=== PATIENT | female | born 1980 | race Caucasian/White ===

== ENCOUNTER 2022-01-18 11:02 | Outpatient (CLI) | payer OTHER, MEDICAID, SELFPAY ==
[2022-01-18 11:23] LABS: Ur HCG Qualitative* Negative (Negative)
== END 2022-01-18 11:03 | disposition home or self-care (01) ==
PROVIDERS: PCP Physician Assistant Medical; Visit Provider Obstetrics & Gynecology
DX: Z01.812 Encounter for preprocedural laboratory examination (principal)
CPT/HCPCS: 81025

== ENCOUNTER 2023-02-20 09:24 | Outpatient (CLI) | payer OTHER, MEDICAID, SELFPAY | END 2023-02-20 09:25 | disposition home or self-care (01) | LOC: NFLDREF 02-22 11:30 | PROVIDERS: PCP Physician Assistant Medical; Referring Provider Physician Assistant Medical; Visit Provider Physician Assistant Medical | DX: Z00.00 Encounter for general adult medical examination without abnormal findings (principal); E78.5 Hyperlipidemia, unspecified; Z13.1 Encounter for screening for diabetes mellitus; Z13.29 Encounter for screening for other suspected endocrine disorder | CPT/HCPCS: 80053; 80061; 84443 ==

== ENCOUNTER 2023-06-25 09:47 | Outpatient (CLI) | payer MEDICAID, SELFPAY | END 2023-06-25 09:48 | disposition home or self-care (01) | LOC: NFLDREF 09:48 | PROVIDERS: PCP Physician Assistant Medical; Visit Provider Obstetrics & Gynecology | DX: Z34.90 Encounter for supervision of normal pregnancy, unspecified, unspecified trimester (principal) | CPT/HCPCS: 84702 ==

== ENCOUNTER 2023-07-06 08:17 | Outpatient (CLI) | payer MEDICAID, SELFPAY ==
--- NOTE | 2023-07-06 08:15 | CRLHL7_ITS ---
For Patients: As a result of the Cures Act, medical imaging exams and procedure reports are released immediately into your electronic medical record. You may view this report before your referring provider. If you have questions, please contact your health care provider. INDICATION: First trimester scan, establish dates. COMPARISON: None. TECHNIQUE: Real-time vargas-scale imaging of the pelvis was performed. FINDINGS: Sonographic imaging demonstrates a single living intrauterine gestation. The embryo demonstrates a regular cardiac rate measuring 167 beats per minute. The embryo`s crown-rump length measurement of 3.6 cm corresponds to a gestational age of 10 weeks 3 days with a sonographic due date of 01/09/2024. There is a normal-appearing yolk sac. There are no gross abnormalities noted within the embryo at this early state of development. The gestational sac has a normal appearance. There is no evidence of a perigestational hemorrhage. The amount of fluid within the sac appears appropriate for gestational age. The cervix is closed. The myometrium appears normal. Corpus luteal cyst right ovary. Left ovary not visualized. There are no suspicious fluid collections noted in the cul-de-sac. IMPRESSION: Single living intrauterine with sonographic gestational age 10 weeks 3 days and sonographic due date 01/29/2024. Dictated by Chay Cox MD @ 07/06/2023 9:35:21 AM (Electronically Signed)
== END 2023-07-06 08:18 | disposition home or self-care (01) ==
LOC: US 08:19
PROVIDERS: PCP Physician Assistant Medical; Visit Provider Advanced Practice Midwife
DX: Z34.91 Encounter for supervision of normal pregnancy, unspecified, first trimester (principal); Z3A.10 10 weeks gestation of pregnancy
CPT/HCPCS: 76817; 86592; 86703; 86704; 86706; 86762; 86787; 86803; 86850; 86900; 86901; 87340

== ENCOUNTER 2023-07-30 12:03 | Outpatient (CLI) | payer MEDICAID, SELFPAY | END 2023-07-30 12:04 | disposition home or self-care (01) | LOC: NFLDREF 15:42 | PROVIDERS: PCP Physician Assistant Medical; Referring Provider Physician Assistant Medical; Visit Provider Obstetrics & Gynecology | DX: O09.521 Supervision of elderly multigravida, first trimester (principal); Z3A.13 13 weeks gestation of pregnancy | CPT/HCPCS: 87086 ==

== ENCOUNTER 2023-09-12 14:02 | Outpatient (CLI) | payer MEDICAID, SELFPAY | END 2023-09-12 14:03 | disposition home or self-care (01) | PROVIDERS: PCP Physician Assistant Medical; Visit Provider Obstetrics & Gynecology | DX: Z34.92 Encounter for supervision of normal pregnancy, unspecified, second trimester (principal); Z3A.20 20 weeks gestation of pregnancy | CPT/HCPCS: 85610; 85613; 85730; 86146; 86147 ==

== ENCOUNTER 2023-10-11 09:39 | Outpatient (CLI) | payer MEDICAID, SELFPAY ==
--- OUTSIDE RECORDS SUMMARY | 2023-10-15 07:15 | XMS_ITS | Clinical Summary ---
Author Name Unknown [facility] Address [address] [place] [address] Care Team Providers Care Six Sigma Black Belt Engineer Name Role Phone Mary Bergman PA-C Primary Care Provider Encounters Date Type Department Care Team Description 09/28/2023 10:00 AM CDT Office Visit [facility] [address] [place] [address] Tatum Leavitt MD Sabol, Bethany, MD AMA (advanced maternal age) multigravida 35+, second trimester (Primary Dx) 09/28/2023 9:26 AM CDT - 09/28/2023 11:59 PM CDT Hospital Encounter [facility] [address] [place] [address] Tatum Leavitt MD Sabol, Bethany, MD AMA (advanced maternal age) multigravida 35+, second trimester Discharge Disposition: Home or Self Care 09/28/2023 Travel 08/31/2023 9:15 AM TIE MILL OPERATOR Office Visit [facility] [address] [place] [phone] Maame Greenfield MD Yamamura, Yasuko, MD AMA (advanced maternal age) multigravida 35+, second trimester (Primary Dx) 08/31/2023 8:36 AM TIE MILL OPERATOR - 08/31/2023 11:59 PM TIE MILL OPERATOR Hospital Encounter [facility] [address] [place] [phone] Maame Greenfield MD Yamamura, Yasuko, MD related condition, antepartum Discharge Disposition: Home or Self Care 08/31/2023 Travel 08/30/2023 Travel 08/23/2023 PRE VISIT [facility] Maternal Medicine [facility] [address] [place] [phone] Megan Robertson RN Ultrasound (L2/TV- AMA>40, Hx of LEEP) 07/30/2023 Medical Correspondence [facility] [address] [place] [address] Scan, Non-Provider 07/30/2023 Transcribe Orders [facility] Maternal Medicine [place] [address] [place] [phone] Maame Greenfield MD related condition, antepartum (Primary Dx) from Last 3 Months Social History Tobacco Use Types Packs/Day Years Used Date Smoking Tobacco: Never Assessed Adolescent Education Answer Date Record ed Getting School Help Needed Not on file 07/31 Estimated Date of Delivery Comme nts Yes 01/29/2024 Based on Ultraso und Sex and Gender Information Value Date Recorded Sex Assigned at Not on file Gender Identity Not on file Sexual Orientation Not on file Plan of Treatment Health Maintenance Due Date Last Done Comments ADVANCE CARE PLANNING 1980 ANNUAL REVIEW OF HM ORDERS 1979 GLUCOSE 1979 MAMMO SCREENING 1979 YEARLY PREVENTIVE VISIT 1979 HIV SCREENING 1994 HEPATITIS C SCREENING 1997 HEPATITIS B IMMUNIZATION (1 of 3 - 19+ 3-dose series) 1998 LIPID 2019 COVID-19 Vaccine (1 - 2022-2 4 season) 2023 INFLUENZA VACCINE (#1) 2023 05/23/2019 MATERNAL SCREENING DISCUSSION 07/03/2023 PHQ-2 (once per calendar year) 2023 OBGCT (OB) 10/09/2023 DTAP/TDAP/TD IMMUNIZATION (2 - Td or Tdap) 11/15/2025 11/16/2015 PAP 04/23/2026 04/23/2023, 04/23/2023 HPV IMMUNIZATION Aged Out No longer e ligible based on patient's age to complete this topic IPV IMMUNIZATION Aged Out No longer e ligible based on patient's age to complete this topic MENINGITIS IMMUNIZATION Aged Out No l onger eligible based on patient's age to complete this topic Pneumococcal Vaccine: Pediatrics (0 to 5 Years) and At-Risk Patients (6 to 64 Years) Aged Out No longer eligible b ased on patient's age to complete this topic RSV MONOCLONAL ANTIBODY Aged Out No l onger eligible based on patient's age to complete this topic RSV VACCINE ( & 60+ ) (No Doses Required) Completed Procedures Procedure Name Priority Date/Time Associated Diagnosis Comments [facility] US COMPREHENSIVE SINGLE F/U Routine 09/28/2023 9:55 AM CDT AMA (advanced maternal age) multigravida 35+, second trimester [facility] US COMPREHENSIVE SINGLE Routine 08/31/2023 9:41 AM TIE MILL OPERATOR related condition, antepartum from Last 3 Months Results * [facility] Comprehensive Single F/U (09/28/2023 9:55 AM CDT) Anatomical Region Laterality Modality Ultrasound 09/28/2023 9:28 AM CDT Impressions 09/28/2023 10:09 AM CDT IMPRESSION ----- 1. Jones intrauterine at 22w 3d gestational age here for completion of anatomy. 2. The remaining anatomic survey was completed, no anomalies commonly detected by ultrasound were identified within the limits of ultrasound. 3. Growth parameters and estimated weight were consistent with established dates. 4. The amniotic fluid volume appeared normal. Narrative 09/28/2023 10:09 AM CDT ?Comp Follow Up ----- Pat. Name: GERA WELLS ? Study Date: ??09/28/2023 9:28am Pat. NO: ??[id number] ?Referring ??MD: MAAME VU Site: ??[facility] ? Field Service Manager: Genet Kline RDMS : ??1980 ?Age: ?? 43 ----- INDICATION ----- Reevaluate growth and suboptimal anatomy METHOD ----- Transabdominal ultrasound examination. View: Sufficient ----- Jones . Number of fetuses: 1 DATING ----- ? Date ?Details ?Gest. age ?PASTOR LMP ?03/28/2023 ? 26 w + 2 d ? 01/02/2024 Prior assessment ? 07/06/2023 ? GA: 10 w + 3 d ? 22 w + 3 d ? 01/29/2024 U/S ? 09/28/2023 ? based upon AC, BPD, Femur, HC ?22 w + 2 d ? 01/30/2024 Assigned dating ?Dating performed on 08/31/2023, based on the prior assessment (on 07/06/2023) ? 22 w + 3 d ? 01/29/2024 GENERAL EVALUATION ----- Cardiac activity present. FHR 153 bpm. movements present. Presentation breech. Placenta anterior, no previa > 2 cm from internal os. Umbilical cord 3 vessel cord. Amniotic fluid Amount of AF: normal. MVP 7.2 cm. BIOMETRY ----- Main Biometry: BPD ?53.4 ?mm ? 22w 2d ?Hadlock OFD ?72.1 ?mm ? 22w 2d ?Nicolaides HC ?200.5 ?mm ?22w 1d ?Hadlock Cerebellum tr ?24.9 ? mm ?22w 6d ?Nicolaides AC ?179.6 ?mm ?22w 6d ?55% ?Hadlock Femur ?36.9 ? mm ?21w 5d ?Hadlock Weight Calculation: EFW ? 495 ? g ? 37% ?Hadlock EFW (lb,oz) ? 1 lb 1 ?oz EFW by ?Hadlock ([id number]) Head / Face / Neck Biometry: Ordnance Technician ? 5.6 ? mm CM ?5.4 ? mm ANATOMY ----- The following structures appear normal: Head / Neck ? Cranium. Head size. Head shape. Lateral ventricles. Midline falx. Cavum septi pellucidi. Cerebellum. Cisterna magna. Thalami. Face ? Lips. Profile. Nose. Heart / Thorax ?4-chamber view. RVOT view. LVOT view. Situs. Aortic arch view. 9-ehgpsd-bmaptlp view. ? Diaphragm. Abdomen ? Stomach. Kidneys. Bladder. Spine ?Cervical spine. Thoracic spine. Lumbar spine. Sacral spine. Gender: female. MATERNAL STRUCTURES ----- Cervix ?Suboptimal Right Ovary ?Not examined Left Ovary ?Not examined RECOMMENDATION ----- Thank-you for referring your patient for ultrasound assessment. I discussed the findings on today's ultrasound with the patient. I reviewed the limitations of ultrasound. Follow-up assessment of growth is recommended at 32 weeks due to AMA > 40. Weekly testing is also recommended at 36 weeks with consideration for delivery at 39 weeks. I presume these follow-ups will be done in your office. Return to primary provider for continued care. If you have questions regarding today's evaluation or if we can be of further service, please contact the [facility]. anomalies may be present but not detected I spent a total of 10 minutes on the date of this encounter including preparing to see the patient (reviewing medical records/tests), counseling and discussing the plan of care, documenting the visit in the electronic medical record, and communicating with other health rn patient care and/or care coordination. Procedure Note Alyx Larkin MD - 09/28/2023 Comp Follow Up ----- Pat. Name: GERA WELLS Study Date: 09/28/2023 9:28am Pat. NO: [id number] Referring MD: MAAME GREENFIELD Site: [facility] Field Service Manager: Genet Kline RDMS : 1980 Age: 43 ----- INDICATION ----- Reevaluate growth and suboptimal anatomy METHOD ----- Transabdominal ultrasound examination. View: Sufficient ----- Jones . Number of fetuses: 1 DATING ----- DateDetailsGest. age PASTOR LMP w + 2 d 01/02/2024 Prior assessment 07/06/2023 GA: 10 w +3 d22 w + 3 d 01/29/2024 U/S 09/28/2023ased upon AC, BPD, Femur, HC22 w + 2 d 01/30/2024 Assigned dating Dating performed on 08/31/2023, based onthe prior assessment (on 07/06/2023) 22 w + 3 01/29/2024 GENERAL EVALUATION ----- Cardiac activity present. FHR 153 bpm. movements present. Presentation breech. Placenta anterior, no previa > 2 cm from internal os. Umbilical cord 3 vessel cord. Amniotic fluid Amount of AF: normal. MVP 7.2 cm. BIOMETRY ----- Main Biometry: BPD 53.4 mm22w 2d Hadlock OFD 72.1 mm22w 2d Nicolaides HC 200.5 mm22w 1d Hadlock Cerebellum tr 24.9 mm22w 6d Nicolaides AC 179.6 mm22w 6d 55% Hadlock Femur 36.9 mm21w 5d Hadlock Weight Calculation: EFW 495 g37% Hadlock EFW (lb,oz) 1 lb 1 oz EFW by Melecio ([id number]) Head / Face / Neck Biometry: Ordnance Technician 5.6 mm CM 5.4 mm ANATOMY ----- The following structures appear normal: Head / Neck Cranium. Head size. Head shape.Lateral ventricles. Midline falx. Cavum septi pellucidi. Cerebellum.Cisterna magna. Thalami. Face Lips. Profile. Nose. Heart / Thorax 4-chamber view. RVOT view. LVOT view.Situs. Aortic arch view. 1-dlklkk-hvafogj view. Diaphragm. Abdomen Stomach. Kidneys. Bladder. Spine Cervical spine. Thoracic spine.Lumbar spine. Sacral spine. Gender: female. MATERNAL STRUCTURES ----- Cervix Suboptimal Right Ovary Not examined Left Ovary Not examined RECOMMENDATION ----- Thank-you for referring your patient for ultrasound assessment. I discussed the findings on today's ultrasound with the patient. Ireviewed the limitations of ultrasound. Follow-up assessment of growth is recommended at 32 weeks due to AMA> 40. Weekly testing is also recommended at 36 weeks withconsideration for delivery at 39 weeks. I presume these follow-ups will be done in youroffice. Return to primary provider for continued care. If you have questions regarding today's evaluation or if we can be offurther service, please contact the [facility]. anomalies may be present but not detected I spent a total of 10 minutes on the date of this encounter includingpreparing to see the patient (reviewing medical records/tests), counselingand discussing the plan of care, documenting the visit in the electronic medical record, andcommunicating with other health rn patient care and/or carecoordination. IMPRESSION ----- 1. Jones intrauterine at 22w 3d gestational age here forcompletion of anatomy. 2. The remaining anatomic survey was completed, no anomaliescommonly detected by ultrasound were identified within the limits ofprenatal ultrasound. 3. Growth parameters and estimated weight were consistent withestablished dates. 4. The amniotic fluid volume appeared normal. Tatum Leavitt MD [facility] US ORDERABLE S * [facility] US Comprehensive Single (08/31/2023 9:41 AM TIE MILL OPERATOR) Anatomical Region Laterality Modality Ultrasound 08/31/2023 8:37 AM TIE MILL OPERATOR Impressions 08/31/2023 2:56 PM TIE MILL OPERATOR IMPRESSION ----- 1) Jones intrauterine at 18w 3d gestational age. 2) None of the anomalies commonly detected by ultrasound were evident in the detailed anatomic survey described above, although evaluation of anatomy was suboptimal as noted above. 3) Growth parameters and estimated weight were consistent with an appropriate for gestation age pattern of growth. 4) The amniotic fluid volume appeared normal. 5) Transvaginal ultrasound was performed in conjunction with a transabdominal ultrasound to better visualize the cervix. Cervical length appears to be within normal limits for gestational age. Narrative 08/31/2023 2:56 PM TIE MILL OPERATOR ?Comprehensive ----- Pat. Name: GERA WELLS ? Study Date: ??08/31/2023 8:37am Pat. NO: ??[id number] ?Referring ??MD: MAAME VU Site: ??[facility] ? Field Service Manager: Grisel Monroe RDMS : ??1980 ?Age: ?? 43 ----- INDICATION ----- Advanced maternal age. History of LEEP x3. Low risk NIPT. METHOD ----- Transabdominal and transvaginal ultrasound approaches were used. (Transvaginal ultrasound examination was required to adequately complete the exam.). View: Suboptimal view: limited by activity. Suboptimal view: limited by position. ----- Jones . Number of fetuses: 1 DATING ----- ? Date ?Details ?Gest. age ?PASTOR LMP ?03/28/2023 ? 22 w + 2 d ? 01/02/2024 Prior assessment ? 07/06/2023 ? GA: 10 w + 3 d ? 18 w + 3 d ? 01/29/2024 U/S ? 08/31/2023 ? based upon AC, BPD, Femur, HC ?18 w + 4 d ? 01/28/2024 Assigned dating ?Dating performed on 08/31/2023, based on the prior assessment (on 07/06/2023) ? 18 w + 3 d ? 01/29/2024 GENERAL EVALUATION ----- Cardiac activity present. FHR 146 bpm. movements present. Presentation Variable. Placenta Anterior, No Previa, > 2 cm from internal os. Umbilical cord 3 vessel cord. Amniotic fluid Amount of AF: normal. MVP 5.1 cm. BIOMETRY ----- Main Biometry: BPD ?42.6 ?mm ? 18w 6d ?Hadlock OFD ?55.1 ?mm ? 18w 2d ?Nicolaides HC ?155.6 ?mm ?18w 3d ?Hadlock Cerebellum tr ?18.9 ? mm ?18w 3d ?Nicolaides AC ?137.1 ?mm ?19w 1d ?71% ?Hadlock Femur ?25.8 ? mm ?17w 6d ?Hadlock Humerus ?25.9 ?mm ? 18w 1d ?Joyce Weight Calculation: EFW ? 245 ? g ? 50% ?Hadlock EFW (lb,oz) ? 0 lb 9 ?oz EFW by ?Hadlock ([id number]) Head / Face / Neck Biometry: Ordnance Technician ? 7.0 ? mm CM ?4.7 ? mm Nasal bone ? 6.0 ? mm Nuchal fold ? 3.7 ? mm ANATOMY ----- The following structures appear normal: Head / Neck ? Cranium. Head size. Head shape. Lateral ventricles. Choroid plexus. Midline falx. Cerebellum. Cisterna magna. Parenchyma. Thalami. ? Vermis. ? Neck. Nuchal fold. Face ? Lips. Profile. Nose. Maxilla. Mandible. Orbits. Lens. Heart / Thorax ?RVOT view. LVOT view. Situs. Bicaval view. Ductal arch view. Superior vena cava. Inferior vena cava. 3-vessel view. 5-ipylfs-qufsqnt view. ? Cardiac position. Cardiac size. Cardiac rhythm. ? Right lung. Left lung. Abdomen ? Abdominal wall. Cord insertion. Stomach. Bladder. Liver. Bowel. Genitals. Spine ?Cervical spine. Thoracic spine. Lumbar spine. Sacral spine. Extremities / Skeleton ?Right arm. Right hand. Left arm. Left hand. Right leg. Right foot. Left leg. Left foot. The following structures could not be adequately visualized: Head / Neck ? Cavum septi pellucidi. Heart / Thorax ?4-chamber view: Suboptimal subcostal view.. Aortic arch view. ? Diaphragm. Abdomen ? Kidneys. Gender: female. MATERNAL STRUCTURES ----- Cervix ?Visualized ? Appearance: Appears Closed ? Approach - Transvaginal: Cervical length 33.7 mm Right Ovary ?Visualized Left Ovary ?Visualized RECOMMENDATION ----- We discussed the findings on today's ultrasound with the patient. The patient had low risk cell free DNA screening. We discussed the availability of amniocentesis for the precise diagnosis of chromosomal abnormalities, which Gera has declined. A repeat US has been scheduled here in 3 weeks to re-evaluate growth and anatomy that were suboptimally seen today. Given AMA > 40, recommend repeat assessment of growth and anatomy at 32 weeks and weekly BPP 36 weeks, which I anticipate will be scheduled at [facility]. Return to primary provider for continued care. Thank you for the opportunity to participate in the care of this patient. If you have questions regarding today's evaluation or if we can be of further service, please contact the [facility]. anomalies may be present but not detected I spent a total of 15 minutes on the date of this encounter including preparing to see the patient (reviewing medical records/tests), in direct yfij-mu-fjcm contact with the patient during her visit with the majority spent counseling and discussing the plan of care and documenting the visit in the electronic medical record. Please see note for details. Procedure Note Tatum Leavitt MD - 08/31/2023 Comprehensive ----- Pat. Name: GERA WELLS Study Date: 08/31/2023 8:37am Pat. NO: [id number] Referring MD: MAAME GREENFIELD Site: [facility] Field Service Manager: Grisel Monroe RDMS : 1980 Age: 43 ----- INDICATION ----- Advanced maternal age. History of LEEP x3. Low risk NIPT. METHOD ----- Transabdominal and transvaginal ultrasound approaches were used.(Transvaginal ultrasound examination was required to adequately completethe exam.). View: Suboptimal view: limited by activity. Suboptimal view: limited byfetal position. ----- Jones . Number of fetuses: 1 DATING ----- DateDetailsGest. age PASTOR LMP w + 2 d 01/02/2024 Prior assessment 07/06/2023 GA: 10 w +3 d18 w + 3 d 01/29/2024 U/S 08/31/2023ased upon AC, BPD, Femur, HC18 w + 4 d 01/28/2024 Assigned dating Dating performed on 08/31/2023, based onthe prior assessment (on 07/06/2023) 18 w + 3 01/29/2024 GENERAL EVALUATION ----- Cardiac activity present. FHR 146 bpm. movements present. Presentation Variable. Placenta Anterior, No Previa, > 2 cm from internal os. Umbilical cord 3 vessel cord. Amniotic fluid Amount of AF: normal. MVP 5.1 cm. BIOMETRY ----- Main Biometry: BPD 42.6 mm18w 6d Hadlock OFD 55.1 mm18w 2d Nicolaides HC 155.6 mm18w 3d Hadlock Cerebellum tr 18.9 mm18w 3d Nicolaides AC 137.1 mm19w 1d 71% Hadlock Femur 25.8 mm17w 6d Hadlock Humerus 25.9 mm18w 1d Joyce Weight Calculation: EFW 245 g50% Hadlock EFW (lb,oz) 0 lb 9 oz EFW by Hadlock ([id number]) Head / Face / Neck Biometry: Ordnance Technician 7.0 mm CM 4.7 mm Nasal bone 6.0 mm Nuchal fold 3.7 mm ANATOMY ----- The following structures appear normal: Head / Neck Cranium. Head size. Head shape.Lateral ventricles. Choroid plexus. Midline falx. Cerebellum. Cisternamagna. Parenchyma. Thalami. Vermis. Neck. Nuchal fold. Face Lips. Profile. Nose. Maxilla.Mandible. Orbits. Lens. Heart / Thorax RVOT view. LVOT view. Situs. Bicavalview. Ductal arch view. Superior vena cava. Inferior vena cava. 3-vesselview. 6-ndnmtd-ptndayq view. Cardiac position. Cardiac size.Cardiac rhythm. Right lung. Left lung. Abdomen Abdominal wall. Cord insertion.Stomach. Bladder. Liver. Bowel. Genitals. Spine Cervical spine. Thoracic spine.Lumbar spine. Sacral spine. Extremities / Skeleton Right arm. Right hand. Left arm. [place]. Right leg. Right foot. Left leg. Left foot. The following structures could not be adequately visualized: Head / Neck Cavum septi pellucidi. Heart / Thorax 4-chamber view: Suboptimal subcostalview.. Aortic arch view. Diaphragm. Abdomen Kidneys. Gender: female. MATERNAL STRUCTURES ----- Cervix Visualized Appearance: Appears Closed Approach - Transvaginal:Cervical length 33.7 mm Right Ovary Visualized Left Ovary Visualized RECOMMENDATION ----- We discussed the findings on today's ultrasound with the patient. The patient had low risk cell free DNA screening. We discussed theavailability of amniocentesis for the precise diagnosis of chromosomalabnormalities, which Gera has declined. A repeat US has been scheduled here in 3 weeks tore-evaluate growth and anatomy that were suboptimally seen today.Given AMA > 40, recommend repeat assessment of growth and anatomy at 32 weeks and weekly BPP36 weeks, which I anticipate will be scheduled at [facility]. Return to primary provider for continued care. Thank you for the opportunity to participate in the care of this patient.If you have questions regarding today's evaluation or if we can be offurther service, please contact the [facility]. anomalies may be present but not detected I spent a total of 15 minutes on the date of this encounter includingpreparing to see the patient (reviewing medical records/tests), in cretktwtgn-pb-refr contact with the patient during her visit with the majority spent counseling and discussingthe plan of care and documenting the visit in the electronic medicalrecord. Please see note for details. IMPRESSION ----- 1) Jones intrauterine at 18w 3d gestational age. 2) None of the anomalies commonly detected by ultrasound were evident inthe detailed anatomic survey described above, although evaluation offetal anatomy was suboptimal as noted above. 3) Growth parameters and estimated weight were consistent with anappropriate for gestation age pattern of growth. 4) The amniotic fluid volume appeared normal. 5) Transvaginal ultrasound was performed in conjunction with atransabdominal ultrasound to better visualize the cervix. Cervical lengthappears to be within normal limits for gestational age. Maame Regis [facility] US ORDERABLE S from Last 3 Months Care Teams Six Sigma Black Belt Engineer Relationship Specialty Start Date End Date Mary Bergman PA-C [facility] [address] [place] [address] PCP - General Physician Carrier Operator 07/30/23
--- OUTSIDE RECORDS SUMMARY | 2023-10-15 07:15 | XMS_ITS | Encounter Summary ---
Author Name Unknown Organization [place] Address [address] [facility] [place] [address] Care Team Providers Care Land Manager Name Role Phone Mary Bergman PA-C Primary Care Provider Reason for Visit * Reason Comments Ultrasound [id number] Encounter Details Date Type Department Care Team (Late st Contact Info) Description 09/28/2023 10:00 AM CDT Office Visit [facility] [place] [address] [place] [address] Tatum Leavitt MD [address] [place] [address] Alyx Larkin MD [address] [place] [address] AMA (advanced maternal age) multigravida 35+, second trimester (Primary Dx) Social History Tobacco Use Types Packs/Day Years Used Date Smoking Tobacco: Never Assessed Adolescent Education Answer Date Record ed Getting School Help Needed Not on file 07/31 Estimated Date of Delivery Comme nts Yes 01/29/2024 Based on Ultraso und Sex and Gender Information Value Date Recorded Sex Assigned at Not on file Gender Identity Not on file Sexual Orientation Not on file documented as of this encounter Progress Notes * Alyx Larkin MD - 09/28/2023 10:00 AM CDT The patient was seen for an ultrasound in the Maternal- Medicine Center at the [facility] today. For a detailed report of the ultrasound examination, please see the ultrasound report which can be found under the imaging tab. If you have questions regarding today's evaluation or if we can be of further service, please contact the Maternal- Medicine Center. Alyx Larkin MD Dry Cleaning Manager, PAYROLL PROFESSIONAL Maternal- Medicine [phone] (Pager) documented in this encounter Plan of Treatment Not on file documented as of this encounter Visit Diagnoses Diagnosis AMA (advanced maternal age) multigravida 35+, second trimester- Primary documented in this encounter Care Teams Land Manager Relationship Specialty Start Date End Date Mary Bergman PA-C [facility] [address] [place] [address] PCP - General Physician Print Manager 07/30/23 documented as of this encounter
--- OUTSIDE RECORDS SUMMARY | 2023-10-15 07:15 | XMS_ITS | Encounter Summary ---
Author Name Unknown Organization [place] Address [facility] [place] [address] Care Team Providers Care Commercial Credit Officer Name Role Phone Mary Bergman PA-C Primary Care Provider Encounter Details Date Type Department Care Team (Latest Contact Info) Description 09/28/2023 Travel Social History Tobacco Use Types Packs/Day Years [...] on file documented as of this encounter Plan of Treatment Not on file documented as of this encounter Visit Diagnoses Not on filedocumented in this encounter Care Teams Commercial Credit Officer Relationship Specialty Start Date End Date Mary Bergman PA-C [facility] [address] [place] [address] PCP - General Physician Exhibition Designer 07/30/23 documented as of this encounter
--- OUTSIDE RECORDS SUMMARY | 2023-10-15 07:15 | XMS_ITS | Referral Summary ---
Author Name Unknown Organization [place] Address [address] [place] [address] Care Team Providers Care Commander Police Reserves Name Role Phone Mary Bergman PA-C Primary Care Provider Encounters Date Type Department Care Team Description 09/28/2023 Travel 09/28/2023 10:00 AM CDT Office Visit [facility] Maternal Medicine [facility] [address] [place] [address] Tatum Leavitt MD Sabol, Bethany, MD AMA (advanced maternal age) multigravida 35+, second trimester (Primary Dx) 09/28/2023 9:26 AM CDT - 09/28/2023 11:59 PM CDT Hospital Encounter [facility] Maternal Medicine [facility] [address] [place] [address] Tatum Leavitt MD Sabol, Bethany, MD AMA (advanced maternal age) multigravida 35+, second trimester Discharge Disposition: Home or Self Care 08/31/2023 Travel 08/31/2023 9:15 AM TOOL TECHNICIAN Office Visit [facility] Medicine [facility] [address] [place] [address] Maame Greenfield MD Yamamura, Yasuko, MD AMA (advanced maternal age) multigravida 35+, second trimester (Primary Dx) 08/31/2023 8:36 AM TOOL TECHNICIAN - 08/31/2023 11:59 PM TOOL TECHNICIAN Hospital Encounter [facility] Medicine [facility] [address] [place] [phone] Maame Greenfield MD Yamamura, Yasuko, MD related condition, antepartum Discharge Disposition: Home or Self Care 08/30/2023 Travel 08/23/2023 PRE VISIT [facility] Maternal Medicine [facility] [address] [place] [phone] Megan Robertson RN Ultrasound (L2/TV- AMA>40, Hx of LEEP) 07/30/2023 Medical Correspondence [facility] Info Mgmt [facility] [address] [facility] [place] [address] Scan, Non-Provider 07/30/2023 Transcribe Orders [facility] Medicine [place] [address] [place] [phone] Maame Greenfield MD related condition, antepartum (Primary [...] Orientation Not on file Plan of Treatment Not on file Procedures Procedure Name Priority Date/Time Associated Diagnosis Comments [facility] US COMPREHENSIVE SINGLE F/U Routine 09/28/2023 9:55 AM CDT AMA (advanced maternal age) multigravida 35+, second trimester [facility] US COMPREHENSIVE SINGLE Routine 08/31/2023 9:41 AM TOOL TECHNICIAN related condition, antepartum from Last 3 Months Results * [facility] US Comprehensive Single F/U (09/28/2023 9:55 AM CDT) [...] ? Study Date: ??09/28/2023 9:28am Pat. NO: ??[id number] ?Referring ??MD: MAAME VU Site: ??[facility] ? Caustic Room Operator: Genet Kline RDMS : ??1980 ?Age: ?? [...] 1 lb 1 ?oz EFW by ?Hadlock ([id number]) Head / Face / Neck Biometry: Oceanologist ? 5.6 ? mm CM ?5.4 ? mm ANATOMY ----- The following structures appear normal: Head / Neck ? Cranium. Head size. Head shape. Lateral ventricles. Midline falx. Cavum septi pellucidi. Cerebellum. Cisterna magna. Thalami. Face ? Lips. Profile. Nose. Heart / Thorax ?4-chamber view. RVOT view. LVOT view. Situs. Aortic arch view. 1-jvwqcw-lfgrucb view. ? Diaphragm. Abdomen ? Stomach. Kidneys. [...] medical record, and communicating with other health pediatric care coordinator and/or care coordination. Procedure Note Alyx Larkin MD - 09/28/2023 Comp Follow Up ----- Pat. Name: GERA WELLS Study Date: 09/28/2023 9:28am Pat. NO: [id number] Referring MD: MAAME GREENFIELD Site: [facility] Caustic Room Operator: Genet Kline RDMS : 1980 Age: 43 [...] (lb,oz) 1 lb 1 oz EFW by Hadlock ([id number]) Head / Face / Neck Biometry: Oceanologist 5.6 mm CM 5.4 mm ANATOMY ----- The following structures appear normal: Head / Neck Cranium. Head size. Head shape.Lateral ventricles. Midline falx. Cavum septi pellucidi. Cerebellum.Cisterna magna. Thalami. Face Lips. Profile. Nose. Heart / Thorax 4-chamber view. RVOT view. LVOT view.Situs. Aortic arch view. 1-gwjizi-bqvwxwv view. Diaphragm. Abdomen Stomach. Kidneys. Bladder. Spine [...] electronic medical record, andcommunicating with other health pediatric care coordinator and/or carecoordination. IMPRESSION ----- 1. Jones intrauterine at 22w 3d gestational age here forcompletion of anatomy. 2. The remaining anatomic survey was completed, no anomaliescommonly detected by ultrasound were identified within the limits ofprenatal ultrasound. 3. Growth parameters and estimated weight were consistent withestablished dates. 4. The amniotic fluid volume appeared normal. Tatum Leavitt MD [facility] ORDERABLE [facility] Comprehensive Single (08/31/2023 9:41 AM TOOL TECHNICIAN) Anatomical Region Laterality Modality Ultrasound 08/31/2023 8:37 AM TOOL TECHNICIAN Impressions 08/31/2023 2:56 PM TOOL TECHNICIAN IMPRESSION ----- 1) Jones intrauterine at 18w [...] for gestational age. Narrative 08/31/2023 2:56 PM TOOL TECHNICIAN ?Comprehensive ----- Pat. Name: GERA WELLS ? Study Date: ??08/31/2023 8:37am Pat. NO: ??[id number] ?Referring ??: MAAME GREENFIELD Site: ??[facility] ? Caustic Room Operator: Grisel Monroe RDMS : ??1980 ?Age: ?? [...] Biometry: BPD ?42.6 ?mm ? 18w 6d ?Melecio LEON ?55.1 ?mm ? 18w 2d ?Nicolaides HC ?155.6 ?mm ?18w 3d ?Hadlock Cerebellum tr ?18.9 ? mm ?18w 3d ?Nicolaides AC ?137.1 ?mm ?19w 1d ?71% ?Hadlock Femur ?25.8 ? mm ?17w 6d ?Hadlock Humerus ?25.9 ?mm ? 18w 1d ?Joyce Weight Calculation: EFW ? 245 ? g ? 50% ?Hadlock EFW (lb,oz) ? 0 lb 9 ?oz EFW by ?Hadlock ([id number]) Head / Face / Neck Biometry: Oceanologist ? 7.0 ? mm CM ?4.7 ? [...] vena cava. Inferior vena cava. 3-vessel view. 1-hogelr-keeaflv view. ? Cardiac position. Cardiac size. Cardiac [...] which I anticipate will be scheduled at [place]. Return to primary provider for continued care. [...] the patient (reviewing medical records/tests), in direct zaze-aw-knvb contact with the patient during her visit with the majority spent counseling and discussing the plan of care and documenting the visit in the electronic medical record. Please see note for details. Procedure Note Tatum Leavitt MD - 08/31/2023 Comprehensive ----- Pat. Name: GERA WELLS Study Date: 08/31/2023 8:37am Pat. NO: [id number] Referring MD: MAAME GREENFIELD Site: [facility] Caustic Room Operator: Grisel Monroe RDMS : 1980 Age: 43 [...] 0 lb 9 oz EFW by Hadlock ([id number]-[id number]-FL) Head / Face / Neck Biometry: Oceanologist 7.0 mm CM 4.7 mm Nasal bone [...] Superior vena cava. Inferior vena cava. 3-vesselview. 3-ooloyu-kjxyxur view. Cardiac position. Cardiac size.Cardiac rhythm. Right [...] which I anticipate will be scheduled at [place]. Return to primary provider for continued care. [...] see the patient (reviewing medical records/tests), in ikbcuuwujz-kj-vweb contact with the patient during her visit [...] limits for gestational age. Maame Regis [facility] US ORDERABLE S from Last 3 Months Care Teams Commander Police Reserves Relationship Specialty Start Date End Date Mary Bergman PA-C [facility] [address] [place] [address] PCP - General Physician Sanding Machine Tender 07/30/23
--- OUTSIDE RECORDS SUMMARY | 2023-10-15 07:16 | XMS_ITS | Encounter Summary ---
Author Name Unknown Organization [place] Address [address] [place] [address] Care Team Providers Care Orthotist Name Role Phone Mary Bergman PA-C Primary Care Provider Reason for Referral * Diagnostic Imaging Ultrasound (Routine) - Pending Review Specialty Diagnoses / Procedures Referred By Contac t Referred To Contact Radiology. Diagnoses related condition, antepartum Procedures [facility] US Comprehensive Single Maame Greenfield MD [facility] [address] [place] [address] Referral ID Status Reason Start Date Expiration Date V isits Requested Visits Authorized [id number] Pending Review 07/30/2023 07/29/2024 1 1 DOGGER * Consultation (Routine: Next available opening) - Pending Review Specialty Diagnoses / Procedures Referred By Contac t Referred To Contact Diagnoses related condition, antepartum Maame Greenfield MD [facility] [address] [place] [address] [facility] Maternal Med [address] [place] [address] Referral ID Status Reason Start Date Expiration Date V isits Requested Visits Authorized [id number] Pending Review 07/30/2023 07/29/2024 1 1 Question Answer Preferred Location: [facility] PASTOR 01/29/2024 Ultrasound Comprehensive US (>than 18 weeks GA) US PROC NONE MFM Issue Advanced Maternal Age *MUST request Genetic Counseling JAYCEEM Consultation (unrelated to Ultrasound findings): No Inflammatory Bowel Disease Clinic: Joint MFM and GI Consultation: No Chronic Kidney Disease: Joint MFM and Nephrology Consultation No Genetic Counseling Consultation: Yes fax Maame Antoinette Greenfield, Comments There is no height or weight on file to calculate BMI. >> Patient may proceed with recommendations for further testing as directed by the Maternal Medicine Specialist >> >> If requesting Echo: MFM will determine appropriate location for exam due to indication. Please be aware that coverage of these services is subject to the terms and limitations of your health insurance plan. Call member services at your health plan with any benefit or coverage questions. DOGGER Encounter Details Date Type Department Care Team (Latest Contact Info) Description 07/30/2023 Transcribe Orders [facility] Maternal Medicine Center [place] [address] [place] [address] Maame Greenfield MD [facility] [address] [place] [id number] related condition, antepartum (Primary Dx) Social History Tobacco Use Types Packs/Day Years Used Date Smoking Tobacco: Never Assessed Adolescent Education Answer Date Record ed Getting School Help Needed Not on file 07/31 Sex and Gender Information Value Date Recorded Sex Assigned at Not on file Gender Identity Not on file Sexual Orientation Not on file documented as of this encounter Plan of Treatment Scheduled Referrals Name Type Priority Associated Diagnoses Orde r Schedule Mat Med Ctr Referral - Referral Routine: Next available opening related condition, antepartum Expected: 07/30/2023 (Approximate), Expires: 07/30/2024 documented as of this encounter Results * [facility] US Comprehensive Single (08/31/2023 9:41 AM TAIL DOGGER) Anatomical Region Laterality Modality Ultrasound 08/31/2023 8:37 AM TAIL DOGGER Impressions 08/31/2023 2:56 PM TAIL DOGGER IMPRESSION ----- 1) Jones intrauterine at 18w [...] for gestational age. Narrative 08/31/2023 2:56 PM TAIL DOGGER ?Comprehensive ----- Pat. Name: GERA CONNER ? Study Date: ??08/31/2023 8:37am Pat. NO: ??[id number] ?Referring ??MD: MAAME GREENFIELD Site: ??[facility] ? Surveillance Systems Engineer: Grisel Monroe RDMS : ??1980 ?Age: ?? [...] ? 0 lb 9 ?oz EFW by ?Claudialock ([id number]-FL) Head / Face / Neck Biometry: Conveyor Feeder Offbearer ? 7.0 ? mm CM ?4.7 ? [...] vena cava. Inferior vena cava. 3-vessel view. 3-txfvtd-mxmvtsh view. ? Cardiac position. Cardiac size. Cardiac [...] which I anticipate will be scheduled at [place]. Return to primary provider for continued care. [...] the patient (reviewing medical records/tests), in direct kwvz-oz-zpum contact with the patient during her visit with the majority spent counseling and discussing the plan of care and documenting the visit in the electronic medical record. Please see note for details. Procedure Note Tatum Leavitt MD - 08/31/2023 Comprehensive ----- Pat. Name: GERA CONNER Study Date: 08/31/2023 8:37am Pat. NO: [id number] Referring MD: MAAME GREENFIELD Site: [facility] Surveillance Systems Engineer: Grisel Monroe RDMS : 1980 Age: 43 [...] 0 lb 9 oz EFW by Hadlock ([id number]) Head / Face / Neck Biometry: Conveyor Feeder Offbearer 7.0 mm CM 4.7 mm Nasal bone [...] Superior vena cava. Inferior vena cava. 3-vesselview. 1-enqxvz-ygmhgop view. Cardiac position. Cardiac size.Cardiac rhythm. Right [...] which I anticipate will be scheduled at [place]. Return to primary provider for continued care. [...] see the patient (reviewing medical records/tests), in qwlibaglbx-sp-krsz contact with the patient during her visit [...] normal limits for gestational age. Maame Regis [facility] US ORDERABLE S documented in this encounter Visit Diagnoses Diagnosis related condition, antepartum- Primary related condition, antepartum documented in this encounter Care Teams Orthotist Relationship Specialty Start Date End Date Mary Bergman PA-C [facility] [address] [place] [address] PCP - General Physician Pick Up Truck Driver 07/30/23 documented as of this encounter
--- OUTSIDE RECORDS SUMMARY | 2023-10-15 07:16 | XMS_ITS | Encounter Summary ---
Author Name Unknown Organization [place] Address [facility] [address] Care Team Providers Care Line Supply Name Role Phone Mary Bergman PA-C Primary Care Provider Reason for Referral * Diagnostic Imaging Ultrasound (Routine) - Pending Review Specialty Diagnoses / Procedures Referred By Onofre jimenez Referred To Contact Radiology. Diagnoses Encounter for follow-up ultrasound of anatomy Procedures [facility] US Comprehensive Single F/U Tatum Leavitt MD [address] [place] [id number] Referral ID Status Reason Start Date Expiration Date V isits Requested Visits Authorized [id number] Pending Review 08/31/2023 08/30/2024 1 1 Reason for Visit * Diagnostic Imaging Ultrasound (Routine) - Pending Review Specialty Diagnoses / Procedures Referred By Onofre jimenez Referred To Contact Radiology. Diagnoses Encounter for follow-up ultrasound of anatomy Procedures [facility] US Comprehensive Single F/U Tatum Leavitt MD [address] [place] [address] Referral ID Status Reason Start Date Expiration Date V isits Requested Visits Authorized [id number] Pending Review 08/31/2023 08/30/2024 1 1 Encounter Details Date Type Department Care Team (Latest Contact Info) Description 09/28/2023 9:26 AM CDT - 09/28/2023 11:59 PM CDT Hospital Encounter [facility] Maternal Medicine Center [place] [address] [place] [address] Tatum Leavitt MD [address] [place] [address] Alyx Larkin MD [address] [place] [address] AMA (advanced maternal age) multigravida 35+, second trimester Discharge Disposition: Home or Self Care Social History Tobacco Use Types Packs/Day Years [...] on file documented as of this encounter Procedures Procedure Name Priority Date/Time Associated Diagnosis Comments [facility] COMPREHENSIVE SINGLE F/U Routine 09/28/2023 9:55 AM CDT AMA (advanced maternal age) multigravida 35+, second trimester documented in this encounter Results * [facility] Comprehensive Single F/U (09/28/2023 9:55 AM CDT) [...] ?Comp Follow Up ----- Pat. Name: GERA CONNER ? Study Date: ??09/28/2023 9:28am Pat. NO: ??[id number] ?Referring ??MD: ERIKA VU Site: ??[facility] ? Outdoor Fitness Trainer: Genet Kline RDMS : ??1980 ?Age: ?? [...] 1 lb 1 ?oz EFW by ?Hadlock ([id number]) Head / Face / Neck Biometry: Pocket And Pulley Machine Operator ? 5.6 ? mm CM ?5.4 ? mm ANATOMY ----- The following structures appear normal: Head / Neck ? Cranium. Head size. Head shape. Lateral ventricles. Midline falx. Cavum septi pellucidi. Cerebellum. Cisterna magna. Thalami. Face ? Lips. Profile. Nose. Heart / Thorax ?4-chamber view. RVOT view. LVOT view. Situs. Aortic arch view. 6-pbyagp-dhexggu view. ? Diaphragm. Abdomen ? Stomach. Kidneys. [...] medical record, and communicating with other health healthcare analyst and/or care coordination. Procedure Note Alyx Larkin MD - 09/28/2023 Comp Follow Up ----- Pat. Name: GERA CONNER Study Date: 09/28/2023 9:28am Pat. NO: [id number] Referring MD: ERIKA GREENFIELD Site: [facility] Outdoor Fitness Trainer: Genet Kline RDMS : 1980 Age: 43 [...] 1 lb 1 oz EFW by Melecio ([id number]) Head / Face / Neck Biometry: Pocket And Pulley Machine Operator 5.6 mm CM 5.4 mm ANATOMY ----- The following structures appear normal: Head / Neck Cranium. Head size. Head shape.Lateral ventricles. Midline falx. Cavum septi pellucidi. Cerebellum.Cisterna magna. Thalami. Face Lips. Profile. Nose. Heart / Thorax 4-chamber view. RVOT view. LVOT view.Situs. Aortic arch view. 8-afjaue-erciuil view. Diaphragm. Abdomen Stomach. Kidneys. Bladder. Spine [...] electronic medical record, andcommunicating with other health healthcare analyst and/or carecoordination. IMPRESSION ----- 1. Jones intrauterine at 22w 3d gestational age here forcompletion of anatomy. 2. The remaining anatomic survey was completed, no anomaliescommonly detected by ultrasound were identified within the limits ofprenatal ultrasound. 3. Growth parameters and estimated weight were consistent withestablished dates. 4. The amniotic fluid volume appeared normal. Tatum Leavitt MD [facility] US ORDERABLE S documented in this encounter Visit Diagnoses Diagnosis AMA (advanced maternal age) multigravida 35+, second trimester documented in this encounter Care Teams Line Supply Relationship Specialty Start Date End Date Mary Bergman PA-C [facility] [address] [place] [address] PCP - General Physician Coal Trammer 07/30/23 documented as of this encounter
--- OUTSIDE RECORDS SUMMARY | 2023-10-15 07:16 | XMS_ITS | Encounter Summary ---
Author Name Unknown Organization [place] Address [facility] [place] [address] Care Team Providers Care Insulation Professional Name Role Phone Mary Bergman PA-C Primary Care Provider Encounter Details Date Type Department Care Team (Latest Contact Info) Description 08/30/2023 Travel Social History Tobacco Use Types Packs/Day [...] on filedocumented in this encounter Care Teams Insulation Professional Relationship Specialty Start Date End Date Mary Bergman PA-C [facility] [address] [place] [address] PCP - General Physician Blanchard Grinder Operator 07/30/23 documented as of this encounter
--- OUTSIDE RECORDS SUMMARY | 2023-10-15 07:16 | XMS_ITS | Encounter Summary ---
Author Name Unknown Organization [place] Address [address] [place] [address]. [place] [address] Care Team Providers Care Carbon Furnace Operator Helper Name Role Phone Mary Bergman PA-C Primary Care Provider Encounter Details Date Type Department Care Team (Late st Contact Info) Description 07/30/2023 Medical Correspondence [facility] [address] [place] [address] Scan, Non-Provider Social History Tobacco Use Types Packs/Day Years [...] on filedocumented in this encounter Care Teams Carbon Furnace Operator Helper Relationship Specialty Start Date End Date Mary Bergman PA-C [facility] [address] [place] [address] PCP - General Physician Quality Assurance Intern 07/30/23 documented as of this encounter
--- OUTSIDE RECORDS SUMMARY | 2023-10-15 07:16 | XMS_ITS | Encounter Summary ---
Author Name Unknown Organization [place] Address [facility] [place] [address] Care Team Providers Care Radio Mechanic Helper Name Role Phone Mary Bergman PA-C Primary Care Provider Reason for Referral * Diagnostic Imaging Ultrasound (Routine) - Pending Review Specialty Diagnoses / Procedures Referred By Contac t Referred To Contact Radiology. Diagnoses related condition, antepartum Procedures [facility] US Comprehensive Single Maame Greenfield MD [facility] [address] [place] [address] Referral ID Status Reason Start Date Expiration Date V isits Requested Visits Authorized [id number] Pending Review 07/30/2023 07/29/2024 1 1 EWATER ANALYST Reason for Visit * Diagnostic Imaging Ultrasound (Routine) - Pending Review Specialty Diagnoses / Procedures Referred By Contac t Referred To Contact Radiology. Diagnoses related condition, antepartum Procedures [facility] US Comprehensive Single Maame Greenfield MD [facility] [address] [place] [address] Referral ID Status Reason Start Date Expiration Date V isits Requested Visits Authorized [id number] Pending Review 07/30/2023 07/29/2024 1 1 Encounter Details Date Type Department Care Team (Latest Contact Info) Description 08/31/2023 8:36 AM WASTEWATER ANALYST - 08/31/2023 11:59 PM WASTEWATER ANALYST Hospital Encounter [facility] [place] [address] [place] [address] Maame Greenfield MD [facility] [address] [place] [address] Tatum Leavitt MD [address] [place], [place] [id number] related condition, antepartum Discharge Disposition: Home or Self Care Social [...] Procedure Name Priority Date/Time Associated Diagnosis Comments [facility] US COMPREHENSIVE SINGLE Routine 08/31/2023 9:41 AM WASTEWATER ANALYST related condition, antepartum documented in this encounter Results * [facility] US Comprehensive Single (08/31/2023 9:41 AM WASTEWATER ANALYST) Anatomical Region Laterality Modality Ultrasound 08/31/2023 8:37 AM WASTEWATER ANALYST Impressions 08/31/2023 2:56 PM WASTEWATER ANALYST IMPRESSION ----- 1) Jones intrauterine at 18w [...] for gestational age. Narrative 08/31/2023 2:56 PM WASTEWATER ANALYST ?Comprehensive ----- Pat. Name: GERA CONNER ? Study Date: ??08/31/2023 8:37am Pat. NO: ??[id number] ?Referring ??MD: MAAME VU Site: ??[facility] ? Filter Helper: Grisel Monroe RDMS : ??1980 ?Age: ?? [...] 0 lb 9 ?oz EFW by ?Hadlock ([id number]-LS-[id number]-FL) Head / Face / Neck Biometry: Sourcer ? 7.0 ? mm CM ?4.7 ? [...] vena cava. Inferior vena cava. 3-vessel view. 9-nuvrdj-npdgccp view. ? Cardiac position. Cardiac size. Cardiac [...] which I anticipate will be scheduled at [facility]. Return to primary provider for continued care. [...] the patient (reviewing medical records/tests), in direct bkvd-xs-hcro contact with the patient during her visit with the majority spent counseling and discussing the plan of care and documenting the visit in the electronic medical record. Please see note for details. Procedure Note Tatum Leavitt MD - 08/31/2023 Comprehensive ----- Pat. Name: GERA CONNER Study Date: 08/31/2023 8:37am Pat. NO: [id number] Referring MD: MAAME GREENFIELD Site: [facility] Filter Helper: Grisel Monroe RDMS : 1980 Age: 43 [...] 0 lb 9 oz EFW by Hadlock ([id number]-HY-DW-FL) Head / Face / Neck Biometry: Sourcer 7.0 mm CM 4.7 mm Nasal bone [...] [place] vena cava. Inferior vena cava. 3-vesselview. 1-amrtql-trftgkc view. Cardiac position. Cardiac size.Cardiac rhythm. Right [...] which I anticipate will be scheduled at [facility]. Return to primary provider for continued care. [...] see the patient (reviewing medical records/tests), in yavjllmitp-yd-yvad contact with the patient during her visit [...] Maame Reg[facility] US ORDERABLE S documented in this encounter Visit Diagnoses Diagnosis related condition, antepartum documented in this encounter Care Teams Radio Mechanic Helper Relationship Specialty Start Date End Date Mary Bergman PA-C [facility] [address] [place] [address] PCP - General Physician Budget Clerk 07/30/23 documented as of this encounter
--- OUTSIDE RECORDS SUMMARY | 2023-10-15 07:16 | XMS_ITS | Clinical Summary ---
Author Name Unknown Organization [facility] Address [place], [place] [address] Care Team Providers Care Linter Drier Operator Name Role Phone Mary Bergman PA-C Primary Care Provider [phone] Allergies No known active allergies Medications Medication Sig Dispensed Refills Start Date End Date Status cyclobenzaprine (FLEXERIL) 10 mg tabletIndications:Rig ht-sided chest pain Take 1 tablet by mouth 3 times daily if needed for Muscle Spasm. 15 tablet 04/19/2019 Active Social History Tobacco Use Types Packs/Day Years Used Date Smoking Tobacco: Never Assessed Sex and Gender Information Value Date Recorded Sex Assigned at Not on file Gender Identity Not on file Sexual Orientation Not on file Last Filed Vital Signs Vital Sign Reading Time Taken Comments Blood Pressure 139/88 04/19/2019 11:46 AM CDT Pulse 62 04/19/2019 11:46 AM CDT Temperature 36.6 ??C (97.9 ??F) 04/19/2019 10:20 AM C DT Respiratory Rate 18 04/19/2019 11:46 AM CDT Oxygen Saturation 100% 04/19/2019 11:46 AM CDT Inhaled Oxygen Concentration - - Weight 82.1 kg (181 lb) 04/19/2019 10:20 AM CDT Height 172.7 cm (5' 8) 04/19/2019 10:20 AM CDT Body Mass Index 27.52 04/19/2019 10:20 AM CDT Plan of Treatment Not on file Care Teams Linter Drier Operator Relationship Specialty Start Date End Date Mary Bergman PA-C [address] [place], [place] [id number] PCP - General Emergency Medicine 04/19/19
--- OUTSIDE RECORDS SUMMARY | 2023-10-15 07:16 | XMS_ITS | Encounter Summary ---
Author Name Unknown Organization [place] Address [facility] [place] [address] Care Team Providers Care Production Trainer Name Role Phone Mary Bergman PA-C Primary Care Provider Encounter Details Date Type Department Care Team (Latest Contact Info) Description 08/31/2023 Travel Social History Tobacco Use Types Packs/Day [...] on filedocumented in this encounter Care Teams Production Trainer Relationship Specialty Start Date End Date Mary Bergman PA-C [facility] [address] [place] [address] PCP - General Physician Threshing Operator 07/30/23 documented as of this encounter
--- OUTSIDE RECORDS SUMMARY | 2023-10-15 07:16 | XMS_ITS | Encounter Summary ---
Author Name Unknown Organization [place] Address [facility] [place] [address] Care Team Providers Care Natural Foods Clerk Name Role Phone Mary Bergman PA-C Primary Care Provider Reason for Visit * Reason Comments Ultrasound L2/TV- AMA>40, Hx of LEEP Encounter Details Date Type Department Care Team (Late st Contact Info) Description 08/23/2023 PRE VISIT [facility] [place] [address] [place] [address] Megan Robertson RN Ultrasound (L2/TV- AMA>40, Hx of LEEP) Social History Tobacco Use Types Packs/Day Years [...] on filedocumented in this encounter Care Teams Natural Foods Clerk Relationship Specialty Start Date End Date Mary Bergman PA-C [facility] [address] [place] [address] PCP - General Physician Extension Course Coordinator 07/30/23 documented as of this encounter
--- OUTSIDE RECORDS SUMMARY | 2023-10-15 07:16 | XMS_ITS | Encounter Summary ---
Author Name Unknown Organization [place] Address [address] [place] [address] Care Team Providers Care Parts Identifier Name Role Phone Mary Bergman PA-C Primary Care Provider Reason for Referral * Diagnostic Imaging Ultrasound (Routine) - Pending Review Specialty Diagnoses / Procedures Referred By Contsuad t Referred To Contact Radiology. Diagnoses Encounter for follow-up ultrasound of anatomy Procedures [facility] US Comprehensive Single F/U Tatum Leavitt MD [address] [place] [address] Referral ID Status Reason Start Date Expiration Date V isits Requested Visits Authorized [id number] Pending Review 08/31/2023 08/30/2024 1 1 CY WRITER TYPIST Reason for Visit * Reason Comments Ultrasound L2/TV- AMA>40, Hx LE EP Encounter Details Date Type Department Care Team (Late st Contact Info) Description 08/31/2023 9:15 AM POLICY WRITER TYPIST Office Visit [facility] [place] [address] [place] [address] Maame Greenfield MD [facility] [address] [place] [address] Tatum Leavitt MD [address] [place] [address] AMA (advanced maternal age) multigravida [...] as of this encounter Progress Notes * Tatum Leavitt MD - 08/31/2023 9:15 AM CST Please see Imaging tab under Chart Review for details of today's visit. Tatum Leavitt CY WRITER TYPIST documented in this encounter Plan of Treatment Not on file documented as of this encounter Results * [facility] US Comprehensive Single F/U (09/28/2023 9:55 AM [...] ? Study Date: ??09/28/2023 9:28am Pat. NO: ??[id number] ?Referring ??MD: MAAME VU Site: ??[facility] ? Refrigeration Repair Supervisor: Genet Kline RDMS : ??1980 ?Age: ?? [...] Biometry: BPD ?53.4 ?mm ? 22w 2d ?Melecio LEON ?72.1 ?mm ? 22w 2d ?Nicolaides HC ?200.5 ?mm ?22w 1d ?Hadlock Cerebellum tr ?24.9 ? mm ?22w 6d ?Nicolaides AC ?179.6 ?mm ?22w 6d ?55% ?Hadlock Femur ?36.9 ? mm ?21w 5d ?Hadlock Weight Calculation: EFW ? 495 ? g ? 37% ?Hadlock EFW (lb,oz) ? 1 lb 1 ?oz EFW by ?Hadlock (SIO-WG-WS-FL) Head / Face / Neck Biometry: Metal Buggy Operator ? 5.6 ? mm CM ?5.4 ? mm ANATOMY ----- The following structures appear normal: Head / Neck ? Cranium. Head size. Head shape. Lateral ventricles. Midline falx. Cavum septi pellucidi. Cerebellum. Cisterna magna. Thalami. Face ? Lips. Profile. Nose. Heart / Thorax ?4-chamber view. RVOT view. LVOT view. Situs. Aortic arch view. 9-wfyfaj-gpeikjr view. ? Diaphragm. Abdomen ? Stomach. Kidneys. [...] medical record, and communicating with other health progressive care unit registered nurse and/or care coordination. Procedure Note Alyx Larkin MD - 09/28/2023 Comp Follow Up ----- Pat. Name: GERA CONNER Study Date: 09/28/2023 9:28am Pat. NO: [id number] Referring MD: MAAME GREENFIELD Site: [facility] Supervisor: Genet Kline RDMS : 1980 Age: 43 ----- INDICATION ----- Reevaluate growth and suboptimal anatomy METHOD ----- Transabdominal ultrasound examination. View: Sufficient ----- Jones . Number of fetuses: 1 DATING ----- DateDetailsGest. age PASTOR LMP w + 2 d 01/02/2024 Prior assessment 07/06/2023 GA: 10 w +3 d22 w + 3 d 01/29/2024 U/S 4based upon AC, BPD, Femur, HC22 w + [...] 1 lb 1 oz EFW by Hadlock ([id number]-TR-XN-FL) Head / Face / Neck Biometry: Metal Buggy Operator 5.6 mm CM 5.4 mm ANATOMY ----- The following structures appear normal: Head / Neck Cranium. Head size. Head shape.Lateral ventricles. Midline falx. Cavum septi pellucidi. Cerebellum.Cisterna magna. Thalami. Face Lips. Profile. Nose. Heart / Thorax 4-chamber view. RVOT view. LVOT view.Situs. Aortic arch view. 6-tkiuwj-ctnndui view. Diaphragm. Abdomen Stomach. Kidneys. Bladder. Spine [...] electronic medical record, andcommunicating with other health progressive care unit registered nurse and/or carecoordination. IMPRESSION ----- 1. Jones intrauterine at 22w 3d gestational age here forcompletion of anatomy. 2. The remaining anatomic survey was completed, no anomaliescommonly detected by ultrasound were identified within the limits ofprenatal ultrasound. 3. Growth parameters and estimated weight were consistent withestablished dates. 4. The amniotic fluid volume appeared normal. Tatum Leavitt MD [facility] US ORDERABLE S documented in this encounter Visit Diagnoses Diagnosis AMA (advanced maternal age) multigravida 35+, second trimester- Primary AMA (advanced maternal age) multigravida 35+, second trimester documented in this encounter Care Teams Parts Identifier Relationship Specialty Start Date End Date Mary Bergman PA-C [facility] [address] [place] [address] PCP - General Physician Plate Mill Mill Hand 07/30/23 documented as of this encounter
== END 2023-10-11 09:40 | disposition home or self-care (01) ==
LOC: NFLDREF 10-15 07:14
PROVIDERS: PCP Physician Assistant Medical; Referring Provider Physician Assistant Medical; Visit Provider Obstetrics & Gynecology
DX: Z34.82 Encounter for supervision of other normal pregnancy, second trimester (principal)
CPT/HCPCS: 87491; 87591

== ENCOUNTER 2023-11-08 10:05 | Outpatient (CLI) | payer MEDICAID, SELFPAY ==
--- OUTSIDE RECORDS SUMMARY | 2023-11-08 10:08 | XMS_ITS | Clinical Summary ---
Author Name Unknown [facility] Address [address] [place] [address] Care Team Providers Care Livestock Farmworker Name Role Phone Mary Bergman PA-C Primary Care Provider Alyx Larkin MD Unavailable [phone] Encounters Date Type Department Care Team Description 09/28/2023 10:00 AM CDT Office Visit [facility] [address] [place] [address] Tatum Leavitt MD Sabol, Bethany, MD AMA (advanced maternal age) multigravida 35+, second trimester (Primary Dx) 09/28/2023 9:26 AM CDT - 09/28/2023 11:59 PM CDT Hospital Encounter [facility] [address] [place] [address] Tatum Leavitt MD Sabol, Bethany, MD AMA (advanced maternal age) multigravida 35+, second trimester Discharge Disposition: Home or Self Care 09/28/2023 Travel 08/31/2023 9:15 AM FRONT LINE SUPERVISOR Office Visit [facility] [address] [place] [address] Maame Greenfield MD Yamamura, Yasuko, MD AMA (advanced maternal age) multigravida 35+, second trimester (Primary Dx) 08/31/2023 8:36 AM FRONT LINE SUPERVISOR - 08/31/2023 11:59 PM FRONT LINE SUPERVISOR Hospital Encounter [facility] [address] [place] [phone] Maame Greenfield MD Yamamura, Yasuko, MD related condition, antepartum Discharge Disposition: Home or Self Care 08/31/2023 Travel 08/30/2023 Travel 08/23/2023 PRE VISIT [facility] [address] [place] [phone] Megan Robertson RN Ultrasound (L2/TV- AMA>40, Hx of LEEP) from Last 3 Months Social History Tobacco [...] 3-dose series) 1998 LIPID 2019 COVID-19 Vaccine ( - 2022-2 4 season) 2023 INFLUENZA VACCINE [...] Procedure Name Priority Date/Time Associated Diagnosis Comments [facility] COMPREHENSIVE SINGLE F/U Routine 09/28/2023 9:55 AM CDT AMA (advanced maternal age) multigravida 35+, second trimester [facility] US COMPREHENSIVE SINGLE Routine 08/31/2023 9:41 AM FRONT LINE SUPERVISOR related condition, antepartum [facility] PAP SMEAR Routine 12/01/1998 1:18 PM CDT Gynecologic Examination from Last 3 Months or Most Recently Relevant to Health Maintenance Results * [facility] US Comprehensive Single F/U (09/28/2023 9:55 [...] ? Study Date: ??09/28/2023 9:28am Pat. NO: ??[id number] ?Referring ??MD: MAAME VU Site: ??[facility] ? Cyber Reverse Engineer: Genet Kline RDMS : ??1980 ?Age: ?? [...] 1 lb 1 ?oz EFW by ?Hadlock (TRJ-AD-CO-FL) Head / Face / Neck Biometry: Fisher Net ? 5.6 ? mm CM ?5.4 ? mm ANATOMY ----- The following structures appear normal: Head / Neck ? Cranium. Head size. Head shape. Lateral ventricles. Midline falx. Cavum septi pellucidi. Cerebellum. Cisterna magna. Thalami. Face ? Lips. Profile. Nose. Heart / Thorax ?4-chamber view. RVOT view. LVOT view. Situs. Aortic arch view. 8-mjzajo-dkhazxz view. ? Diaphragm. Abdomen ? Stomach. Kidneys. [...] medical record, and communicating with other health child care coordinator and/or care coordination. Procedure Note Alyx Larkin MD - 09/28/2023 Comp Follow Up ----- Pat. Name: GERA CONNER Study Date: 09/28/2023 9:28am Pat. NO: [id number] Referring MD: MAAME GREENFIELD Site: [facility] Cyber Reverse Engineer: Genet Kline RDMS : 1980 Age: 43 [...] 1 lb 1 oz EFW by Hadlock (UQF-CD-FB-FL) Head / Face / Neck Biometry: Fisher Net 5.6 mm CM 5.4 mm ANATOMY ----- The following structures appear normal: Head / Neck Cranium. Head size. Head shape.Lateral ventricles. Midline falx. Cavum septi pellucidi. Cerebellum.Cisterna magna. Thalami. Face Lips. Profile. Nose. Heart / Thorax 4-chamber view. RVOT view. LVOT view.Situs. Aortic arch view. 5-zhxfzm-vercglm view. Diaphragm. Abdomen Stomach. Kidneys. Bladder. Spine [...] electronic medical record, andcommunicating with other health child care coordinator and/or carecoordination. IMPRESSION ----- 1. Jones intrauterine at 22w 3d gestational age here forcompletion of anatomy. 2. The remaining anatomic survey was completed, no anomaliescommonly detected by ultrasound were identified within the limits ofprenatal ultrasound. 3. Growth parameters and estimated weight were consistent withestablished dates. 4. The amniotic fluid volume appeared normal. Tatum Leavitt MD [facility] US ORDERABLE S * [facility] US Comprehensive Single (08/31/2023 9:41 AM FRONT LINE SUPERVISOR) Anatomical Region Laterality Modality Ultrasound 08/31/2023 8:37 AM FRONT LINE SUPERVISOR Impressions 08/31/2023 2:56 PM FRONT LINE SUPERVISOR IMPRESSION ----- 1) Jones intrauterine at 18w [...] for gestational age. Narrative 08/31/2023 2:56 PM FRONT LINE SUPERVISOR ?Comprehensive ----- Pat. Name: GERA CONNER ? Study Date: ??08/31/2023 8:37am Pat. NO: ??[id number] ?Referring ??MD: MAAME GREENFIELD Site: ??[facility] ? Cyber Reverse Engineer: Grisel Monroe RDMS : ??1980 ?Age: [...] 0 lb 9 ?oz EFW by ?Hadlock ([id number]-FL) Head / Face / Neck Biometry: Fisher Net ? 7.0 ? mm CM ?4.7 ? [...] vena cava. Inferior vena cava. 3-vessel view. 8-dwtfem-hfdhnhq view. ? Cardiac position. Cardiac size. Cardiac [...] which I anticipate will be scheduled at [facility]. Return to primary provider for continued care. [...] the patient (reviewing medical records/tests), in direct bavi-do-qzko contact with the patient during her visit with the majority spent counseling and discussing the plan of care and documenting the visit in the electronic medical record. Please see note for details. Procedure Note Tatum Leavitt MD - 08/31/2023 Comprehensive ----- Pat. Name: GEAR CONNER Study Date: 08/31/2023 8:37am Pat. NO: [id number] Referring MD: MAAME GREENFIELD Site: [facility] Cyber Reverse Engineer: Grisel Monroe RDMS : 1980 Age: [...] 0 lb 9 oz EFW by Hadlock (DIE-FQ-MS-FL) Head / Face / Neck Biometry: Fisher Net 7.0 mm CM 4.7 mm Nasal bone [...] [place] vena cava. Inferior vena cava. 3-vesselview. 6-fqxzqi-vrnqjmr view. Cardiac position. Cardiac size.Cardiac rhythm. Right [...] which I anticipate will be scheduled at [facility]. Return to primary provider for continued care. [...] see the patient (reviewing medical records/tests), in whwfkrxzcr-qc-omnm contact with the patient during her visit [...] within normal limits for gestational age. Maame BENSON [facility] US ORDERABLE S * PAP SMEAR (12/01/1998 1:18 PM CDT) Unlabelled DNR [facility] Biopsy Sent DNR [facility] Source VAG,CERV,E NDOCERV [facility] LMP POST [facility] PARA 3 [facility] 2 [facility] Clinical History DNR [facility] Therapy DNR [facility] Last Pap Diagnosis WITHIN NORMAL LIMITS [facility] PAP Date 169362 [facility] Specimen # DNR [facility] Tissue DNR [facility] Tissue Date DNR [facility] Statement of Adequacy [facility] Comment: SATISFACTORY FOR INTERPRETATION POST MENOPAUSAL PATIENT. ??NO ENDOCERVICAL CELLS SEEN. General Categorization DNR [facility] Descriptive Diagnosis [facility] Comment: WITHIN NORMAL LIMITS ATROPHIC CELL PATTERN Recommendations DNR [facility] DNR 114,,,,,, [facility] DNR DNR [facility] DNR DNR [facility] DNR DNR [facility] . [facility] Comment: ?PAP SMEARS ARE SUBJECT TO BOTH FALSE NEGATIVE AND FALSE ? POSITIVE RESULTS EVIDENCED BY DATA PUBLISHED IN THE ? MEDICAL LITERATURE. ??YOUR PATIENT'S RESULT SHOULD BE ? INTERPRETED IN THIS CONTEXT, TOGETHER WITH THE PATIENT'S ? HISTORY AND CLINICAL FINDINGS. TESTING LOCATION ? THIS TEST WAS PERFORMED AT [facility] ? [address]. [address] ? PHONE NUMBERS FOR CYTOLOGY INQUIRES, INCLUDING SLIDE REQUESTS ? EXT. [id number] ?? EXT. 485 11/29/1998 Maryam Joseph MD LABORATORY [facility] from Last 3 Months or Most Recently Relevant to Health Maintenance Care Teams Livestock Farmworker Relationship Specialty Start Date End Date Mary Bergman PA-C [facility] [address] [place] [address] PCP - General Physician Purchasing Department Clerk 07/30/23 Alyx Larkin MD [address] [address] Assigned OBGYN Provider 10/30/23
--- OUTSIDE RECORDS SUMMARY | 2023-11-08 10:08 | XMS_ITS | Encounter Summary ---
Author Name Unknown Organization [place] Address [address] [facility] [place] [address] Care Team Providers Care Hot Molder Name Role Phone Mary Bergman PA-C Primary Care Provider Reason for Referral * Diagnostic Imaging Ultrasound (Routine) - Pending Review Specialty Diagnoses / Procedures Referred By Contsuad t Referred To Contact Radiology. Diagnoses Encounter for follow-up ultrasound of anatomy Procedures [facility] US Comprehensive Single F/U Tatum Leavitt MD [address] [place] [address] Referral ID Status Reason Start Date Expiration Date V isits Requested Visits Authorized [id number] Pending Review 08/31/2023 08/30/2024 1 1 TRICAL AND INSTRUMENTATION MECHANIC Reason for Visit * Reason Comments Ultrasound L2/TV- AMA>40, Hx LE EP Encounter Details Date Type Department Care Team (Late st Contact Info) Description 08/31/2023 9:15 AM ELECTRICAL AND INSTRUMENTATION MECHANIC Office Visit [facility] Maternal Medicine Center [place] [address] [place] [address] Maame Greenfield MD [facility] [address] [place] [address] Tatum Leavitt MD [address] [place] [address] AMA (advanced maternal age) multigravida [...] for details of today's visit. Tatum Leavitt TRICAL AND INSTRUMENTATION MECHANIC documented in this encounter Plan of Treatment [...] ? Study Date: ??09/28/2023 9:28am Pat. NO: ??[id number] ?Referring ??MD: MAAME VU Site: ??[facility] ? Urgent Care Physician: Genet Kline RDMS : ??1980 ?Age: ?? [...] 1 lb 1 ?oz EFW by ?Hadlock ([id number]-EH-DF-FL) Head / Face / Neck Biometry: Slip Caster ? 5.6 ? mm CM ?5.4 ? mm ANATOMY ----- The following structures appear normal: Head / Neck ? Cranium. Head size. Head shape. Lateral ventricles. Midline falx. Cavum septi pellucidi. Cerebellum. Cisterna magna. Thalami. Face ? Lips. Profile. Nose. Heart / Thorax ?4-chamber view. RVOT view. LVOT view. Situs. Aortic arch view. 1-xigzjz-dqprbue view. ? Diaphragm. Abdomen ? Stomach. Kidneys. [...] medical record, and communicating with other health manager critical care unit and/or care coordination. Procedure Note Alyx Larkin MD - 09/28/2023 Comp Follow Up ----- Pat. Name: GERA CONNER Study Date: 09/28/2023 9:28am Pat. NO: [id number] Referring MD: MAAME [place] Site: [facility] Physician: Genet Kline RDMS : 1980 Age: 43 [...] 1 lb 1 oz EFW by Hadlock ([id number]-LS-FL) Head / Face / Neck Biometry: Slip Caster 5.6 mm CM 5.4 mm ANATOMY ----- The following structures appear normal: Head / Neck Cranium. Head size. Head shape.Lateral ventricles. Midline falx. Cavum septi pellucidi. Cerebellum.Cisterna magna. Thalami. Face Lips. Profile. Nose. Heart / Thorax 4-chamber view. RVOT view. LVOT view.Situs. Aortic arch view. 3-jjitin-iuhnixi view. Diaphragm. Abdomen Stomach. Kidneys. Bladder. Spine [...] electronic medical record, andcommunicating with other health manager critical care unit and/or carecoordination. IMPRESSION ----- 1. Jones intrauterine at 22w 3d gestational age here forcompletion of anatomy. 2. The remaining anatomic survey was completed, no anomaliescommonly detected by ultrasound were identified within the limits ofprenatal ultrasound. 3. Growth parameters and estimated weight were consistent withestablished dates. 4. The amniotic fluid volume appeared normal. Tatum Leavitt MD [facility] US ORDERABLE S documented in this encounter Visit Diagnoses Diagnosis AMA (advanced maternal age) multigravida 35+, second trimester- Primary AMA (advanced maternal age) multigravida 35+, second trimester documented in this encounter Care Teams Hot Molder Relationship Specialty Start Date End Date Mary Bergman PA-C [facility] [address] [place] [address] PCP - General Physician Seedling Sorter 07/30/23 documented as of this encounter
--- OUTSIDE RECORDS SUMMARY | 2023-11-08 10:08 | XMS_ITS | Encounter Summary ---
Author Name Unknown Organization [place] Address [facility] [place] [address] Care Team Providers Care Electrician'S Assistant Name Role Phone Mary Bergman PA-C Primary Care Provider Reason for Referral * Diagnostic Imaging Ultrasound (Routine) - Pending Review Specialty Diagnoses / Procedures Referred By Victorinoac barbara Referred To Contact Radiology. Diagnoses Encounter for follow-up ultrasound of anatomy Procedures [facility] US Comprehensive Single F/U Tatum Leavitt MD [address] [place] [id number] Referral ID Status Reason Start Date Expiration Date V isits Requested Visits Authorized [id number] Pending Review 08/31/2023 08/30/2024 1 1 Reason for Visit * Diagnostic Imaging Ultrasound (Routine) - Pending Review Specialty Diagnoses / Procedures Referred By Onofre jimenez Referred To Contact Radiology. Diagnoses Encounter for follow-up ultrasound of anatomy Procedures [facility] US Comprehensive Single F/U Tatum Leavitt MD [address] [place] [address] Referral ID Status Reason Start Date Expiration Date V isits Requested Visits Authorized [id number] Pending Review 08/31/2023 08/30/2024 1 1 Encounter Details Date Type Department Care Team (Latest Contact Info) Description 09/28/2023 9:26 AM CDT - 09/28/2023 11:59 PM CDT Hospital Encounter [facility] Maternal Medicine Center [place] [address] [place] [address] Tatum Leavitt MD [address] [place] [address] Alyx Larkin MD [address] [place] [address] AMA (advanced maternal age) multigravida [...] Procedure Name Priority Date/Time Associated Diagnosis Comments [facility] COMPREHENSIVE SINGLE F/U Routine 09/28/2023 9:55 AM CDT AMA (advanced maternal age) multigravida 35+, second trimester documented in this encounter Results * [facility] Comprehensive Single F/U (09/28/2023 9:55 AM [...] ? Study Date: ??09/28/2023 9:28am Pat. NO: ??[id number] ?Referring ??MD: ERIKA VU Site: ??[facility] ? Media Production Support Manager: Genet Kline RDMS : ??1980 ?Age: [...] 1 lb 1 ?oz EFW by ?Hadlock (OCT-OX-IE-FL) Head / Face / Neck Biometry: Preparation Supervisor ? 5.6 ? mm CM ?5.4 ? mm ANATOMY ----- The following structures appear normal: Head / Neck ? Cranium. Head size. Head shape. Lateral ventricles. Midline falx. Cavum septi pellucidi. Cerebellum. Cisterna magna. Thalami. Face ? Lips. Profile. Nose. Heart / Thorax ?4-chamber view. RVOT view. LVOT view. Situs. Aortic arch view. 3-bzwikl-fyhowkz view. ? Diaphragm. Abdomen ? Stomach. Kidneys. [...] record, and communicating with other health healthcare insurance sales agent and/or care coordination. Procedure Note Alyx Larkin MD - 09/28/2023 Comp Follow Up ----- Pat. Name: GREA CONNER Study Date: 09/28/2023 9:28am Pat. NO: [id number] Referring MD: ERIKA [place] Site: [facility] Media Production Support Manager: Genet Kline RDMS : 1980 Age: [...] 1 lb 1 oz EFW by Melecio ([id number]-FL) Head / Face / Neck Biometry: Preparation Supervisor 5.6 mm CM 5.4 mm ANATOMY ----- The following structures appear normal: Head / Neck Cranium. Head size. Head shape.Lateral ventricles. Midline falx. Cavum septi pellucidi. Cerebellum.Cisterna magna. Thalami. Face Lips. Profile. Nose. Heart / Thorax 4-chamber view. RVOT view. LVOT view.Situs. Aortic arch view. 2-cwlnje-dnsdzik view. Diaphragm. Abdomen Stomach. Kidneys. Bladder. Spine [...] medical record, andcommunicating with other health healthcare insurance sales agent and/or carecoordination. IMPRESSION ----- 1. Jones intrauterine [...] trimester documented in this encounter Care Teams Electrician'S Assistant Relationship Specialty Start Date End Date Mary Bergman PA-C [facility] [address] [place] [address] PCP - General Physician Mine Equipment Design Engineer 07/30/23 documented as of this encounter
--- OUTSIDE RECORDS SUMMARY | 2023-11-08 10:08 | XMS_ITS | Encounter Summary ---
Author Name Unknown Organization [place] Address [address] [facility] [place] [address] Care Team Providers Care Apartment Maintenance Supervisor Name Role Phone Mary Bergman PA-C Primary Care Provider Reason for Visit * Reason Comments Ultrasound RL2-Subopt Encounter Details Date Type Department Care Team (Late st Contact Info) Description 09/28/2023 10:00 AM CDT Office Visit [facility] Maternal Medicine Center [place] [address] [place] [address] Tatum Leavitt MD [address] [place] [address] Alyx Larkin MD [address] [place] [address] AMA (advanced maternal age) multigravida [...] in the Maternal- Medicine Center at the [facility] today. For a detailed report of the ultrasound examination, please see the ultrasound report which can be found under the imaging tab. If you have questions regarding today's evaluation or if we can be of further service, please contact the Maternal- Medicine Center. Alyx Larkin MD Accounting Professional, [employer] Maternal- Medicine [phone] (Pager) documented in this encounter Plan of Treatment Not on file documented as of this encounter Visit Diagnoses Diagnosis AMA (advanced maternal age) multigravida 35+, second trimester- Primary documented in this encounter Care Teams Apartment Maintenance Supervisor Relationship Specialty Start Date End Date Mary Bergman PA-C [facility] [address] [place] [address] PCP - General Physician High School Combination Teacher 07/30/23 documented as of this encounter
--- OUTSIDE RECORDS SUMMARY | 2023-11-08 10:08 | XMS_ITS | Encounter Summary ---
Author Name Unknown Organization [place] Address [facility] [place] [address] Care Team Providers Care Shirt Cleaner Name Role Phone Mary Bergman PA-C Primary [...] on filedocumented in this encounter Care Teams Shirt Cleaner Relationship Specialty Start Date End Date Mary Bergman PA-C [facility] [address] [place] [address] PCP - General Physician Camera Prototyping Engineer 07/30/23 documented as of this encounter
--- OUTSIDE RECORDS SUMMARY | 2023-11-08 10:08 | XMS_ITS | Encounter Summary ---
Author Name Unknown Organization [place] Address [facility] [place] [address] Care Team Providers Care Mailing Machine Assistant Name Role Phone Mary Bergman PA-C [...] on filedocumented in this encounter Care Teams Mailing Machine Assistant Relationship Specialty Start Date End Date Mary Bergman PA-C [facility] [address] [place] [address] PCP - General Physician Contract Management Specialist 07/30/23 documented as of this encounter
--- OUTSIDE RECORDS SUMMARY | 2023-11-08 10:08 | XMS_ITS | Referral Summary ---
Author Name Unknown Organization [place] Address [address] [facility] [place] [address] Care Team Providers Care Sap Data Analyst Name Role Phone Mary Bergman PA-C Primary Care Provider Alyx Larkin MD Unavailable [phone] Encounters Date Type Department Care Team Description 09/28/2023 Travel 09/28/2023 10:00 AM CDT Office Visit [facility] Maternal Medicine [facility] [address] [place] [address] Tatum Leavitt MD Sabol, Bethany, MD AMA (advanced maternal age) multigravida 35+, second trimester (Primary Dx) 09/28/2023 9:26 AM CDT - 09/28/2023 11:59 PM CDT Hospital Encounter [facility] Maternal Medicine [facility] [address] [place] [address] Tatum Leavitt MD Sabol, Bethany, MD AMA (advanced maternal age) multigravida 35+, second trimester Discharge Disposition: Home or Self Care 08/31/2023 Travel 08/31/2023 9:15 AM JEWELRY CASTING MODEL MAKER Office Visit [facility] Medicine [facility] [address] [facility] [address] [place] [address] Maame [place] MD Yamamura, Yasuko, MD AMA (advanced maternal age) multigravida 35+, second trimester (Primary Dx) 08/31/2023 8:36 AM JEWELRY CASTING MODEL MAKER - 08/31/2023 11:59 PM JEWELRY CASTING MODEL MAKER Hospital Encounter [facility] Maternal Medicine [facility] [address] [place] [phone] Maame Greenfield MD Yamamura, Yasuko, MD related condition, antepartum Discharge Disposition: Home or Self Care 08/30/2023 Travel 08/23/2023 PRE VISIT [facility] Maternal Medicine [facility] [address] [place] [phone] Megan Robertson, JONEL Ultrasound (L2/TV- AMA>40, Hx of LEEP) from [...] Priority Date/Time Associated Diagnosis Comments [facility] COMPREHENSIVE SINGLE F/U Routine 09/28/2023 9:55 AM CDT AMA (advanced maternal age) multigravida 35+, second trimester [facility] US COMPREHENSIVE SINGLE Routine 08/31/2023 9:41 AM JEWELRY CASTING MODEL MAKER related condition, antepartum HCL PAP SMEAR Routine 12/01/1998 1:18 PM CDT Gynecologic Examination from Last 3 Months or Most Recently Relevant to Health Maintenance Results * [facility] Comprehensive Single F/U (09/28/2023 9:55 AM [...] CDT ?Comp Follow Up ----- Pat. Name: VI WELLS ? Study Date: ??09/28/2023 9:28am Pat. NO: ??[id number] ?Referring ??MD: MAAME [place] Site: ??[facility] ? Custom Tailor Apprentice: Genet Kline RDMS : ??1980 ?Age: ?? [...] 1 lb 1 ?oz EFW by ?Hadlock ([id number]-FL) Head / Face / Neck Biometry: Ornithology Teacher ? 5.6 ? mm CM ?5.4 ? mm ANATOMY ----- The following structures appear normal: Head / Neck ? Cranium. Head size. Head shape. Lateral ventricles. Midline falx. Cavum septi pellucidi. Cerebellum. Cisterna magna. Thalami. Face ? Lips. Profile. Nose. Heart / Thorax ?4-chamber view. RVOT view. LVOT view. Situs. Aortic arch view. 5-pybuvv-wdgphxf view. ? Diaphragm. Abdomen ? Stomach. Kidneys. [...] record, and communicating with other health healthcare corporate account director and/or care coordination. Procedure Note Alyx Larkin MD - 09/28/2023 Comp Follow Up ----- Pat. Name: VI WELLS Study Date: 09/28/2023 9:28am Pat. NO: [id number] Referring MD: MAAME [place] Site: [facility] Custom Tailor Apprentice: Genet Kline RDMS : 1980 Age: 43 [...] 1 lb 1 oz EFW by Hadlock ([id number]-FL) Head / Face / Neck Biometry: Ornithology Teacher 5.6 mm CM 5.4 mm ANATOMY ----- The following structures appear normal: Head / Neck Cranium. Head size. Head shape.Lateral ventricles. Midline falx. Cavum septi pellucidi. Cerebellum.Cisterna magna. Thalami. Face Lips. Profile. Nose. Heart / Thorax 4-chamber view. RVOT view. LVOT view.Situs. Aortic arch view. 8-psqoop-gvzgiev view. Diaphragm. Abdomen Stomach. Kidneys. Bladder. Spine [...] medical record, andcommunicating with other health healthcare corporate account director and/or carecoordination. IMPRESSION ----- 1. Jones intrauterine at 22w 3d gestational age here forcompletion of anatomy. 2. The remaining anatomic survey was completed, no anomaliescommonly detected by ultrasound were identified within the limits ofprenatal ultrasound. 3. Growth parameters and estimated weight were consistent withestablished dates. 4. The amniotic fluid volume appeared normal. Tatum Leavitt MD [facility] ORDERABLE S * [facility] Comprehensive Single (08/31/2023 9:41 AM JEWELRY CASTING MODEL MAKER) Anatomical Region Laterality Modality Ultrasound 08/31/2023 8:37 AM JEWELRY CASTING MODEL MAKER Impressions 08/31/2023 2:56 PM JEWELRY CASTING MODEL MAKER IMPRESSION ----- 1) Jones intrauterine at 18w [...] for gestational age. Narrative 08/31/2023 2:56 PM JEWELRY CASTING MODEL MAKER ?Comprehensive ----- Pat. Name: VI WELLS ? Study Date: ??08/31/2023 8:37am Pat. NO: ??[id number] ?Referring ??: AMAME [facility] Site: ??[facility] ? Custom Tailor Apprentice: Grisel Monroe RDMS : ??1980 ?Age: ?? [...] 0 lb 9 ?oz EFW by ?Hadlock ([id number]-JW-SR-FL) Head / Face / Neck Biometry: Ornithology Teacher ? 7.0 ? mm CM ?4.7 ? [...] vena cava. Inferior vena cava. 3-vessel view. 3-cmuuhp-lnlmutx view. ? Cardiac position. Cardiac size. Cardiac [...] the precise diagnosis of chromosomal abnormalities, which Vi has declined. A repeat US has been scheduled here in 3 weeks to re-evaluate growth and anatomy that were suboptimally seen today. Given AMA > 40, recommend repeat assessment of growth and anatomy at 32 weeks and weekly BPP 36 weeks, which I anticipate will be scheduled at [facility]. Return to primary provider for continued care. [...] the patient (reviewing medical records/tests), in direct xngu-ff-gzkn contact with the patient during her visit with the majority spent counseling and discussing the plan of care and documenting the visit in the electronic medical record. Please see note for details. Procedure Note Tatum Leavitt MD - 08/31/2023 Comprehensive ----- Pat. Name: VI WELLS Study Date: 08/31/2023 8:37am Pat. NO: [id number] Referring MD: MAAME [place] Site: [facility] Custom Tailor Apprentice: Grisel Monroe RDMS : 1980 Age: 43 [...] 0 lb 9 oz EFW by Hadlock ([id number]-RI-KT-FL) Head / Face / Neck Biometry: Ornithology Teacher 7.0 mm CM 4.7 mm Nasal bone [...] Superior vena cava. Inferior vena cava. 3-vesselview. 2-mwosyo-sfqqigi view. Cardiac position. Cardiac size.Cardiac rhythm. Right [...] for the precise diagnosis of chromosomalabnormalities, which Vi has declined. A repeat US has been scheduled here in 3 weeks tore-evaluate growth and anatomy that were suboptimally seen today.Given AMA > 40, recommend repeat assessment of growth and anatomy at 32 weeks and weekly BPP36 weeks, which I anticipate will be scheduled at [facility]. Return to primary provider for continued care. [...] see the patient (reviewing medical records/tests), in dahqueneks-wb-pzwf contact with the patient during her visit [...] [facility] US ORDERABLE S * PAP SMEAR (12/01/1998 1:18 PM CDT) Unlabelled DNR [facility] Biopsy Sent DNR [facility] Source VAG,CERV,E NDOCERV [facility] LMP POST [facility] PARA 3 [facility] 2 [facility] Clinical History DNR [facility] Therapy DNR [facility] Last Pap Diagnosis WITHIN NORMAL LIMITS [facility] PAP Date 152302 [facility] Specimen # DNR [facility] Tissue DNR [facility] Tissue Date DNR [facility] Statement of Adequacy [facility] Comment: SATISFACTORY FOR INTERPRETATION POST MENOPAUSAL PATIENT. ??NO ENDOCERVICAL CELLS SEEN. General Categorization R [facility] Descriptive Diagnosis [facility] Comment: WITHIN NORMAL LIMITS ATROPHIC CELL PATTERN Recommendations DNR [facility] DNR 114,,,,,, [facility] DNR DNR [facility] DNR DNR [facility] DNR DNR [facility] . [facility] Comment: ?PAP SMEARS ARE SUBJECT TO BOTH FALSE NEGATIVE AND FALSE ? POSITIVE RESULTS EVIDENCED BY DATA PUBLISHED IN THE ? MEDICAL LITERATURE. ??YOUR PATIENT'S RESULT SHOULD BE ? INTERPRETED IN THIS CONTEXT, TOGETHER WITH THE PATIENT'S ? HISTORY AND CLINICAL FINDINGS. TESTING LOCATION ? THIS [facility]FOR[facility] AT [facility] ? [address] [facility]. [address] ? PHONE NUMBERS FOR CYTOLOGY INQUIRES, INCLUDING SLIDE REQUESTS ? EXT. [id number] ?? EXT. [id number] 11/29/1998 Maryam Joseph MD LABORATORY Performing Organization Address City/State/ZIP [place] Phone Number [facility] from Last 3 Months or Most Recently Relevant to Health Maintenance Care Teams Sap Data Analyst Relationship Specialty Start Date End Date Mary Bergman PA-C [facility] [address] [place], [place] [phone] PCP - General Physician Preventative Maintenance Technician 07/30/23 Alyx Larkin MD [address] [facility] [address] [place], [place] [address] Assigned OBGYN Provider 10/30/23
--- OUTSIDE RECORDS SUMMARY | 2023-11-08 10:08 | XMS_ITS | Encounter Summary ---
Author Name Unknown Organization [facility] Address [facility] [place] [address] Care Team Providers Care Customer Service Advocate Name Role Phone Mary Bergman PA-C Primary Care Provider Reason for Referral * Diagnostic Imaging Ultrasound (Routine) - Pending Review Specialty Diagnoses / Procedures Referred By Contac t Referred To Contact Radiology. Diagnoses related condition, antepartum Procedures [facility] US Comprehensive Single Maame Greenfield MD [facility] [address] [place] [address] Referral ID Status Reason Start Date Expiration Date V isits Requested Visits Authorized [id number] Pending Review 07/30/2023 07/29/2024 1 1 ATTENDANT Reason for Visit * Diagnostic Imaging Ultrasound (Routine) - Pending Review Specialty Diagnoses / Procedures Referred By Contac t Referred To Contact Radiology. Diagnoses related condition, antepartum Procedures [facility] US Comprehensive Single Maame Greenfield MD [facility] [address] [place] [address] Referral ID Status Reason Start Date Expiration Date V isits Requested Visits Authorized [id number] Pending Review 07/30/2023 07/29/2024 1 1 Encounter Details Date Type Department Care Team (Latest Contact Info) Description 08/31/2023 8:36 AM DUMP ATTENDANT - 08/31/2023 11:59 PM DUMP ATTENDANT Hospital Encounter [facility] [address] [place] [address] Maame Greenfield MD [facility] [address] [place] [address] Tatum Leavitt MD [address] [place], [place] [id number] related condition, antepartum Discharge Disposition: Home or [...] Procedure Name Priority Date/Time Associated Diagnosis Comments [facility] US COMPREHENSIVE SINGLE Routine 08/31/2023 9:41 AM DUMP ATTENDANT related condition, antepartum documented in this encounter Results * [facility] US Comprehensive Single (08/31/2023 9:41 AM DUMP ATTENDANT) Anatomical Region Laterality Modality Ultrasound 08/31/2023 8:37 AM DUMP ATTENDANT Impressions 08/31/2023 2:56 PM DUMP ATTENDANT IMPRESSION ----- 1) Jones intrauterine at 18w [...] for gestational age. Narrative 08/31/2023 2:56 PM DUMP ATTENDANT ?Comprehensive ----- Pat. Name: GERA CONNER ? Study Date: ??08/31/2023 8:37am Pat. NO: ??[id number] ?Referring ??MD: MAAME VU Site: ??[facility] ? Sports Clerk: Grisel Monroe RDMS : ??1980 ?Age: ?? [...] 0 lb 9 ?oz EFW by ?Hadlock ([id number]) Head / Face / Neck Biometry: Airplane Woodworker ? 7.0 ? mm CM ?4.7 ? [...] vena cava. Inferior vena cava. 3-vessel view. 0-xnbttx-oqirnff view. ? Cardiac position. Cardiac size. Cardiac [...] which I anticipate will be scheduled at [place]. Return to primary provider for continued care. [...] the patient (reviewing medical records/tests), in direct dscm-xb-kahs contact with the patient during her visit with the majority spent counseling and discussing the plan of care and documenting the visit in the electronic medical record. Please see note for details. Procedure Note Tatum Leavitt MD - 08/31/2023 Comprehensive ----- Pat. Name: GERA CONNER Study Date: 08/31/2023 8:37am Pat. NO: [id number] Referring MD: MAAME GREENFIELD Site: [facility] Sports Clerk: Grisel Monroe RDMS : 1980 Age: 43 [...] 0 lb 9 oz EFW by Hadlock ([id number]) Head / Face / Neck Biometry: Airplane Woodworker 7.0 mm CM 4.7 mm Nasal bone [...] Superior vena cava. Inferior vena cava. 3-vesselview. 6-jzdnfs-cucykgo view. Cardiac position. Cardiac size.Cardiac rhythm. Right [...] which I anticipate will be scheduled at [place]. Return to primary provider for continued care. [...] see the patient (reviewing medical records/tests), in xbuawamnwq-kj-uphv contact with the patient during her visit [...] antepartum documented in this encounter Care Teams Customer Service Advocate Relationship Specialty Start Date End Date Mary Bergman PA-C [facility] [address] [place] [address] PCP - General Physician Premium Cancellation Clerk 07/30/23 documented as of this encounter
--- OUTSIDE RECORDS SUMMARY | 2023-11-08 10:09 | XMS_ITS | Clinical Summary ---
Author Name Unknown Organization [facility] Address [place], [place] [address] Care Team Providers Care Educational Assistant Teacher Name Role Phone Mary Bergman PA-C Primary Care Provider [phone] Allergies No known active allergies Medications Medication [...] of Treatment Not on file Care Teams Educational Assistant Teacher Relationship Specialty Start Date End Date Mary Bergman PA-C [address] [place], [place] [id number] PCP - General Emergency Medicine 04/19/19
--- OUTSIDE RECORDS SUMMARY | 2023-11-08 10:09 | XMS_ITS | Encounter Summary ---
Author Name Unknown Organization [facility] Address [address] [place] [address]. [place] [address] Care Team Providers Care Housekeeping Aid Name Role Phone Mary Bergman PA-C Primary Care Provider Encounter Details Date Type Department Care Team (Late st Contact Info) Description 07/30/2023 Medical Correspondence [facility] [address] [place] [address] Scan, Non-Provider Social History Tobacco [...] on filedocumented in this encounter Care Teams Housekeeping Aid Relationship Specialty Start Date End Date Mary Bergman PA-C [facility] [address] [place] [address] PCP - General Physician [employer] Advisor 07/30/23 documented as of this encounter
--- OUTSIDE RECORDS SUMMARY | 2023-11-08 10:09 | XMS_ITS | Encounter Summary ---
Author Name Unknown Organization [place] Address [facility] [address] Care Team Providers Care Black Studies Professor Name Role Phone Mary Bergman PA-C Primary Care Provider Reason for Visit * Reason Comments Ultrasound L2/TV- AMA>40, Hx of LEEP Encounter Details Date Type Department Care Team (Late st Contact Info) Description 08/23/2023 PRE VISIT [facility] [address] [place] [address] Megan Robertson RN Ultrasound (L2/TV- [...] on filedocumented in this encounter Care Teams Black Studies Professor Relationship Specialty Start Date End Date Mary Bergman PA-C [facility] [address] [place] [address] PCP - General Physician Decorator Mannequin 07/30/23 documented as of this encounter
--- OUTSIDE RECORDS SUMMARY | 2023-11-08 10:09 | XMS_ITS | Continuity of Care Document ---
Author Name [facility] Organization [facility] Care Team Providers Care Diplomatic Officer Name Role Phone [facility] Unavailable Unavailable Problems Combined list of problems from Department of Defense and Veterans Affairs facilities. It does not include entries that were removed or entered in error. 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 increase fluenc e slightly this tx DoD benign skin neoplasm pigmented nevus Active Condition 4 benign josefina earing ittitated nevi (L breast- recurred) DoD astigmatism regular Inactive Condition DoD visit for: routine eye exam Inactive Condition DoD refractive error - myopia Inactive Condition SRxOD: -0.50DS 20/15-OS: -0.50-0.74k735 20/15-Pt may pursue initial CL fitting w/civilian doc DoD Patient Education Inactive Condition PRETRAVEL RECOMMENDATIONSReviewed gastroenteritis prevention, post-travel care if sick, insect-borne infections and insect avoidance/repellents,and minimizing rabies exposure/animal avoidance/seeking care if exposed. TRA[employer]AX handout reviewed with patient, printed copy provided. Malaria assessment/recommendatio ns: definite risk, recommended, pt accepted. Prophylaxis recommendations: Atovaquone/proguanil 250mg/100mg 1-2 days before, every day during, and for 7 days after travel to malarious regionTraveler's diarrhea assessment/recommendatio n: offered and pt accepted. Prescribed levofloxacin 500 mg tablet po x 3 and loperamide 2-4 mg po x 1, then 2 mg po after each loose stool; max 16 mg/day. Recommended vaccines: IM typhoid, IPV, rabies seriesPt instructed on the plan of care and verbalizes understanding. DoD cervical dysplasia Active Condition f/u after leep. has had 2 normal paps after leep. This is #3. Return to annual screening if pap normal. DoD Pelvic Exam (Internal) Inactive Condition DoD visit for: administrative purpose Inactive Condition DoD Physical Examination Inactive Condition see separation paperwork in records DoD astigmatism Active Condition DoD Spectacles Services Fitting Monofocal Except For Aphakia Inactive Condition DoD refractive error - myopia Active Condition DoD Abnormal Pap Smear Of Cervix Active Condition DoD visit for: postsurgical exam Inactive Condition DoD Gynecologic Services Contraceptive Management Active Condition DoD candidiasis vaginal Inactive Condition DoD Preventive Medicine Established Patient Checkup Adult 18-39 Years Inactive Condition DoD visit for: services physical Inactive Condition DoD Allergies, Adverse Reactions, Alerts Combined list of allergies from Department of Defense and Veterans Affairs facilities. It does not include entries that were removed or entered in error. Substance Category Reaction Severity Reaction type Status Date Reported Comments Source No Known Allergies Drug allergy (disorder) active 03/27/2008 DoD Immunizations Combined list of available immunizations from the Department of Defense and Veterans Affairs facilities. Immunization Series Date Given Administered By Site Reaction Lot Number CVX Code Drug Provider Relations Consultant Status Comments Source tuberculin skin test; purified protein derivative solution, intradermal 1 2008 Unknown, Provider [id number] Sanofi Pasteur ([facility]) complet ed tuberculi n skin test; purified protein derivativ e solution, intraderm al DoD tuberculin skin test; purified protein derivative solution, intradermal 1 2007 Unknown, Provider [id number] Sanofi Pasteur ([facility]) complet ed tuberculi n skin test; purified protein derivativ e solution, intraderm al DoD tuberculin skin test; purified protein derivative solution, intradermal 1 2007 Unknown, Provider [id number] 96 Sanofi Pasteur ([facility]) complet ed tuberculi n skin test; purified protein derivativ e solution, intraderm al DoD tuberculin skin test; purified protein derivative solution, intradermal 1 2007 Unknown, Provider [id number] 96 Sanofi Pasteur ([facility]) complet ed tuberculi n skin test; purified protein derivativ e solution, intraderm al DoD poliovirus vaccine, inactivated 2 2007 Unknown, Provider [id number] Sanofi Pasteur ([facility]) complet ed polioviru s vaccine, inactivat ed DoD rabies vaccine, for intramuscular injection RETIRED CODE 1 2007 Unknown, Provider [id number] Sanofi Pasteur ([facility]) complet ed rabies vaccine, for intramusc ular injection RETIRED CODE DoD typhoid Vi capsular polysaccharid e vaccine 1 2007 Unknown, Provider [id number] [facility] ([facility]) complet ed typhoid Vi capsular polysacch aride vaccine DoD influenza virus vaccine, split virus (incl. purified surface antigen)-reti red CODE 1 2006 [id number] 15 [facility] ([facility]) complet ed influenza virus vaccine, split virus (incl. purified surface antigen)- retired CODE DoD anthrax vaccine 4 2005 [id number] [employer] [place] ([facility]) complet ed anthrax vaccine DoD influenza virus vaccine, split virus (incl. purified surface antigen)-reti red CODE 1 2004 [id number] 15 [facility] ([facility]) complet ed influenza virus vaccine, split virus (incl. purified surface antigen)- retired CODE DoD influenza virus vaccine, whole virus 1 2004 [id number] 16 [facility] ([facility]) complet ed influenza virus vaccine, whole virus DoD anthrax vaccine 3 2004 [id number] [employer] [place] ([facility]) complet ed anthrax vaccine DoD anthrax vaccine 2 2004 [id number] [facility] [employer] [place] ([facility]) complet ed anthrax vaccine DoD typhoid vaccine, parenteral, other than acetone-kille d, dried 1 2004 [id number] 41 [facility]) complet ed typhoid vaccine, parentera l, other than acetone-k illed, dried DoD vaccinia (smallpox) vaccine 1 2004 [id number] 75 [employer] ([facility]) complet ed vaccinia (smallpox ) vaccine DoD anthrax vaccine 1 2004 [id number] [facility] [employer] [place] ([facility]) complet ed anthrax vaccine DoD tuberculin skin test; purified protein derivative solution, intradermal 1 2004 Unknown, Provider [id number] 96 [facility] ([facility]) complet ed tuberculi n skin test; purified protein derivativ e solution, intraderm al [facility] influenza virus vaccine, live, attenuated, for intranasal use 0 2003 [id number] 111 [place], [facility]. ([facility]) complet ed influenza virus vaccine, live, attenuate d, for intranasa l use DoD tuberculin skin test; purified protein derivative solution, intradermal 1 2003 Unknown, Provider [id number] 96 Sanofi Pasteur ([facility]) complet ed tuberculi n skin test; purified protein derivativ e solution, intraderm al DoD influenza virus vaccine, whole virus 0 2002 [id number] 16 [employer] ([facility]) complet ed influenza virus vaccine, whole virus DoD influenza virus vaccine, whole virus 0 2002 [id number] [employer] ([facility]) complet ed influenza virus vaccine, whole virus DoD typhoid vaccine, parenteral, other than acetone-kille d, dried 0 2002 [id number] 41 Sanofi Pasteur ([facility]) complet ed typhoid vaccine, parentera l, other than acetone-k illed, dried DoD hepatitis B vaccine, adult dosage 2 2002 [id number] 43 [employer] ([facility]) complet ed hepatitis B vaccine, adult dosage DoD tuberculin skin test; purified protein derivative solution, intradermal 3 2002 Unknown, Provider [id number] 96 Sanofi Pasteur ([facility]) complet ed tuberculi n skin test; purified protein derivativ e solution, intraderm al DoD hepatitis B vaccine, adult dosage 3 2002 [id number] [employer] ([facility]) complet ed hepatitis B vaccine, adult dosage DoD influenza virus vaccine, whole virus 0 2001 [id number] 16 Sanofi Pasteur ([facility]) complet ed influenza virus vaccine, whole virus DoD hepatitis B vaccine, adult dosage 1 2001 [id number] 43 [employer] ([facility]) complet ed hepatitis B vaccine, adult dosage DoD varicella virus vaccine 1 2001 21 () Not Given varicella virus vaccine DoD hepatitis A vaccine, adult dosage 2 2001 [id number] 52 [employer] ([facility]) complet ed hepatitis A vaccine, adult dosage DoD tetanus and diphtheria toxoids, adsorbed, preservative free, for adult use (2 Lf of tetanus toxoid and 2 Lf of diphtheria toxoid) 0 2001 [id number] Sanofi Pasteur ([facility]) complet ed tetanus and diphtheri a toxoids, adsorbed, preservat chris free, for adult use (2 Lf of tetanus toxoid and 2 Lf of diphtheri a toxoid) DoD influenza virus vaccine, whole virus 0 2001 [id number] 16 Sanofi Pasteur ([facility]) complet ed influenza virus vaccine, whole virus DoD yellow fever vaccine 0 2000 [id number] 37 [place] ([facility]) complet ed yellow fever vaccine DoD typhoid vaccine, parenteral, other than acetone-kille d, dried 0 2000 [id number] [place] ([facility]) complet ed typhoid vaccine, parentera l, other than acetone-k illed, dried DoD tuberculin skin test; purified protein derivative solution, intradermal 2 2000 Unknown, Provider [id number] 96 Sanofi Pasteur ([facility]) complet ed tuberculi n skin test; purified protein derivativ e solution, intraderm al DoD meningococcal polysaccharid e vaccine (MPSV4) 0 2000 [id number] 32 [place] ([facility]) complet ed meningoco ccal polysacch aride vaccine (MPSV4) DoD hepatitis A vaccine, adult dosage 1 2000 [id number] [employer] [facility] ([facility]) complet ed hepatitis A vaccine, adult dosage DoD trivalent poliovirus vaccine, live, oral 0 1983 02 () complet ed trivalent polioviru s vaccine, live, oral DoD measles, mumps and rubella virus vaccine 0 1979 03 () Not Given measles, mumps and rubella virus vaccine DoD Encounters Combined list of: 1) Encounters from Department of Veterans Affairs facilities going back up to thelast 18 months. 2) Encounters from the Department of Defense facilities going back up to 280 months. Location Location Details Encounter Type Encounter Number Reason For Visit Attending Provider ADM Date DC Date Status Disposition Source [employer]([facility] OUTPATIENT [id number] JEREMY WALLS 02/08 Released w/o Limitations [employer]) OUTPATIENT [id number] annual and control TANA HOLLIDAY 05/11 Released w/o Limitations [facility]) [facility] OUTPATIENT [id number] hgsil 05/14 VI MATHIS 05/22 Released w/o Limitations [facility]) OUTPATIENT [id number] LEEP in Minor Room at 1300 VI MATHIS Jacek 06/21 Released w/o Limitations [facility]) [facility]) TELE CONSULT [id number] LEEP results VI MATHIS Jacek 06/26 [facility]) [facility]) OUTPATIENT [id number] F/U LEEP VI MATHIS Jacek 07/17 Released w/o Limitations [facility](D ysplasi a [facility]) [facility] [id number] eye exam DOMENICO GORMAN 08/29 Released w/o Limitations [facility](O ptometr y ([facility])) [facility]) OUTPATIENT [id number] COLPO/P ILL VI MATHIS Jacek 11/01 Released w/o Limitations [facility] Clinic) [facility]) TELE CONSULT [id number] pap results VI MATHIS Jacek 11/12 [facility]) [facility]) TELE CONSULT [id number] sep. LEONIE Mena 02/26 [facility](S [facility] Pod) [facility]) OUTPATIENT [id number] separat ion paper work, no PE availab KARYNA Gtz 03/01 Released w/o Limitations [facility](S [facility]) [facility]) OUTPATIENT [id number] colpo/p ill DOMINIC MATHISBLAIR Read 06/06 Released w/o Limitations [facility](D [facility]splasi a Clinic) [facility]) TELE CONSULT [id number] pap results BHUPINDER MATHISELEAZAR Read 06/11 [facility]) [facility] OUTPATIENT [id number] colpo/p ill ABDIADÁN Maira 10/10 Released w/o Limitations [employer]) [facility]) OUTPATIENT [id number] Travel to [facility] NEIL BURRELL 10/21 Released w/o Limitations [employer](I nfectio us Disease Clinic [facility]) [facility](Opt [facility]metry ([facility]) ) OUTPATIENT [id number] eye exam JENIFER PADILLA 11/04 Released w/o Limitations [facility](O ptometr y ([facility])) [facility]) OUTPATIENT [id number] mole on side and back MK CHANDRA 12/08 Released w/o Limitations [facility](D ermatol ogy) [facility]) OUTPATIENT [id number] laser test - richardell a V-beam MK CHANDRA 12/19 Released w/o Limitations [facility](D ermatol ogy) [facility]) OUTPATIENT [id number] discuss control DELFINO GAINES 01/26 Released w/o Limitations [facility]) [facility]) OUTPATIENT [id number] laser hair MK CHANDRA 02/02 Released w/o Limitations [facility](D ermatol ogy) [facility]) OUTPATIENT [id number] laser -m ark MK CHANDRA 03/27 Released w/o Limitations [facility](D ermatol ogy) [facility]) OUTPATIENT [id number] laser treatme nt MK CHANDRA 05/01 Released w/o Limitations [facility](D ermatol ogy) [facility]) OUTPATIENT [id number] ANTONIO Sarabia 05/06 Released w/o Limitations [facility](B [facility]) [facility] ) OUTPATIENT [id number] anxiety symptom s MAHAD PERLA 05/13 Released w/o Limitations [employer] [employer] [facility] [employer]([facility]) OUTPATIENT [id number] MAHAD PERLA 05/29 Released w/o Limitations [employer](Psy chiatry 0095) OUTPATIENT [id number] Please give MIQUEL GUTIERREZ 06/12 Released w/o Limitations [facility](P sychiat ry 0095) [facility]) OUTPATIENT [id number] annual papsmea THOMAS Gilbert 06/16 Released w/o Limitations [facility]) [facility](Psy chiatry 0095) OUTPATIENT [id number] MIQUEL TANG 06/19 Released w/o Limitations [facility](P sychiat ry 0095) [facility]) TELE CONSULT [id number] test for varicel la, hep b, mmr tidor-r equest- all AUGUSTUS, SUSHMA D 07/31 [facility]) [facility]) TELE CONSULT [id number] pt wants to know if Sushma receive d her fax AUGUSTUS, SUSHMA D 08/13 [facility](B lue Pod) [facility](Psy chiatry 0095) TELE CONSULT [id number] appoint ment MAHAD PERLA 10/13 Referred for Appointment [facility](P sychiat ry 0095) [facility](Psy chiatry 0095) TELE CONSULT [id number] phone call MAHAD PERLA 10/16 Referred for Appointment [facility](P sychiat ry 0095) [facility](Psy chiatry 0095) TELE CONSULT [id number] needs meds before f/u appt MAHAD PERLA 10/27 Referred for Appointment [facility](P sychiat ry 0095) [facility]) OUTPATIENT [id number] laser treatme MK Abreu 11/09 Released w/o Limitations [employer](D ermatol ogy) [employer](Psy chiatry 0095) OUTPATIENT [id number] follow up MAHAD PERLA 11/16 Released w/o Limitations [employer](P sychiat ry 0095) [employer] [facility] [employer](Psy chiatry 0095) OUTPATIENT [id number] MAHAD PERLA 12/11 Released w/o Limitations [employer](P sychiat ry 0095) [facility]) OUTPATIENT [id number] laser MK CHANDRA 12/21 Released w/o Limitations [employer](D ermatol ogy) [facility]) OUTPATIENT [id number] laser hair removal MK CHANDRA 04/05 Released w/o Limitations [facility](D ermatol ogy) [facility](Psy chiatry 009) OUTPATIENT [id number] NICOLÁS VIRK 05/05 Released w/o Limitations [facility](P sychiat ry 0095) [facility]) TELE CONSULT [id number] bridge HAILEY York 05/31 [facility]) [facility](Psy chiatry 009) TELE CONSULT [id number] APPOINT MENT NICOLÁS VIRK 07/13 Referred for Appointment [facility](P sychiat ry 0095) [facility]) OUTPATIENT [id number] OREN Lockhart 07/20 Released w/o Limitations [facility]) [facility]) OUTPATIENT [id number] lab results - abnorma l TESS LEONARD V 07/27 Released w/o Limitations [facility]) [facility](Psy chiatry 009) TELE CONSULT [id number] meds and appt? NICOLÁS VIRK 08/10 Referred for Appointment [facility](P sychiat ry 0095) [facility](Psy chiatry 0095) OUTPATIENT [id number] NICOLÁS VIRK 08/27 Released w/o Limitations [employer](P sychiat ry 0095) Procedures Combined list of: 1) Procedures from Department of Veterans Affairs facilities going back up to thelast 18 months, not all VA non-surgical procedures are included; 2) All procedures from the Department of Defense facilities. Procedure Procedure Type Code Date Perfomer Comments Sour e Psychotherapy Individual Approx 30 Min W/ Medical Evaluation & Management Psychotherapy Individual Approx 30 Min W/ Medical Evaluation & Management [id number] 09/09/19 10 SULLYNICOLÁS [facility] Screening papanicolaou smear; obtaining, preparing and conveyance of cervical or vaginal smear to laboratory 07/20/19 10 OREN LINCOLN [facility] Psychiatric Diagnostic Evaluation Comprehensive Examination Psychiatric Diagnostic Evaluation Comprehensive Examination [id number] 05/12/20 09 SULLYNICOLÁS [facility] Destruction Of Cutaneous Vascular Lesions Le Than 10 Sq Cm Destruction Of Cutaneous Vascular Lesions Less Than 10 Sq Cm [id number] 04/05/20 09 KM CHANDRA Psychotherapy Individual Approx 30 Min W/ Medical Evaluation & Management Psychotherapy Individual Approx 30 Min W/ Medical Evaluation & Management [id number] 12/24/19 09 MAHAD PERLA Destruction Of Cutaneous Vascular Lesions Le Than 10 Sq Cm Destruction Of Cutaneous Vascular Lesions Less Than 10 Sq Cm 82414 12/22/19 09 MK CHANDRA Psychotherapy Individual Approx 30 Min W/ Medical Evaluation & Management Psychotherapy Individual Approx 30 Min W/ Medical Evaluation & Management [id number] 12/15/19 09 MAHAD PERLA Destruction Of Cutaneous Vascular Lesions Le Than 10 Sq Cm Destruction Of Cutaneous Vascular Lesions Less Than 10 Sq Cm [id number] 11/10/19 09 MK CHANDRA Psychotherapy Individual Approximately 45 Minutes Psychotherapy Individual Approximately 45 Minutes [id number] 06/22/20 08 MIQUEL TANG [facility] Physician Supervised Specimen Handling / Transfer: Office To Lab Physician Supervised Specimen Handling / Transfer: Office To Lab [id number] 06/16/20 08 THOMAS BANKS Screening papanicolaou smear; obtaining, preparing and conveyance of cervical or vaginal smear to laboratory 06/16/20 08 THOMAS BANKS Psychotherapy Individual Approximately 75-80 Minutes Psychotherapy Individual Approximately 75-80 Minutes [id number] 06/15/20 08 MIQUEL TANG [employer] Integumentary Procedures (Therapeutic) Integumentary Procedures (Therapeutic) [id number] 05/01/20 08 MK CHANDRA Integumentary Procedures (Therapeutic) Integumentary Procedures (Therapeutic) [id number] 03/27/20 08 MK CHANDRA Integumentary Procedures (Therapeutic) Integumentary Procedures (Therapeutic) [id number] 02/03/20 08 MK CHANDRA Integumentary Procedures (Therapeutic) Integumentary Procedures (Therapeutic) [id number] 12/20/19 08 MK CHANDRA Shaving Of Lesion Trunk .6 to 1cm Shaving Of Lesion Trunk .6 to 1cm [id number] 12/09/19 08 MK CHANDRA Shaving Of Lesion Trunk Up to .5cm Shaving Of Lesion Trunk Up to .5cm [id number] 12/09/19 08 MK CHANDRA Ophthalmological Prior Patient Start Comprehensive Care Ophthalmological Prior Patient Start Comprehensive Care 08034 11/05/19 08 JENIFER PADILLA Determination Of Refractive State Determination Of Refractive State 40081 11/05/19 08 JENIFER PADILLA Visual Sanderson Test Limited Examination Visual Sanderson Test Limited Examination 17468 11/05/19 08 JENIFER PADILLA Colposcopy Colposcopy 47753 10/11/19 08 ADÁN PATTON Cervical Pap Smear Cervical Pap Smear 00254 10/26 08 ADÁN PATTON [facility] Colposcopy Colposcopy 10648 06/06/20 07 VI MATHIS Cervical Pap Smear Cervical Pap Smear 96833 07 VI MATHIS Colposcopy Colposcopy 01117 11/02/19 07 VI MATHIS Cervical Pap Smear Cervical Pap Smear 13921 07 VI MATHIS Ophthalmological New Patient Start Comprehensive Care Ophthalmological New Patient Start Comprehensive Care 12212 09/01/19 07 DOMENICO GORMAN Determination Of Refractive State Determination Of Refractive State 51504 09/01/19 07 DOMENICO GORMAN Spectacles Services Fitting Monofocal Except For Aphakia Spectacles Services Fitting Monofocal Except For Aphakia 95121 09/01/19 07 DOMENICO GORMAN Colposcopy With Loop Electrode Excision of the Cervix Colposcopy With Loop Electrode Excision of the Cervix 45012 06/21/20 06 DELVI [facility] Endocervical Curettage (Not D&C) Endocervical Curettage (Not D&C) 24314 06/21/20 06 DELVI [facility] Colposcopy With Biopsy Colposcopy With Biopsy 84759 05/22/20 06 VI MATHIS [facility] Cervical Pap Smear Cervical Pap Smear 27846 09/25 06 TANA HOLLIDAY [facility] Vaginal Wet [place] Smear Vaginal Wet [place] Smear 46785 05/11/20 06 TANA OHLLIDAY [facility] SCREENING TEST OF VISUAL ACUITY, QUANTITATIVE, BILATERAL 02/09/20 05 [facility] SCREENING TEST OF VISUAL ACUITY, QUANTITATIVE, BILATERAL 02/24/20 04 [facility] SCREENING TEST OF VISUAL ACUITY, QUANTITATIVE, BILATERAL 02/10/20 03 [facility] SCREENING TEST OF VISUAL ACUITY, QUANTITATIVE, BILATERAL 10/14/19 03 [facility] PHYS/OTH QUALIFIED HEALTH PROSTHETIC AIDES TEACHER QUALIFIED,EDUCATION,T RAIN,LICENSURE/REGULA TION (WHEN APPLICABLE) EDUC SER RENDERED TO PATS IN A GRP SETTING (EG,,OBESITY, OR DIABETIC INSTRUCT) 10/24/19 02 DoD UNLISTED PROCEDURE, ANTERIOR SEGMENT OF EYE 10/18/19 02 DoD IMMUNIZATION ADMINISTRATION (INCLUDES PERCUTANEOUS, INTRADERMAL, SUBCUTANEOUS, OR INTRAMUSCULAR INJECTIONS); 1 VACCINE (SINGLE OR COMBINATION VACCINE/TOXOID) 03/17/20 05 DoD INDIVIDUAL PSYCHOTHERAPY, INSIGHT ORIENTED, BEHAVIOR MODIFYING AND/OR SUPPORTIVE, IN AN OFFICE OR OUTPATIENT FACILITY, APPROXIMATELY 20 TO 30 MINUTES GZCO-HI-[id number] W THE PATIENT; W MED EVAL & MGT SER 08/27/19 10 DoD SCREENING PAPANICOLAOU SMEAR; OBTAINING, PREPARING AND CONVEYANCE OF CERVICAL OR VAGINAL SMEAR TO LABORATORY 07/20/19 10 DoD INDIVIDUAL PSYCHOTHERAPY, INSIGHT ORIENTED, BEHAVIOR MODIFYING AND/OR SUPPORTIVE, IN AN OFFICE OR OUTPATIENT FACILITY, APPROXIMATELY 45 TO 50 MINUTES AYWM-RM-ATHR W THE PATIENT; W MED EVAL & MGT SER 05/05/20 09 DoD DESTRUCTION OF CUTANEOUS VASCULAR PROLIFERATIVE LESIONS (EG, LASER TECHNIQUE); LESS THAN 10 SQ CM 04/05/20 09 DoD DESTRUCTION OF CUTANEOUS VASCULAR PROLIFERATIVE LESIONS (EG, LASER TECHNIQUE); LESS THAN 10 SQ CM 12/22/19 09 DoD INDIVIDUAL PSYCHOTHERAPY, INSIGHT ORIENTED, BEHAVIOR MODIFYING AND/OR SUPPORTIVE, IN AN OFFICE OR OUTPATIENT FACILITY, APPROXIMATELY 20 TO 30 MINUTES NFZM-ES-BPXB W THE PATIENT; W MED EVAL & MGT SER 12/12/19 09 DoD INDIVIDUAL PSYCHOTHERAPY, INSIGHT ORIENTED, BEHAVIOR MODIFYING AND/OR SUPPORTIVE, IN AN OFFICE OR OUTPATIENT FACILITY, APPROXIMATELY 20 TO 30 MINUTES DEAB-MX-MFMB W THE PATIENT; W MED EVAL & MGT SER 11/17/19 09 DoD DESTRUCTION OF CUTANEOUS VASCULAR PROLIFERATIVE LESIONS (EG, LASER TECHNIQUE); LESS THAN 10 SQ CM 11/10/19 09 DoD INDIVIDUAL PSYCHOTHERAPY, INSIGHT ORIENTED, BEHAVIOR MODIFYING AND/OR SUPPORTIVE, IN AN OFFICE OR OUTPATIENT FACILITY, APPROXIMATELY 45 TO 50 MINUTES VSII-MV-QSOV WITH THE PATIENT 06/19/20 08 DoD SCREENING PAPANICOLAOU SMEAR; OBTAINING, PREPARING AND CONVEYANCE OF CERVICAL OR VAGINAL SMEAR TO LABORATORY 06/16/20 08 DoD INDIVIDUAL PSYCHOTHERAPY, INSIGHT ORIENTED, BEHAVIOR MODIFYING AND/OR SUPPORTIVE, IN AN OFFICE OR OUTPATIENT FACILITY, APPROXIMATELY 75 TO 80 MINUTES ZEWK-NN-TZDM WITH THE PATIENT 06/12/20 08 DoD INDIVIDUAL PSYCHOTHERAPY, INSIGHT ORIENTED, BEHAVIOR MODIFYING AND/OR SUPPORTIVE, IN AN OFFICE OR OUTPATIENT FACILITY, APPROXIMATELY 20 TO 30 MINUTES JDVE-KB-HBDS W THE PATIENT; W [facility] EVAL & MGT SER 05/29/20 08 DoD PSYCHIATRIC DIAGNOSTIC INTERVIEW EXAMINATION 05/13/20 08 DoD UNLISTED PROCEDURE, SKIN, MUCOUS MEMBRANE AND SUBCUTANEOUS TISSUE 05/01/20 08 DoD UNLISTED PROCEDURE, SKIN, MUCOUS MEMBRANE AND SUBCUTANEOUS TISSUE 03/27/20 08 DoD UNLISTED PROCEDURE, SKIN, MUCOUS MEMBRANE AND SUBCUTANEOUS TISSUE 02/03/20 08 DoD UNLISTED PROCEDURE, SKIN, MUCOUS MEMBRANE AND SUBCUTANEOUS TISSUE 12/20/19 08 DoD SHAVING OF EPIDERMAL OR DERMAL LESION, SINGLE LESION, TRUNK, ARMS OR LEGS; LESION DIAMETER 0.6 TO 1.0 CM 12/09/19 08 DoD VISUAL FIELD EXAMINATION, UNI OR BILATERAL, WITH MEDICAL DIAGNOSTIC EVAL; LIMITED EXAM (EG, TANGENT SCREEN, AUTOPLOT, ARC PERIMETER, OR SINGLE STIMULUS LEVEL AUTO TEST, EG OCTOPUS 3 OR 7 EQUIVALENT) 11/05/19 08 DoD COLPOSCOPY OF THE CERVIX INCLUDING UPPER/ADJACENT VAGINA; 10/11/19 08 DoD COLPOSCOPY OF THE CERVIX INCLUDING UPPER/ADJACENT VAGINA; 06/06/20 07 [facility] CYTOPATHOLOGY, SMEARS, CERVICAL OR VAGINAL, UP TO THREE SMEARS; SCREENING BY SQL SERVER CONSULTANT UNDER PHYSICIAN SUPERVISION 11/02/19 07 [facility] FITTING OF SPECTACLES, EXCEPT FOR APHAKIA; MONOFOCAL 08/29/19 07 [facility] ENDOCERVICAL CURETTAGE (NOT DONE PART OF A DILATION AND CURETTAGE) 06/21/20 06 [facility] COLPOSCOPY OF THE CERVIX INCLUDING UPPER/ADJACENT VAGINA; WITH BIOPSY(S) OF THE CERVIX AND ENDOCERVICAL CURETTAGE 05/22/20 06 [facility] SMEAR, PRIMARY SOURCE WITH INTERPRETATION; WET MOUNT FOR INFECTIOUS AGENTS (EG, SALINE, ALISHA INK, MEEK PREPS) 05/11/20 06 DoD Social History Combined list of available smoking, tobacco, and other social history from Department of Defense and Veterans Affairs facilities. Social History Type Response Date Comment Sour e This section is an empty social history section. DoD
--- OUTSIDE RECORDS SUMMARY | 2023-11-08 10:09 | XMS_ITS | Encounter Summary ---
Author Name Unknown Organization [place] Address [facility] [place] [address] Care Team Providers Care Stock Manager Name Role Phone Mary Bergman PA-C [...] on filedocumented in this encounter Care Teams Stock Manager Relationship Specialty Start Date End Date Mary Bergman PA-C [facility] [address] [place] [address] PCP - General Physician Cigar Head Perforator 07/30/23 documented as of this encounter
== END 2023-11-08 10:06 | disposition home or self-care (01) ==
LOC: NFLDREF 10:07
PROVIDERS: PCP Physician Assistant Medical; Visit Provider Obstetrics & Gynecology
DX: O09.523 Supervision of elderly multigravida, third trimester (principal); Z3A.28 28 weeks gestation of pregnancy
CPT/HCPCS: 86592; 86850; J2791

== ENCOUNTER 2023-11-28 09:13 | Outpatient (CLI) | payer MEDICAID, SELFPAY ==
--- NOTE | 2023-11-28 09:15 | US_ITS ---
Patient: GERA WELLS Facility:?[facility] Patient ID:?[id number] Site Patient ID:?[id number]. Site :?1980 Study:?US-OB Pelvis growth-11/28/2023 9:47:44 AM Ordering Physician:?Ho Naylor Final Report: INDICATION: Third trimester scan, evaluate growth. COMPARISON: 07/06/2023 TECHNIQUE: Real time vargas scale imaging of the fetus was performed. FINDINGS: Sonographic imaging demonstrates a single living intrauterine gestation. Fetus demonstrates a regular cardiac rate of 150 beats per minute. Fetus has a breech position. The placenta lies anteriorly. Amniotic fluid volume appears normal and there is a single deepest vertical pocket: 3.6 cm. The estimated weight is 1626gm which lies at the 25th %. The HC/AC ratio measures 1.09 range (0.96- 1.16). BPD 65th percentile. HC is 53rd percentile. AC 44th percentile. FL 4th percentile. IMPRESSION: Sonographic gestational age 31 weeks 2 days and sonographic due date of 01/28/2024. Good correlation with dates. Estimated weight 25th percentile. Abdominal circumference 44th percentile. Dictated by Chay Cox MD @ 11/28/2023 12:06:21 PM Signed by:?Chay Cox MD @11/28/2023 12:06:21 PM (Electronic Signature)
--- OUTSIDE RECORDS SUMMARY | 2023-11-28 09:17 | XMS_ITS | Encounter Summary ---
Author Organization [place] Address [facility] [place] [address] Care Team Providers Care Trench Pipe Layer Helper Name Role Phone Mary Bergman PA-C Primary Care Provider Reason for Referral * Diagnostic Imaging Ultrasound (Routine) - Pending Review Specialty Diagnoses / Procedures Referred By Contac t Referred To Contact Radiology. Diagnoses related condition, antepartum Procedures [facility] US Comprehensive Single Maame Greenfield MD [facility] [address] [place] [address] Referral ID Status Reason Start Date Expiration Date V isits Requested Visits Authorized [id number] Pending Review 07/30/2023 07/29/2024 1 1 F NURSE ANESTHETIST Reason for Visit * Diagnostic Imaging Ultrasound (Routine) - Pending Review Specialty Diagnoses / Procedures Referred By Contac t Referred To Contact Radiology. Diagnoses related condition, antepartum Procedures [facility] US Comprehensive Single Maame Greenfield MD [facility] [address] [place] [address] Referral ID Status Reason Start Date Expiration Date V isits Requested Visits Authorized [id number] Pending Review 07/30/2023 07/29/2024 1 1 Encounter Details Date Type Department Care Team (Latest Contact Info) Description 08/31/2023 8:36 AM CHIEF NURSE ANESTHETIST - 08/31/2023 11:59 PM CHIEF NURSE ANESTHETIST Hospital Encounter [facility] Maternal Medicine Center [place] [address] [place] [address] Maame Greenfield MD [facility] [address] [place] [address] Tatum Leavitt MD [address] [place] [address] related condition, antepartum Discharge Disposition: Home or [...] Procedure Name Priority Date/Time Associated Diagnosis Comments [facility] US COMPREHENSIVE SINGLE Routine 08/31/2023 9:41 AM CHIEF NURSE ANESTHETIST related condition, antepartum documented in this encounter Results * [facility] US Comprehensive Single (08/31/2023 9:41 AM CHIEF NURSE ANESTHETIST) Anatomical Region Laterality Modality Ultrasound 08/31/2023 8:37 AM CHIEF NURSE ANESTHETIST Impressions 08/31/2023 2:56 PM CHIEF NURSE ANESTHETIST IMPRESSION ----- 1) Jones intrauterine at 18w [...] for gestational age. Narrative 08/31/2023 2:56 PM CHIEF NURSE ANESTHETIST ?Comprehensive ----- Pat. Name: GERA CONNER ? Study Date: ??08/31/2023 8:37am Pat. NO: ??[id number] ?Referring ??MD: MAAME VU Site: ??[facility] ? Systems Specialist: Grisel Monroe RDMS : ??1980 ?Age: ?? [...] 0 lb 9 ?oz EFW by ?Hadlock ([id number]) Head / Face / Neck Biometry: Increment Manager ? 7.0 ? mm CM ?4.7 ? [...] vena cava. Inferior vena cava. 3-vessel view. 8-dzgprj-goleaxg view. ? Cardiac position. Cardiac size. Cardiac [...] which I anticipate will be scheduled at [place]. Return to primary provider for continued care. [...] the patient (reviewing medical records/tests), in direct voey-nx-qfqn contact with the patient during her visit with the majority spent counseling and discussing the plan of care and documenting the visit in the electronic medical record. Please see note for details. Procedure Note Tatum Leavitt MD - 08/31/2023 Comprehensive ----- Pat. Name: GERA CONNER Study Date: 08/31/2023 8:37am Pat. NO: [id number] Referring MD: MAAME GREENFIELD Site: [facility] Systems Specialist: Grisel Monroe RDMS : 1980 Age: 43 [...] mm17w 6d Hadlock Humerus 25.9 mm18w 1d [facility] Weight Calculation: EFW 245 g50% Hadlock EFW (lb,oz) 0 lb 9 oz EFW by Hadlock ([id number]) Head / Face / Neck Biometry: Increment Manager 7.0 mm CM 4.7 mm Nasal bone [...] Superior vena cava. Inferior vena cava. 3-vesselview. 8-qaxrml-xzknxet view. Cardiac position. Cardiac size.Cardiac rhythm. Right [...] which I anticipate will be scheduled at [place]. Return to primary provider for continued care. [...] see the patient (reviewing medical records/tests), in lcrajiqpmh-ux-gkbp contact with the patient during her visit [...] antepartum documented in this encounter Care Teams Trench Pipe Layer Helper Relationship Specialty Start Date End Date Mary Bergman PA-C [facility] [address] [place] [address] PCP - General Physician Furniture Maker 07/30/23 documented as of this encounter
--- OUTSIDE RECORDS SUMMARY | 2023-11-28 09:17 | XMS_ITS | Clinical Summary ---
Author Organization [place] Address [address] [facility] [place] [address] Care Team Providers Care Geological Survey Field Assistant Name Role Phone Mary Bergman PA-C Primary Care Provider Alyx Larkin MD Unavailable [phone] Encounters Date Type Department Care Team Description 09/28/2023 10:00 AM CDT Office Visit [facility] Maternal Medicine [facility] [address] [place] [address] Tatum Leavitt MD Sabol, Bethany, MD AMA (advanced maternal age) multigravida 35+, second trimester (Primary Dx) 09/28/2023 9:26 AM CDT - 09/28/2023 11:59 PM CDT Hospital Encounter [facility] Maternal Medicine [facility] [address] [place] [address] Tatum Leavitt MD Sabol, Bethany, MD AMA (advanced maternal age) multigravida 35+, second trimester Discharge Disposition: Home or Self Care 09/28/2023 Travel 08/31/2023 9:15 AM COOKER CHIP Office Visit [facility] Medicine [facility] [address] [place] [address] Maame Greenfield MD Yamamura, Yasuko, MD AMA (advanced maternal age) multigravida 35+, second trimester (Primary Dx) 08/31/2023 8:36 AM COOKER CHIP - 08/31/2023 11:59 PM COOKER CHIP Hospital Encounter [facility] M[facility] Medicine [facility] [place] [address] [place] [address] Maame Greenfield MD Yamamura, Yasuko, MD related condition, antepartum Discharge Disposition: Home or Self Care 08/31/2023 Travel 08/30/2023 Travel from Last 3 Months Social History Tobacco [...] Vaccine (1 - 2022-2 4 season) 2023 MATERNAL SCREENING DISCUSSION 07/03/2023 PHQ-2 (once per calendar year) 2023 OBGCT (OB) 10/09/2023 INFLUENZA VACCINE (Season Ended) 2024 05/23/2019 DTAP/TDAP/TD IMMUNIZATION (2 - Td or Tdap) [...] Procedure Name Priority Date/Time Associated Diagnosis Comments [facility] US COMPREHENSIVE SINGLE F/U Routine 09/28/2023 9:55 AM CDT AMA (advanced maternal age) multigravida 35+, second trimester [facility] US COMPREHENSIVE SINGLE Routine 08/31/2023 9:41 AM COOKER CHIP related condition, antepartum from Last 3 Months Results * [facility] US Comprehensive Single F/U (09/28/2023 9:55 [...] ? Study Date: ??09/28/2023 9:28am Pat. NO: ??[id number] ?Referring ??MD: MAAME GREENFIELD Site: ??[facility] ? Booster Station Operator: Genet Kline RDMS : ??1980 ?Age: [...] ? 1 lb 1 ?oz EFW by ?Melecio ([id number]) Head / Face / Neck Biometry: Weapons Engineer ? 5.6 ? mm CM ?5.4 ? mm ANATOMY ----- The following structures appear normal: Head / Neck ? Cranium. Head size. Head shape. Lateral ventricles. Midline falx. Cavum septi pellucidi. Cerebellum. Cisterna magna. Thalami. Face ? Lips. Profile. Nose. Heart / Thorax ?4-chamber view. RVOT view. LVOT view. Situs. Aortic arch view. 2-ngpjjx-vyqduoe view. ? Diaphragm. Abdomen ? Stomach. Kidneys. [...] medical record, and communicating with other health personal care attendant and/or care coordination. Procedure Note Alyx Larkin MD - 09/28/2023 Comp Follow Up ----- Pat. Name: GERA CONNER Study Date: 09/28/2023 9:28am Pat. NO: [id number] Referring MD: MAAME GREENFIELD Site: [facility] Booster Station Operator: Genet Kline RDMS : 1980 Age: [...] 1 lb 1 oz EFW by Hadlock ([id number]-FL) Head / Face / Neck Biometry: Weapons Engineer 5.6 mm CM 5.4 mm ANATOMY ----- The following structures appear normal: Head / Neck Cranium. Head size. Head shape.Lateral ventricles. Midline falx. Cavum septi pellucidi. Cerebellum.Cisterna magna. Thalami. Face Lips. Profile. Nose. Heart / Thorax 4-chamber view. RVOT view. LVOT view.Situs. Aortic arch view. 4-vyapjy-eskzuqb view. Diaphragm. Abdomen Stomach. Kidneys. Bladder. Spine [...] electronic medical record, andcommunicating with other health personal care attendant and/or carecoordination. IMPRESSION ----- 1. Jones intrauterine at 22w 3d gestational age here forcompletion of anatomy. 2. The remaining anatomic survey was completed, no anomaliescommonly detected by ultrasound were identified within the limits ofprenatal ultrasound. 3. Growth parameters and estimated weight were consistent withestablished dates. 4. The amniotic fluid volume appeared normal. Tatum Leavitt MD [facility] US ORDERABLE S [facility] US Comprehensive Single (08/31/2023 9:41 AM COOKER CHIP) Anatomical Region Laterality Modality Ultrasound 08/31/2023 8:37 AM COOKER CHIP Impressions 08/31/2023 2:56 PM COOKER CHIP IMPRESSION ----- 1) Jones intrauterine at 18w [...] for gestational age. Narrative 08/31/2023 2:56 PM COOKER CHIP ?Comprehensive ----- Pat. Name: GERA CONNER ? Study Date: ??08/31/2023 8:37am Pat. NO: ??[id number] ?Referring ??MD: MAAME VU Site: ??[facility] ? Booster Station Operator: Grisel Monroe RDMS : ??1980 ?Age: [...] Biometry: BPD ?42.6 ?mm ? 18w 6d ?Hadkory OFMaira ?55.1 ?mm ? 18w 2d ?Nicolaides HC ?155.6 ?mm ?18w 3d ?Hadlock Cerebellum tr ?18.9 ? mm ?18w 3d ?Nicolaides AC ?137.1 ?mm ?19w 1d ?71% ?Hadlock Femur ?25.8 ? mm ?17w 6d ?Hadlock Humerus ?25.9 ?mm ? 18w 1d ?Joyce Weight Calculation: EFW ? 245 ? g ? 50% ?Hadlock EFW (lb,oz) ? 0 lb 9 ?oz EFW by ?Hadlock ([id number]-HE-IR-FL) Head / Face / Neck Biometry: Weapons Engineer ? 7.0 ? mm CM ?4.7 ? [...] vena cava. Inferior vena cava. 3-vessel view. 5-dixgzv-sxjtmhy view. ? Cardiac position. Cardiac size. Cardiac [...] which I anticipate will be scheduled at May. Return to primary provider for continued care. [...] the patient (reviewing medical records/tests), in direct yadw-zt-sfqd contact with the patient during her visit with the majority spent counseling and discussing the plan of care and documenting the visit in the electronic medical record. Please see note for details. Procedure Note Tatum Leavitt MD - 08/31/2023 Comprehensive ----- Pat. Name: GERA CONNER Study Date: 08/31/2023 8:37am Pat. NO: [id number] Referring MD: MAAME GREENFIELD Site: [facility] Booster Station Operator: Grisel Monroe RDMS : 1980 Age: [...] 0 lb 9 oz EFW by Hadlock ([id number]-FL) Head / Face / Neck Biometry: Weapons Engineer 7.0 mm CM 4.7 mm Nasal bone [...] Superior vena cava. Inferior vena cava. 3-vesselview. 2-wsgjuj-tzngeco view. Cardiac position. Cardiac size.Cardiac rhythm. Right [...] which I anticipate will be scheduled at May. Return to primary provider for continued care. [...] see the patient (reviewing medical records/tests), in mxmnhwsawc-sp-tpjv contact with the patient during her visit [...] normal limits for gestational age. Maame Regis [facility] US ORDERABLE S from Last 3 Months Care Teams Geological Survey Field Assistant Relationship Specialty Start Date End Date Mary Bergman PA-C [facility] [address] [place] [address] PCP - General Physician Biostatistician 07/30/23 Alyx Larkin MD [address] [address] Assigned OBGYN Provider 10/30/23
--- OUTSIDE RECORDS SUMMARY | 2023-11-28 09:17 | XMS_ITS | Encounter Summary ---
Author Organization [place] Address [address] [facility] [place] [address] Care Team Providers Care Continuous Pickling Line Pickler Name Role Phone Mary Bergman PA-C Primary Care Provider Reason for Visit * Reason Comments Ultrasound [id number] Encounter Details Date Type Department Care Team (Late st Contact Info) Description 09/28/2023 10:00 AM CDT Office Visit [facility] Maternal Medicine Center [place] [address] [place] [address] Tatum Leavitt MD [address] [place] [address] Alyx Larkin MD [address] [place] [address] AMA (advanced maternal age) multigravida [...] Medicine Center at [facility] today. For a detailed report of the ultrasound examination, please see the ultrasound report which can be found under the imaging tab. If you have questions regarding today's evaluation or if we can be of further service, please contact the Maternal- Medicine Center. Alyx Larkin MD Thrill Performer, SSRS DEVELOPER Maternal- Medicine [phone] (Pager) documented in this encounter Plan of Treatment Not on file documented as of this encounter Visit Diagnoses Diagnosis AMA (advanced maternal age) multigravida 35+, second trimester- Primary documented in this encounter Care Teams Continuous Pickling Line Pickler Relationship Specialty Start Date End Date Mary Bergman PA-C [facility] [address] [place] [address] PCP - General Physician Spindle Carver 07/30/23 documented as of this encounter
--- OUTSIDE RECORDS SUMMARY | 2023-11-28 09:17 | XMS_ITS | Clinical Summary ---
Author Organization [facility] Address [place], [place] [address] Care Team Providers Care Demonstrator Sewing Techniques Name Role Phone Mary Bergman PA-C Primary Care Provider + [phone] Allergies No known active allergies Medications Medication [...] of Treatment Not on file Care Teams Demonstrator Sewing Techniques Relationship Specialty Start Date End Date Mary Bergman PA-C [address] [place] [address] PCP - General Emergency Medicine 04/19/19
--- OUTSIDE RECORDS SUMMARY | 2023-11-28 09:17 | XMS_ITS | Encounter Summary ---
Author Organization [place] Address [facility] [place] [address] Care Team Providers Care Shaft Headman Name Role Phone Mary Bergman PA-C Primary Care Provider Reason for Referral * Diagnostic Imaging Ultrasound (Routine) - Pending Review Specialty Diagnoses / Procedures Referred By Onofre t Referred To Contact Radiology. Diagnoses Encounter for follow-up ultrasound of anatomy Procedures [facility] US Comprehensive Single F/U Tatum Leavitt MD [address] [facility] [address] [place] [address] Referral ID Status Reason Start Date Expiration Date V isits Requested Visits Authorized [id number] Pending Review 08/31/2023 08/30/2024 1 1 ROLLER SETTER Reason for Visit * Reason Comments Ultrasound L2/TV- AMA>40, Hx LE EP Encounter Details Date Type Department Care Team (Late st Contact Info) Description 08/31/2023 9:15 AM RIM ROLLER SETTER Office Visit [facility] [place] [address] [place] [address] Maame Greenfield MD [facility] [address] [place] [address] Tatum Leavitt MD [address] [place] [address] AMA (advanced maternal age) multigravida [...] for details of today's visit. Tatum Leavitt ROLLER SETTER documented in this encounter Plan of Treatment [...] ? Study Date: ??09/28/2023 9:28am Pat. NO: ??[id number] ?Referring ??MD: MAAME GREENFIELD Site: ??[facility] ? [employer] Research Engineer: Genet Kline RDMS : ??1980 ?Age: [...] 1 lb 1 ?oz EFW by ?Hadlock ([id number]) Head / Face / Neck Biometry: Rfid Manager ? 5.6 ? mm CM ?5.4 ? mm ANATOMY ----- The following structures appear normal: Head / Neck ? Cranium. Head size. Head shape. Lateral ventricles. Midline falx. Cavum septi pellucidi. Cerebellum. Cisterna magna. Thalami. Face ? Lips. Profile. Nose. Heart / Thorax ?4-chamber view. RVOT view. LVOT view. Situs. Aortic arch view. 0-wwnmva-coqcvvv view. ? Diaphragm. Abdomen ? Stomach. Kidneys. [...] medical record, and communicating with other health home care and home health aides teacher and/or care coordination. Procedure Note Alyx Larkin MD - 09/28/2023 Comp Follow Up ----- Pat. Name: GERA CONNER Study Date: 09/28/2023 9:28am Pat. NO: [id number] Referring MD: MAAME GREENFIELD Site: [facility] Nuclear Fuels Research Engineer: Genet Kline RDMS : 1980 Age: [...] 1 lb 1 oz EFW by Hadlock ([id number]-FL) Head / Face / Neck Biometry: Rfid Manager 5.6 mm CM 5.4 mm ANATOMY ----- The following structures appear normal: Head / Neck Cranium. Head size. Head shape.Lateral ventricles. Midline falx. Cavum septi pellucidi. Cerebellum.Cisterna magna. Thalami. Face Lips. Profile. Nose. Heart / Thorax 4-chamber view. RVOT view. LVOT view.Situs. Aortic arch view. 0-cfrpdr-xzjdgfu view. Diaphragm. Abdomen Stomach. Kidneys. Bladder. Spine [...] electronic medical record, andcommunicating with other health home care and home health aides teacher and/or carecoordination. IMPRESSION ----- 1. Jones intrauterine at 22w 3d gestational age here forcompletion of anatomy. 2. The remaining anatomic survey was completed, no anomaliescommonly detected by ultrasound were identified within the limits ofprenatal ultrasound. 3. Growth parameters and estimated weight were consistent withestablished dates. 4. The amniotic fluid volume appeared normal. Tatum Leavitt MD [facility] US ORDERABLE S documented in this encounter Visit Diagnoses Diagnosis AMA (advanced maternal age) multigravida 35+, second trimester- Primary AMA (advanced maternal age) multigravida 35+, second trimester documented in this encounter Care Teams Shaft Headman Relationship Specialty Start Date End Date Mary Bergman PA-C [facility] [address] [place] [address] PCP - General Physician School Attendance Secretary 07/30/23 documented as of this encounter
--- OUTSIDE RECORDS SUMMARY | 2023-11-28 09:17 | XMS_ITS | Encounter Summary ---
Author Organization [place] Address [address] [place] [address] Care Team Providers Care Health Promoter Name Role Phone Mary Bergman PA-C Primary [...] on filedocumented in this encounter Care Teams Health Promoter Relationship Specialty Start Date End Date Mary Bergman PA-C [facility] [address] [place] [address] PCP - General Physician Pile Header 07/30/23 documented as of this encounter
--- OUTSIDE RECORDS SUMMARY | 2023-11-28 09:17 | XMS_ITS | Referral Summary ---
Author Organization [place] Address [address] [facility] [place] [address] Care Team Providers Care Medical Front Desk Specialist Name Role Phone Mary Bergman PA-C Primary Care Provider Alyx Larkin MD Unavailable [phone] Encounters Date Type Department Care Team Description 09/28/2023 Travel 09/28/2023 10:00 AM CDT Office Visit [facility] Maternal Medicine [facility] [address] [place] [address] Tatum Leavitt MD Sabol, Bethany, MD AMA (advanced maternal age) multigravida 35+, second trimester (Primary Dx) 09/28/2023 9:26 AM CDT - 09/28/2023 11:59 PM CDT Hospital Encounter [facility] [address] [place] [address] Tatum Leavitt MD Sabol, Bethany, MD AMA (advanced maternal age) multigravida 35+, second trimester Discharge Disposition: Home or Self Care 08/31/2023 Travel 08/31/2023 9:15 AM BRAIDER TENDER Office Visit [facility] [address] [place] [address] Maame Greenfield MD Yamamura, Yasuko, MD AMA (advanced maternal age) multigravida 35+, second trimester (Primary Dx) 08/31/2023 8:36 AM BRAIDER TENDER - 08/31/2023 11:59 PM BRAIDER TENDER Hospital Encounter [facility] [place] [address] [place] [address] Maame Greenfield MD Yamamura, Yasuko, MD related condition, antepartum Discharge Disposition: Home or Self Care 08/30/2023 Travel from Last 3 Months Social [...] Procedure Name Priority Date/Time Associated Diagnosis Comments [facility] US COMPREHENSIVE SINGLE F/U Routine 09/28/2023 9:55 AM CDT AMA (advanced maternal age) multigravida 35+, second trimester [facility] US COMPREHENSIVE SINGLE Routine 08/31/2023 9:41 AM BRAIDER TENDER related condition, antepartum from Last 3 Months Results * [facility] US Comprehensive Single F/U (09/28/2023 9:55 [...] ? Study Date: ??09/28/2023 9:28am Pat. NO: ??[id number] ?Referring ??MD: MAAME VU Site: ??[facility] ? Telecommunications Specialist: Genet Kline RDMS : ??1980 ?Age: ?? 43 ----- INDICATION ----- Reevaluate growth and suboptimal anatomy METHOD ----- Transabdominal ultrasound examination. View: Sufficient ----- Jones . Number of fetuses: 1 DATING ----- ? Date ?Details ?Gest. age ?PASTRO LMP ?03/28/2023 ? 26 w + 2 [...] 1 lb 1 ?oz EFW by ?Hadlock ([id number]-FL) Head / Face / Neck Biometry: Jewelry Bench Molder ? 5.6 ? mm CM ?5.4 ? mm ANATOMY ----- The following structures appear normal: Head / Neck ? Cranium. Head size. Head shape. Lateral ventricles. Midline falx. Cavum septi pellucidi. Cerebellum. Cisterna magna. Thalami. Face ? Lips. Profile. Nose. Heart / Thorax ?4-chamber view. RVOT view. LVOT view. Situs. Aortic arch view. 5-azqvtl-yehgdvr view. ? Diaphragm. Abdomen ? Stomach. Kidneys. [...] medical record, and communicating with other health customer care representative and/or care coordination. Procedure Note Alyx Larkin MD - 09/28/2023 Comp Follow Up ----- Pat. Name: GERA WELLS Study Date: 09/28/2023 9:28am Pat. NO: [id number] Referring MD: MAAME GREENFIELD Site: [facility] Telecommunications Specialist: Genet Kline RDMS : 1980 Age: 43 [...] (lb,oz) 1 lb 1 oz EFW by Claudialock ([id number]-FL) Head / Face / Neck Biometry: Jewelry Bench Molder 5.6 mm CM 5.4 mm ANATOMY ----- The following structures appear normal: Head / Neck Cranium. Head size. Head shape.Lateral ventricles. Midline falx. Cavum septi pellucidi. Cerebellum.Cisterna magna. Thalami. Face Lips. Profile. Nose. Heart / Thorax 4-chamber view. RVOT view. LVOT view.Situs. Aortic arch view. 7-wjyecq-shmpcst view. Diaphragm. Abdomen Stomach. Kidneys. Bladder. Spine [...] electronic medical record, andcommunicating with other health customer care representative and/or carecoordination. IMPRESSION ----- 1. Jones intrauterine at 22w 3d gestational age here forcompletion of anatomy. 2. The remaining anatomic survey was completed, no anomaliescommonly detected by ultrasound were identified within the limits ofprenatal ultrasound. 3. Growth parameters and estimated weight were consistent withestablished dates. 4. The amniotic fluid volume appeared normal. Tatum Leavitt MD [facility] US ORDERABLE S * [facility] US Comprehensive Single (08/31/2023 9:41 AM BRAIDER TENDER) Anatomical Region Laterality Modality Ultrasound 08/31/2023 8:37 AM BRAIDER TENDER Impressions 08/31/2023 2:56 PM BRAIDER TENDER IMPRESSION ----- 1) Jones intrauterine at 18w [...] for gestational age. Narrative 08/31/2023 2:56 PM BRAIDER TENDER ?Comprehensive ----- Pat. Name: GERA WELLS ? Study Date: ??08/31/2023 8:37am Pat. NO: ??[id number] ?Referring ??MD: MAAME VU Site: ??[facility] ? Telecommunications Specialist: Grisel Monroe RDMS : ??1980 ?Age: [...] 0 lb 9 ?oz EFW by ?Hadlock ([id number]-FL) Head / Face / Neck Biometry: Jewelry Bench Molder ? 7.0 ? mm CM ?4.7 ? [...] vena cava. Inferior vena cava. 3-vessel view. 2-foxnif-tmjgzmv view. ? Cardiac position. Cardiac size. Cardiac [...] which I anticipate will be scheduled at [place]. Return to primary provider for continued care. [...] the patient (reviewing medical records/tests), in direct irry-sv-gsag contact with the patient during her visit with the majority spent counseling and discussing the plan of care and documenting the visit in the electronic medical record. Please see note for details. Procedure Note Tatum Leavitt MD - 08/31/2023 Comprehensive ----- Pat. Name: GERA WELLS Study Date: 08/31/2023 8:37am Pat. NO: [id number] Referring MD: MAAME GREENFIELD Site: [facility] Telecommunications Specialist: Grisel Monroe RDMS : 1980 Age: [...] 0 lb 9 oz EFW by Hadlock ([id number]-FL) Head / Face / Neck Biometry: Jewelry Bench Molder 7.0 mm CM 4.7 mm Nasal bone [...] Superior vena cava. Inferior vena cava. 3-vesselview. 3-unlexy-hyajxpe view. Cardiac position. Cardiac size.Cardiac rhythm. Right [...] which I anticipate will be scheduled at [place]. Return to primary provider for continued care. [...] see the patient (reviewing medical records/tests), in dpfuritzyy-yc-nqrv contact with the patient during her visit [...] S from Last 3 Months Care Teams Medical Front Desk Specialist Relationship Specialty Start Date End Date Mary Bergman PA-C [facility] [address] [place], [place] [id number] PCP - General Physician Inventory Checker 07/30/23 Alyx Larkin MD [address] [place] [address] Assigned OBGYN Provider 10/30/23
--- OUTSIDE RECORDS SUMMARY | 2023-11-28 09:17 | XMS_ITS | Encounter Summary ---
Author Organization [place] Address [facility] [place] [address] Care Team Providers Care Chemical Plant Worker Name Role Phone Mary Bergman PA-C Primary Care Provider Reason for Referral * Diagnostic Imaging Ultrasound (Routine) - Pending Review Specialty Diagnoses / Procedures Referred By Victorinoac barbara Referred To Contact Radiology. Diagnoses Encounter for follow-up ultrasound of anatomy Procedures [facility] US Comprehensive Single F/U Tatum Leavitt MD [address] [place] [address] Referral ID Status Reason Start Date Expiration Date V isits Requested Visits Authorized [id number] Pending Review 08/31/2023 08/30/2024 1 1 Reason for Visit * Diagnostic Imaging Ultrasound (Routine) - Pending Review Specialty Diagnoses / Procedures Referred By Onofre jimenez Referred To Contact Radiology. Diagnoses Encounter for follow-up ultrasound of anatomy Procedures [facility] US Comprehensive Single F/U Tatum Leavitt MD [address] [place] [address] Referral ID Status Reason Start Date Expiration Date V isits Requested Visits Authorized [id number] Pending Review 08/31/2023 08/30/2024 1 1 Encounter Details Date Type Department Care Team (Latest Contact Info) Description 09/28/2023 9:26 AM CDT - 09/28/2023 11:59 PM CDT Hospital Encounter [facility] [place] [address] [place] [address] Tatum Leavitt MD [address] [place] [address] Alyx Larkin MD [address] [place] [address] AMA (advanced maternal age) multigravida [...] Procedure Name Priority Date/Time Associated Diagnosis Comments [facility] COMPREHENSIVE SINGLE F/U Routine 09/28/2023 9:55 AM CDT AMA (advanced maternal age) multigravida 35+, second trimester documented in this encounter Results * [facility] Comprehensive Single F/U (09/28/2023 9:55 AM [...] ? Study Date: ??09/28/2023 9:28am Pat. NO: ??[id number] ?Referring ??MD: ERIKA VU Site: ??[facility] ? Hand Tube Winder: Genet Kline RDMS : ??1980 ?Age: ?? [...] 1 lb 1 ?oz EFW by ?Hadlock ([id number]-IZ-FL) Head / Face / Neck Biometry: Regulatory Leader ? 5.6 ? mm CM ?5.4 ? mm ANATOMY ----- The following structures appear normal: Head / Neck ? Cranium. Head size. Head shape. Lateral ventricles. Midline falx. Cavum septi pellucidi. Cerebellum. Cisterna magna. Thalami. Face ? Lips. Profile. Nose. Heart / Thorax ?4-chamber view. RVOT view. LVOT view. Situs. Aortic arch view. 7-xbxsta-ytuiods view. ? Diaphragm. Abdomen ? Stomach. Kidneys. [...] medical record, and communicating with other health primary care provider and/or care coordination. Procedure Note Alyx Larkin MD - 09/28/2023 Comp Follow Up ----- Pat. Name: GERA CONNER Study Date: 09/28/2023 9:28am Pat. NO: [id number] Referring MD: ERIKA GREENFIELD Site: [facility] Hand Tube Winder: Genet Kline RDMS : 1980 Age: 43 [...] 1 lb 1 oz EFW by Melecio ([id number]-FL) Head / Face / Neck Biometry: Regulatory Leader 5.6 mm CM 5.4 mm ANATOMY ----- The following structures appear normal: Head / Neck Cranium. Head size. Head shape.Lateral ventricles. Midline falx. Cavum septi pellucidi. Cerebellum.Cisterna magna. Thalami. Face Lips. Profile. Nose. Heart / Thorax 4-chamber view. RVOT view. LVOT view.Situs. Aortic arch view. 0-jkwovr-nynhmam view. Diaphragm. Abdomen Stomach. Kidneys. Bladder. Spine [...] electronic medical record, andcommunicating with other health primary care provider and/or carecoordination. IMPRESSION ----- 1. Jones intrauterine at 22w 3d gestational age here forcompletion of anatomy. 2. The remaining anatomic survey was completed, no anomaliescommonly detected by ultrasound were identified within the limits ofprenatal ultrasound. 3. Growth parameters and estimated weight were consistent withestablished dates. 4. The amniotic fluid volume appeared normal. Tatum Leavitt MD [facility] US ORDERABLE S documented in this encounter Visit Diagnoses Diagnosis AMA (advanced maternal age) multigravida 35+, second trimester documented in this encounter Care Teams Chemical Plant Worker Relationship Specialty Start Date End Date Mary Bergman PA-C [facility] [address] [place] [address] PCP - General Physician Seed Yeast Operator 07/30/23 documented as of this encounter
--- OUTSIDE RECORDS SUMMARY | 2023-11-28 09:17 | XMS_ITS | Encounter Summary ---
Author Organization [place] Address [address] [place] [address] Care Team Providers Care Supervisor Laboratory Name Role Phone Mary Bergman PA-C Primary [...] on filedocumented in this encounter Care Teams Supervisor Laboratory Relationship Specialty Start Date End Date Mary Bergman PA-C [facility] [address] [place] [address] PCP - General Physician Market Analyst 07/30/23 documented as of this encounter
--- OUTSIDE RECORDS SUMMARY | 2023-11-28 09:17 | XMS_ITS | Encounter Summary ---
Author Organization [place] Address [address] [place] [address] Care Team Providers Care Animal Science Instructor Name Role Phone Mary Bergman PA-C Primary [...] on filedocumented in this encounter Care Teams Animal Science Instructor Relationship Specialty Start Date End Date Mary Bergman PA-C [facility] [address] [place] [address] PCP - General Physician Slate Handler 07/30/23 documented as of this encounter
--- OUTSIDE RECORDS SUMMARY | 2023-11-28 09:17 | XMS_ITS | Encounter Summary ---
Author Organization [place] Address [address] [place] [address]. [place] [address] Care Team Providers Care Financial Brokers Name Role Phone Mary Bergman PA-C Primary Care Provider Reason for Visit * Reason Comments Ultrasound L2/TV- AMA>40, Hx of LEEP Encounter Details Date Type Department Care Team (Late st Contact Info) Description 08/23/2023 PRE VISIT [facility] [place] [address] [facility] [address] [place] [phone] Megan Robertson RN Ultrasound (L2/TV- AMA>40, Hx [...] on filedocumented in this encounter Care Teams Financial Brokers Relationship Specialty Start Date End Date Mary Bergman PA-C [facility] [address] [place] [address] PCP - General Physician Sales Donor Recruitment Representative 07/30/23 documented as of this encounter
--- OUTSIDE RECORDS SUMMARY | 2023-11-28 09:18 | XMS_ITS | Continuity of Care Document ---
Author Name [facility] Organization [facility] Care Team Providers Care Spout Liner Helper Name Role Phone DOD-VA Unavailable Unavailable Problems [...] - myopia Inactive Condition SRxOD: -0.50DS 20/15-OS: -0.50-0.28o205 20/15-Pt may pursue initial CL fitting w/civilian [...] Site Reaction Lot Number CVX Code Drug Watch Hairspring Assembler Status Comments Source tuberculin skin test; purified protein derivative solution, intradermal 1 2008 Unknown, Provider [id number] 96 Sanofi Pasteur ([facility]) complet ed tuberculi n skin test; purified protein derivativ e solution, intraderm al DoD tuberculin skin test; purified protein derivative solution, intradermal 1 2007 Unknown, Provider [id number] 96 Sanofi Pasteur ([facility]) complet ed tuberculi n skin test; purified protein derivativ e solution, intraderm al DoD tuberculin skin test; purified protein derivative solution, intradermal 1 2007 Unknown, Provider [id number] 96 Sanofi Pasteur ([facility]) complet ed tuberculi n skin test; purified protein derivativ e solution, intraderm al DoD tuberculin skin test; purified protein derivative solution, intradermal 1 2007 Unknown, Provider [id number] 96 Sanofi Pasteur ([facility]) complet ed tuberculi n skin test; purified protein derivativ e solution, intraderm al DoD poliovirus vaccine, inactivated 2 2007 Unknown, Provider [id number] Sanofi Pasteur ([facility]) complet ed polioviru s vaccine, inactivat ed DoD rabies vaccine, for intramuscular injection RETIRED CODE 1 2007 Unknown, Provider [id number] Sanofi Pasteur ([facility]) complet ed rabies vaccine, for intramusc ular injection RETIRED CODE DoD typhoid Vi capsular polysaccharid e vaccine 1 2007 Unknown, Provider [id number] [facility] ([facility]) complet ed typhoid Vi capsular polysacch aride vaccine DoD influenza virus vaccine, split virus (incl. purified surface antigen)-reti red CODE 1 2006 [id number] 15 [facility] ([facility]) complet ed influenza virus vaccine, split virus (incl. purified surface antigen)- retired CODE DoD anthrax vaccine 4 2005 [id number] [employer] [place] ([facility]) complet ed anthrax vaccine DoD influenza virus vaccine, split virus (incl. purified surface antigen)-reti red CODE 1 2004 [id number] 15 [facility] ([facility]) complet ed influenza virus vaccine, split virus (incl. purified surface antigen)- retired CODE DoD influenza virus vaccine, whole virus 1 2004 [id number] 16 [facility] ([facility]) complet ed influenza virus vaccine, whole virus DoD anthrax vaccine 3 2004 [id number] 24 [employer] [place] ([facility]) complet ed anthrax vaccine DoD anthrax vaccine 2 2004 [id number] [facility] [place] ([facility]) complet ed anthrax vaccine DoD typhoid vaccine, parenteral, other than acetone-kille d, dried 1 2004 [id number] 41 [facility]) complet ed typhoid vaccine, parentera l, other than acetone-k illed, dried DoD vaccinia (smallpox) vaccine 1 2004 [id number] Alex ([facility]) complet ed vaccinia (smallpox ) vaccine DoD anthrax vaccine 1 2004 [id number] 24 [facility] [place] ([facility]) complet ed anthrax vaccine DoD tuberculin skin test; purified protein derivative solution, intradermal 1 2004 Unknown, Provider [id number] 96 [facility] ([facility]) complet ed tuberculi n skin test; purified protein derivativ e solution, intraderm al [facility] influenza virus vaccine, live, attenuated, for intranasal use 0 2003 [id number] [employer] ([facility]) complet ed influenza virus vaccine, live, attenuate d, for intranasa l use DoD tuberculin skin test; purified protein derivative solution, intradermal 1 2003 Unknown, Provider [id number] 96 Sanofi Pasteur ([facility]) complet ed tuberculi n skin test; purified protein derivativ e solution, intraderm al DoD influenza virus vaccine, whole virus 0 2002 [id number] [employer] ([facility]) complet ed influenza virus vaccine, whole virus DoD influenza virus vaccine, whole virus 0 2002 [id number] [employer] ([facility]) complet ed influenza virus vaccine, whole virus DoD typhoid vaccine, parenteral, other than acetone-kille d, dried 0 2002 [id number] 41 Sanofi Pasteur ([facility]) complet ed typhoid vaccine, parentera l, other than acetone-k illed, dried DoD hepatitis B vaccine, adult dosage 2 2002 [id number] 43 [employer] ([facility]) complet ed hepatitis B vaccine, adult dosage DoD tuberculin skin test; purified protein derivative solution, intradermal 3 2002 Unknown, Provider [id number] 96 Sanofi Pasteur ([facility]) complet ed tuberculi n skin test; purified protein derivativ e solution, intraderm al DoD hepatitis B vaccine, adult dosage 3 2002 [id number] 43 [employer] ([facility]) complet ed hepatitis B vaccine, adult dosage DoD influenza virus vaccine, whole virus 0 2001 [id number] 16 Sanofi Pasteur ([facility]) complet ed influenza virus vaccine, whole virus DoD hepatitis B vaccine, adult dosage 1 2001 [id number] 43 [employer] ([facility]) complet ed hepatitis B vaccine, adult dosage DoD varicella virus vaccine 1 2001 21 () Not Given varicella virus vaccine DoD hepatitis A vaccine, adult dosage 2 2001 [id number] 52 [employer] ([facility]) complet ed hepatitis A vaccine, adult dosage DoD tetanus and diphtheria toxoids, adsorbed, preservative free, for adult use (2 Lf of tetanus toxoid and 2 Lf of diphtheria toxoid) 0 2001 [id number] Sanofi Pasteur ([facility]) complet ed tetanus and diphtheri a toxoids, adsorbed, preservat chris free, for adult use (2 Lf of tetanus toxoid and 2 Lf of diphtheri a toxoid) DoD influenza virus vaccine, whole virus 0 2001 [id number] 16 Sanofi Pasteur ([facility]) complet ed influenza virus vaccine, whole virus DoD yellow fever vaccine 0 2000 [id number] 37 [place] ([facility]) complet ed yellow fever vaccine DoD typhoid vaccine, parenteral, other than acetone-kille d, dried 0 2000 [id number] [place] ([facility]) complet ed typhoid vaccine, parentera l, other than acetone-k illed, dried DoD tuberculin skin test; purified protein derivative solution, intradermal 2 2000 Unknown, Provider [id number] 96 Sanofi Pasteur ([facility]) complet ed tuberculi n skin test; purified protein derivativ e solution, intraderm al DoD meningococcal polysaccharid e vaccine (MPSV4) 0 2000 [id number] 32 [place] ([facility]) complet ed meningoco ccal polysacch aride vaccine (MPSV4) DoD hepatitis A vaccine, adult dosage 1 2000 [id number] [employer] ([facility]) complet ed hepatitis A vaccine, adult [...] Source [employer]([facility]) OUTPATIENT [id number] JEREMY WALLS 02/08 Released w/o Limitations [employer]([facility]ic e) [facility]) OUTPATIENT [id number] annual and control TANA HOLLIDAY 05/11 Released w/o Limitations [facility]) [facility]) OUTPATIENT [id number] hgsil 05/14 VI MATHIS 05/22 Released w/o Limitations [facility]) [facility] OUTPATIENT [id number] LEEP in Minor Room at 1300 VI MATHIS Jacek 06/21 Released w/o Limitations [facility](D [facility]splasi [facility] Clinic) [facility]) TELE CONSULT [id number] LEEP results VI MATHIS Jacek 06/26 [facility]) [facility]) OUTPATIENT [id number] F/U LEEP VI MATHIS Jacek 07/17 Released w/o Limitations [facility](D ysplasi a [facility]) [facility] [id number] eye exam DOMENICO GORMAN 08/29 Released w/o Limitations [facility](O ptometr y ([facility])) [facility]) OUTPATIENT [id number] COLPO/P ILL VI MATHIS Jacek 11/01 Released w/o Limitations [facility](D ysplasi a Clinic) [facility]) TELE CONSULT [id number] pap results VI MATHIS Jacek 11/12 [facility]) [facility]) TELE CONSULT [id number] sep. LEONIE Mena 02/26 [facility](S [facility]) [facility]) OUTPATIENT [id number] separat ion paper work, no PE availab KARYNA Gtz 03/01 Released w/o Limitations [facility](S [facility]) [facility]) OUTPATIENT [id number] colpo/p ill DOMINIC MATHISBLAIR Read 06/06 Released w/o Limitations [facility](D [facility]splasi a Clinic) [facility]) TELE CONSULT [id number] pap results BHUPINDER MATHISELEAZAR Read 06/11 [facility]) [facility]) OUTPATIENT [id number] colpo/p ill ABDIADÁN Maira 10/10 Released w/o Limitations [employer]([facility]asi [facility] Clinic) [facility]) OUTPATIENT [id number] Travel to [facility] NEIL BURRELL 10/21 Released w/o Limitations [employer](I nfectio us Disease Clinic [facility]) [facility](Opt ometry ([facility]) ) OUTPATIENT [id number] eye exam JENIFER PADILLA 11/04 Released w/o Limitations [facility](O ptometr y ([facility])) [facility]) OUTPATIENT [id number] mole on side and back MK CHANDRA 12/08 Released w/o Limitations [facility](D ermatol ogy) [facility]) OUTPATIENT [id number] laser test - richardell a V-beam MK CHANDRA 12/19 Released w/o Limitations [facility](D ermatol ogy) [facility]) OUTPATIENT [id number] discuss control DELFINO GAINES 01/26 Released w/o Limitations [facility]) [facility]) OUTPATIENT [id number] laser hair MK CHANDRA 02/02 Released w/o Limitations [facility](D ermatol ogy) [facility]) OUTPATIENT [id number] laser -m ark MK CHANDRA 03/27 Released w/o Limitations [facility](D ermatol ogy) [facility]) OUTPATIENT [id number] laser treatme nt MK CHANDRA 05/01 Released w/o Limitations [facility](D ermatol ogy) [facility]) OUTPATIENT [id number] ANTONIO Sarabia 05/06 Released w/o Limitations [facility](B lue Pod) [facility] ) OUTPATIENT [id number] anxiety symptom s MAHAD PERLA 05/13 Released w/o Limitations [employer]([facility]) [employer]([facility]) OUTPATIENT [id number] MAHAD PERLA 05/29 Released w/o Limitations [employer]([facility]) [facility](Psy chiatry 0095) OUTPATIENT [id number] Please give MIQUEL GUTIERREZ 06/12 Released w/o Limitations [facility](P sychiat ry 0095) [facility]) OUTPATIENT [id number] annual papsmea THOMAS Gilbert 06/16 Released w/o Limitations [facility]) [facility](Psy chiatry 0095) OUTPATIENT [id number] MIQUEL TANG 06/19 Released w/o Limitations [facility](P sychiat ry 0095) [facility]) TELE CONSULT [id number] test for varicel la, hep b, mmr tidor-r equest- all AUGUSTUS, SUSHMA D 07/31 [facility]) [facility]) TELE CONSULT [id number] pt wants to know if Sushma receive d her fax AUGUSTUS, SUSHMA D 08/13 [facility](B l[facility] Pod) [facility](Psy chiatry 0095) TELE CONSULT [id number] appoint ment MAHAD PERLA 10/13 Referred for Appointment [facility](P sychiat ry 0095) [facility](Psy chiatry 0095) TELE CONSULT [id number] phone call MAHAD PERLA 10/16 Referred for Appointment [facility](P sychiat ry 0095) [facility](Psy chiatry 0095) TELE CONSULT [id number] needs meds before f/u appt MAHAD PERLA 10/27 Referred for Appointment [facility](P sychiat ry 0095) [facility]) OUTPATIENT [id number] laser treatme MK Abreu 11/09 Released w/o Limitations [employer](D ermatol ogy) [employer](Psy chiatry 0095) OUTPATIENT [id number] follow up MAHAD PERLA 11/16 Released w/o Limitations [employer](P sychiat ry 0095) [employer](Psy chiatry 0095) OUTPATIENT [id number] MAHAD PERLA 12/11 Released w/o Limitations [employer](P sychiat ry 0095) [facility]) OUTPATIENT [id number] laser MK CHANDRA 12/21 Released w/o Limitations [employer](D ermatol ogy) [facility]) OUTPATIENT [id number] laser hair removal MK CHANDRA 04/05 Released w/o Limitations [facility](D ermatol ogy) [facility](Psy chiatry 009) OUTPATIENT [id number] NICOLÁS VIRK 05/05 Released w/o Limitations [facility](P sychiat ry 0095) [facility]) TELE CONSULT [id number] bridge HAILEY York 05/31 [facility]) [facility](Psy chiatry 009) TELE CONSULT [id number] APPOINT MENT NICOLÁS VIRK 07/13 Referred for Appointment [facility](P sychiat ry 0095) [facility]) OUTPATIENT [id number] OREN Lockhart 07/20 Released w/o Limitations [facility]) [facility]) OUTPATIENT [id number] lab results - abnorma l TESS LEONARD V 07/27 Released w/o Limitations [facility](B [facility]) [facility](Psy chiatry 009) TELE CONSULT [id number] meds and appt? NICOLÁS VIRK 08/10 Referred for Appointment [facility](P sychiat ry 0095) [facility](Psy chiatry 0095) OUTPATIENT [id number] NICOLÁS VIRK 08/27 Released w/o Limitations [facility] [...] 30 Min W/ Medical Evaluation & Management [id number] 09/09/19 10 SULLYNICOLÁS [facility] Screening papanicolaou smear; obtaining, preparing and conveyance of cervical or vaginal smear to laboratory 07/20/19 10 OREN LINCOLN [facility] Psychiatric Diagnostic Evaluation Comprehensive Examination Psychiatric Diagnostic Evaluation Comprehensive Examination 61050 05/12/20 09 SULLYNICOLÁS [facility] Destruction Of Cutaneous Vascular Lesions Le Than 10 Sq Cm Destruction Of Cutaneous Vascular Lesions Less Than 10 Sq Cm 97078 04/05/20 09 MK CHANDRA Psychotherapy Individual Approx 30 Min W/ Medical Evaluation & Management Psychotherapy Individual Approx 30 Min W/ Medical Evaluation & Management 22372 12/24/19 09 MAHAD PERLA Destruction Of Cutaneous Vascular Lesions Le Than 10 Sq Cm Destruction Of Cutaneous Vascular Lesions Less Than 10 Sq Cm 66061 12/22/19 09 MK CHANDRA Psychotherapy Individual Approx 30 Min W/ Medical Evaluation & Management Psychotherapy Individual Approx 30 Min W/ Medical Evaluation & Management 16655 12/15/19 09 MAHAD PERLA Destruction Of Cutaneous Vascular Lesions Le Than 10 Sq Cm Destruction Of Cutaneous Vascular Lesions Less Than 10 Sq Cm 78478 11/10/19 09 MK CHANDRA Psychotherapy Individual Approximately 45 Minutes Psychotherapy Individual Approximately 45 Minutes [id number] 06/22/20 08 MIQUEL TANG [facility] Physician Supervised Specimen Handling / Transfer: Office To Lab Physician Supervised Specimen Handling / Transfer: Office To Lab 82878 06/16/20 08 THOMAS BANKS Screening papanicolaou smear; obtaining, preparing and conveyance of cervical or vaginal smear to laboratory 06/16/20 08 THOMAS BANKS Psychotherapy Individual Approximately 75-80 Minutes Psychotherapy Individual Approximately 75-80 Minutes 62701 06/15/20 08 MIQUEL TANG [email or web address] Integumentary Procedures (Therapeutic) Integumentary Procedures (Therapeutic) 73123 05/01/20 08 MK CHANDRA Integumentary Procedures (Therapeutic) Integumentary Procedures (Therapeutic) 80401 03/27/20 08 MK CHANDRA Integumentary Procedures (Therapeutic) Integumentary Procedures (Therapeutic) 14373 02/03/20 08 MK CHANDRA Integumentary Procedures (Therapeutic) Integumentary Procedures (Therapeutic) 31602 12/20/19 08 MK CHANDRA Shaving Of Lesion Trunk .6 to 1cm Shaving Of Lesion Trunk .6 to 1cm 77425 12/09/19 08 MK CHANDRA Shaving Of Lesion Trunk Up to .5cm Shaving Of Lesion Trunk Up to .5cm 14478 12/09/19 08 MK CHANDRA Ophthalmological Prior Patient Start Comprehensive Care Ophthalmological Prior Patient Start Comprehensive Care 79366 11/05/19 08 JENIFER PADILLA Determination Of Refractive State Determination Of Refractive State 87182 11/05/19 08 JENIFER PADILLA Visual Sanderson Test Limited Examination Visual Sanderson Test Limited Examination 65855 11/05/19 08 JENIFER PADILLA Colposcopy Colposcopy 99321 10/11/19 08 ADÁN PATTON Cervical Pap Smear Cervical Pap Smear 66342 10/26 08 ADÁN PATTON [facility] Colposcopy Colposcopy 34153 06/06/20 07 VI MATHIS Cervical Pap Smear Cervical Pap Smear 88774 07 VI MATHIS Colposcopy Colposcopy 35084 11/02/19 07 VI MATHIS Cervical Pap Smear Cervical Pap Smear 64375 07 VI MATHIS Ophthalmological New Patient Start Comprehensive Care Ophthalmological New Patient Start Comprehensive Care 44692 09/01/19 07 DOMENICO GORMAN Determination Of Refractive State Determination Of Refractive State 70524 09/01/19 07 DOMENICO GORMAN [facility] Fitting Monofocal Except For Aphakia [facility] Fitting Monofocal Except For Aphakia 69824 09/01/19 07 DOMENICO GORMAN Colposcopy With Loop Electrode Excision of the Cervix Colposcopy With Loop Electrode Excision of the Cervix 26958 06/21/20 06 DELVI [facility] Endocervical Curettage (Not D&C) Endocervical Curettage (Not D&C) 95819 06/21/20 06 DELVI [facility] Colposcopy With Biopsy Colposcopy With Biopsy 23567 05/22/20 06 VI MATHIS [facility] Cervical Pap Smear Cervical Pap Smear 13039 09/25 06 TANA HOLLIDAY [facility] Vaginal Wet [place] Smear Vaginal Wet [place] Smear 61747 05/11/20 06 TANA HOLLIDAY [facility] SCREENING TEST OF VISUAL ACUITY, QUANTITATIVE, BILATERAL 02/09/20 05 [facility] SCREENING TEST OF VISUAL ACUITY, QUANTITATIVE, BILATERAL 02/24/20 04 [facility] SCREENING TEST OF VISUAL ACUITY, QUANTITATIVE, BILATERAL 02/10/20 03 [facility] SCREENING TEST OF VISUAL ACUITY, QUANTITATIVE, BILATERAL 10/14/19 03 [facility] PHYS/OTH QUALIFIED HEALTH TRADE ECONOMIST QUALIFIED,EDUCATION,T RAIN,LICENSURE/REGULA TION (WHEN APPLICABLE) EDUC SER [...] OUTPATIENT FACILITY, APPROXIMATELY 20 TO 30 MINUTES [id number] W THE PATIENT; W MED EVAL & MGT SER 08/27/19 10 DoD SCREENING PAPANICOLAOU SMEAR; OBTAINING, PREPARING AND CONVEYANCE OF CERVICAL OR VAGINAL SMEAR TO LABORATORY 07/20/19 10 DoD INDIVIDUAL PSYCHOTHERAPY, INSIGHT ORIENTED, BEHAVIOR MODIFYING AND/OR SUPPORTIVE, IN AN OFFICE OR OUTPATIENT FACILITY, APPROXIMATELY 45 TO 50 MINUTES [id number] W THE PATIENT; W MED EVAL & [...] OUTPATIENT FACILITY, APPROXIMATELY 20 TO 30 MINUTES [id number] W THE PATIENT; W MED EVAL & MGT SER 12/12/19 09 DoD INDIVIDUAL PSYCHOTHERAPY, INSIGHT ORIENTED, BEHAVIOR MODIFYING AND/OR SUPPORTIVE, IN AN OFFICE OR OUTPATIENT FACILITY, APPROXIMATELY 20 TO 30 MINUTES [id number] W THE PATIENT; W MED EVAL & MGT SER 11/17/19 09 DoD DESTRUCTION OF CUTANEOUS VASCULAR PROLIFERATIVE LESIONS (EG, LASER TECHNIQUE); LESS THAN 10 SQ CM 11/10/19 09 DoD INDIVIDUAL PSYCHOTHERAPY, INSIGHT ORIENTED, BEHAVIOR MODIFYING AND/OR SUPPORTIVE, IN AN OFFICE OR OUTPATIENT FACILITY, APPROXIMATELY 45 TO 50 MINUTES [id number] WITH THE PATIENT 06/19/20 08 DoD SCREENING PAPANICOLAOU SMEAR; OBTAINING, PREPARING AND CONVEYANCE OF CERVICAL OR VAGINAL SMEAR TO LABORATORY 06/16/20 08 DoD INDIVIDUAL PSYCHOTHERAPY, INSIGHT ORIENTED, BEHAVIOR MODIFYING AND/OR SUPPORTIVE, IN AN OFFICE OR OUTPATIENT FACILITY, APPROXIMATELY 75 TO 80 MINUTES [id number] WITH THE PATIENT 06/12/20 08 DoD INDIVIDUAL PSYCHOTHERAPY, INSIGHT ORIENTED, BEHAVIOR MODIFYING AND/OR SUPPORTIVE, IN AN OFFICE OR OUTPATIENT FACILITY, APPROXIMATELY 20 TO 30 MINUTES [id number] W THE PATIENT; W [facility] EVAL & MGT SER 05/29/20 08 DoD [...] THE CERVIX INCLUDING UPPER/ADJACENT VAGINA; 06/06/20 07 [facility] CYTOPATHOLOGY, SMEARS, CERVICAL OR VAGINAL, UP TO THREE SMEARS; SCREENING BY SUPERVISOR MIXING UNDER PHYSICIAN SUPERVISION 11/02/19 07 [facility] FITTING OF SPECTACLES, EXCEPT FOR APHAKIA; MONOFOCAL 08/29/19 07 [facility] ENDOCERVICAL CURETTAGE (NOT DONE PART OF A DILATION AND CURETTAGE) 06/21/20 06 [facility] COLPOSCOPY OF THE CERVIX INCLUDING UPPER/ADJACENT VAGINA; WITH BIOPSY(S) OF THE CERVIX AND ENDOCERVICAL CURETTAGE 05/22/20 06 [facility] SMEAR, PRIMARY SOURCE WITH INTERPRETATION; WET [...]
== END 2023-11-28 09:14 | disposition home or self-care (01) ==
LOC: US 09:14
PROVIDERS: PCP Physician Assistant Medical; Visit Provider Obstetrics & Gynecology
DX: O09.523 Supervision of elderly multigravida, third trimester (principal); Z3A.31 31 weeks gestation of pregnancy
CPT/HCPCS: 76816

== ENCOUNTER 2024-01-02 13:54 | Outpatient (CLI) | payer MEDICAID, SELFPAY ==
--- OUTSIDE RECORDS SUMMARY | 2024-01-02 13:56 | XMS_ITS | Clinical Summary ---
Author Organization [place] Address [address] [facility] [place] [address] Care Team Providers Care Financial Management Consultant Name Role Phone Mary Bergman PA-C Primary Care Provider Alyx Larkin MD Unavailable [phone] Social History Tobacco Use Types Packs/Day Years [...] 3-dose series) 1998 LIPID 2019 COVID-19 Vaccine (2022-2 4 season) 2023 MATERNAL SCREENING DISCUSSION 07/03/2023 PHQ-2 (once per calendar year) 2023 OBGCT (OB) 10/09/2023 GROUP B STREP SCREENING 01/01/2024 INFLUENZA VACCINE (Season Ended) 2024 05/23/2019 DTAP/TDAP/TD [...] & 60+ ) (No Doses Required) Completed Care Teams Financial Management Consultant Relationship Specialty Start Date End Date Mary Bergman PA-C [facility] [address] [place] [address] PCP - General Physician Voting Machine Repairer 07/30/23 Alyx Larkin MD [address] [facility] [address] [facility] [address] [place] [address] Assigned OBGYN Provider 10/30/23
--- OUTSIDE RECORDS SUMMARY | 2024-01-02 13:56 | XMS_ITS | Encounter Summary ---
Author Organization [place] Address [address] [place] [address] Care Team Providers Care Senior It Security Analyst Name Role Phone Mary Bergman PA-C [...] on filedocumented in this encounter Care Teams Senior It Security Analyst Relationship Specialty Start Date End Date Mary Bergman PA-C [facility] [address] [place] [address] PCP - General Physician Inbound Sales Consultant 07/30/23 documented as of this encounter
--- OUTSIDE RECORDS SUMMARY | 2024-01-02 13:56 | XMS_ITS | Referral Summary ---
Author Organization [place] Address [address] [place] [address]. [place] [address] Care Team Providers Care Technology Education Teacher Name Role Phone Mary Bergman PA-C Primary Care Provider Alyx Larkin MD Unavailable [phone] Social History Tobacco Use Types Packs/Day [...] file Plan of Treatment Not on file Care Teams Technology Education Teacher Relationship Specialty Start Date End Date Mary Bergman PA-C [facility] [address] [place], [place] [id number] PCP - General Physician Dining Room Maid 07/30/23 Alyx Larkin MD [address] [place] [address] Assigned OBGYN Provider 10/30/23
--- OUTSIDE RECORDS SUMMARY | 2024-01-02 13:57 | XMS_ITS | Clinical Summary ---
Author Organization [facility] Address [place], [place] [address] Care Team Providers Care Filter Changing Technician Name Role Phone Mary Bergman PA-C Primary Care Provider + [phone] Allergies No known active allergies Medications Medication [...] of Treatment Not on file Care Teams Filter Changing Technician Relationship Specialty Start Date End Date Mary Bergman PA-C [address] [place] [address] PCP - General Emergency Medicine 04/19/19
--- OUTSIDE RECORDS SUMMARY | 2024-01-02 13:57 | XMS_ITS | Encounter Summary ---
Author Organization [place] Address [facility] [place] [address] Care Team Providers Care Casework Supervisor Name Role Phone Mary Bergman PA-C Primary Care Provider Reason for Referral * Diagnostic Imaging Ultrasound (Routine) - Pending Review Specialty Diagnoses / Procedures Referred By Victorinoac barbara Referred To Contact Radiology. Diagnoses Encounter for follow-up ultrasound of anatomy Procedures [facility] Comprehensive Single F/U aTtum Leavitt MD [address] [place] [address] Referral ID Status Reason Start Date Expiration Date V isits Requested Visits Authorized [id number] Pending Review 08/31/2023 08/30/2024 1 1 Reason for Visit * Diagnostic Imaging Ultrasound (Routine) - Pending Review Specialty Diagnoses / Procedures Referred By Onofre jimenez Referred To Contact Radiology. Diagnoses Encounter for follow-up ultrasound of anatomy Procedures [facility] Comprehensive Single F/U Tatum Leavitt MD [address] [facility] [address] [place] [address] Referral ID Status Reason Start Date Expiration Date V isits Requested Visits Authorized [id number] Pending Review 08/31/2023 08/30/2024 1 1 Encounter Details Date Type Department Care Team (Latest Contact Info) Description 09/28/2023 9:26 AM CDT - 09/28/2023 11:59 PM CDT Hospital Encounter [facility] [place] [address] [place] [address] Tatum Leavitt MD [address] [place] [address] Alyx Larkin MD [address] [place] [address] AMA (advanced maternal age) multigravida [...] Procedure Name Priority Date/Time Associated Diagnosis Comments [facility] COMPREHENSIVE SINGLE F/U Routine 09/28/2023 9:55 AM CDT AMA (advanced maternal age) multigravida 35+, second trimester documented in this encounter Results * [facility] Comprehensive Single F/U (09/28/2023 9:55 AM [...] ? Study Date: ??09/28/2023 9:28am Pat. NO: ??[id number] ?Referring ??MD: ERIKA VU Site: ??[facility] ? Decal Decorator: Genet Kline RDMS : ??1980 ?Age: ?? [...] 1 lb 1 ?oz EFW by ?Hadlock ([id number]) Head / Face / Neck Biometry: Fiberglass Finisher ? 5.6 ? mm CM ?5.4 ? mm ANATOMY ----- The following structures appear normal: Head / Neck ? Cranium. Head size. Head shape. Lateral ventricles. Midline falx. Cavum septi pellucidi. Cerebellum. Cisterna magna. Thalami. Face ? Lips. Profile. Nose. Heart / Thorax ?4-chamber view. RVOT view. LVOT view. Situs. Aortic arch view. 2-dcgnve-zjakqrl view. ? Diaphragm. Abdomen ? Stomach. Kidneys. [...] and communicating with other health customer care associate and/or care coordination. Procedure Note Alyx Larkin MD - 09/28/2023 Comp Follow Up ----- Pat. Name: GERA CONNER Study Date: 09/28/2023 9:28am Pat. NO: [id number] Referring MD: ERIKA GREENFIELD Site: [facility] Decal Decorator: Genet Kline RDMS : 1980 Age: 43 [...] 1 lb 1 oz EFW by Melecio ([id number]) Head / Face / Neck Biometry: Fiberglass Finisher 5.6 mm CM 5.4 mm ANATOMY ----- The following structures appear normal: Head / Neck Cranium. Head size. Head shape.Lateral ventricles. Midline falx. Cavum septi pellucidi. Cerebellum.Cisterna magna. Thalami. Face Lips. Profile. Nose. Heart / Thorax 4-chamber view. RVOT view. LVOT view.Situs. Aortic arch view. 2-wbnsdb-xpjopit view. Diaphragm. Abdomen Stomach. Kidneys. Bladder. Spine [...] record, andcommunicating with other health customer care associate and/or carecoordination. IMPRESSION ----- 1. Jones intrauterine [...] trimester documented in this encounter Care Teams Casework Supervisor Relationship Specialty Start Date End Date Mary Bergman PA-C [facility] [address] [place] [address] PCP - General Physician Scientific Informatics Leader 07/30/23 documented as of this encounter
--- OUTSIDE RECORDS SUMMARY | 2024-01-02 13:57 | XMS_ITS | Encounter Summary ---
Author Organization [place] Address [address] [facility] [place] [address] Care Team Providers Care Lowerator Operator Name Role Phone Mary Bergman PA-C Primary Care Provider Reason for Visit * Reason Comments Ultrasound [id number] Encounter Details Date Type Department Care Team (Late st Contact Info) Description 09/28/2023 10:00 AM CDT Office Visit [facility] [place] [address] [facility] [address] [place] [address] Tatum Leavitt MD [address] [place] [address] Alyx Larkin MD [address] [place] [address] AMA (advanced maternal age) multigravida [...] in the Maternal- Medicine Center at the [facility] [address] today. For a detailed report of the ultrasound examination, please see the ultrasound report which can be found under the imaging tab. If you have questions regarding today's evaluation or if we can be of further service, please contact the Maternal- Medicine Center. Alyx Larkin MD Help Desk Operator, COMMERCIAL PEST CONTROL REPRESENTATIVE Maternal- Medicine [phone] (Pager) documented in this encounter Plan of Treatment Not on file documented as of this encounter Visit Diagnoses Diagnosis AMA (advanced maternal age) multigravida 35+, second trimester- Primary documented in this encounter Care Teams Lowerator Operator Relationship Specialty Start Date End Date Mary Bergman PA-C [facility] [address] [place] [address] PCP - General Physician Breakfast And Room Attendant 07/30/23 documented as of this encounter
--- OUTSIDE RECORDS SUMMARY | 2024-01-02 13:57 | XMS_ITS | Continuity of Care Document ---
Author Name [facility] Organization [facility] Care Team Providers Care Lead Refinery Supervisor Name Role Phone DOD-VA Unavailable Unavailable Problems [...] - myopia Inactive Condition SRxOD: -0.50DS 20/15-OS: -[id number] 20/15-Pt may pursue initial CL fitting w/civilian [...] Site Reaction Lot Number CVX Code Drug Softball Winder Status Comments Source tuberculin skin test; purified protein derivative solution, intradermal 1 2008 Unknown, Provider [id number] San[employer]i Pasteur ([facility]) complet ed tuberculi n skin test; purified protein derivativ e solution, intraderm al DoD tuberculin skin test; purified protein derivative solution, intradermal 1 2007 Unknown, Provider [id number] 96 Sanofi Pasteur ([facility]) complet ed tuberculi n skin test; purified protein derivativ e solution, intraderm al DoD tuberculin skin test; purified protein derivative solution, intradermal 1 2007 Unknown, Provider [id number] 96 Sanofi Pasteur ([facility]) complet ed tuberculi n skin test; purified protein derivativ e solution, intraderm al DoD tuberculin skin test; purified protein derivative solution, intradermal 1 2007 Unknown, Provider [id number] 96 Sanofi Pasteur ([facility]) complet ed tuberculi n skin test; purified protein derivativ e solution, intraderm al DoD poliovirus vaccine, inactivated 2 2007 Unknown, Provider [id number] Sanofi Pasteur ([facility]) complet ed polioviru s vaccine, inactivat ed DoD rabies vaccine, for intramuscular injection RETIRED CODE 1 2007 Unknown, Provider [id number] 18 Sanofi Pasteur ([facility]) complet ed rabies vaccine, for intramusc ular injection RETIRED CODE DoD typhoid Vi capsular polysaccharid e vaccine 1 2007 Unknown, Provider [id number] 101 [facility] ([facility]) complet ed typhoid Vi capsular polysacch aride vaccine DoD influenza virus vaccine, split virus (incl. purified surface antigen)-reti red CODE 1 2006 [id number] 15 [facility] ([facility]) complet ed influenza virus vaccine, split virus (incl. purified surface antigen)- retired CODE DoD anthrax vaccine 4 2005 [id number] 24 [employer] ([facility]) complet ed anthrax vaccine DoD influenza virus vaccine, split virus (incl. purified surface antigen)-reti red CODE 1 2004 [id number] 15 [facility] ([facility]) complet ed influenza virus vaccine, split virus (incl. purified surface antigen)- retired CODE DoD influenza virus vaccine, whole virus 1 2004 [id number] 16 [facility] ([facility]) complet ed influenza virus vaccine, whole virus DoD anthrax vaccine 3 2004 [id number] 24 [employer] ([facility]) complet ed anthrax vaccine DoD anthrax vaccine 2 2004 [id number] 24 [facility] [employer] ([facility]) complet ed anthrax vaccine DoD typhoid vaccine, parenteral, other than acetone-kille d, dried [id number] [facility] ([facility]) complet ed typhoid vaccine, parentera l, other than acetone-k illed, dried DoD vaccinia (smallpox) vaccine 1 2004 [id number] 75 Alex ([facility]) complet ed vaccinia (smallpox ) vaccine DoD anthrax vaccine 1 2004 [id number] 24 [facility] [employer] ([facility]) complet ed anthrax vaccine DoD tuberculin skin test; purified protein derivative solution, intradermal 1 2004 Unknown, Provider [id number] 96 [facility] ([facility]) complet ed tuberculi n skin test; purified protein derivativ e solution, intraderm al [facility] influenza virus vaccine, live, attenuated, for intranasal use 0 2003 [id number] [employer] ([facility]) complet ed influenza virus vaccine, live, attenuate d, for intranasa l use DoD tuberculin skin test; purified protein derivative solution, intradermal 1 2003 Unknown, Provider [id number] 96 Sanofi Pasteur ([facility]) complet ed tuberculi n skin test; purified protein derivativ e solution, intraderm al DoD influenza virus vaccine, whole virus 0 2002 [id number] 16 [employer] ([facility]) complet ed influenza virus vaccine, whole virus DoD influenza virus vaccine, whole virus 0 2002 [id number] 16 [employer] ([facility]) complet ed influenza virus vaccine, whole virus DoD typhoid vaccine, parenteral, other than acetone-kille d, dried 0 2002 [id number] 41 Sanofi Pasteur ([facility]) complet ed typhoid vaccine, parentera l, other than acetone-k illed, dried DoD hepatitis B vaccine, adult dosage 2 2002 [id number] 43 [employer] ([facility]) complet ed hepatitis B vaccine, adult dosage DoD tuberculin skin test; purified protein derivative solution, intradermal 3 2002 Unknown, Provider [id number] 96 Sanofi Pasteur ([facility]) complet ed tuberculi n skin test; purified protein derivativ e solution, intraderm al DoD hepatitis B vaccine, adult dosage 3 2002 [id number] 43 [employer] ([facility]) complet ed hepatitis B vaccine, adult dosage DoD influenza virus vaccine, whole virus 0 2001 [id number] 16 Sanofi Pasteur ([facility]) complet ed influenza virus vaccine, whole virus DoD hepatitis B vaccine, adult dosage 1 2001 [id number] 43 [employer] ([facility]) complet ed hepatitis B vaccine, adult dosage DoD varicella virus vaccine 1 2001 21 () Not Given varicella virus vaccine DoD hepatitis A vaccine, adult dosage 2 2001 [id number] 52 [employer] ([facility]) complet ed hepatitis A vaccine, adult dosage DoD tetanus and diphtheria toxoids, adsorbed, preservative free, for adult use (2 Lf of tetanus toxoid and 2 Lf of diphtheria toxoid) 0 2001 [id number] Sanofi Pasteur ([facility]) complet ed tetanus and diphtheri a toxoids, adsorbed, preservat chris free, for adult use (2 Lf of tetanus toxoid and 2 Lf of diphtheri a toxoid) DoD influenza virus vaccine, whole virus 0 2001 [id number] 16 Sanofi Pasteur ([facility]) complet ed influenza virus vaccine, whole virus DoD yellow fever vaccine 0 2000 [id number] 37 [employer] ([facility]) complet ed yellow fever vaccine DoD typhoid vaccine, parenteral, other than acetone-kille d, dried 0 2000 [id number] [employer] ([facility]) complet ed typhoid vaccine, parentera l, other than acetone-k illed, dried DoD tuberculin skin test; purified protein derivative solution, intradermal 2 2000 Unknown, Provider [id number] 96 Sanofi Pasteur ([facility]) complet ed tuberculi n skin test; purified protein derivativ e solution, intraderm al DoD meningococcal polysaccharid e vaccine (MPSV4) 0 2000 [id number] 32 [employer] ([facility]) complet ed meningoco ccal polysacch aride vaccine (MPSV4) DoD hepatitis A vaccine, adult dosage 1 2000 [id number] [employer] ([facility]) complet ed hepatitis A vaccine, adult [...] Source [employer]([facility]) OUTPATIENT [id number] JEREMY WALLS 02/08 Released w/o Limitations [employer]([facility] Practic e) [facility]) OUTPATIENT [id number] annual and control TANA HOLLIDAY 05/11 Released w/o Limitations [facility]) [facility]) OUTPATIENT [id number] hgsil 05/14 VI MATHIS 05/22 Released w/o Limitations [facility](D yspl[facility] a [facility]) [facility] OUTPATIENT [id number] LEEP in Minor Room at 1300 VI MATHIS Jacek 06/21 Released w/o Limitations [facility](D ysplasi a Clinic) [facility]) TELE CONSULT [id number] LEEP results VI MATHIS Jacek 06/26 [facility]) [facility]) OUTPATIENT [id number] F/U LEEP VI MATHIS Jacek 07/17 Released w/o Limitations [facility](D ysplasi a [facility]) [facility] OUTPATIENT [id number] eye exam DOMENICO GORMAN 08/29 Released w/o Limitations [facility](O ptometr y ([facility])) [facility]) OUTPATIENT [id number] COLPO/P ILL VI MATHIS Jacek 11/01 Released w/o Limitations [facility](D ysplasi a Clinic) [facility]) TELE CONSULT [id number] pap results VI MATHIS Jacek 11/12 [facility]) [facility]) TELE CONSULT [id number] sep. LEONIE Mena 02/26 [facility](S ilver Pod) [facility]) OUTPATIENT [id number] separat ion paper work, no PE availab KARYNA Gtz 03/01 Released w/o Limitations [facility](S [facility]) [facility]) OUTPATIENT [id number] colpo/p ill DOMINIC MATHISBLAIR Read 06/06 Released w/o Limitations [facility](D ysplasi a Clinic) [facility]) TELE CONSULT [id number] pap results BHUPINDER MATHISELEAZAR Read 06/11 [facility]) [facility]) OUTPATIENT [id number] colpo/p ill ABDIADÁN Maira 10/10 Released w/o Limitations [employer](D ysplasi a Clinic) [facility](Inf ectious [facility]) OUTPATIENT [id number] Travel to [facility] NEIL BURRELL 10/21 Released w/o Limitations [employer](I nfectio us Disease Clinic [facility]) [facility](Opt ometry ([facility]) ) OUTPATIENT [id number] eye exam JENIFER PADILLA 11/04 Released w/o Limitations [facility](O ptometr y ([facility])) [facility]) OUTPATIENT [id number] mole on side and back MK CHANDRA 12/08 Released w/o Limitations [facility](D ermatol ogy) [facility]) OUTPATIENT [id number] laser test - richardell a V-beam MK CHANDRA 12/19 Released w/o Limitations [facility](D ermatol ogy) [facility]) OUTPATIENT [id number] discuss control DELFINO GAINES 01/26 Released w/o Limitations [facility]) [facility]) OUTPATIENT [id number] laser hair MK CHANDRA 02/02 Released w/o Limitations [facility](D ermatol ogy) [facility]) OUTPATIENT [id number] laser -m ark MK CHANDRA 03/27 Released w/o Limitations [facility](D ermatol ogy) [facility]) OUTPATIENT [id number] laser treatme nt MK CHANDRA 05/01 Released w/o Limitations [facility](D ermatol ogy) [facility]) OUTPATIENT [id number] ANTONIO Sarabia 05/06 Released w/o Limitations [facility](B lue Pod) [facility] Psych[facility] ) OUTPATIENT [id number] anxiety symptom s MAHAD PERLA 05/13 Released w/o Limitations [employer]([facility]) [employer]([facility]) OUTPATIENT [id number] MAHAD PERLA 05/29 Released w/o Limitations [employer](M [facility] Psychia try) [facility](Psy chiatry 0095) OUTPATIENT [id number] Please give MIQUEL GUTIERREZ 06/12 Released w/o Limitations [facility](P sychiat ry 0095) [facility]) OUTPATIENT [id number] annual papsmea THOMAS Gilbert 06/16 Released w/o Limitations [facility]) [facility](Psy chiatry 0095) OUTPATIENT [id number] MIQUEL TANG 06/19 Released w/o Limitations [facility](P sychiat ry 0095) [facility]) TELE CONSULT [id number] test for varicel la, hep b, mmr tidor-r equest- all AUGUSTUS, SUSHMA D 07/31 [facility]) [facility]) TELE CONSULT [id number] pt wants to know if Sushma receive d her fax AUGUSTUS, SUSHMA D 08/13 [facility](B lue Pod) [facility](Psy chiatry 0095) TELE CONSULT [id number] appoint ment MAHAD PERLA 10/13 Referred for Appointment [facility](P sychiat ry 0095) [facility](Psy chiatry 0095) TELE CONSULT [id number] phone call MAHAD PERLA 10/16 Referred for Appointment [facility](P sychiat ry 0095) [facility](Psy chiatry 0095) TELE CONSULT [id number] needs meds before f/u appt MAHAD PERLA 10/27 Referred for Appointment [facility](P sychiat ry 0095) [facility]) OUTPATIENT [id number] laser treatme MK Abreu 11/09 Released w/o Limitations [employer](D ermatol ogy) [employer](Psy chiatry 0095) OUTPATIENT [id number] follow up MAHAD PERLA 11/16 Released w/o Limitations [employer](P sychiat ry 0095) [employer](Psy chiatry 0095) OUTPATIENT [id number] MAHAD PERLA 12/11 Released w/o Limitations [employer](P sychiat ry 0095) [facility]) OUTPATIENT [id number] laser MK CHANDRA 12/21 Released w/o Limitations [employer](D ermatol ogy) [facility]) OUTPATIENT [id number] laser hair removal MK CHANDRA 04/05 Released w/o Limitations [facility](D ermatol ogy) [facility](Psy chiatry 009) OUTPATIENT [id number] NICOLÁS VIRK 05/05 Released w/o Limitations [facility](P sychiat ry 0095) [facility]) TELE CONSULT [id number] bridge HAILEY York 05/31 [facility]) [facility](Psy chiatry 009) TELE CONSULT [id number] APPOINT MENT NICOLÁS VIRK 07/13 Referred for Appointment [facility](P sychiat ry 0095) [facility]) OUTPATIENT [id number] OREN Lockhart 07/20 Released w/o Limitations [facility]) [facility]) OUTPATIENT [id number] lab results - abnorma l TESS LEONARD V 07/27 Released w/o Limitations [facility](B [facility]) [facility](Psy chiatry 009) TELE CONSULT [id number] meds and appt? NICOLÁS VIRK 08/10 Referred for Appointment [facility](P sychiat ry 0095) [facility](Psy chiatry 0095) OUTPATIENT [id number] NICOLÁS VIRK 08/27 Released w/o Limitations [facility] [...] 30 Min W/ Medical Evaluation & Management 30468 09/09/19 10 SULLYNICOLÁS [facility] Screening papanicolaou smear; obtaining, preparing and conveyance of cervical or vaginal smear to laboratory 07/20/19 10 OREN LINCOLN [facility] Psychiatric Diagnostic Evaluation Comprehensive Examination Psychiatric Diagnostic Evaluation Comprehensive Examination [id number] 05/12/20 09 SULLYNICOLÁS [facility] Destruction Of Cutaneous Vascular Lesions Le Than 10 Sq Cm Destruction Of Cutaneous Vascular Lesions Less Than 10 [place]m [address] 04/05/20 09 MK CHANDRA Psychotherapy Individual Approx 30 Min W/ Medical Evaluation & Management Psychotherapy Individual Approx 30 Min W/ Medical Evaluation & Management 65754 12/24/19 09 MAHAD PERLA Destruction Of Cutaneous Vascular Lesions Le Than 10 Sq Cm Destruction Of Cutaneous Vascular Lesions Less Than 10 Sq Cm 20004 12/22/19 09 MK CHANDRA Psychotherapy Individual Approx 30 Min W/ Medical Evaluation & Management Psychotherapy Individual Approx 30 Min W/ Medical Evaluation & Management 33059 12/15/19 09 MAHAD PERLA Destruction Of Cutaneous Vascular Lesions Le Than 10 Sq Cm Destruction Of Cutaneous Vascular Lesions Less Than 10 [place]q Cm [address]655 11/10/19 09 MK CHANDRA Psychotherapy Individual Approximately 45 Minutes Psychotherapy Individual Approximately 45 Minutes 39415 06/22/20 08 MIQUEL TANG [facility] Physician Supervised Specimen Handling / Transfer: Office To Lab Physician Supervised Specimen Handling / Transfer: Office To Lab [id number] 06/16/20 08 THOMAS BANKS Screening papanicolaou smear; obtaining, preparing and conveyance of cervical or vaginal smear to laboratory 06/16/20 08 THOMAS BANKS Psychotherapy Individual Approximately 75-80 Minutes Psychotherapy Individual Approximately 75-80 Minutes 61826 06/15/20 08 MIQUEL TANG [employer] Integumentary Procedures (Therapeutic) Integumentary Procedures (Therapeutic) 02670 05/01/20 08 MK CHANDRA Integumentary Procedures (Therapeutic) Integumentary Procedures (Therapeutic) 71539 03/27/20 08 MK CHANDRA Integumentary Procedures (Therapeutic) Integumentary Procedures (Therapeutic) 23839 02/03/20 08 MK CHANDRA Integumentary Procedures (Therapeutic) Integumentary Procedures (Therapeutic) 98303 12/20/19 08 MK CHANDRA Shaving Of Lesion Trunk .6 to 1cm Shaving Of Lesion Trunk .6 to 1cm 60051 12/09/19 08 MK CHANDRA Shaving Of Lesion Trunk Up to .5cm Shaving Of Lesion Trunk Up to .5cm 68997 12/09/19 08 MK CHANDRA Ophthalmological Prior Patient Start [facility] Ophthalmological Prior Patient Start [facility] 17621 11/05/19 08 JENIFER PADILLA Determination Of Refractive State Determination Of Refractive State 29569 11/05/19 08 JENIFER PADILLA Visual Sanderson Test Limited Examination Visual Sanderson Test Limited Examination 71658 11/05/19 08 JENIFER PADILLA Colposcopy Colposcopy 73293 10/11/19 08 ADÁN PATTON Cervical Pap Smear Cervical Pap Smear 17340 10/26 08 ADÁN PATTON [facility] Colposcopy Colposcopy 22260 06/06/20 07 VI MATHIS Cervical Pap Smear Cervical Pap Smear 94970 07 VI MATHIS Colposcopy Colposcopy 15581 11/02/19 07 VI MATHIS Cervical Pap Smear Cervical Pap Smear 80841 07 VI MATHIS Ophthalmological New Patient Start [facility] Ophthalmological New Patient Start Comprehensive Care 53494 09/01/19 07 DOMENICO GORMAN Determination Of Refractive State Determination Of Refractive State 81616 09/01/19 07 DOMENICO GORMAN [employer] Fitting Monofocal Except For Aphakia [employer] Fitting Monofocal Except For Aphakia 44101 09/01/19 07 DOMENICO GORMAN Colposcopy With Loop Electrode Excision of the Cervix Colposcopy With Loop Electrode Excision of the Cervix 17967 06/21/20 06 DELVI [facility] Endocervical Curettage (Not D&C) Endocervical Curettage (Not D&C) 58572 06/21/20 06 DELVI [facility] Colposcopy With Biopsy Colposcopy With Biopsy 02513 05/22/20 06 VI MATHIS [facility] Cervical Pap Smear Cervical Pap Smear 17229 09/25 06 TANA HOLLIDAY [facility] Vaginal Wet [place] Vaginal Wet [place] 27808 05/11/20 06 TANA HOLLIDAY [facility] SCREENING TEST OF VISUAL ACUITY, QUANTITATIVE, BILATERAL 02/09/20 05 [facility] SCREENING TEST OF VISUAL ACUITY, QUANTITATIVE, BILATERAL 02/24/20 04 [facility] SCREENING TEST OF VISUAL ACUITY, QUANTITATIVE, BILATERAL 02/10/20 03 [facility] SCREENING TEST OF VISUAL ACUITY, QUANTITATIVE, BILATERAL 10/14/19 03 [facility] PHYS/OTH QUALIFIED HEALTH CAPACITOR TESTER QUALIFIED,EDUCATION,T RAIN,LICENSURE/REGULA TION (WHEN APPLICABLE) EDUC SER [...] OUTPATIENT FACILITY, APPROXIMATELY 20 TO 30 MINUTES [id number] W THE PATIENT; W MED EVAL & MGT SER 08/27/19 10 DoD SCREENING PAPANICOLAOU SMEAR; OBTAINING, PREPARING AND CONVEYANCE OF CERVICAL OR VAGINAL SMEAR TO LABORATORY 07/20/19 10 DoD INDIVIDUAL PSYCHOTHERAPY, INSIGHT ORIENTED, BEHAVIOR MODIFYING AND/OR SUPPORTIVE, IN AN OFFICE OR OUTPATIENT FACILITY, APPROXIMATELY 45 TO 50 MINUTES [id number] W THE PATIENT; W MED EVAL & [...] OUTPATIENT FACILITY, APPROXIMATELY 20 TO 30 MINUTES [id number] W THE PATIENT; W MED EVAL & MGT SER 12/12/19 09 DoD INDIVIDUAL PSYCHOTHERAPY, INSIGHT ORIENTED, BEHAVIOR MODIFYING AND/OR SUPPORTIVE, IN AN OFFICE OR OUTPATIENT FACILITY, APPROXIMATELY 20 TO 30 MINUTES [id number] W THE PATIENT; W MED EVAL & MGT SER 11/17/19 09 DoD DESTRUCTION OF CUTANEOUS VASCULAR PROLIFERATIVE LESIONS (EG, LASER TECHNIQUE); LESS THAN 10 SQ CM 11/10/19 09 DoD INDIVIDUAL PSYCHOTHERAPY, INSIGHT ORIENTED, BEHAVIOR MODIFYING AND/OR SUPPORTIVE, IN AN OFFICE OR OUTPATIENT FACILITY, APPROXIMATELY 45 TO 50 MINUTES [id number] WITH THE PATIENT 06/19/20 08 DoD SCREENING PAPANICOLAOU SMEAR; OBTAINING, PREPARING AND CONVEYANCE OF CERVICAL OR VAGINAL SMEAR TO LABORATORY 06/16/20 08 DoD INDIVIDUAL PSYCHOTHERAPY, INSIGHT ORIENTED, BEHAVIOR MODIFYING AND/OR SUPPORTIVE, IN AN OFFICE OR OUTPATIENT FACILITY, APPROXIMATELY 75 TO 80 MINUTES [id number] WITH THE PATIENT 06/12/20 08 DoD INDIVIDUAL PSYCHOTHERAPY, INSIGHT ORIENTED, BEHAVIOR MODIFYING AND/OR SUPPORTIVE, IN AN OFFICE OR OUTPATIENT FACILITY, APPROXIMATELY 20 TO 30 MINUTES [id number] W THE PATIENT; W [facility] EVAL & MGT SER 05/29/20 08 DoD [...] THE CERVIX INCLUDING UPPER/ADJACENT VAGINA; 06/06/20 07 [facility] CYTOPATHOLOGY, SMEARS, CERVICAL OR VAGINAL, UP TO THREE SMEARS; SCREENING BY BAND STRAIGHTENER UNDER PHYSICIAN SUPERVISION 11/02/19 07 [facility] FITTING OF SPECTACLES, EXCEPT FOR APHAKIA; MONOFOCAL 08/29/19 07 [facility] ENDOCERVICAL CURETTAGE (NOT DONE PART OF A DILATION AND CURETTAGE) 06/21/20 06 [facility] COLPOSCOPY OF THE CERVIX INCLUDING UPPER/ADJACENT VAGINA; WITH BIOPSY(S) OF THE CERVIX AND ENDOCERVICAL CURETTAGE 05/22/20 06 [facility] SMEAR, PRIMARY SOURCE WITH INTERPRETATION; WET [...]
--- NOTE | 2024-01-02 14:00 | CRLHL7_ITS ---
For Patients: As a result of the Century Cures Act, medical imaging exams and procedure reports are released immediately into your electronic medical record. You may view this report before your referring provider. If you have questions, please contact your health care provider. INDICATION: AMA COMPARISON: 11/28/2023 TECHNIQUE: Real time vargas scale imaging of the fetus was performed. Without non-stress testing. FINDINGS: Sonographic imaging demonstrates a single living intrauterine gestation. Fetus demonstrates a regular cardiac rate of 152 beats per minute. Fetus has a vertex position. The amniotic fluid volume appears normal and there is a single deepest pocket measurement of 4.7 cm. The fetus was active and demonstrated normal breathing movements. There was normal flexion and extension of the trunk and extremities. IMPRESSION: Normal biophysical profile score of 8 out of 8. Dictated by hCay Cox MD @ 01/02/2024 7:09:27 PM (Electronically Signed)
== END 2024-01-02 13:55 | disposition home or self-care (01) ==
LOC: US 13:55
PROVIDERS: PCP Physician Assistant Medical; Visit Provider Obstetrics & Gynecology
DX: O09.529 Supervision of elderly multigravida, unspecified trimester (principal)
CPT/HCPCS: 76819

== ENCOUNTER 2024-01-11 08:11 | Outpatient (CLI) | payer MEDICAID, SELFPAY ==
--- OUTSIDE RECORDS SUMMARY | 2024-01-11 08:13 | XMS_ITS | Continuity of Care Document ---
Author Name [facility] Organization [facility] Care Team Providers Care Sports Medicine Physician Name Role Phone [facility] Unavailable Unavailable Problems [...] - myopia Inactive Condition SRxOD: -0.50DS 20/15-OS: -0.50-0.37d493 20/15-Pt may pursue initial CL fitting w/civilian [...] Site Reaction Lot Number CVX Code Drug Research Consultant Status Comments Source tuberculin skin test; purified protein derivative solution, intradermal 1 2008 Unknown, Provider [id number] San[employer] Paste[employer] ([facility]) complet ed tuberculi n skin test; purified protein derivativ e solution, intraderm al DoD tuberculin skin test; purified protein derivative solution, intradermal 1 2007 Unknown, Provider [id number] San[employer] Paste[employer] ([facility]) complet ed tuberculi n skin test; purified protein derivativ e solution, intraderm al DoD tuberculin skin test; purified protein derivative solution, intradermal 1 2007 Unknown, Provider [id number] Sanofi Pasteur ([facility]) complet ed tuberculi n skin test; purified protein derivativ e solution, intraderm al DoD tuberculin skin test; purified protein derivative solution, intradermal 1 2007 Unknown, Provider [id number] Sanofi Pasteur ([facility]) complet ed tuberculi n skin test; purified protein derivativ e solution, intraderm al DoD poliovirus vaccine, inactivated 2 2007 Unknown, Provider [id number] Sanofi Pasteur ([facility]) complet ed polioviru s vaccine, inactivat ed DoD rabies vaccine, for intramuscular injection RETIRED CODE 1 2007 Unknown, Provider [id number] Sanofi Pasteur ([facility]) complet ed rabies vaccine, for intramusc ular injection RETIRED CODE DoD typhoid Vi capsular polysaccharid e vaccine 1 2007 Unknown, Provider [id number] [facility] ([facility]) complet ed typhoid Vi capsular polysacch aride vaccine DoD influenza virus vaccine, split virus (incl. purified surface antigen)-reti red CODE 1 2006 [id number] 15 [facility] ([facility]) complet ed influenza virus vaccine, split virus (incl. purified surface antigen)- retired CODE DoD anthrax vaccine 4 2005 [id number] [employer] [place] ([facility]) complet ed anthrax vaccine DoD influenza virus vaccine, split virus (incl. purified surface antigen)-reti red CODE 1 2004 [id number] 15 [facility] ([facility]) complet ed influenza virus vaccine, split virus (incl. purified surface antigen)- retired CODE DoD influenza virus vaccine, whole virus 1 2004 [id number] 16 [facility] ([facility]) complet ed influenza virus vaccine, whole virus DoD anthrax vaccine 3 2004 [id number] [employer] [place] ([facility]) complet ed anthrax vaccine DoD anthrax vaccine 2 2004 [id number] [facility] [place] ([facility]) complet ed anthrax vaccine DoD typhoid vaccine, parenteral, other than acetone-kille d, dried 1 2004 [id number] [facility] complet ed typhoid vaccine, parentera l, other than acetone-k illed, dried DoD vaccinia (smallpox) vaccine 1 2004 [id number] 75 Alex ([facility]) complet ed vaccinia (smallpox ) vaccine DoD anthrax vaccine 1 2004 [id number] 24 [facility] [place] ([facility]) complet ed anthrax vaccine DoD tuberculin skin test; purified protein derivative solution, intradermal 1 2004 Unknown, Provider [id number] 96 [facility] ([facility]) complet ed tuberculi n skin test; purified protein derivativ e solution, intraderm al [facility] influenza virus vaccine, live, attenuated, for intranasal use 0 2003 [id number] [employer] ([facility]) complet ed influenza virus vaccine, live, attenuate d, for intranasa l use DoD tuberculin skin test; purified protein derivative solution, intradermal 1 2003 Unknown, Provider [id number] 96 Sanofi Pasteur ([facility]) complet ed tuberculi n skin test; purified protein derivativ e solution, intraderm al DoD influenza virus vaccine, whole virus 0 2002 [id number] 16 [employer] ([facility]) complet ed influenza virus vaccine, whole virus DoD influenza virus vaccine, whole virus 0 2002 [id number] [employer] ([facility]) complet ed influenza virus vaccine, whole virus DoD typhoid vaccine, parenteral, other than acetone-kille d, dried 0 2002 [id number] 41 [employer]ofi Pasteur ([facility]) complet ed typhoid vaccine, parentera l, other than acetone-k illed, dried DoD hepatitis B vaccine, adult dosage 2 2002 [id number] 43 [employer] ([facility]) complet ed hepatitis B vaccine, adult dosage DoD tuberculin skin test; purified protein derivative solution, intradermal 3 2002 Unknown, Provider [id number] 96 Sanofi Pasteur ([facility]) complet ed tuberculi n skin test; purified protein derivativ e solution, intraderm al DoD hepatitis B vaccine, adult dosage 3 2002 [id number] 43 [employer] ([facility]) complet ed hepatitis B vaccine, adult dosage DoD influenza virus vaccine, whole virus 0 2001 [id number] 16 San[employer]i Pasteur ([facility]) complet ed influenza virus vaccine, whole virus DoD hepatitis B vaccine, adult dosage 1 2001 [id number] 43 [employer] ([facility]) complet ed hepatitis B vaccine, adult dosage DoD varicella virus vaccine 1 2001 21 () Not Given varicella virus vaccine DoD hepatitis A vaccine, adult dosage 2 2001 [id number] 52 [employer] ([facility]) complet ed hepatitis A vaccine, adult dosage DoD tetanus and diphtheria toxoids, adsorbed, preservative free, for adult use (2 Lf of tetanus toxoid and 2 Lf of diphtheria toxoid) 0 2001 [id number] Sanof[employer] Paste[employer] ([facility]) complet ed tetanus and diphtheri a toxoids, adsorbed, preservat chris free, for adult use (2 Lf of tetanus toxoid and 2 Lf of diphtheri a toxoid) DoD influenza virus vaccine, whole virus 0 2001 [id number] 16 Sanof[employer] Pasteur ([facility]) complet ed influenza virus vaccine, whole virus DoD yellow fever vaccine 0 2000 [id number] 37 [employer] ([facility]) complet ed yellow fever vaccine DoD typhoid vaccine, parenteral, other than acetone-kille d, dried 0 2000 [id number] [place] ([facility]) complet ed typhoid vaccine, parentera l, other than acetone-k illed, dried DoD tuberculin skin test; purified protein derivative solution, intradermal 2 2000 Unknown, Provider [id number] 96 Sanofi Pasteur ([facility]) complet ed tuberculi n skin test; purified protein derivativ e solution, intraderm al DoD meningococcal polysaccharid e vaccine (MPSV4) 0 2000 [id number] 32 [place] ([facility]) complet ed meningoco ccal polysacch aride vaccine (MPSV4) DoD hepatitis A vaccine, adult dosage 1 2000 [id number] [employer] ([facility]) complet ed hepatitis A vaccine, adult [...] Source [employer]([facility]) OUTPATIENT [id number] JEREMY WALLS 02/08 Released w/o Limitations [employer](F amily Practic e) [facility]) OUTPATIENT [id number] annual and control TANA HOLLIDAY 05/11 Released w/o Limitations [facility]) [facility]) OUTPATIENT [id number] hgsil 05/14 VI MATHIS 05/22 Released w/o Limitations [facility] a Clinic) [facility] Medical [facility]) OUTPATIENT [id number] LEEP in Minor Room at 1300 VI MATHIS Jacek 06/21 Released w/o Limitations [facility] Medical [facility](D ysplasi a Clinic) [facility] Medical [facility]) TELE CONSULT [id number] LEEP results VI MATHIS Jacek 06/26 [facility] Medical [facility]) [facility] Medical [facility]) OUTPATIENT [id number] F/U LEEP VI MATHIS Jacek 07/17 Released w/o Limitations [facility] Medical [facility](D ysplasi a [facility]) [facility] OUTPATIENT [id number] eye exam DOMENICO GORMAN 08/29 Released w/o Limitations [facility] Medical [facility](O ptometr y ([facility])) [facility] Medical [facility]) OUTPATIENT [id number] COLPO/P ILL VI MATHIS Jacek 11/01 Released w/o Limitations [facility] Medical [facility](D ysplasi a Clinic) [facility] Medical [facility]) TELE CONSULT [id number] pap results VI MATHIS Jacek 11/12 [facility] Medical [facility]) [facility] Medical [facility]) TELE CONSULT [id number] sep. LEONIE Mena 02/26 [facility] Medical [facility](S ilver Pod) [facility] Medical [facility]) OUTPATIENT [id number] separat ion paper work, no PE availab KARYNA Gtz 03/01 Released w/o Limitations [facility] Medical [facility](S ilver Pod) [facility] Medical [facility]) OUTPATIENT [id number] colpo/p ill DOMINIC MATHISBLAIR Read 06/06 Released w/o Limitations [facility] Medical [facility](D ysplasi a Clinic) [facility] Medical [facility]) TELE CONSULT [id number] pap results BHUPINDER MATHISELEAZAR Read 06/11 [facility] Medical [facility]) [facility]) OUTPATIENT [id number] colpo/p ill ABDIADÁN Maira 10/10 Released w/o Limitations [employer](D ysplasi a Clinic) [facility] Medical [facility](Inf ectious Disease Clinic [facility]) OUTPATIENT [id number] Travel to [facility] NEIL BURRELL 10/21 Released w/o Limitations [employer](I nfectio us Disease Clinic [facility]) [facility](Opt ometry ([facility]) ) OUTPATIENT [id number] eye exam JENIFER PADILLA 11/04 Released w/o Limitations [facility](O ptometr y ([facility])) [facility]) OUTPATIENT [id number] mole on side and back MK CHANDRA 12/08 Released w/o Limitations [facility](D ermatol ogy) [facility]) OUTPATIENT [id number] laser test - richardell a V-beam MK CHANDRA 12/19 Released w/o Limitations [facility](D ermatol ogy) [facility]) OUTPATIENT [id number] discuss control DELFINO GAINES 01/26 Released w/o Limitations [facility] Medical [facility]) [facility] Medical [facility]) OUTPATIENT [id number] laser hair MK CHANDRA 02/02 Released w/o Limitations [facility](D ermatol ogy) [facility]) OUTPATIENT [id number] laser -m ark MK CHANDRA 03/27 Released w/o Limitations [facility](D ermatol ogy) [facility]) OUTPATIENT [id number] laser treatme nt MK CHANDRA 05/01 Released w/o Limitations [facility](D ermatol ogy) [facility] Medical [facility]) OUTPATIENT [id number] ANTONIO Sarabia 05/06 Released w/o Limitations [facility](B lue Pod) [facility] Psychiatr ) OUTPATIENT [id number] anxiety symptom s MAHAD PERLA 05/13 Released w/o Limitations [employer]([facility]) [employer]([facility]) OUTPATIENT [id number] MAHAD PERLA 05/29 Released w/o Limitations [employer](M [facility] Psychia try) [facility](Psy chiatry 0095) OUTPATIENT [id number] Please give MIQUEL GUTIERREZ 06/12 Released w/o Limitations [facility](P sychiat ry 0095) [facility]) OUTPATIENT [id number] annual papsmea THOMAS Gilbert 06/16 Released w/o Limitations [facility]) [facility](Psy chiatry 0095) OUTPATIENT [id number] MIQUEL TANG 06/19 Released w/o Limitations [facility](P sychiat ry 0095) [facility]) TELE CONSULT [id number] test for varicel la, hep b, mmr tidor-r equest- all AUGUSTUS, SUSHMA D 07/31 [facility](B lue Pod) [facility] Medical [facility]) TELE CONSULT [id number] pt wants to know if Sushma receive d her fax AUGUSTUS, SUSHMA D 08/13 [facility] Medical [facility](B lue Pod) [facility](Psy chiatry 0095) TELE CONSULT [id number] appoint ment MAHAD PERLA 10/13 Referred for Appointment [facility](P sychiat ry 0095) [facility](Psy chiatry 0095) TELE CONSULT [id number] phone call MAHAD PERLA 10/16 Referred for Appointment [facility](P sychiat ry 0095) [facility] Medical [facility](Psy chiatry 0095) TELE CONSULT [id number] needs meds before f/u appt MAHAD PERLA 10/27 Referred for Appointment [facility](P sychiat ry 0095) [facility] Medical [facility]) OUTPATIENT [id number] laser treatme MK Abreu 11/09 Released w/o Limitations [employer](D ermatol ogy) [employer](Psy chiatry 0095) OUTPATIENT [id number] follow up MAHAD PERLA 11/16 Released w/o Limitations [employer](P sychiat ry 0095) [employer](Psy chiatry 0095) OUTPATIENT [id number] MAHAD PERLA 12/11 Released w/o Limitations [employer](P sychiat ry 0095) [facility]) OUTPATIENT [id number] laser MK CHANDRA 12/21 Released w/o Limitations [employer](D ermatol ogy) [facility]) OUTPATIENT [id number] laser hair removal MK CHANDRA 04/05 Released w/o Limitations [facility](D ermatol ogy) [facility] Medical [facility](Psy chiatry 009) OUTPATIENT [id number] NICOLÁS VIRK 05/05 Released w/o Limitations [facility](P sychiat ry 0095) [facility] Medical [facility]) TELE CONSULT [id number] bridge HAILEY York 05/31 [facility] Medical [facility]) [facility] Medical [facility](Psy chiatry 009) TELE CONSULT [id number] APPOINT MENT NICOLÁS VIRK 07/13 Referred for Appointment [facility] Medical [facility](P sychiat ry 0095) [facility] Medical [facility]) OUTPATIENT [id number] OREN Lockhart 07/20 Released w/o Limitations [facility] Medical [facility]) [facility] Medical [facility]) OUTPATIENT [id number] lab results - abnorma l TESS LEONARD V 07/27 Released w/o Limitations [facility](B lue Pod) [facility] Medical [facility](Psy chiatry 009) TELE CONSULT [id number] meds and appt? NICOLÁS VIRK 08/10 Referred for Appointment [facility](P sychiat ry 0095) [facility] Medical [facility](Psy chiatry 0095) OUTPATIENT [id number] NICOLÁS VIRK 08/27 Released w/o Limitations [facility] [...] 30 Min W/ Medical Evaluation & Management 00278 09/09/[address] [facility] Screening papanicolaou smear; obtaining, preparing and conveyance of cervical or vaginal smear to laboratory 07/20/[address] [facility] Psychiatric Diagnostic Evaluation Comprehensive Examination Psychiatric Diagnostic Evaluation Comprehensive Examination [id number] 05/12/[address] [facility] Destruction Of Cutaneous Vascular Lesions Le Than 10 Sq Cm Destruction Of Cutaneous Vascular Lesions Less Than 10 [place]q Cm 842[address] 04/05/20 09 MK CHANDRA Psychotherapy Individual Approx 30 Min W/ Medical Evaluation & Management Psychotherapy Individual Approx 30 Min W/ Medical Evaluation & Management 63433 12/24/19 09 MAHAD PERLA Destruction Of Cutaneous Vascular Lesions Le Than 10 Sq Cm Destruction Of Cutaneous Vascular Lesions Less Than 10 Sq Cm 82024 12/22/19 09 MK CHANDRA Psychotherapy Individual Approx 30 Min W/ Medical Evaluation & Management Psychotherapy Individual Approx 30 Min W/ Medical Evaluation & Management 35572 12/15/19 09 MAHAD PERLA Destruction Of Cutaneous Vascular Lesions Le Than 10 Sq Cm Destruction Of Cutaneous Vascular Lesions Less Than 10 Sq Cm 29041 11/10/19 09 MK CHANDRA Psychotherapy Individual Approximately 45 Minutes Psychotherapy Individual Approximately 45 Minutes 72615 06/22/[address] [facility] Physician Supervised Specimen Handling / Transfer: Office To Lab Physician Supervised Specimen Handling / Transfer: Office To Lab 28165 06/16/20 08 THOMAS BANKS Screening papanicolaou smear; obtaining, preparing and conveyance of cervical or vaginal smear to laboratory 06/16/20 08 THOMAS BANKS Psychotherapy Individual Approximately 75-80 Minutes Psychotherapy Individual Approximately 75-80 Minutes 66697 06/15/20 08 MIQUEL TANG [employer] Integumentary Procedures (Therapeutic) Integumentary Procedures (Therapeutic) 03926 05/01/20 08 MK CHANDRA Integumentary Procedures (Therapeutic) Integumentary Procedures (Therapeutic) 72839 03/27/20 08 MK CHANDRA Integumentary Procedures (Therapeutic) Integumentary Procedures (Therapeutic) 42764 02/03/20 08 MK CHANDRA Integumentary Procedures (Therapeutic) Integumentary Procedures (Therapeutic) 74172 12/20/19 08 MK CHANDRA Shaving Of Lesion Trunk .6 to 1cm Shaving Of Lesion Trunk .6 to 1cm 95213 12/09/19 08 MK CHANDRA Shaving Of Lesion Trunk Up to .5cm Shaving Of Lesion Trunk Up to .5cm 05964 12/09/19 08 MK CHANDRA Ophthalmological Prior Patient Start Comprehensive [facility] Ophthalmological Prior Patient Start Comprehensive Care 75436 11/05/19 08 JENIFER PADILLA Determination Of Refractive State Determination Of Refractive State 56004 11/05/19 08 JENIFER PADILLA Visual Sanderson Test Limited Examination Visual Sanderson Test Limited Examination 74575 11/05/19 08 JENIFER PADILLA Colposcopy Colposcopy 53598 10/11/19 08 ADÁN PATTON Cervical Pap Smear Cervical Pap Smear 08163 10/26 [address] [facility] Colposcopy Colposcopy 69018 06/06/20 07 VI MATHIS Cervical Pap Smear Cervical Pap Smear 16731 07 VI MATHIS Colposcopy Colposcopy 43275 11/02/19 07 VI MATHIS Cervical Pap Smear Cervical Pap Smear 34617 07 VI MATHIS Ophthalmological New Patient Start Comprehensive Care Ophthalmological New Patient Start Comprehensive Care 00127 09/01/19 07 DOMENICO GORMAN Determination Of Refractive State Determination Of Refractive State 67049 09/01/19 07 DOMENICO GORMAN [employer] Fitting Monofocal Except For Aphakia [employer] Fitting Monofocal Except For Aphakia 68474 09/01/19 07 DOMENICO GORMAN Colposcopy With Loop Electrode Excision of the Cervix Colposcopy With Loop Electrode Excision of the Cervix 89952 06/21/[address] [facility] Endocervical Curettage (Not D&C) Endocervical Curettage (Not D&C) 09797 06/21/[address] [facility] Colposcopy With Biopsy Colposcopy With Biopsy 21496 05/22/[address] [facility] Cervical Pap Smear Cervical Pap Smear 31100 09/[address] [facility] Vaginal Wet Mount Smear Vaginal Wet [place] Smear 64626 05/11/[address] [facility] SCREENING TEST OF VISUAL ACUITY, QUANTITATIVE, BILATERAL 02/09/[address] [facility] SCREENING TEST OF VISUAL ACUITY, QUANTITATIVE, BILATERAL 02/24/[address] [facility] SCREENING TEST OF VISUAL ACUITY, QUANTITATIVE, BILATERAL 02/10/[address] [facility] SCREENING TEST OF VISUAL ACUITY, QUANTITATIVE, BILATERAL 10/14/[address] [facility] PHYS/OTH QUALIFIED HEALTH THERMOGRAPH OPERATOR QUALIFIED,EDUCATION,T RAIN,LICENSURE/REGULA TION (WHEN APPLICABLE) EDUC SER [...] OUTPATIENT FACILITY, APPROXIMATELY 20 TO 30 MINUTES [id number] W THE PATIENT; W MED EVAL & MGT SER 08/27/19 10 DoD SCREENING PAPANICOLAOU SMEAR; OBTAINING, PREPARING AND CONVEYANCE OF CERVICAL OR VAGINAL SMEAR TO LABORATORY 07/20/19 10 DoD INDIVIDUAL PSYCHOTHERAPY, INSIGHT ORIENTED, BEHAVIOR MODIFYING AND/OR SUPPORTIVE, IN AN OFFICE OR OUTPATIENT FACILITY, APPROXIMATELY 45 TO 50 MINUTES [id number] W THE PATIENT; W MED EVAL & [...] OUTPATIENT FACILITY, APPROXIMATELY 20 TO 30 MINUTES [id number] W THE PATIENT; W MED EVAL & MGT SER 12/12/19 09 DoD INDIVIDUAL PSYCHOTHERAPY, INSIGHT ORIENTED, BEHAVIOR MODIFYING AND/OR SUPPORTIVE, IN AN OFFICE OR OUTPATIENT FACILITY, APPROXIMATELY 20 TO 30 MINUTES [id number] W THE PATIENT; W MED EVAL & MGT SER 11/17/19 09 DoD DESTRUCTION OF CUTANEOUS VASCULAR PROLIFERATIVE LESIONS (EG, LASER TECHNIQUE); LESS THAN 10 SQ CM 11/10/19 09 DoD INDIVIDUAL PSYCHOTHERAPY, INSIGHT ORIENTED, BEHAVIOR MODIFYING AND/OR SUPPORTIVE, IN AN OFFICE OR OUTPATIENT FACILITY, APPROXIMATELY 45 TO 50 MINUTES [id number] WITH THE PATIENT 06/19/20 08 DoD SCREENING PAPANICOLAOU SMEAR; OBTAINING, PREPARING AND CONVEYANCE OF CERVICAL OR VAGINAL SMEAR TO LABORATORY 06/16/20 08 DoD INDIVIDUAL PSYCHOTHERAPY, INSIGHT ORIENTED, BEHAVIOR MODIFYING AND/OR SUPPORTIVE, IN AN OFFICE OR OUTPATIENT FACILITY, APPROXIMATELY 75 TO 80 MINUTES [id number] WITH THE PATIENT 06/12/20 08 DoD INDIVIDUAL PSYCHOTHERAPY, INSIGHT ORIENTED, BEHAVIOR MODIFYING AND/OR SUPPORTIVE, IN AN OFFICE OR OUTPATIENT FACILITY, APPROXIMATELY 20 TO 30 MINUTES [id number] W THE PATIENT; W [facility] EVAL & MGT SER 05/29/20 08 DoD [...] THE CERVIX INCLUDING UPPER/ADJACENT VAGINA; 06/06/[address] [facility] CYTOPATHOLOGY, SMEARS, CERVICAL OR VAGINAL, UP TO THREE SMEARS; SCREENING BY MECHANICAL ENGINEERING MANAGER UNDER PHYSICIAN SUPERVISION 11/02/[address] [facility] FITTING OF SPECTACLES, EXCEPT FOR APHAKIA; MONOFOCAL 08/29/[address] [facility] ENDOCERVICAL CURETTAGE (NOT DONE PART OF A DILATION AND CURETTAGE) 06/21/[address] [facility] COLPOSCOPY OF THE CERVIX INCLUDING UPPER/ADJACENT VAGINA; WITH BIOPSY(S) OF THE CERVIX AND ENDOCERVICAL CURETTAGE 05/22/[address] [facility] SMEAR, PRIMARY SOURCE WITH INTERPRETATION; WET MOUNT FOR INFECTIOUS AGENTS (EG, SALINE, ALISHA INK, MEEK PREPS) 05/11/20 06 DoD Social History Combined list of available smoking, tobacco, and other social history from [facility] of Defense and [facility] facilities. Social History Type Response Date Comment Sour e This section is an empty social history section. DoD
--- OUTSIDE RECORDS SUMMARY | 2024-01-11 08:13 | XMS_ITS | Referral Summary ---
Author Organization [facility] Address [address] [place] [address]. [place] [address] Care Team Providers Care Office Director Name Role Phone Mary Bergman PA-C Primary Care Provider Alyx Larkin MD Unavailable [phone] Social History Tobacco Use Types Packs/Day [...] of Treatment Not on file Care Teams Office Director Relationship Specialty Start Date End Date Mary Bergman PA-C [facility] [address] [place], [place] [id number] PCP - General Physician Machine Operator Replanter 07/30/23 Alyx Larkin MD [address] [place] [id number] Assigned OBGYN Provider 10/30/23
--- OUTSIDE RECORDS SUMMARY | 2024-01-11 08:13 | XMS_ITS | Clinical Summary ---
Author Organization [facility] Address [facility] [place] [address] Care Team Providers Care Inweaver Name Role Phone Mary Bergman PA-C Primary Care Provider Alyx Larkin MD Unavailable [phone] Social History Tobacco Use Types Packs/Day [...] GROUP B STREP SCREENING 01/01/2024 INFLUENZA VACCINE (#1) 2024 05/23/2019 DTAP/TDAP/TD IMMUNIZATION (2 - Td [...] ) (No Doses Required) Completed Care Teams Inweaver Relationship Specialty Start Date End Date Mayr Bergman PA-C [facility] [address] [place] [address] PCP - General Physician Real Estate Marketing Coordinator 07/30/23 Alyx Larkin MD [address] [facility] [address] [place] [address] Assigned OBGYN Provider 10/30/23
--- OUTSIDE RECORDS SUMMARY | 2024-01-11 08:13 | XMS_ITS | Clinical Summary ---
Author Organization [facility] Address [place], [place] [address] Care Team Providers Care Gas Pumping Station Operator Name Role Phone Mary Bergman PA-C Primary Care Provider + [phone] Allergies No known active allergies Medications Medication [...] of Treatment Not on file Care Teams Gas Pumping Station Operator Relationship Specialty Start Date End Date Mary Bergman PA-C [address] [place] [address] PCP - General Emergency Medicine 04/19/19
--- NOTE | 2024-01-11 08:15 | CRLHL7_ITS ---
For Patients: As a result of the Century Cures Act, medical imaging exams and procedure reports are released immediately into your electronic medical record. You may view this report before your referring provider. If you have questions, please contact your health care provider. INDICATION: AMA COMPARISON: 01/02/2024 TECHNIQUE: Real time vargas scale imaging of the fetus was performed. Without non-stress testing. FINDINGS: Sonographic imaging demonstrates a single living intrauterine gestation. Fetus demonstrates a regular cardiac rate of 138 beats per minute. Fetus has a vertex position. The amniotic fluid volume appears normal and there is a single deepest pocket measurement of 7.6 cm. The fetus was active and demonstrated normal breathing movements. There was normal flexion and extension of the trunk and extremities. IMPRESSION: Normal biophysical profile score of 8 out of 8. Dictated by Chay Cox MD @ 01/11/2024 9:37:49 AM (Electronically Signed)
== END 2024-01-11 08:12 | disposition home or self-care (01) ==
LOC: US 08:11
PROVIDERS: PCP Physician Assistant Medical; Visit Provider Obstetrics & Gynecology
DX: O09.521 Supervision of elderly multigravida, first trimester (principal)
CPT/HCPCS: 76819; 87081; 87653

== ENCOUNTER 2024-01-18 08:13 | Outpatient (CLI) | payer MEDICAID, SELFPAY ==
--- NOTE | 2024-01-18 08:15 | CRLHL7_ITS ---
For Patients: As a result of the Century Cures Act, medical imaging exams and procedure reports are released immediately into your electronic medical record. You may view this report before your referring provider. If you have questions, please contact your health care provider. INDICATION: AMA. COMPARISON: OB ultrasound 01/11/2024. TECHNIQUE: Ultrasound OB pelvis biophysical profile. Real time vargas scale imaging of the fetus was performed without non-stress testing. FINDINGS: Sonographic imaging demonstrates a single living intrauterine gestation. The fetus demonstrates a regular cardiac rate of 137 beats per minute. The fetus has a cephalic orientation. The placenta lies anteriorly. Single deepest pocket measures 5.8 cm (2/2). The fetus was active (2/2). There was normal flexion and extension of the trunk and extremities (2/2). The fetus demonstrated normal breathing movements (2/2). IMPRESSION: Normal biophysical profile score 8 out of 8. Dictated by Laura Keys MD @ 01/19/2024 3:29:33 AM (Electronically Signed)
--- OUTSIDE RECORDS SUMMARY | 2024-01-18 08:19 | XMS_ITS | Clinical Summary ---
Author Organization [facility] Address [address] [place] [address]. [place] [address] Care Team Providers Care Building Consultant Name Role Phone Mary Bergman PA-C Primary Care Provider Alyx Larkin MD Unavailable [phone] Social History Tobacco Use Types Packs/Day [...] ) (No Doses Required) Completed Care Teams Building Consultant Relationship Specialty Start Date End Date Mary Bergman PA-C [facility] [address] [place] [address] PCP - General Physician Recycling Sorter 07/30/23 Alyx Larkin MD [address] [facility] [address] [place] [address] Assigned OBGYN Provider 10/30/23
--- OUTSIDE RECORDS SUMMARY | 2024-01-18 08:19 | XMS_ITS | Referral Summary ---
Author Organization [facility] Address [address] [place] [address]. [place] [address] Care Team Providers Care Lode Miner Blasting Name Role Phone Mary Bergman PA-C Primary Care Provider Alyx Larkin MD Unavailable [phone] Social History Tobacco Use Types Packs/Day [...] of Treatment Not on file Care Teams Lode Miner Blasting Relationship Specialty Start Date End Date Mary Bergman PA-C [facility] [address] [place], [place] [phone] PCP - General Physician Emblem Cutter 07/30/23 Alyx Larkin MD [address] [place] [id number] Assigned OBGYN Provider 10/30/23
--- OUTSIDE RECORDS SUMMARY | 2024-01-18 08:19 | XMS_ITS | Clinical Summary ---
Author Organization [facility] Address [place], [place] [address] Care Team Providers Care Switch Cleaner Name Role Phone Mary Bergman PA-C Primary Care Provider + [phone] Allergies No known active allergies Medications Medication [...] of Treatment Not on file Care Teams Switch Cleaner Relationship Specialty Start Date End Date Mary Bergman PA-C [address] [place] [address] PCP - General Emergency Medicine 04/19/19
--- OUTSIDE RECORDS SUMMARY | 2024-01-18 08:19 | XMS_ITS | Continuity of Care Document ---
Author Name [facility] Organization [facility] Care Team Providers Care Basketball Player Name Role Phone DOD-VA Unavailable Unavailable Problems [...] - myopia Inactive Condition SRxOD: -0.50DS 20/15-OS: -0.50-0.73g137 20/15-Pt may pursue initial CL fitting w/civilian [...] Site Reaction Lot Number CVX Code Drug Senior Ios Software Engineer Status Comments Source tuberculin skin test; purified protein derivative solution, intradermal 1 2008 Unknown, Provider [id number] 96 [employer] Paste[employer] ([facility]) complet ed tuberculi n skin test; purified protein derivativ e solution, intraderm al DoD tuberculin skin test; purified protein derivative solution, intradermal 1 2007 Unknown, Provider [id number] 96 Sanofi Pasteur ([facility]) complet ed tuberculi n skin test; purified protein derivativ e solution, intraderm al DoD tuberculin skin test; purified protein derivative solution, intradermal 1 2007 Unknown, Provider [id number] 96 Sanofi Pasteur ([facility]) complet ed tuberculi n skin test; purified protein derivativ e solution, intraderm al DoD tuberculin skin test; purified protein derivative solution, intradermal 1 2007 Unknown, Provider [id number] 96 Sanofi Pasteur ([facility]) complet ed tuberculi n skin test; purified protein derivativ e solution, intraderm al DoD poliovirus vaccine, inactivated 2 2007 Unknown, Provider [id number] Sanofi Pasteur ([facility]) complet ed polioviru s vaccine, inactivat ed DoD rabies vaccine, for intramuscular injection RETIRED CODE 1 2007 Unknown, Provider [id number] 18 Sanofi Pasteur ([facility]) complet ed rabies vaccine, for intramusc ular injection RETIRED CODE DoD typhoid Vi capsular polysaccharid e vaccine 1 2007 Unknown, Provider [id number] [facility] ([facility]) complet ed typhoid Vi capsular polysacch aride vaccine DoD influenza virus vaccine, split virus (incl. purified surface antigen)-reti red CODE 1 2006 [id number] 15 [facility] ([facility]) complet ed influenza virus vaccine, split virus (incl. purified surface antigen)- retired CODE DoD anthrax vaccine 4 2005 [id number] 24 [employer] [place] ([facility]) complet ed anthrax vaccine DoD influenza virus vaccine, split virus (incl. purified surface antigen)-reti red CODE 1 2004 [id number] 15 [facility] ([facility]) complet ed influenza virus vaccine, split virus (incl. purified surface antigen)- retired CODE DoD influenza virus vaccine, whole virus 1 2004 [id number] 16 [facility] ([facility]) complet ed influenza virus vaccine, whole virus DoD anthrax vaccine 3 2004 [id number] 24 [employer] [place] ([facility]) complet ed anthrax vaccine DoD anthrax vaccine 2 2004 [id number] 24 [facility] [place] ([facility]) complet ed anthrax vaccine DoD typhoid vaccine, parenteral, other than acetone-kille d, dried 1 2004 [id number] [address] [facility] [employer] ([facility]) complet ed typhoid vaccine, parentera l, other than acetone-k illed, dried DoD vaccinia (smallpox) vaccine 1 2004 [id number] 75 Alex ([facility]) complet ed vaccinia (smallpox ) vaccine DoD anthrax vaccine 1 2004 [id number] 24 [facility] [place] ([facility]) complet ed anthrax vaccine DoD tuberculin skin test; purified protein derivative solution, intradermal 1 2004 Unknown, Provider [id number] 96 [facility] ([facility]) complet ed tuberculi n skin test; purified protein derivativ e solution, intraderm al [facility] influenza virus vaccine, live, attenuated, for intranasal use 0 2003 [id number] 111 [employer] ([facility]) complet ed influenza virus vaccine, live, attenuate d, for intranasa l use DoD tuberculin skin test; purified protein derivative solution, intradermal 1 2003 Unknown, Provider [id number] 96 Sanofi Pasteur ([facility]) complet ed tuberculi n skin test; purified protein derivativ e solution, intraderm al DoD influenza virus vaccine, whole virus 0 2002 [id number] 16 [employer] ([facility]) complet ed influenza virus vaccine, whole virus DoD influenza virus vaccine, whole virus 0 2002 [id number] [employer] ([facility]) complet ed influenza virus vaccine, whole virus DoD typhoid vaccine, parenteral, other than acetone-kille d, dried 0 2002 [id number] 41 Sanofi Pasteur ([facility]) complet ed typhoid vaccine, parentera l, other than acetone-k illed, dried DoD hepatitis B vaccine, adult dosage 2 2002 [id number] 43 [employer] ([facility]) complet ed hepatitis B vaccine, adult dosage DoD tuberculin skin test; purified protein derivative solution, intradermal 3 2002 Unknown, Provider [id number] 96 [employer]ofi Pasteur ([facility]) complet ed tuberculi n skin test; purified protein derivativ e solution, intraderm al DoD hepatitis B vaccine, adult dosage 3 2002 [id number] 43 [employer] ([facility]) complet ed hepatitis B vaccine, adult dosage DoD influenza virus vaccine, whole virus 0 2001 [id number] 16 [employer] Paste[employer] ([facility]) complet ed influenza virus vaccine, whole virus DoD hepatitis B vaccine, adult dosage 1 2001 [id number] 43 [employer] ([facility]) complet ed hepatitis B vaccine, adult dosage DoD varicella virus vaccine 1 2001 21 () Not Given varicella virus vaccine DoD hepatitis A vaccine, adult dosage 2 2001 [id number] 52 [employer] ([facility]) complet ed hepatitis A vaccine, adult dosage DoD tetanus and diphtheria toxoids, adsorbed, preservative free, for adult use (2 Lf of tetanus toxoid and 2 Lf of diphtheria toxoid) 0 2001 [id number] [employer]ofi Paste[employer] ([facility]) complet ed tetanus and diphtheri a toxoids, adsorbed, preservat chris free, for adult use (2 Lf of tetanus toxoid and 2 Lf of diphtheri a toxoid) DoD influenza virus vaccine, whole virus 0 2001 [id number] 16 [employer]i Pasteur ([facility]) complet ed influenza virus vaccine, whole virus DoD yellow fever vaccine 0 2000 [id number] 37 [employer] ([facility]) complet ed yellow fever vaccine DoD typhoid vaccine, parenteral, other than acetone-kille d, dried 0 2000 [id number] [employer] ([facility]) complet ed typhoid vaccine, parentera l, other than acetone-k illed, dried DoD tuberculin skin test; purified protein derivative solution, intradermal 2 2000 Unknown, Provider [id number] 96 Sanofi Pasteur ([facility]) complet ed tuberculi n skin test; purified protein derivativ e solution, intraderm al DoD meningococcal polysaccharid e vaccine (MPSV4) 0 2000 [id number] [place] ([facility]) complet ed meningoco ccal polysacch aride vaccine (MPSV4) DoD hepatitis A vaccine, adult dosage 1 2000 [id number] [employer] ([facility]) complet ed hepatitis A vaccine, adult [...] Source [employer]([facility]) OUTPATIENT [id number] JEREMY WALLS 02/08 Released w/o Limitations [employer]([facility] Practic e) [facility]) OUTPATIENT [id number] annual and control TANA HOLLIDAY 05/11 Released w/o Limitations [facility]) [facility]) OUTPATIENT [id number] hgsil 05/14 VI MATHIS 05/22 Released w/o Limitations [facility]) [facility] Medical [facility]) OUTPATIENT [id number] LEEP in Minor Room at 1300 VI MATHIS Jacek 06/21 Released w/o Limitations [facility] Medical [facility](D ysplasi a Clinic) [facility] Medical [facility]) TELE CONSULT [id number] LEEP results VI MATHIS Jacek 06/26 [facility] Medical [facility]) [facility] Medical [facility]) OUTPATIENT [id number] F/U LEEP VI MATHIS Jacek 07/17 Released w/o Limitations [facility] Medical [facility](D ysplasi a [facility]) [facility] OUTPATIENT [id number] eye exam DOMENICO GORMAN 08/29 Released w/o Limitations [facility] Medical [facility](O ptometr y ([facility])) [facility] Medical [facility]) OUTPATIENT [id number] COLPO/P ILL VI MATHIS Jacek 11/01 Released w/o Limitations [facility] Medical [facility](D ysplasi a Clinic) [facility] Medical [facility]) TELE CONSULT [id number] pap results VI MATHIS Jacek 11/12 [facility] Medical [facility]) [facility] Medical [facility]) TELE CONSULT [id number] sep. LEONIE Mena 02/26 [facility] Medical [facility](S ilver Pod) [facility] Medical [facility]) OUTPATIENT [id number] separat ion paper work, no PE availab KARYNA Gtz 03/01 Released w/o Limitations [facility] Medical [facility](S ilver Pod) [facility] Medical [facility]) OUTPATIENT [id number] colpo/p ill DOMINIC MATHISBLAIR Read 06/06 Released w/o Limitations [facility] Medical [facility](D ysplasi a Clinic) [facility] Medical [facility]) TELE CONSULT [id number] pap results BHUPINDER MATHISELEAZAR Read 06/11 [facility] Medical [facility]) [facility]) OUTPATIENT [id number] colpo/p ill ABDIADÁN Maira 10/10 Released w/o Limitations [employer](D ysplasi a Clinic) [facility] Medical [facility]) OUTPATIENT [id number] Travel to [facility] NEIL BURRELL 10/21 Released w/o Limitations [employer](I nfectio us Disease Clinic [facility]) [facility](Opt ometry ([facility]) ) OUTPATIENT [id number] eye exam JENIFER PADILLA 11/04 Released w/o Limitations [facility](O ptometr y ([facility])) [facility]) OUTPATIENT [id number] mole on side and back MK CHANDRA 12/08 Released w/o Limitations [facility](D ermatol ogy) [facility]) OUTPATIENT [id number] laser test - richardell a V-beam MK CHANDRA 12/19 Released w/o Limitations [facility](D ermatol ogy) [facility]) OUTPATIENT [id number] discuss control DELFINO GAINES 01/26 Released w/o Limitations [facility] Medical [facility]) [facility] Medical [facility]) OUTPATIENT [id number] laser hair MK CHANDRA 02/02 Released w/o Limitations [facility](D ermatol ogy) [facility]) OUTPATIENT [id number] laser -m ark MK CHANDRA 03/27 Released w/o Limitations [facility](D ermatol ogy) [facility]) OUTPATIENT [id number] laser treatme nt MK CHANDRA 05/01 Released w/o Limitations [facility](D ermatol ogy) [facility] Medical [facility]) OUTPATIENT [id number] ANTONIO Sarabia 05/06 Released w/o Limitations [facility](B lue Pod) [facility] ) OUTPATIENT [id number] anxiety symptom s MAHAD PERLA 05/13 Released w/o Limitations [employer] [employer]([facility]) OUTPATIENT [id number] MAHAD PERLA 05/29 Released w/o Limitations [employer]([facility]) [facility](Psy chiatry 0095) OUTPATIENT [id number] Please give MIQUEL GUTIERREZ 06/12 Released w/o Limitations [facility](P sychiat ry 0095) [facility]) OUTPATIENT [id number] annual papsmea THOMAS Gilbert 06/16 Released w/o Limitations [facility]) [facility](Psy chiatry 0095) OUTPATIENT [id number] MIQUEL TANG 06/19 Released w/o Limitations [facility](P sychiat ry 0095) [facility]) TELE CONSULT [id number] test for varicel la, hep b, mmr tidor-r equest- all AUGUSTUS, SUSHMA D 07/31 [facility](B l[facility] Pod) [facility] Medical [facility]) TELE CONSULT [id number] pt wants to know if Sushma receive d her fax AUGUSTUS, SUSHMA D 08/13 [facility] Medical [facility](B lue Pod) [facility](Psy chiatry 0095) TELE CONSULT [id number] appoint ment MAHAD PERLA 10/13 Referred for Appointment [facility](P sychiat ry 0095) [facility](Psy chiatry 0095) TELE CONSULT [id number] phone call MAHAD PERLA 10/16 Referred for Appointment [facility](P sychiat ry 0095) [facility] Medical [facility](Psy chiatry 0095) TELE CONSULT [id number] needs meds before f/u appt MAHAD PERLA 10/27 Referred for Appointment [facility](P sychiat ry 0095) [facility] Medical [facility](Jose mat[facility]) OUTPATIENT [id number] laser treatme MK Abreu 11/09 Released w/o Limitations [employer](D ermatol ogy) [employer](Psy chiatry 0095) OUTPATIENT [id number] follow up MAHAD PERLA 11/16 Released w/o Limitations [employer](P sychiat ry 0095) [employer](Psy chiatry 0095) OUTPATIENT [id number] MAHAD PERLA 12/11 Released w/o Limitations [employer](P sychiat ry 0095) [facility]) OUTPATIENT [id number] laser MK CHANDRA 12/21 Released w/o Limitations [employer](D ermatol ogy) [facility]) OUTPATIENT [id number] laser hair removal MK CHANDRA 04/05 Released w/o Limitations [facility](D ermatol ogy) [facility] Medical [facility](Psy chiatry 009) OUTPATIENT [id number] NICOLÁS VIRK 05/05 Released w/o Limitations [facility](P sychiat ry 0095) [facility] Medical [facility]) TELE CONSULT [id number] bridge HAILEY York 05/31 [facility] Medical [facility]) [facility] Medical [facility](Psy chiatry 009) TELE CONSULT [id number] APPOINT MENT NICOLÁS VIRK 07/13 Referred for Appointment [facility] Medical [facility](P sychiat ry 0095) [facility] Medical [facility]) OUTPATIENT [id number] OREN Lockhart 07/20 Released w/o Limitations [facility] Medical [facility]) [facility] Medical [facility]) OUTPATIENT [id number] lab results - abnorma l TESS LEONARD V 07/27 Released w/o Limitations [facility](B lue Pod) [facility] Medical [facility](Psy chiatry 009) TELE CONSULT [id number] meds and appt? NICOLÁS VIRK 08/10 Referred for Appointment [facility](P sychiat ry 0095) [facility] Medical [facility](Psy chiatry 0095) OUTPATIENT [id number] NICOLÁS VIRK 08/27 Released w/o Limitations [facility] [...] 30 Min W/ Medical Evaluation & Management 32638 09/09/19 10 SULLYNICOLÁS [facility] Screening papanicolaou smear; obtaining, preparing and conveyance of cervical or vaginal smear to laboratory 07/20/19 10 OREN LINCOLN [facility] Psychiatric Diagnostic Evaluation Comprehensive Examination Psychiatric Diagnostic Evaluation Comprehensive Examination 12010 05/12/20 09 SULLYNICOLÁS [facility] Destruction Of Cutaneous Vascular Lesions Le Than 10 Sq Cm Destruction Of Cutaneous Vascular Lesions Less Than 10 Sq Cm 82028 04/05/20 09 MK CHANDRA Psychotherapy Individual Approx 30 Min W/ Medical Evaluation & Management Psychotherapy Individual Approx 30 Min W/ Medical Evaluation & Management 55763 12/24/19 09 MAHAD PERLA Destruction Of Cutaneous Vascular Lesions Le Than 10 Sq Cm Destruction Of Cutaneous Vascular Lesions Less Than 10 Sq Cm 16467 12/22/19 09 MK CHANDRA Psychotherapy Individual Approx 30 Min W/ Medical Evaluation & Management Psychotherapy Individual Approx 30 Min W/ Medical Evaluation & Management 67127 12/15/19 09 MAHAD PERLA Destruction Of Cutaneous Vascular Lesions Le Than 10 Sq Cm Destruction Of Cutaneous Vascular Lesions Less Than 10 Sq Cm 54290 11/10/19 09 MK CHANDRA Psychotherapy Individual Approximately 45 Minutes Psychotherapy Individual Approximately 45 Minutes 43749 06/22/20 08 MIQUEL TANG [facility] Physician Supervised Specimen Handling / Transfer: Office To Lab Physician Supervised Specimen Handling / Transfer: Office To Lab 26963 06/16/20 08 THOMAS BANKS Screening papanicolaou smear; obtaining, preparing and conveyance of cervical or vaginal smear to laboratory 06/16/20 08 THOMAS BANKS Psychotherapy Individual Approximately 75-80 Minutes Psychotherapy Individual Approximately 75-80 Minutes 44713 06/15/20 08 MIQUEL TANG [facility] Integumentary Procedures (Therapeutic) Integumentary Procedures (Therapeutic) 24191 05/01/20 08 MK CHANDRA Integumentary Procedures (Therapeutic) Integumentary Procedures (Therapeutic) 33360 03/27/20 08 MK CHANDRA Integumentary Procedures (Therapeutic) Integumentary Procedures (Therapeutic) 71583 02/03/20 08 MK CHANDRA Integumentary Procedures (Therapeutic) Integumentary Procedures (Therapeutic) 25928 12/20/19 08 MK CHANDRA Shaving Of Lesion Trunk .6 to 1cm Shaving Of Lesion Trunk .6 to 1cm 34594 12/09/19 08 MK CHANDRA Shaving Of Lesion Trunk Up to .5cm Shaving Of Lesion Trunk Up to .5cm 92476 12/09/19 08 MK CHANDRA Ophthalmological Prior Patient Start [facility] Ophthalmological Prior Patient Start [facility] 62552 11/05/19 08 JENIFER PADILLA Determination Of Refractive State Determination Of Refractive State 46266 11/05/19 08 JENIFER PADILLA Visual Sanderson Test Limited Examination Visual Sanderson Test Limited Examination 06584 11/05/19 08 JENIFER PADILLA Colposcopy Colposcopy 67468 10/11/19 08 ADÁN PATTON Cervical Pap Smear Cervical Pap Smear 41972 10/26 08 ADÁN PATTON [facility] Colposcopy Colposcopy 99590 06/06/20 07 VI MATHIS Cervical Pap Smear Cervical Pap Smear 94150 07 VI MATHIS Colposcopy Colposcopy 94273 11/02/19 07 VI MATHIS Cervical Pap Smear Cervical Pap Smear 03048 07 VI MATHIS Ophthalmological New Patient Start Comprehensive Care Ophthalmological New Patient Start Comprehensive Care 61764 09/01/19 07 DOMENICO GORMAN Determination Of Refractive State Determination Of Refractive State 40217 09/01/19 07 DOMENICO GORMAN [facility] Fitting Monofocal Except For Aphakia [facility] Fitting Monofocal Except For Aphakia 87877 09/01/19 07 DOMENICO GORMAN Colposcopy With Loop Electrode Excision of the Cervix Colposcopy With Loop Electrode Excision of the Cervix 08785 06/21/20 06 DELVI [facility] Endocervical Curettage (Not D&C) Endocervical Curettage (Not D&C) 42549 06/21/20 06 DELVI [facility] Colposcopy With Biopsy Colposcopy With Biopsy 89146 05/22/20 06 VI AMTHIS [facility] Cervical Pap Smear Cervical Pap Smear 35066 09/25 06 TANA HOLLIDAY [facility] Vaginal Wet Mount Smear Vaginal Wet [place] Smear 76397 05/11/20 06 TANA HOLLIDAY [facility] SCREENING TEST OF VISUAL ACUITY, QUANTITATIVE, BILATERAL 02/09/20 05 [facility] SCREENING TEST OF VISUAL ACUITY, QUANTITATIVE, BILATERAL 02/24/20 04 [facility] SCREENING TEST OF VISUAL ACUITY, QUANTITATIVE, BILATERAL 02/10/20 03 [facility] SCREENING TEST OF VISUAL ACUITY, QUANTITATIVE, BILATERAL 10/14/19 03 [facility] PHYS/OTH QUALIFIED HEALTH SUPERVISOR DRAWING QUALIFIED,EDUCATION,T RAIN,LICENSURE/REGULA TION (WHEN APPLICABLE) EDUC SER [...] OUTPATIENT FACILITY, APPROXIMATELY 20 TO 30 MINUTES [id number] W THE PATIENT; W MED EVAL & MGT SER 08/27/19 10 DoD SCREENING PAPANICOLAOU SMEAR; OBTAINING, PREPARING AND CONVEYANCE OF CERVICAL OR VAGINAL SMEAR TO LABORATORY 07/20/19 10 DoD INDIVIDUAL PSYCHOTHERAPY, INSIGHT ORIENTED, BEHAVIOR MODIFYING AND/OR SUPPORTIVE, IN AN OFFICE OR OUTPATIENT FACILITY, APPROXIMATELY 45 TO 50 MINUTES [id number] W THE PATIENT; W MED EVAL & [...] OUTPATIENT FACILITY, APPROXIMATELY 20 TO 30 MINUTES [id number] W THE PATIENT; W MED EVAL & MGT SER 12/12/19 09 DoD INDIVIDUAL PSYCHOTHERAPY, INSIGHT ORIENTED, BEHAVIOR MODIFYING AND/OR SUPPORTIVE, IN AN OFFICE OR OUTPATIENT FACILITY, APPROXIMATELY 20 TO 30 MINUTES [id number] W THE PATIENT; W MED EVAL & MGT SER 11/17/19 09 DoD DESTRUCTION OF CUTANEOUS VASCULAR PROLIFERATIVE LESIONS (EG, LASER TECHNIQUE); LESS THAN 10 SQ CM 11/10/19 09 DoD INDIVIDUAL PSYCHOTHERAPY, INSIGHT ORIENTED, BEHAVIOR MODIFYING AND/OR SUPPORTIVE, IN AN OFFICE OR OUTPATIENT FACILITY, APPROXIMATELY 45 TO 50 MINUTES [id number] WITH THE PATIENT 06/19/20 08 DoD SCREENING PAPANICOLAOU SMEAR; OBTAINING, PREPARING AND CONVEYANCE OF CERVICAL OR VAGINAL SMEAR TO LABORATORY 06/16/20 08 DoD INDIVIDUAL PSYCHOTHERAPY, INSIGHT ORIENTED, BEHAVIOR MODIFYING AND/OR SUPPORTIVE, IN AN OFFICE OR OUTPATIENT FACILITY, APPROXIMATELY 75 TO 80 MINUTES [id number] WITH THE PATIENT 06/12/20 08 DoD INDIVIDUAL PSYCHOTHERAPY, INSIGHT ORIENTED, BEHAVIOR MODIFYING AND/OR SUPPORTIVE, IN AN OFFICE OR OUTPATIENT FACILITY, APPROXIMATELY 20 TO 30 MINUTES [id number] W THE PATIENT; W [facility] EVAL & MGT SER 05/29/20 08 [...] THE CERVIX INCLUDING UPPER/ADJACENT VAGINA; 06/06/20 07 [facility] CYTOPATHOLOGY, SMEARS, CERVICAL OR VAGINAL, UP TO THREE SMEARS; SCREENING BY FISHING VESSEL MATE UNDER PHYSICIAN SUPERVISION 11/02/19 07 [facility] FITTING OF SPECTACLES, EXCEPT FOR APHAKIA; MONOFOCAL 08/29/19 07 [facility] ENDOCERVICAL CURETTAGE (NOT DONE PART OF A DILATION AND CURETTAGE) 06/21/20 06 [facility] COLPOSCOPY OF THE CERVIX INCLUDING UPPER/ADJACENT VAGINA; WITH BIOPSY(S) OF THE CERVIX AND ENDOCERVICAL CURETTAGE 05/22/20 06 [facility] SMEAR, PRIMARY SOURCE WITH INTERPRETATION; WET MOUNT FOR INFECTIOUS AGENTS (EG, SALINE, ALISHA INK, MEEK PREPS) 05/11/20 06 [facility] Social History Combined list of available smoking, tobacco, and other social history from [facility] and [facility] facilities. Social History Type Response Date Comment Sour e This section is an empty social history section. [facility]
== END 2024-01-18 08:14 | disposition home or self-care (01) ==
LOC: US 08:14
PROVIDERS: PCP Physician Assistant Medical; Visit Provider Obstetrics & Gynecology
DX: O09.529 Supervision of elderly multigravida, unspecified trimester (principal)
CPT/HCPCS: 76819

== ENCOUNTER 2024-01-22 15:57 | Inpatient (IN) | payer MEDICAID, SELFPAY ==
--- OUTSIDE RECORDS SUMMARY | 2024-01-22 16:03 | XMS_ITS | Clinical Summary ---
Author Organization [facility] Address [place], [place] [address] Care Team Providers Care Ship'S Captain Name Role Phone Mary Bergman PA-C Primary Care Provider [phone] Allergies No known active allergies Medications Medication [...] of Treatment Not on file Care Teams Ship'S Captain Relationship Specialty Start Date End Date Mary Bergman PA-C [address] [place] [address] PCP - General Emergency Medicine 04/19/19
--- OUTSIDE RECORDS SUMMARY | 2024-01-22 16:03 | XMS_ITS | Referral Summary ---
Author Organization [facility] Address [address] [place] [address]. [place] [address] Care Team Providers Care Grinding Wheel Operator Name Role Phone Mary Bergman PA-C Primary Care Provider Alyx Larkin MD Unavailable [phone] Social History Tobacco Use Types Packs/Day [...] of Treatment Not on file Care Teams Grinding Wheel Operator Relationship Specialty Start Date End Date Mary Bergman PA-C [facility] [address] [place], [place] [id number] PCP - General Physician Vp Biology 07/30/23 Alyx Larkin MD [address] [place] [id number] Assigned OBGYN Provider 10/30/23
--- OUTSIDE RECORDS SUMMARY | 2024-01-22 16:03 | XMS_ITS | Clinical Summary ---
Author Organization [facility] Address [address] [place] [address]. [place] [address] Care Team Providers Care Sport Shoe Spike Assembler Name Role Phone Mary Bergman PA-C Primary Care Provider Alyx Larkin MD Unavailable [phone] Social History Tobacco Use Types Packs/Day [...] ) (No Doses Required) Completed Care Teams Sport Shoe Spike Assembler Relationship Specialty Start Date End Date Mary Bergman PA-C [facility] [address] [place] [address] PCP - General Physician Inspector Wire Rope 07/30/23 Alyx Larkin MD [address] [facility] [address] [place] [address] Assigned OBGYN Provider 10/30/23
[2024-01-22 16:04] VITALS: BMI 32.5
--- OUTSIDE RECORDS SUMMARY | 2024-01-22 16:04 | XMS_ITS | Continuity of Care Document ---
Author Name [facility] Organization [facility] Care Team Providers Care Ophthalmic Pathologist Name Role Phone DOD-VA Unavailable Unavailable Problems [...] - myopia Inactive Condition SRxOD: -0.50DS 20/15-OS: -0.50-0.93o889 20/15-Pt may pursue initial CL fitting w/civilian [...] Site Reaction Lot Number CVX Code Drug Distribution Field Technician Status Comments Source tuberculin skin test; purified protein derivative solution, intradermal 1 2008 Unknown, Provider [id number] Sanofi Pasteur ([facility]) complet ed tuberculi n skin test; purified protein derivativ e solution, intraderm al DoD tuberculin skin test; purified protein derivative solution, intradermal 1 2007 Unknown, Provider [id number] 96 Sanofi Pasteur ([facility]) complet ed tuberculi n skin test; purified protein derivativ e solution, intraderm al DoD tuberculin skin test; purified protein derivative solution, intradermal 1 2007 Unknown, Provider [id number] 96 Sanofi Pasteur ([facility]) complet ed tuberculi n skin test; purified protein derivativ e solution, intraderm al DoD tuberculin skin test; purified protein derivative solution, intradermal 1 2007 Unknown, Provider [id number] 96 Sanofi Pasteur ([facility]) complet ed tuberculi n skin test; purified protein derivativ e solution, intraderm al DoD poliovirus vaccine, inactivated 2 2007 Unknown, Provider [id number] San[employer]i Pasteur ([facility]) complet ed polioviru s vaccine, inactivat ed DoD rabies vaccine, for intramuscular injection RETIRED CODE 1 2007 Unknown, Provider [id number] Sanofi Pasteur ([facility]) complet ed rabies vaccine, for intramusc ular injection RETIRED CODE DoD typhoid Vi capsular polysaccharid e vaccine 1 2007 Unknown, Provider [id number] [facility] ([facility]) complet ed typhoid Vi capsular polysacch aride vaccine DoD influenza virus vaccine, split virus (incl. purified surface antigen)-reti red CODE 1 2006 [id number] 15 [facility] ([facility]) complet ed influenza virus vaccine, split virus (incl. purified surface antigen)- retired CODE DoD anthrax vaccine 4 2005 [id number] 24 [employer] [place] ([facility]) complet ed anthrax vaccine DoD influenza virus vaccine, split virus (incl. purified surface antigen)-reti red CODE 1 2004 [id number] 15 [facility] ([facility]) complet ed influenza virus vaccine, split virus (incl. purified surface antigen)- retired CODE DoD influenza virus vaccine, whole virus 1 2004 [id number] 16 [facility] ([facility]) complet ed influenza virus vaccine, whole virus DoD anthrax vaccine 3 2004 [id number] [employer] [place] ([facility]) complet ed anthrax vaccine DoD anthrax vaccine 2 2004 [id number] 24 [facility] [employer] [place] ([facility]) complet ed anthrax vaccine DoD typhoid vaccine, parenteral, other than acetone-kille d, dried [id number] [facility]) complet ed typhoid vaccine, parentera l, other than acetone-k illed, dried DoD vaccinia (smallpox) vaccine 1 2004 [id number] 75 [facility] ([facility]) complet ed vaccinia (smallpox ) vaccine DoD anthrax vaccine 1 2004 [id number] 24 [facility] [employer] [place] ([facility]) complet ed anthrax vaccine DoD tuberculin skin test; purified protein derivative solution, intradermal 1 2004 Unknown, Provider [id number] 96 [facility] ([facility]) complet ed tuberculi n skin test; purified protein derivativ e solution, intraderm al [facility] influenza virus vaccine, live, attenuated, for intranasal use 0 2003 [id number] 111 [employer] ([facility]) complet ed influenza virus vaccine, live, attenuate d, for intranasa l use DoD tuberculin skin test; purified protein derivative solution, intradermal 1 2003 Unknown, Provider [id number] 96 [employer]i Pasteur ([facility]) complet ed tuberculi n skin test; purified protein derivativ e solution, intraderm al DoD influenza virus vaccine, whole virus 0 2002 [id number] 16 [employer] ([facility]) complet ed influenza virus vaccine, whole virus DoD influenza virus vaccine, whole virus 0 2002 [id number] [employer] ([facility]) complet ed influenza virus vaccine, whole virus DoD typhoid vaccine, parenteral, other than acetone-kille d, dried 0 2002 [id number] 41 [employer]i Pasteur ([facility]) complet ed typhoid vaccine, parentera l, other than acetone-k illed, dried DoD hepatitis B vaccine, adult dosage 2 2002 [id number] 43 [employer] ([facility]) complet ed hepatitis B vaccine, adult dosage DoD tuberculin skin test; purified protein derivative solution, intradermal 3 2002 Unknown, Provider [id number] 96 Sanofi Pasteur ([facility]) complet ed tuberculi n skin test; purified protein derivativ e solution, intraderm al DoD hepatitis B vaccine, adult dosage 3 2002 [id number] 43 [employer] ([facility]) complet ed hepatitis B vaccine, adult dosage DoD influenza virus vaccine, whole virus 0 2001 [id number] 16 [employer]ofi Pasteur ([facility]) complet ed influenza virus vaccine, whole virus DoD hepatitis B vaccine, adult dosage 1 2001 [id number] 43 [employer] ([facility]) complet ed hepatitis B vaccine, adult dosage DoD varicella virus vaccine 1 2001 21 () Not Given varicella virus vaccine DoD hepatitis A vaccine, adult dosage 2 2001 [id number] 52 [employer] ([facility]) complet ed hepatitis A vaccine, adult dosage DoD tetanus and diphtheria toxoids, adsorbed, preservative free, for adult use (2 Lf of tetanus toxoid and 2 Lf of diphtheria toxoid) 0 2001 [id number] Sanofi Pasteur ([facility]) complet ed tetanus and diphtheri a toxoids, adsorbed, preservat chris free, for adult use (2 Lf of tetanus toxoid and 2 Lf of diphtheri a toxoid) DoD influenza virus vaccine, whole virus 0 2001 [id number] 16 [employer] Pasteur ([facility]) complet ed influenza virus vaccine, whole virus DoD yellow fever vaccine 0 2000 [id number] [employer] ([facility]) complet ed yellow fever vaccine DoD typhoid vaccine, parenteral, other than acetone-kille d, dried 0 2000 [id number] [employer] ([facility]) complet ed typhoid vaccine, parentera l, other than acetone-k illed, dried DoD tuberculin skin test; purified protein derivative solution, intradermal 2 2000 Unknown, Provider [id number] 96 Sanofi Pasteur ([facility]) complet ed tuberculi n skin test; purified protein derivativ e solution, intraderm al DoD meningococcal polysaccharid e vaccine (MPSV4) 0 2000 [id number] 32 [place] ([facility]) complet ed meningoco ccal polysacch aride vaccine (MPSV4) DoD hepatitis A vaccine, adult dosage 1 2000 [id number] [employer] ([facility]) complet ed hepatitis A vaccine, adult [...] Source [employer]([facility]) OUTPATIENT [id number] JEREMY WALLS 02/08 Released w/o Limitations [employer]([facility]ic e) [facility]) OUTPATIENT [id number] annual and control TANA HOLLIDAY 05/11 Released w/o Limitations [facility]) [facility]) OUTPATIENT [id number] hgsil 05/14 VI MATHIS 05/22 Released w/o Limitations [facility] y[facility]) [facility]) OUTPATIENT [id number] LEEP in Minor Room at 1300 VI MATHIS Jacek 06/21 Released w/o Limitations [facility](D ysplasi a Clinic) [facility]) TELE CONSULT [id number] LEEP results VI MATHIS Jacek 06/26 [facility]) [facility]) OUTPATIENT [id number] F/U LEEP VI MATHIS Jacek 07/17 Released w/o Limitations [facility](D ysplasi a [facility]) [facility] OUTPATIENT [id number] eye exam DOMENICO GORMAN 08/29 Released w/o Limitations [facility](O ptometr y ([facility])) [facility]) OUTPATIENT [id number] COLPO/P ILL VI MATHIS Jacek 11/01 Released w/o Limitations [facility]) [facility]) TELE CONSULT [id number] pap results VI MATHIS Jacek 11/12 [facility]) [facility]) TELE CONSULT [id number] sep. LEONIE Mena 02/26 [facility](S [facility]) [facility]) OUTPATIENT [id number] separat ion paper work, no PE availab KARYNA Gtz 03/01 Released w/o Limitations [facility](S [facility]) [facility]) OUTPATIENT [id number] colpo/p ill DOMINIC MATHISBLAIR Read 06/06 Released w/o Limitations [facility](D y[facility]asi a Clinic) [facility]) TELE CONSULT [id number] pap results BHUPINDER MATHISELEAZAR Read 06/11 [facility]) [facility]) OUTPATIENT [id number] colpo/p ill ABDIADÁN Maira 10/10 Released w/o Limitations [employer](D ysplasi a Clinic) [facility]) OUTPATIENT [id number] Travel to [facility] NEIL BURRELL 10/21 Released w/o Limitations [employer](I nfectio us Disease Clinic [facility]) [facility](Opt ometry ([facility]) ) OUTPATIENT [id number] eye exam JENIFER PADILLA 11/04 Released w/o Limitations [facility](O ptometr y ([facility])) [facility]) OUTPATIENT [id number] mole on side and back MK CHANDRA 12/08 Released w/o Limitations [facility](D ermatol ogy) [facility]) OUTPATIENT [id number] laser test - richardell a V-beam MK CHANDRA 12/19 Released w/o Limitations [facility](D ermatol ogy) [facility]) OUTPATIENT [id number] discuss control DELFINO GAINES 01/26 Released w/o Limitations [facility]) [facility]) OUTPATIENT [id number] laser hair MK CHANDRA 02/02 Released w/o Limitations [facility](D ermatol ogy) [facility]) OUTPATIENT [id number] laser -m ark MK CHANDRA 03/27 Released w/o Limitations [facility](D ermatol ogy) [facility]) OUTPATIENT [id number] laser treatme nt MK CHANDRA 05/01 Released w/o Limitations [facility](D ermatol ogy) [facility]) OUTPATIENT [id number] ANTONIO Sarabia 05/06 Released w/o Limitations [facility](B lue Pod) [facility] ) OUTPATIENT [id number] anxiety symptom s MAHAD PERLA 05/13 Released w/o Limitations [employer]([facility]ia try) [employer]([facility]) OUTPATIENT [id number] MAHAD PERLA 05/29 Released w/o Limitations [employer](M [facility] Psychia try) [facility](Psy chiatry 0095) OUTPATIENT [id number] Please give MIQUEL GUTIERREZ 06/12 Released w/o Limitations [facility](P sychiat ry 0095) [facility]) OUTPATIENT [id number] annual papsmea THOMAS Gilbert 06/16 Released w/o Limitations [facility]) [facility](Psy chiatry 0095) OUTPATIENT [id number] MIQUEL TANG 06/19 Released w/o Limitations [facility](P sychiat ry 0095) [facility]) TELE CONSULT [id number] test for varicel la, hep b, mmr tidor-r equest- all AUGUSTUS, SUSHMA D 07/31 [facility](B lue Pod) [facility]) TELE CONSULT [id number] pt wants to know if Sushma receive d her fax AUGUSTUS, SUSHMA D 08/13 [facility](B lue Pod) [facility](Psy chiatry 0095) TELE CONSULT [id number] appoint ment MAHAD PERLA 10/13 Referred for Appointment [facility](P sychiat ry 0095) [facility](Psy chiatry 0095) TELE CONSULT [id number] phone call MAHAD PERLA 10/16 Referred for Appointment [facility](P sychiat ry 0095) [facility](Psy chiatry 0095) TELE CONSULT [id number] needs meds before f/u appt MAHAD PERLA 10/27 Referred for Appointment [facility](P sychiat ry 0095) [facility]) OUTPATIENT [id number] laser treatme MK Abreu 11/09 Released w/o Limitations [employer](D ermatol ogy) [employer](Psy chiatry 0095) OUTPATIENT [id number] follow up MAHAD PERLA 11/16 Released w/o Limitations [employer](P sychiat ry 0095) [employer](Psy chiatry 0095) OUTPATIENT [id number] MAHAD PERLA 12/11 Released w/o Limitations [employer](P sychiat ry 0095) [facility]) OUTPATIENT [id number] laser KM CHANDRA 12/21 Released w/o Limitations [employer](D ermatol ogy) [facility]) OUTPATIENT [id number] laser hair removal MK CHANDRA 04/05 Released w/o Limitations [facility](D ermatol ogy) [facility](Psy chiatry 009) OUTPATIENT [id number] NICOLÁS VIRK 05/05 Released w/o Limitations [facility](P sychiat ry 0095) [facility]) TELE CONSULT [id number] bridge HAILEY York 05/31 [facility]) [facility](Psy chiatry 009) TELE CONSULT [id number] APPOINT MENT NICOLÁS VIRK 07/13 Referred for Appointment [facility](P sychiat ry 0095) [facility]) OUTPATIENT [id number] OREN Lockhart 07/20 Released w/o Limitations [facility]) [facility]) OUTPATIENT [id number] lab results - abnorma l TESS LEONARD V 07/27 Released w/o Limitations [facility](B lue Pod) [facility](Psy chiatry 009) TELE CONSULT [id number] meds and appt? NICOLÁS VIRK 08/10 Referred for Appointment [facility](P sychiat ry 0095) [facility](Psy chiatry 0095) OUTPATIENT [id number] NICOLÁS VIRK 08/27 Released w/o Limitations [facility] [...] 30 Min W/ Medical Evaluation & Management 86050 09/09/19 10 SULLYNICOLÁS [facility] Screening papanicolaou smear; obtaining, preparing and conveyance of cervical or vaginal smear to laboratory 07/20/19 10 OREN LINCOLN [facility] Psychiatric Diagnostic Evaluation Comprehensive Examination Psychiatric Diagnostic Evaluation Comprehensive Examination [id number] 05/12/20 09 SULLYNICOLÁS [facility] Destruction Of Cutaneous Vascular Lesions Le Than 10 Sq Cm Destruction Of Cutaneous Vascular Lesions Less Than 10 Sq Cm 78354 04/05/20 09 MK CHANDRA Psychotherapy Individual Approx 30 Min W/ Medical Evaluation & Management Psychotherapy Individual Approx 30 Min W/ Medical Evaluation & Management 36367 12/24/19 09 MAHAD PERLA Destruction Of Cutaneous Vascular Lesions Le Than 10 Sq Cm Destruction Of Cutaneous Vascular Lesions Less Than 10 Sq Cm 19491 12/22/19 09 MK CHANDRA Psychotherapy Individual Approx 30 Min W/ Medical Evaluation & Management Psychotherapy Individual Approx 30 Min W/ Medical Evaluation & Management 02458 12/15/19 09 MAHAD PERLA Destruction Of Cutaneous Vascular Lesions Le Than 10 Sq Cm Destruction Of Cutaneous Vascular Lesions Less Than 10 Sq Cm 85252 11/10/19 09 MK CHANDRA Psychotherapy Individual Approximately 45 Minutes Psychotherapy Individual Approximately 45 Minutes [id number] 06/22/20 08 MIQUEL TANG [facility] Physician Supervised Specimen Handling / Transfer: Office To Lab Physician Supervised Specimen Handling / Transfer: Office To Lab 56595 06/16/20 08 THOMAS BANKS Screening papanicolaou smear; obtaining, preparing and conveyance of cervical or vaginal smear to laboratory 06/16/20 08 THOMAS ABNKS Psychotherapy Individual Approximately 75-80 Minutes Psychotherapy Individual Approximately 75-80 Minutes 53872 06/15/20 08 MIQUEL TANG [employer] Integumentary Procedures (Therapeutic) Integumentary Procedures (Therapeutic) 79307 05/01/20 08 MK CHANDRA Integumentary Procedures (Therapeutic) Integumentary Procedures (Therapeutic) 87954 03/27/20 08 MK CHANDRA Integumentary Procedures (Therapeutic) Integumentary Procedures (Therapeutic) 83428 02/03/20 08 MK CHANDRA Integumentary Procedures (Therapeutic) Integumentary Procedures (Therapeutic) 24958 12/20/19 08 MK CHANDRA Shaving Of Lesion Trunk .6 to 1cm Shaving Of Lesion Trunk .6 to 1cm 91598 12/09/19 08 MK CHANDRA Shaving Of Lesion Trunk Up to .5cm Shaving Of Lesion Trunk Up to .5cm 15012 12/09/19 08 MK CHANDRA Ophthalmological Prior Patient Start Comprehensive Care Ophthalmological Prior Patient Start Comprehensive Care 73505 11/05/19 08 JENIFER PADILLA Determination Of Refractive State Determination Of Refractive State 46915 11/05/19 08 JENIFER PADILLA Visual Sanderson Test Limited Examination Visual Sanderson Test Limited Examination 04299 11/05/19 08 JENIFER PADILLA Colposcopy Colposcopy 49435 10/11/19 08 ADÁN PATTON Cervical Pap Smear Cervical Pap Smear 04338 10/26 08 ADÁN PATTON [facility] Colposcopy Colposcopy 06446 06/06/20 07 VI MATHIS Cervical Pap Smear Cervical Pap Smear 51091 07 VI MATHIS Colposcopy Colposcopy 41289 11/02/19 07 VI MATHIS Cervical Pap Smear Cervical Pap Smear 37276 07 VI MATHIS Ophthalmological New Patient Start Comprehensive Care Ophthalmological New Patient Start Comprehensive Care 01851 09/01/19 07 DOMENICO GORMAN Determination Of Refractive State Determination Of Refractive State 29134 09/01/19 07 DOMENICO GORMAN [employer] Fitting Monofocal Except For Aphakia [employer] Fitting Monofocal Except For Aphakia 18693 09/01/19 07 DOMENICO GORMAN Colposcopy With Loop Electrode Excision of the Cervix Colposcopy With Loop Electrode Excision of the Cervix 77601 06/21/20 06 DELVI [facility] Endocervical Curettage (Not D&C) Endocervical Curettage (Not D&C) 20220 06/21/20 06 DELVI [facility] Colposcopy With Biopsy Colposcopy With Biopsy 53675 05/22/20 06 VI MATHIS [facility] Cervical Pap Smear Cervical Pap Smear 63128 09/25 06 TANA HOLLIDAY [facility] Vaginal Wet [place] Smear Vaginal Wet [place] Smear 50324 05/11/20 06 TANA HOLLIDAY [facility] SCREENING TEST OF VISUAL ACUITY, QUANTITATIVE, BILATERAL 02/09/20 05 [facility] SCREENING TEST OF VISUAL ACUITY, QUANTITATIVE, BILATERAL 02/24/20 04 [facility] SCREENING TEST OF VISUAL ACUITY, QUANTITATIVE, BILATERAL 02/10/20 03 [facility] SCREENING TEST OF VISUAL ACUITY, QUANTITATIVE, BILATERAL 10/14/19 03 [facility] PHYS/OTH QUALIFIED HEALTH ENAMEL SPRAYER QUALIFIED,EDUCATION,T RAIN,LICENSURE/REGULA TION (WHEN APPLICABLE) EDUC SER [...] OUTPATIENT FACILITY, APPROXIMATELY 20 TO 30 MINUTES [id number] W THE PATIENT; W MED EVAL & MGT SER 08/27/19 10 DoD SCREENING PAPANICOLAOU SMEAR; OBTAINING, PREPARING AND CONVEYANCE OF CERVICAL OR VAGINAL SMEAR TO LABORATORY 07/20/19 10 DoD INDIVIDUAL PSYCHOTHERAPY, INSIGHT ORIENTED, BEHAVIOR MODIFYING AND/OR SUPPORTIVE, IN AN OFFICE OR OUTPATIENT FACILITY, APPROXIMATELY 45 TO 50 MINUTES [id number] W THE PATIENT; W MED EVAL & [...] OUTPATIENT FACILITY, APPROXIMATELY 20 TO 30 MINUTES [id number] W THE PATIENT; W MED EVAL & MGT SER 12/12/19 09 DoD INDIVIDUAL PSYCHOTHERAPY, INSIGHT ORIENTED, BEHAVIOR MODIFYING AND/OR SUPPORTIVE, IN AN OFFICE OR OUTPATIENT FACILITY, APPROXIMATELY 20 TO 30 MINUTES [id number] W THE PATIENT; W MED EVAL & MGT SER 11/17/19 09 DoD DESTRUCTION OF CUTANEOUS VASCULAR PROLIFERATIVE LESIONS (EG, LASER TECHNIQUE); LESS THAN 10 SQ CM 11/10/19 09 DoD INDIVIDUAL PSYCHOTHERAPY, INSIGHT ORIENTED, BEHAVIOR MODIFYING AND/OR SUPPORTIVE, IN AN OFFICE OR OUTPATIENT FACILITY, APPROXIMATELY 45 TO 50 MINUTES [id number] WITH THE PATIENT 06/19/20 08 DoD SCREENING PAPANICOLAOU SMEAR; OBTAINING, PREPARING AND CONVEYANCE OF CERVICAL OR VAGINAL SMEAR TO LABORATORY 06/16/20 08 DoD INDIVIDUAL PSYCHOTHERAPY, INSIGHT ORIENTED, BEHAVIOR MODIFYING AND/OR SUPPORTIVE, IN AN OFFICE OR OUTPATIENT FACILITY, APPROXIMATELY 75 TO 80 MINUTES [id number] WITH THE PATIENT 06/12/20 08 DoD INDIVIDUAL PSYCHOTHERAPY, INSIGHT ORIENTED, BEHAVIOR MODIFYING AND/OR SUPPORTIVE, IN AN OFFICE OR OUTPATIENT FACILITY, APPROXIMATELY 20 TO 30 MINUTES [id number] W THE PATIENT; W [facility] EVAL & MGT SER 05/29/20 08 [...] THE CERVIX INCLUDING UPPER/ADJACENT VAGINA; 06/06/20 07 [facility] CYTOPATHOLOGY, SMEARS, CERVICAL OR VAGINAL, UP TO THREE SMEARS; SCREENING BY TUGBOAT OPERATOR UNDER PHYSICIAN SUPERVISION 11/02/19 07 [facility] FITTING OF SPECTACLES, EXCEPT FOR APHAKIA; MONOFOCAL 08/29/19 07 [facility] [facility] ENDOCERVICAL CURETTAGE (NOT DONE PART OF A DILATION AND CURETTAGE) 06/21/20 06 [facility] COLPOSCOPY OF THE CERVIX INCLUDING UPPER/ADJACENT VAGINA; WITH BIOPSY(S) OF THE CERVIX AND ENDOCERVICAL CURETTAGE 05/22/20 06 [facility] SMEAR, PRIMARY SOURCE WITH INTERPRETATION; WET [...]
--- NOTE | 2024-01-22 16:09 | P.OBHP_ITS ---
OB - H&P: HPI Labor/Induction History of Present Illness Time Seen by Provider: 16:09 Date Seen: 01/22/24 Chief Complaint: The patient is a 43 year old 9 para 3 at 39 weeks gestation by ultrasound, who presents for scheduled induction of labor. is complicated by advanced maternal age, recurrent loss, status post LEEP, anxiety. Her complete H&P was completed by Dr. Gregg Baker on 01/11/2024. Vi is feeling well today with no acute concerns. She denies regular/painful uterine contractions, vaginal bleeding or leaking of fluid. Endorses active movement. Review of systems is otherwise within normal limits. 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 Partner: Nithin Children: Edgar, Melanie and Linda. Baby: Girl! H&P by CGM on 01/11/24 # RH neg, needs rhogam at 28 weeks, possibly PP. # AMA, age 43 -spontaneous conception, no medications or IVF -[id number]: Low risk, female -Level II u/s on 08/31/2023: Normal camilo intrauterine . Ce rvical length appears to be within normal limits for gestational age. EFW at the 50th percentile, AC at the 71st percentile. Normal ARAM. Recommended repeat ultrasound in 3 weeks to re-evaluate growth and anatomy that were suboptimally seen at the time of her anatomy scan. - Follow up due to subop anatomy 09/28/23: EFW 37%tile, AC 55%tile, no previa >2cm from internal os, Breech. Normal anatomy - for AMA greater than 40 years old, recommend repeat growth ultrasound at 32 weeks - weekly BPP at 36 weeks - Interested in 39 week IOL-scheduled for 01/22/24, 01/23/24. Needs cervical check at 38 weeks and finalize IOL plan. # Hx of abnormal paps and LEEPs. -Colpo done 06/25/23, w/o biopsy r/t -NEEDS: repeat pap w/ HPV # Hx of retained placenta in 2012, denies PP hemorrhage/d & C. 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 * Antiphospholipid antibody testing negative on 09/12/23 #Anemia at 28 weeks 10.7-iron supplement - FYI she was taking a natural supplement that isn't on ACOG list for anemia - discussed at 31w1d GA and she will revise -Repeat at 34 weeks: Not collected Rhogam:11/08/23 TDAP:11/28/23 History of Present Dating criteria: based on 1st trimester US only care: good care Meds Home Medications and Allergies Home Medications ?Medication ?Instructions ?Recorded ?Confirmed ?Type Lactobacillus acidophilus 100 mg PO QDAY 01/18/22 01/22/24 History cholecalciferol (vitamin D3) 125 5,000 unit PO DAILY 01/18/22 01/22/24 History mcg (5,000 unit) tablet prenat.vits,winston,sny-wyig-tutsi 1 tab PO QDAY 01/18/22 01/22/24 History aspirin 81 mg chewable tablet 81 mg PO QDAY 09/12/23 01/22/24 History ferrous gluconate 324 mg (38 mg 324 mg PO QDAY 09/12/23 01/22/24 History iron) tablet omega-3 fatty acids 1,250 mg 1,250 mg PO QDAY 01/02/24 01/22/24 History capsule Allergies Allergy/AdvReac Type Severity Reaction Status Date / Time No Known Allergies Allergy Unknown Verified 01/22/24 16:28 OB - H&P: Exam Physical Exam: Narrative: General: Alert and oriented, no acute distress Abdomen: Gravid, nontender. EFW by Shon's is 3400g. Cephalic by Shon's. Cervix: 1.5/50/-3 heart tones: Reactive NST. Baseline of 120 beats per minute, moderate variability, accelerations present, decelerations absent. [place]: No regular contractions OB - Problem Based A/P Additional Plan (1) : Status: Acute (2) AMA (advanced maternal age) multigravida 35+: Status: Acute (3) Recurrent loss with current : Status: Acute (4) Status post LEEP (loop electrosurgical excision procedure) of cervix: Problem details: Benign cervical mucosa. Prior Pap demonstrated minute fragment of RADHA 2-3. Status: Acute (5) Anxiety disorder: Problem details: propanalol PRN Status: Acute Plan Vi is a 43-year-old seen for induction of labor at 39 weeks 0 days gestation in the setting of advanced maternal age. is otherwise c omplicated by history of recurrent loss, status post LEEP, anxiety and obesity. - Cervix is 1.5/50/-2 on admission, induction started with Cook catheter. Uncomplicated Cook placement and well tolerated by patient. - Anticipate augmentation with low-dose Pitocin overnight starting at 0300 - Recommend CBC and type and screen on admission given anemia - Blood type O negative, Rhogam per protocol - GBS negative - EFW 3400g by Shon'joselo
[2024-01-22 16:20] VITALS: BP 118/62; PULSE 86; PULSE 91; O2SAT 99
[2024-01-22 16:21] VITALS: RESP 16; TEMP 36.3
[2024-01-22 19:17] VITALS: BP 123/73; PULSE 78; RESP 16; TEMP 36.8
[2024-01-22] MEDS: hydrOXYzine pamoate 25 MG CAPSULE 100 MG PO (22:51)
[2024-01-22 23:56] VITALS: BP 104/56; PULSE 73
[2024-01-23] VITALS (64 sets, daily range): BP systolic 72–150; BP diastolic 46–84; PULSE 65–106; RESP 11–16; TEMP 36.4–37.6; O2SAT 96–100
[2024-01-23 02:33] LABS: Basophils Absolute Auto 0.02 K/uL (0.00-0.30); Basophils Percent Auto 0.3 % (0.0-3.0); Eosinophils Percent Auto 1.3 % (0.0-7.0); Hematocrit 32.3 % (33.0-51.0); Hemoglobin* 11.4 gm/dL (12.0-16.0); Immature Granulocytes Abs Auto 0.03 K/uL (0.00-0.30); Immature Granulocytes Pct Auto 0.4 %; Lymphocytes Percent Auto 17.8 % (20-44); Mean Corpuscular HGB Conc 35 gm/dL (32-36); Mean Corpuscular Hemoglobin 32 pg (26-34); Mean Corpuscular Volume 90 fL (80-100); Neutrophils Percent Auto 72.2 % (42.0-72.0); Platelet Count* 181 K/uL (140-440); RDW Coefficient of Variation % 13.3 % (11.5-15.5); Red Blood Count 3.58 m/uL (4.00-5.20); White Blood Count* 7.83 K/uL (4.50-11.00)
[2024-01-23 02:35] LABS: Slide Review Reflex No
[2024-01-23] MEDS: LACTATED RINGERS 1000 ML 1,000 ML 125 ML IV ×3 (03:04→23:45)
[2024-01-23] MEDS: OXYTOCIN 30 unit/500 ML in NS 30 UNIT/500 ML BAG IVPB (03:04)
--- NOTE | 2024-01-23 06:07 | PC.NURSE ---
Verbal update given to Dr. Mccann with update that patient's cook catheter has been removed and patient has irregular contractions and is not feeling them. Per provider, to start increasing pitocin by 2 units [id number]. RN verbalized understanding and will implement plan. Incoming RN to be updated.
--- NOTE | 2024-01-23 07:42 | PM.OBPNL ---
Subjective Date Seen: 01/23/24 Narrative: Vi is a 43-year-old woman at 39 weeks, 1 day gestation here for induction of labor for indication of advanced maternal age. She had a Cook catheter placement for cervical ripening overnight, which was removed this morning. She did have a few strong contractions last night, but these resolved. She is not currently feeling contractions. Pitocin currently at 9 mU/min Objective Exam: Gen - NAD Abd - Soft, NT, gravid, cephalic SVE - 4.5 / 80 / -2, bloody show, bulging bag of water Vital Signs: Last Vital Signs Temp 98 F 01/23/24 04:27 Pulse 75 01/23/24 04:27 Resp 16 01/23/24 04:27 BP 114/65 01/23/24 04:27 Pulse Ox 98 01/23/24 02:08 Comments: tracing: Baseline 120 / accelerations present / no decelerations / moderate variability. Contractions irregular / frequent, some doubling, likely representing irritability as she is not feeling them Assessment Assessment: early labor Status: Category l Tracing Comments: Category I Labor Progress: Now with favorable cervix Maternal Status: Reassuring Plan Plan: Continue pitocin augmentation Continuous monitoring Epidural as desired
--- NOTE | 2024-01-23 12:19 | PM.OBPNL ---
Subjective Date Seen: 01/23/24 Narrative: Vi is a 43-year-old woman at 39 weeks, 1 day gestation here for induction of labor for indication of advanced maternal age. She had a Cook catheter placement for cervical ripening overnight, which was removed this morning. She did have a few strong contractions last night, but these resolved. She is not currently feeling contractions. Pitocin currently at 20 mU/min Objective Exam: Gen - NAD SVE - 4.5 / 80 / -1, bloody show, bulging bag of water AROM for clear fluid Vital Signs: Last Vital Signs Temp 97.7 F 01/23/24 08:09 Pulse 78 01/23/24 12:13 Resp 16 01/23/24 04:27 BP 114/70 01/23/24 12:13 Pulse Ox 99 01/23/24 08:06 Comments: tracing: Baseline 120 / accelerations present / no decelerations / moderate variability. Contractions irregular / frequent, some doubling, likely representing irritability as she is not feeling them Assessment Assessment: early labor Status: Category l Tracing Comments: Category I Labor Progress: Latent labor, no change since last exam. Maternal Status: Reassuring Plan Plan: Continue pitocin augmentation at current rate of 20 mU / min Continuous monitoring Epidural as desired
[2024-01-23] MEDS: ONDANSETRON 2 MG/ML inj 4 MG IV (13:40)
[2024-01-23] MEDS: fentaNYL 100 MCG/2 ML inj 50 MCG IVP (13:51)
[2024-01-23] MEDS: LACTATED RINGERS 1000 ML 1,000 ML 999 ML IV (14:03)
[2024-01-23] MEDS: ROPIVACAINE 0.2% 100 ml 100 ML 12 MG EPIDURAL (14:34)
[2024-01-23] MEDS: ROPIVACAINE 0.2 % PF 10 ML INJ 20 MG EPIDURAL (14:35)
[2024-01-23] MEDS: LIDOCAINE 2% (PF) 5 ML VIAL EPIDURAL (14:35)
--- NOTE | 2024-01-23 14:44 | P.ANBPRC_ITS ---
[facility] Medical History Migraine headache ?G43.909 - Migraine, unspecified, not intractable, without status migrainosus (ICD-10) HPV test positive Miscarriage ?O03.9 - Complete or unspecified spontaneous without complication (ICD-10) Restless legs ?G25.81 - Restless legs syndrome (ICD-10) Major depressive disorder with single episode ?F32.9 - Major depressive disorder, single episode, unspecified (ICD-10) Surgical History H/O LEEP (~2004) ?Z98.890 - Other specified postprocedural states (ICD-10) Status post loop electrosurgical excision procedure (LEEP) of cervix (12/29/19) ?Z98.890 - Other specified postprocedural states (ICD-10) Family History Paternal Grandfather Diabetes Father High blood pressure Brother High blood pressure Social History Narrative: Alcohol abuse- practicing sobriety April 2021 ,3 kids (7 yo, 10yo, 11yo (Adian) 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 Non-tobacco user SOCIAL? ? Education: bachelors? ? 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 ? Partner: Christopher, not , landscaping jha? ? Lives with: Does not live with Nithin. 3 kids live with her. ? ? Pets: denies? ? Abuse: Denies past, Safe at home with current partner ? ? Special Diet: Denies? ? Ok with a blood transfusion: yes? ? Culture or latter day beliefs: denies? ([employer])? ?? RISK FACTORS? ? Exercise Times/wk: walks 1.5 hours a day w/ her client at work Depression/Anxiety: anxiety - Propranolol as needed, has not taken in .? ? Previous Treatments: welbutrin, effexor, sertraline. Therapy: denies. SAGE: 3 PHQ 9: 3? ? Seat Belt Use: Routinely ? Smoking: Denies past/present? ? Alcohol/day: prior to knowing she was , when she was on vacation. ? ?(Review of records indicate she previously stopped drinking r/t her perception of alcohol over use/abuse in Apr 2021) Caffeine: 1 cup? ? Drug Use: Denies past/present? What is your current living situation?: I presently have a place to live Problems where you live: no known problems In the past 12 months, utilities in danger of being shut off: no In past 12 months, lack of transportation kept you from medical appts, meetings, work, or getting things needed for daily living: no In the past 12 mos, have been you worried that your food would run out before you had money to buy more?: never true In the past 12 mos, the food you bought just didn't last and you didn't have money to buy more?: never true Smoking Status: Never smoker How often does anyone, including family, friends and others, physically hurt you : never How often does anyone, including family, friends and others, insult or talk down to you: never How often does anyone, including family, friends and others, threaten you with harm: never How often does anyone, including family, friends and others, scream or curse at you: never Little interest or pleasure in doing things: not at all Feeling down, depressed, or hopeless: not at all Meds Home Medications and Allergies Home Medications ?Medication ?Instructions ?Recorded ?Confirmed ?Type Lactobacillus acidophilus 100 mg PO QDAY 01/18/22 01/22/24 History cholecalciferol (vitamin D3) 125 5,000 unit PO DAILY 01/18/22 01/22/24 History mcg (5,000 unit) tablet prenat.vits,winston,usr-kxtn-ycgjm 1 tab PO QDAY 01/18/22 01/22/24 History aspirin 81 mg chewable tablet 81 mg PO QDAY 09/12/23 01/22/24 History ferrous gluconate 324 mg (38 mg 324 mg PO QDAY 09/12/23 01/22/24 History iron) tablet omega-3 fatty acids 1,250 mg 1,250 mg PO QDAY 01/02/24 01/22/24 History capsule Allergies Allergy/AdvReac Type Severity Reaction Status Date / Time No Known Allergies Allergy Unknown Verified 01/22/24 16:28 Results Labs Labs: Laboratory Results - last 24 hr 01/22/24 02:20 WBC 7.83 RBC 3.58 L Hgb 11.4 L Hct 32.3 L MCV 90 MCH 32 MCHC 35 RDW Coeff of Yoshi 13.3 Plt Count 181 Neut % (Auto) 72.2 H Lymph % (Auto) 17.8 L [place] % (Auto) 8.0 Eos % (Auto) 1.3 Baso % (Auto) 0.3 Neut # (Auto) 5.70 Lymph # (Auto) 1.40 [place] # (Auto) 0.60 Eos # (Auto) 0.10 Baso # (Auto) 0.02 Abs Immat Gran (auto) 0.03 Imm/Tot Granulo (auto) 0.4 Vital Signs Vital Signs: Last Vital Signs Temp 97.7 F 01/23/24 08:09 Pulse 85 01/23/24 14:43 Resp 16 01/23/24 04:27 BP 122/67 01/23/24 14:43 Pulse Ox 99 01/23/24 08:06 Weight: 96.978 kg Height: 172.72 cm Anesthesia Procedures Epidural Insertion Patient Location: OB Start Time: 14:00 Stop Time: 14:44 Start Date: 01/23/24 Stop Date: 01/23/24 Reason for Block: procedure for pain Patient Position: sitting Performed By: Sherif Iqbal Preanesthetic Checklist: IV checked, risks and benefits discussed, surgical consent, monitors and equipment checked, pre-op evaluation, timeout performed and anesthesia consent Prep: chlorhexidine gluconate Monitoring: blood pressure monitoring, continuous pulse oximetry and heart rate Approach: midline Vertebral Space: lumbar (1-5) Epidural Technique: AGNES air Needle Type: Tuohy needle Injection Technique: continuous catheter Needle gauge: 17 Needle Length (cm): 10 cm Needle Insertion Depth (cm): 7 Catheter Gauge: 19 Catheter Type: multi-orifice Catheter at skin depth (cm): 13 Test Dose Result: negative and lidocaine 1.5% with epinephrine 1 to 200,000
--- NOTE | 2024-01-23 15:53 | PM.OBPNL ---
Subjective Date Seen: 01/23/24 Narrative: Vi is a 43-year-old woman at 39 weeks, 1 day gestation here for induction of labor for indication of advanced maternal age. She had a Cook catheter placement for cervical ripening overnight, which was removed this morning. She had AROM at our last exam. She then began having strong contractions and had epidural for pain control. Pitocin was stopped during that time, and has just been restarted. She is not currently feeling contractions. Objective Exam: Gen - NAD SVE - 9.5 /100 /+1 Vital Signs: Last Vital Signs Temp 97.7 F 01/23/24 08:09 Pulse 85 01/23/24 15:17 Resp 16 01/23/24 04:27 BP 104/63 01/23/24 15:22 Pulse Ox 99 01/23/24 08:06 Comments: tracing: Baseline 120 / accelerations present / intermittent very brief variable decelerations lasting no more than 15 seconds/ moderate variability. Contractions irregular / frequent, some doubling Assessment Assessment: early labor Status: Category ll Tracing Comments: Category II, overall reassuring Labor Progress: Transitional phase labor Maternal Status: Reassuring Plan Plan: Continue pitocin augmentation Continuous monitoring Anticipate spontaneous vaginal delivery
[2024-01-23] MEDS: OXYTOCIN 30 unit/500 ML in NS 30 UNIT/500 ML BAG 300 UNIT IVPB (16:55)
[2024-01-23] MEDS: miSOPROStoL 800 MCG/4 TABLET PR (17:04)
[2024-01-23] MEDS: METHYLERGONOVINE MALEATE 0.2 MG/ML INJ IM (17:08)
[2024-01-23] MEDS: TRANEXAMIC ACID 100 MG/ML INJ 1000 MG IV (17:10)
[2024-01-23] MEDS: CEFAZOLIN 2 GM in 0.9 % SODIUM CHLORIDE Mini-bag 100 ML IVPB (17:17)
[2024-01-23] MEDS: CARBOPROST TROMETHAMINE 250 MCG/ML INJ IM (17:19)
[2024-01-23 17:32] LABS: Basophils Percent Auto 0.1 % (0.0-3.0); Eosinophils Percent Auto 0.1 % (0.0-7.0); Hematocrit 33.7 % (33.0-51.0); Hemoglobin* 11.5 gm/dL (12.0-16.0); Immature Granulocytes Pct Auto 0.2 %; Lymphocytes Percent Auto 5.1 % (20-44); Mean Corpuscular HGB Conc 34 gm/dL (32-36); Mean Corpuscular Hemoglobin 32 pg (26-34); Mean Corpuscular Volume 92 fL (80-100); Monocytes Percent Auto 4.1 % (0.0-11.0); Neutrophils Percent Auto 90.4 % (42.0-72.0); Platelet Count* 180 K/uL (140-440); RDW Coefficient of Variation % 13.4 % (11.5-15.5); Red Blood Count 3.65 m/uL (4.00-5.20); White Blood Count* 11.53 K/uL (4.50-11.00)
[2024-01-23 17:37] LABS: Slide Review Reflex No
[2024-01-23 17:54] LABS: INR 0.96 (0.91-1.10); Prothrombin Time 13.4 Seconds
[2024-01-23 17:55] LABS: Fibrinogen* 427 mg/dL (200-450); Partial Thromboplastin Time* 27 Seconds (23-33)
--- NOTE | 2024-01-23 19:09 | SUR.OPER ---
surgeon inserted ryan and retracted; inserted bakri and retracted
--- NOTE | 2024-01-23 19:22 | SUR.OPER ---
blood being given actively in OR per staffing mgr and OB staff
--- NOTE | 2024-01-23 19:42 | SUR.OPER ---
converted to general at 1822 and new timeout completed at 184
[2024-01-23 19:55] LABS: Basophils Percent Auto 0.1 % (0.0-3.0); Eosinophils Percent Auto 0.2 % (0.0-7.0); Hematocrit 28.1 % (33.0-51.0); Hemoglobin* 9.5 gm/dL (12.0-16.0); Immature Granulocytes Pct Auto 0.3 %; Lymphocytes Percent Auto 6.3 % (20-44); Mean Corpuscular HGB Conc 34 gm/dL (32-36); Mean Corpuscular Hemoglobin 31 pg (26-34); Mean Corpuscular Volume 91 fL (80-100); Monocytes Percent Auto 6.9 % (0.0-11.0); Neutrophils Percent Auto 86.2 % (42.0-72.0); Platelet Count* 176 K/uL (140-440); Red Blood Count 3.08 m/uL (4.00-5.20); White Blood Count* 19.06 K/uL (4.50-11.00)
[2024-01-23 19:58] LABS: HCO3 VBG 20 mmol/L (21-28); Ionized Calcium* 1.02 mmol/L (1.11-1.30); PCO2 VBG 44 mmHG (40-50); PO2 VBG 41.9 mmHG (25-47); pH VBG 7.266 (7.32-7.43)
[2024-01-23 20:02] LABS: Slide Review Reflex No
[2024-01-23 20:05] LABS: Chloride* 110 mmol/L (96-114); Sodium* 133 mmol/L (135-149)
[2024-01-23 20:07] LABS: INR 1.06 (0.91-1.10); Prothrombin Time 14.4 Seconds
[2024-01-23 20:08] LABS: Anion Gap 5 mEq/L (7-15); Blood Urea Nitrogen* 6 mg/dL (5-24); Carbon Dioxide* 18 mmol/L (20-32); Creatinine* 0.6 mg/dL (0.5-1.5); Estimated Glomerular Filt Rate 113 ml/min; Glucose* 128 mg/dL (60-115); Partial Thromboplastin Time* 26 Seconds (23-33)
[2024-01-23 20:09] LABS: Calcium* 7.4 mg/dL (8.4-10.6); Fibrinogen* 286 mg/dL (200-450)
--- NOTE | 2024-01-23 20:52 | SUR.OPER ---
200cc ns instilled in bladder during cystoscopy
[2024-01-23] MEDS: PHENYLEPHRINE 100 MCG/ML SYRINGE IVP ×6 (21:37→22:17)
--- NOTE | 2024-01-23 21:42 | W.PM.NB ---
Nerve Block Nerve Block Time Seen by Provider: 21:30 Date Seen: 01/23/24 Type of block requested by surgeon for post-operative analgesia: TAP Side: bilateral Time out performed: Yes Verification of patient name: Yes Verification of date of : Yes Site marking: site marked Name of person performing procedure: Ray Rock Continuous monitoring Was continuous monitoring of O2 sat, B/P, manager cardiac cath, recorded every 15 minutes?: Yes Procedure Checklist: sterile prep, needles and gloves Ultrasound guided. Images saved: Yes Medications given in 5ml increments after negative aspiration: Marcaine %: 0.25 mL: 30 Needle gauge: 20 and Exparel mL: 10 Needle gauge: 20 Patient tolerated procedure well: Yes Block Charges Block Charge (with Pro Fee): TAP Bilateral Use of Ultrasound Machine for Block: Yes- US Guidance/pain block
--- NOTE | 2024-01-23 21:43 | W.ANESCHARGE ---
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
[2024-01-23] MEDS: LACTATED RINGERS 1000 ML 1,000 ML 35 ML IV (22:00)
[2024-01-23 22:12] LABS: Ionized Calcium* 1.04 mmol/L (1.11-1.30)
[2024-01-23] MEDS: VASOPRESSIN 20 UNIT/ML INJ IV ×6 (22:20→22:49)
[2024-01-23 22:28] LABS: Chloride* 109 mmol/L (96-114)
[2024-01-23 22:29] LABS: Sodium* 132 mmol/L (135-149)
[2024-01-23 22:30] LABS: Basophils Percent Auto 0.1 % (0.0-3.0); Hematocrit 26.2 % (33.0-51.0); Immature Granulocytes Pct Auto 1.2 %; Lymphocytes Percent Auto 4.2 % (20-44); Mean Corpuscular HGB Conc 34 gm/dL (32-36); Mean Corpuscular Hemoglobin 31 pg (26-34); Mean Corpuscular Volume 90 fL (80-100); Monocytes Percent Auto 4.9 % (0.0-11.0); Neutrophils Percent Auto 89.6 % (42.0-72.0); Platelet Count* 143 K/uL (140-440); RDW Coefficient of Variation % 14.4 % (11.5-15.5); Red Blood Count 2.91 m/uL (4.00-5.20); White Blood Count* 14.42 K/uL (4.50-11.00)
[2024-01-23 22:31] LABS: Creatinine* 0.7 mg/dL (0.5-1.5); Est. Creatinine Clearance* 103.46; Estimated Glomerular Filt Rate 109 ml/min; INR 1.08 (0.91-1.10); Prothrombin Time 14.7 Seconds; Slide Review Reflex No
[2024-01-23 22:32] LABS: Anion Gap 3 mEq/L (7-15); Blood Urea Nitrogen* 7 mg/dL (5-24); Calcium* 7.1 mg/dL (8.4-10.6); Carbon Dioxide* 20 mmol/L (20-32); Fibrinogen* 280 mg/dL (200-450); Glucose* 149 mg/dL (60-115); Partial Thromboplastin Time* 25 Seconds (23-33)
--- NOTE | 2024-01-23 23:11 | W.PM.VAGD1_ITS ---
Procedure Delivery date: 01/23/24 Procedure Done: Global Procedure Details: Procedures Operation Date: 01/23/24 17:40 Actual Procedure Side Surgeon p Post- Uterine Curettage, Attempted Emperatriz and Bakri Placement; Abdominal Supracervical Hysterectomy, Bilateral Salpingectomy; Cystoscopy Hamida Rosario MD See additional operative note for detail on these operative procedures Estimated blood loss (mL): 1,600 Narrative: The patient is a 43 year-old G 9 P 3 admitted on 01/22/2024 at 39 Weeks, 0 Days gestation for induction of labor for advanced maternal age.? Cervical exam on admission was 1 cm/50 % effaced/-3 station with membranes intact in vertex presentation.? heart rate demonstrated baseline 120 bpm with moderate variability, positive accelerations, no decelerations; a category 1 tracing.? She had Cook catheter placed overnight for her 1st hospital night for cervical ripening. She had Pitocin for induction of labor. AROM occurred at 12:03 p.m. on 01/23/2024 with clear fluid. ? Labor Analgesia:? Epidural ? Pitocin:? Yes ? Labor onset:? 1:30 p.m. ? Complete:? 4:36 p.m. ? Pushing:? 4:40 p.m. ? heart tones during second stage were reassuring. ? At 4:52 p.m. a viable female delivered in vertex OA presentation over intact perineum via spontaneous vaginal delivery.? was placed on maternal abdomen.? Cord was clamped and cut after greater than 60 seconds.? Nose and mouth were bulb suctioned.? Infant weight pending.? 9 at 1 minute and 9 at 5 minutes.? Shoulder dystocia: No.? Nuchal cord: No. ? Placenta delivered spontaneously at 5:02 p.m., preceded by brisk bleeding. The placenta was examined and an accessory lobe was noted; I could not confirm that this part of the placenta was completely removed. While the fundus remained firm, the lower uterine segment was atonic, despite treatment with multiple uterotonics, including Pitocin, 800 mcg rectal misoprostol, 0.2 mg of Methergine, 250 mcg of Hemabate, and a total of 2 g of IV tranexamic acid. She was given 2 g of cefazolin, and I manually explored her uterus, unable to determine if there was definite retained placenta. Decision was made to proceed to the operating room for uterine curettage and likely placement of a intrauterine tamponade device. ? was stable after delivery. ? Lacerations:? None ? Blood loss: 1300 mL. Blood loss measurement type: QBL ? Sponge and needles counts are correct. [place] Gender: Female total score - 1 minute: 9 total score - 5 minute: 9 OB Vag Delivery Procedures Additional Procedures D&C: Yes Procedure Details: see additional procedure note
--- NOTE | 2024-01-23 23:18 | P.GYNPRC_ITS ---
Procedure Note Date of procedure: 01/23/24 Will [facility] bill your pro fee for this procedure?: Yes Pre-op diagnosis: hemorrhage Post-op diagnosis: hemorrhage secondary to lower uterine segment atony Procedure: uterine curettage Attempted placement of Emperatriz intrauterine suction device Attempted placement of Bakri balloon Abdominal supracervical hysterectomy with bilateral salpingectomy and cystoscopy Anesthesia: GETA Complications: Unremitting hemorrhage after placement of Emperatriz intrauterine suction device and Bakri balloon, necessitating emergent hysterectomy Surgeon: Hamida Rosario MD [employer] Car [employer] Builder: Neha Mccann Estimated blood loss (mL): 2,100 (1300 cc prior to entering the operating room) IV fluids (mL): 4,700 (4 units of packed red blood cells, 2 units of FFP) Urine Output (mL): 300 Pathology: specimen obtained, sent to pathology (uterus with bilateral tues) Condition: stable Disposition: PACU Findings: 1. Upon uterine curettage, there was a gritty texture noted throughout, and no return of obvious retained placenta. 2. Upon placement of first the Emperatriz intrauterine suction device, and then the Bakri balloon, there was unremitting hemorrhage, with exceedingly heavy bleeding emanating from the lower uterine segment. 3. Upon laparotomy, there was atony of the lower uterine segment noted. Bilateral tubes and ovaries were normal in appearance. 4. Upon cystoscopy performed after completion of hysterectomy, bilateral ureteral jets were noted and there was no injury to the bladder dome. Procedure Description: Patient was taken to the operating room with 2 large-bore IVs in place. She had received 2 g of cefazolin just prior to entering the operating room for manual exploration of the uterus. Initially, her epidural was used for management of pain. She was placed in dorsal lithotomy position with legs fully supported in Yellofin stirrups. A Thakur catheter was previously placed. She was prepped and draped in the usual sterile fashion. A weighted speculum was placed. The cervix was grasped with several ring forceps and the entire perimeter of the cervix was examined. No lacerations were noted, but there was abundant bleeding from the lower uterine segment. The largest uterine curette was used to gently, circumferentially curette the endometrial cavity. No retained placenta was noted at this time. The Emperatriz intrauterine suction device was manually placed through the cervix and into the uterine cavity. The cervical balloon was inflated, and suction was applied. Unfortunately, there was unremitting brisk bleeding throughout this time. The bleeding was issuing around the suction device. Thus, this was removed. Next, a Bakri balloon was placed manually through the cervix into the endometrial cavity, adjacent to the fundus. Two attempts were made to inflate this balloon, but the balloon slipped into the lower uterine segment on each attempt and hemorrhage continued unabated once the Bakri balloon was in place. This persisted despite placement of intravaginal packing beneath the device. Thus, this device was also removed. Given the unremitting hemorrhage of nearly 3 L at that point, decision was made to proceed with emergent hysterectomy. A laparotomy pad was placed in the lower uterine segment. Patient was again prepped and draped in dorsal lithotomy position. I again scrubbed, and changed gown and gloves. Dr. Mccann arrived as an advertising assistant manager. General anesthesia was established. A Pfannenstiel skin incision was made with a scalpel and carried down to the underlying layer of fascia with the scalpel. This fascia was nicked in the midline with the scalpel and the incision was extended laterally through the fascia with scissors. The fascia was dissected off the underlying rectus mus cles with scissors. The rectus were in the midline. The peritoneum was entered bluntly. This opening was extended with traction. The Collins O retractor was inserted and tightened down, providing excellent visualization of the uterus. The bowels were packed into the upper abdomen. Attention was 1st turned to the right side of the uterus. The utero-ovarian ligament and right fallopian tube was clamped, cut, and suture ligated. The round ligament was clamped, cut, and suture ligated. The bladder reflection was dissected downwards with a combination of sharp and blunt dissection. The intervening broad ligament was serially clamped, cut or coagulated with the LigaSure exact device, and tied. The uterine arteries were clamped, cut, and multiply suture ligated. Attention was turned to the left side of the uterus, where the left utero- ovarian ligament and left fallopian tube was clamped, coagulated and cut with the LigaSure exact device, and suture ligated. The left round ligament was divided in a similar fashion. The dissection of the bladder reflection downwards was completed on that side. The intervening broad ligament was serially clamped, coagulated with the LigaSure exact device or cut, and suture ligated, bringing the dissection down to the level of the uterine artery. This, too, was clamped, cut, and suture ligated. A vaginal exam was performed, revealing our dissection to have moved to the level of the lower cervix. The endocervix was crossclamped, and the uterus was amputated and sent to pathology. The endocervix was closed with a series of [id number] sutures of 0 Vicryl. Attention was returned to the fallopian tubes. Each of these was grasped with [place] clamps. It was divided from the pedicle of the adnexa on the respective side with the LigaSure exact device, ultimately freeing each tube. Each was sent to pathology for further analysis. The pelvis was copiously irrigated with sterile saline. Bovie was used on some oozing vessels along the bladder reflection. The raw areas between the anterior vagina and bladder reflection were treated with Gail hemostatic agent. The bowel packing was removed. The Collins O retractor was removed. The peritoneum was closed with the running stitch of 2 0 Vicryl. The rectus muscles were examined and Bovie used on oozing vessels. The fascia was closed with a running stitch of 0 Vicryl. The subcutaneous fat was irrigated and Bovie used on bleeding vessels. The skin was closed with a subcuticular stitch of 4-0 Monocryl. Dressings were applied. Vaginal exam was performed, showing continued presence of the ectocervix and scant blood in the vault, along with some old blood clot. Cystoscope was assembled with saline inflow in place. Patient had been given IV sodium fluorescein to aid in visualization of ureteral jets. The Thakur catheter was removed. Cystoscope was inserted through the urethra into the bladder, with normal findings noted as above. Cystoscope was removed and Thakur was replaced. Patient was taken to the PACU in stable condition.
--- NOTE | 2024-01-23 23:20 | SUR.PHASEI ---
patient got multiple doses of BP support medications, patient stable and meets pacu d/c criteria per computer assistant
--- NOTE | 2024-01-23 23:30 | SUR.PHASEI ---
finished LR bag from introp; see anesthesia record; hung new bag at 2200 see emar
--- NOTE | 2024-01-23 23:31 | SUR.PHASEI ---
patient with scant drainage on peripad and opsite dressing d/i
[2024-01-24] VITALS (13 sets, daily range): BP systolic 95–118; BP diastolic 56–73; PULSE 65–87; RESP 16–19; TEMP 36.2–37.2; O2SAT 96–100
[2024-01-24] MEDS: OXYCODONE 5 MG TABLET PO ×4 (00:12→16:17)
[2024-01-24] MEDS: LOPERAMIDE HCL 2 MG CAPSULE 4 MG PO (00:13)
[2024-01-24] MEDS: HYDROmorphone 0.5 mg/0.5 ml inj IVP (02:54)
[2024-01-24 05:18] LABS: Basophils Absolute Auto 0.01 K/uL (0.00-0.30); Basophils Percent Auto 0.1 % (0.0-3.0); Hematocrit 21.3 % (33.0-51.0); Immature Granulocytes Abs Auto 0.06 K/uL (0.00-0.30); Immature Granulocytes Pct Auto 0.6 %; Lymphocytes Percent Auto 10.5 % (20-44); Mean Corpuscular HGB Conc 35 gm/dL (32-36); Mean Corpuscular Hemoglobin 30 pg (26-34); Mean Corpuscular Volume 87 fL (80-100); Monocytes Percent Auto 7.3 % (0.0-11.0); Neutrophils Percent Auto 81.5 % (42.0-72.0); Platelet Count* 136 K/uL (140-440); RDW Coefficient of Variation % 14.7 % (11.5-15.5); Red Blood Count 2.44 m/uL (4.00-5.20); White Blood Count* 10.15 K/uL (4.50-11.00)
[2024-01-24 05:36] LABS: Chloride* 108 mmol/L (96-114); Potassium* 4.2 mmol/L (3.6-5.1); Sodium* 131 mmol/L (135-149)
[2024-01-24 05:38] LABS: Creatinine* 0.6 mg/dL (0.5-1.5); Estimated Glomerular Filt Rate 113 ml/min; Hemoglobin* 7.4 gm/dL (12.0-16.0)
[2024-01-24 05:39] LABS: Anion Gap 2 mEq/L (7-15); Blood Urea Nitrogen* 5 mg/dL (5-24); Calcium* 7.6 mg/dL (8.4-10.6); Carbon Dioxide* 21 mmol/L (20-32); Glucose* 125 mg/dL (60-115); INR 1.19 (0.91-1.10); Prothrombin Time 15.8 Seconds
[2024-01-24 05:40] LABS: Partial Thromboplastin Time* 27 Seconds (23-33)
[2024-01-24 05:41] LABS: Fibrinogen* 304 mg/dL (200-450)
[2024-01-24 05:46] LABS: Slide Review Reflex No
[2024-01-24] MEDS: fentaNYL 100 MCG/2 ML inj 50 MCG IVP (06:25)
[2024-01-24] MEDS: LACTATED RINGERS 1000 ML 1,000 ML 125 ML IV (07:48)
--- NOTE | 2024-01-24 08:08 | P.OBPN_ITS ---
OB - PN:Subj Subjective Time Seen by Provider: 08:08 Date Seen: 01/24/24 Patient comments OB post-: no complaints, pain well controlled and tolerating diet [place] infant status: Narrative: Vi is POD#1 after a abdominal supracervical hysterectomy to uncontrolled hemorrhage. She received 4 units of packed red blood cells and 2 units of FFP. Her hemoglobin this morning was 7.4. She is feeling well without dizziness or lightheadedness while sitting. She will receive another unit of blood if she is dizzy or lightheaded when she gets out of bed later today. She is tolerating regular diet. She has not been ambulating. Her Thakur catheter is in place and she has adequate urine output. OB - PN: Obj Exam Physical Exam: Vital signs: Temp Pulse Resp BP Pulse Ox O2 Del Method 98.8 F 70 16 106/67 100 Room Air 01/24/24 06:00 01/24/24 07:52 01/24/24 07:52 01/24/24 07:52 01/24/24 07:52 01/24/24 07:52 Narrative: General: Pleasant, , well groomed woman in no acute distress nursing her baby. Vital signs per electronic medical record Heart: Regular rate and rhythm without gallop, rub or murmur. Chest: Clear to auscultation bilaterally. Abdomen: Soft, nontender, nondistended with normal bowel sounds throughout. Incision: Dressing is clean dry and intact. Extremities: SCDs in place Urinary Catheter Management: Urethral: Cath placed during this visit: no Reason for continuing: surgical procedure OB - PN: Obj Data Labs Labs: Laboratory Results - last 24 hr 01/23/24 01/23/24 01/23/24 17:26 19:02 22:09 WBC 11.53 H 19.06 H 14.42 H RBC 3.65 L 3.08 L 2.91 L Hgb 11.5 L 9.5 L 9.0 L Hct 33.7 28.1 L 26.2 L MCV 92 91 90 MCH 32 31 31 MCHC 34 34 34 RDW Coeff of Yoshi 13.4 14.0 14.4 Plt Count 180 176 143 Neut % (Auto) 90.4 H 86.2 H 89.6 H Lymph % (Auto) 5.1 L 6.3 L 4.2 L Wallace % (Auto) 4.1 6.9 4.9 Eos % (Auto) 0.1 0.2 0.0 Baso % (Auto) 0.1 0.1 0.1 Neut # (Auto) 10.40 H 16.40 H 12.90 H Lymph # (Auto) 0.60 L 1.20 0.60 L Wallace # (Auto) 0.50 1.30 H 0.70 Eos # (Auto) 0.00 0.00 0.00 Baso # (Auto) 0.00 0.00 0.00 Abs Immat Gran (auto) 0.00 0.10 0.20 Imm/Tot Granulo (auto) 0.2 0.3 1.2 INR 0.96 1.06 1.08 APTT 27 26 25 Fibrinogen 427 286 280 VBG pH 7.266 L VBG pCO2 44 VBG pO2 41.9 VBG HCO3 20 L Sodium 133 L 132 L Potassium 4.0 4.0 Chloride 110 109 Carbon Dioxide 18 L 20 Anion Gap 5 L 3 L BUN 6 7 Creatinine 0.6 0.7 Estimated Creat Clear 120.70 103.46 Estimated GFR 113 109 Glucose 128 H 149 H Calcium 7.4 L 7.1 L Ionized Calcium Justen 1.02 L 1.04 L Blood Type O Negative Antibody Screen POSITIVE Screen Negative Crossmatch (AHG) See Detail 01/24/24 04:55 WBC 10.15 RBC 2.44 L Hgb 7.4 L* Hct 21.3 L MCV 87 MCH 30 MCHC 35 RDW Coeff of Yoshi 14.7 Plt Count 136 L Neut % (Auto) 81.5 H Lymph % (Auto) 10.5 L Wallace % (Auto) 7.3 Eos % (Auto) 0.0 Baso % (Auto) 0.1 Neut # (Auto) 8.30 H Lymph # (Auto) 1.10 Wallace # (Auto) 0.70 Eos # (Auto) 0.00 Baso # (Auto) 0.01 Abs Immat Gran (auto) 0.06 Imm/Tot Granulo (auto) 0.6 INR 1.19 H APTT 27 Fibrinogen 304 VBG pH VBG pCO2 VBG pO2 VBG HCO3 Sodium 131 L Potassium 4.2 Chloride 108 Carbon Dioxide 21 Anion Gap 2 L BUN 5 Creatinine 0.6 Estimated Creat Clear 120.70 Estimated GFR 113 Glucose 125 H Calcium 7.6 L Ionized Calcium Justen Blood Type Antibody Screen Screen Crossmatch (AHG) OB - PN: A/P Delivery Assessment and Plan (1) : Status: Acute (2) AMA (advanced maternal age) multigravida 35+: Status: Acute (3) Recurrent loss with current : Status: Acute (4) Status post LEEP (loop electrosurgical excision procedure) of cervix: Problem details: Benign cervical mucosa. Prior Pap demonstrated minute fragment of RADHA 2-3. Status: Acute (5) Anxiety disorder: Problem details: propanalol PRN Status: Acute (6) Status post laparoscopic supracervical hysterectomy: Problem details: Due to lower uterine segment atony . Status: Acute Assessment and Plan: 1. Continue postoperative care. 2. If patient has dizziness or lightheadedness when out of bed today will receive another unit of packed red blood cells. 3. Iron supplementation. 4. Breast-feeding without difficulty 5. Plan on discharge home on 01/24 or 01/26/2024
[2024-01-24] MEDS: ACETAMINOPHEN 500 MG TABLET 1000 MG PO ×3 (09:22→16:16)
[2024-01-24] MEDS: FERROUS SULFATE 325 MG TABLET 650 MG PO (09:46)
[2024-01-24] MEDS: DOCUSATE SODIUM 100 MG CAPSULE PO (09:47)
[2024-01-24] MEDS: KETOROLAC 30 MG/ML inj IVP ×2 (12:46→18:36)
[2024-01-25] VITALS (12 sets, daily range): BP systolic 99–128; BP diastolic 54–74; PULSE 74–99; RESP 12–18; TEMP 36.2–36.9; O2SAT 97–99
[2024-01-25] MEDS: KETOROLAC 30 MG/ML inj IVP ×3 (00:09→12:53)
[2024-01-25] MEDS: ACETAMINOPHEN 500 MG TABLET 1000 MG PO ×2 (00:09→18:03)
[2024-01-25 07:53] LABS: Basophils Absolute Auto 0.01 K/uL (0.00-0.30); Basophils Percent Auto 0.1 % (0.0-3.0); Eosinophils Absolute Auto 0.13 K/uL (0.00-0.50); Eosinophils Percent Auto 1.7 % (0.0-7.0); Hematocrit 17.9 % (33.0-51.0); Immature Granulocytes Pct Auto 1.3 %; Lymphocytes Percent Auto 16.3 % (20-44); Mean Corpuscular HGB Conc 33 gm/dL (32-36); Mean Corpuscular Hemoglobin 30 pg (26-34); Mean Corpuscular Volume 92 fL (80-100); Neutrophils Percent Auto 72.6 % (42.0-72.0); Platelet Count* 113 K/uL (140-440); RDW Coefficient of Variation % 15.1 % (11.5-15.5); Red Blood Count 1.95 m/uL (4.00-5.20); White Blood Count* 7.71 K/uL (4.50-11.00)
[2024-01-25 08:02] LABS: Hemoglobin* 5.9 gm/dL (12.0-16.0); Slide Review Reflex No
--- NOTE | 2024-01-25 08:10 | PM.OBPNVD1 ---
OB - PN:Subj Subjective Time Seen by Provider: 08:00 Date Seen: 01/25/24 Narrative: Overnight patient, complains of fatigue with activity and feeling easily winded. She reports feeling great at rest. Her pain is well controlled on oral pain medications. She is tolerating a regular diet. She has passed flatus. She is ambulating without difficulty. She showed me her vaginal bleeding on pad and she had no bleeding, just scant yellow discharge. She is urinating without rojas. Patient denies chest pain, n/v, headache, RUQ pain, vision changes, dizziness. Again, she has dyspnea with exertion that resolves with rest. We discussed her hysterectomy. Patient and partner has clear understand of the sequence of events. I emphasized that she still has a cervix so will still need to adhere to cervical cancer surveillance for best outcomes. VSS OB - PN: Obj Exam Physical Exam: Vital signs: Temp Pulse Resp BP Pulse Ox O2 Del Method 97.8 F 78 16 105/66 97 Room Air 01/25/24 06:06 01/25/24 06:06 01/25/24 06:06 01/25/24 06:06 01/24/24 16:11 01/25/24 06:06 Narrative: Physical exam: General: No acute distress. her Psych: Alert and oriented x4, full affect HEENT: Normocephalic, atraumatic. Bilateral conjunctival pallor Neck: No cervical adenopathy, no thyromegaly Heart: Regular rate and rhythm, no murmur rub or gallop Lungs: Clear to auscultation bilaterally Abdomen: Normoactive bowel sounds, soft, no tenderness, rebound, or guarding on superficial or deep palpation. Incision: Appropriately tender to palpation. Clean, dry, and intact. No erythema, induration, or abnormal discharge/breakdown Skin: No lesions or rashes. Slow cap refill Lower extremities: 1+ bilateral lower extremity edema Pelvic exam: Scant yellow/pink discharge on pad Urinary Catheter Management: Urethral: Cath placed during this visit: yes, but has since been removed by the nurse Reason for continuing: surgical procedure Removal date: 01/24/24 Removal time: 11:45 OB - PN: Obj Data Labs Labs: Laboratory Results - last 24 hr 01/23/24 01/25/24 17:26 07:46 WBC 7.71 RBC 1.95 L Hgb 5.9 L* Hct 17.9 L MCV 92 MCH 30 MCHC 33 RDW Coeff of Yoshi 15.1 Plt Count 113 L Neut % (Auto) 72.6 H Lymph % (Auto) 16.3 L [place] % (Auto) 8.0 Eos % (Auto) 1.7 Baso % (Auto) 0.1 Neut # (Auto) 5.60 Lymph # (Auto) 1.30 [place] # (Auto) 0.60 Eos # (Auto) 0.13 Baso # (Auto) 0.01 Abs Immat Gran (auto) 0.10 Imm/Tot Granulo (auto) 1.3 Screen Negative OB - PN: A/P Delivery Assessment and Plan (1) AMA (advanced maternal age) multigravida 35+: Status: Acute (2) Recurrent loss with current : Status: Acute (3) Status post LEEP (loop electrosurgical excision procedure) of cervix: Problem details: Benign cervical mucosa. Prior Pap demonstrated minute fragment of RADHA 2-3. Status: Acute (4) Anxiety disorder: Problem details: propanalol PRN Status: Acute (5) S/P abdominal supracervical subtotal hysterectomy: Problem details: Due to lower uterine segment atony Status: Acute (6) Fatigue: Status: Acute Plan Comments: Postoperative/post delivery Review: - Admitted for: IOL complicated by hemorrhage - Surgical procedure: uterine curettage, Abdominal supracervical hysterectomy, bilateral salpingectomy, cystoscopy - Skin incision: Pfannenstiel - Closure: sutures - Incision today: Clean, dry and intact without tenderness, erythema, induration, or drainage. Acute blood loss anemia - Quantitative blood loss: : 1300 mL Total: 3400 mL - Intraoperative Complications: hemorrhage requiring massive transfusion protocol and supracervical hysterectomy - Urine output: adequate - Preop/pre delivery Hgb: 11.4 - Postop/post delivery H/H: 11.5--> 9.5 --> 9.0 --> 7.4 (01/23) --> This AM 5.9 - s/p 4u of pRBC and 2u of FFP - Symptomatic anemia today - VSS and exam with benign abdomen and only scant discharge vaginally - Plan: Will transfuse 2u of pRBC, repeat CBC pending after transfusion Postoperative care: - Diet: Advance as tolerated - Fluid: Encourage oral intake - Activity: Encourage ambulation and incentive spirometry - Pain: Acetaminophen, Ibuprofen, and oxycodone - DVT prophylaxis: SCDs and TEDs when not ambulating. Baby's Status - Fetus: 9, 9, female - Location: bedside Dispo: Patient is POD#2. Need the following milestones: active management of acute blood loss anemia. Anticipate discharge POD#3/4.
[2024-01-25] MEDS: 0.9 % SODIUM CHLORIDE 250 ml IV ×2 (09:32→11:12)
[2024-01-25] MEDS: DOCUSATE SODIUM 100 MG CAPSULE PO (09:34)
[2024-01-25] MEDS: SIMETHICONE 80 MG TAB.CHEW PO (09:34)
[2024-01-25 15:17] LABS: Chloride* 108 mmol/L (96-114); Potassium* 3.6 mmol/L (3.6-5.1); Sodium* 134 mmol/L (135-149)
[2024-01-25 15:20] LABS: Anion Gap 3 mEq/L (7-15); Blood Urea Nitrogen* 8 mg/dL (5-24); Carbon Dioxide* 23 mmol/L (20-32); Creatinine* 0.6 mg/dL (0.5-1.5); Estimated Glomerular Filt Rate 113 ml/min; Glucose* 108 mg/dL (60-115)
[2024-01-25 16:48] LABS: Basophils Absolute Auto 0.01 K/uL (0.00-0.30); Basophils Percent Auto 0.1 % (0.0-3.0); Eosinophils Absolute Auto 0.12 K/uL (0.00-0.50); Eosinophils Percent Auto 1.5 % (0.0-7.0); Immature Granulocytes Abs Auto 0.07 K/uL (0.00-0.30); Immature Granulocytes Pct Auto 0.9 %; Mean Corpuscular HGB Conc 35 gm/dL (32-36); Mean Corpuscular Hemoglobin 31 pg (26-34); Mean Corpuscular Volume 89 fL (80-100); Monocytes Percent Auto 6.1 % (0.0-11.0); Neutrophils Percent Auto 77.4 % (42.0-72.0); Platelet Count* 128 K/uL (140-440); RDW Coefficient of Variation % 15.5 % (11.5-15.5); Red Blood Count 2.25 m/uL (4.00-5.20); White Blood Count* 7.83 K/uL (4.50-11.00)
[2024-01-25 17:04] LABS: Hemoglobin* 6.9 gm/dL (12.0-16.0)
[2024-01-25] MEDS: OXYCODONE 5 MG TABLET PO (18:03)
--- NOTE | 2024-01-25 18:28 | CRLHL7_ITS ---
For Patients: As a result of the Century Cures Act, medical imaging exams and procedure reports are released immediately into your electronic medical record. You may view this report before your referring provider. If you have questions, please contact your health care provider. INDICATION: Recent vaginal delivery and hysterectomy hemorrhage. Anemia. TECHNIQUE: Multiplanar CT examination of the abdomen and pelvis was performed after the administration of 100 mL Isovue 370 intravenous contrast. COMPARISON: None. FINDINGS: Lower chest: No focal consolidation. Normal heart size. No pleural effusions or pneumothorax. Subsegmental atelectasis and/or scarring. Liver: Unremarkable. Gallbladder: Unremarkable. Biliary: Unremarkable. Pancreas: Within normal limits. Spleen: Unremarkable. Adrenal glands: Unremarkable. Renal/ureters/bladder: Normal in size and symmetrically enhancing. No obstructive uropathy. No hydronephrosis or obstructive urinary calculi. No suspicious renal masses. The ureters appear unremarkable. Mild circumferential wall thickening of the bladder. Pelvis: Hysterectomy. The ovaries appear edematous bilaterally, but in normal position. There is heterogeneous fluid collection within and surrounding the vaginal cuff in this patient that is status post hysterectomy, likely expected postoperative blood product. Gastrointestinal: No bowel wall thickening or bowel obstruction. Normal appendix. No significant colonic diverticulosis. Mild colonic stool burden. Vasculature: No aortic aneurysm. The portal vein remains patent. No significant atherosclerotic calcifications. No extravasation of contrast material. Lymph nodes: No pathologic lymphadenopathy by size criteria. Peritoneum: Small scattered foci of pneumoperitoneum. No large volume hemoperitoneum. No drainable fluid collections. Abdominal wall/soft tissues: Scattered foci of subcutaneous emphysema, expected postoperative changes. Bones: No acute osseous abnormalities. IMPRESSION: 1. Expected postoperative changes status post hysterectomy. Heterogeneous fluid collection around the vaginal cuff likely represents postoperative blood product. No large volume hemoperitoneum or evidence of active hemorrhage. 2. Edematous ovaries bilaterally without convincing evidence of ovarian torsion. This would be better evaluated on ultrasound if clinically warranted. Please note that all CT scans at this facility use dose modulation, iterative reconstruction, and/or weight-based dosing when appropriate to reduce radiation dose to as low as reasonably achievable. Dictated by Joel Stacy MD @ 01/25/2024 8:18:26 PM (Electronically Signed)
--- NOTE | 2024-01-25 18:40 | PM.OBPNVD1 ---
OB - PN:Subj Subjective Time Seen by Provider: 17:30 Date Seen: 01/25/24 Narrative: Returned to assess patient due to inappropriate rise in hgb after 2u of pRBC. Hgb of 6.9 gm/dL. Patient reports feeling more energy. Denies SOB, chest pain, n/v, lightheadedness, or dizziness. She is ambulating well and void freely. She does have new complaint of abdominal distension and increased abdominal pain. She is passing flatus and that decreases some of her pain. Concurrently, her last set of vitals showed BP of 99/54. While consistent with her historic baseline, the combination of her new symptoms, labs, and BP are worrisome to me. Discussed with patient that I have a low threshold for imaging her abdomen to rule out a hemoperitoneum. Patient is amenable to this plan. Will order CTAP OB - PN: Obj Exam Physical Exam: Vital signs: Temp Pulse Resp BP Pulse Ox O2 Del Method 98.5 F 74 16 99/54 L 98 Room Air 01/25/24 15:01/25/24 15:01/25/24 15:01/25/24 15:01/25/24 15:01/25/24 15:00 Narrative: Physical exam: General: No acute distress Psych: Alert and oriented x4, full affect HEENT: Normocephalic, atraumatic, bilateral conjunctival pallor Heart: Regular rate and rhythm, no murmur rub or gallop Lungs: Clear to auscultation bilaterally. She uses the IS well without SOB or dizziness. Abdomen: Normoactive bowel sounds, soft, mild tenderness in upper abdomen and appropriate tenderness around the incision. No rebound, or guarding, no masses. Abdomen is moderately distended but not an acute abdomen. Incision: Appropriately tender to palpation. Clean, dry, and intact. No erythema, induration, or abnormal discharge/breakdown Skin: No lesions or rashes. Slow cap refill Lower extremities: 1+ bilateral lower extremity edema Pelvic exam: Scant yellow clear discharge. No bleeding on pad Urinary Catheter Management: Urethral: Cath placed during this visit: yes, but has since been removed by the nurse Reason for continuing: surgical procedure Removal date: 01/24/24 Removal time: 11:45 OB - PN: Obj Data Labs Labs: Laboratory Results - last 24 hr 07/01/25/24 01/25/24 17:26 07:46 14:55 WBC 7.71 7.83 RBC 1.95 L 2.25 L Hgb 5.9 L* 6.9 L* Hct 17.9 L 20.0 L MCV 92 89 MCH 30 31 MCHC 33 35 RDW Coeff of Yoshi 15.1 15.5 Plt Count 113 L 128 L Neut % (Auto) 72.6 H 77.4 H Lymph % (Auto) 16.3 L 14.0 L [place] % (Auto) 8.0 6.1 Eos % (Auto) 1.7 1.5 Baso % (Auto) 0.1 0.1 Neut # (Auto) 5.60 6.10 Lymph # (Auto) 1.30 1.10 [place] # (Auto) 0.60 0.50 Eos # (Auto) 0.13 0.12 Baso # (Auto) 0.01 0.01 Abs Immat Gran (auto) 0.10 0.07 Imm/Tot Granulo (auto) 1.3 0.9 Sodium 134 L Potassium 3.6 Chloride 108 Carbon Dioxide 23 Anion Gap 3 L BUN 8 Creatinine 0.6 Estimated Creat Clear 120.70 Estimated GFR 113 Glucose 108 Calcium 8.0 L Blood Type O Negative Antibody Screen POSITIVE Antibody Identification Anti-D Crossmatch (AHG) See Detail OB - PN: A/P Delivery Assessment and Plan (1) AMA (advanced maternal age) multigravida 35+: Status: Acute (2) Recurrent loss with current : Status: Acute (3) Status post LEEP (loop electrosurgical excision procedure) of cervix: Problem details: Benign cervical mucosa. Prior Pap demonstrated minute fragment of RADHA 2-3. Status: Acute (4) Anxiety disorder: Problem details: propanalol PRN Status: Acute (5) S/P abdominal supracervical subtotal hysterectomy: Problem details: Due to lower uterine segment atony Status: Acute (6) Fatigue: Status: Acute
[2024-01-25 19:46] LABS: Basophils Absolute Auto 0.02 K/uL (0.00-0.30); Basophils Percent Auto 0.3 % (0.0-3.0); Eosinophils Absolute Auto 0.13 K/uL (0.00-0.50); Eosinophils Percent Auto 1.7 % (0.0-7.0); Hematocrit 20.4 % (33.0-51.0); Immature Granulocytes Abs Auto 0.07 K/uL (0.00-0.30); Immature Granulocytes Pct Auto 0.9 %; Lymphocytes Percent Auto 15.6 % (20-44); Mean Corpuscular HGB Conc 34 gm/dL (32-36); Mean Corpuscular Hemoglobin 30 pg (26-34); Mean Corpuscular Volume 89 fL (80-100); Monocytes Percent Auto 6.4 % (0.0-11.0); Neutrophils Percent Auto 75.1 % (42.0-72.0); Platelet Count* 129 K/uL (140-440); RDW Coefficient of Variation % 15.5 % (11.5-15.5); White Blood Count* 7.86 K/uL (4.50-11.00)
[2024-01-25 19:53] LABS: Hemoglobin* 6.9 gm/dL (12.0-16.0); Slide Review Reflex No
[2024-01-25 21:28] LABS: Basophils Absolute Auto 0.01 K/uL (0.00-0.30); Basophils Percent Auto 0.1 % (0.0-3.0); Eosinophils Absolute Auto 0.11 K/uL (0.00-0.50); Eosinophils Percent Auto 1.4 % (0.0-7.0); Hematocrit 20.8 % (33.0-51.0); Immature Granulocytes Abs Auto 0.09 K/uL (0.00-0.30); Immature Granulocytes Pct Auto 1.2 %; Immature Reticulocyte Fraction 26.3 % (3.0-15.9); Lymphocytes Percent Auto 16.4 % (20-44); Mean Corpuscular HGB Conc 35 gm/dL (32-36); Mean Corpuscular Hemoglobin 31 pg (26-34); Mean Corpuscular Volume 89 fL (80-100); Monocytes Percent Auto 6.5 % (0.0-11.0); Neutrophils Percent Auto 74.4 % (42.0-72.0); Platelet Count* 141 K/uL (140-440); RDW Coefficient of Variation % 15.5 % (11.5-15.5); Red Blood Count 2.34 m/uL (4.00-5.20); Reticulocyte Hemoglobin Equivi 31.7 pg (29.0-35.0); Reticulocyte Percent 3.9 % (0.5-2.0); Reticulocytes Absolute 0.09 # (0.03-0.08); White Blood Count* 7.79 K/uL (4.50-11.00)
[2024-01-25 21:32] LABS: Hemoglobin* 7.2 gm/dL (12.0-16.0)
[2024-01-25 21:33] LABS: Slide Review Reflex No
[2024-01-25 21:38] LABS: Fibrinogen* 489 mg/dL (200-450); INR 0.87 (0.91-1.10); Partial Thromboplastin Time* 29 Seconds (23-33); Prothrombin Time 12.4 Seconds
[2024-01-25 21:41] LABS: Bilirubin Direct* 0.2 mg/dL (0.0-0.5); Bilirubin Total* 0.2 mg/dL (0.1-1.5); Lactate Dehydrogenase* 172 U/L (120-246)
[2024-01-25 22:12] LABS: Slide Review Reflex No
[2024-01-25 22:47] LABS: Appearance Urine Clear (Clear); Bilirubin Urine Negative (Negative); Blood Urine Negative (Negative); Color Urine Yellow (Yellow); Glucose Urine Negative (Negative); Ketones Urine Negative (Negative); Leukocyte Esterase Urine Negative (Negative); Nitrite Urine Negative (Negative); Protein Urine Negative (Negative); Urobilinogen Urine 0.2 (0.2-1.0)
[2024-01-26] MEDS: ACETAMINOPHEN 500 MG TABLET 1000 MG PO (00:16)
[2024-01-26 01:06] VITALS: BP 128/78; PULSE 77; RESP 12; TEMP 36.8; O2SAT 99
[2024-01-26 04:01] VITALS: BP 101/58; PULSE 79; RESP 12; TEMP 36.8; O2SAT 98
[2024-01-26 07:00] LABS: Basophils Absolute Auto 0.01 K/uL (0.00-0.30); Basophils Percent Auto 0.1 % (0.0-3.0); Eosinophils Absolute Auto 0.15 K/uL (0.00-0.50); Eosinophils Percent Auto 2.1 % (0.0-7.0); Hematocrit 20.8 % (33.0-51.0); Immature Granulocytes Abs Auto 0.08 K/uL (0.00-0.30); Immature Granulocytes Pct Auto 1.1 %; Lymphocytes Percent Auto 17.1 % (20-44); Mean Corpuscular HGB Conc 35 gm/dL (32-36); Mean Corpuscular Hemoglobin 31 pg (26-34); Mean Corpuscular Volume 89 fL (80-100); Neutrophils Percent Auto 73.6 % (42.0-72.0); Platelet Count* 139 K/uL (140-440); RDW Coefficient of Variation % 15.2 % (11.5-15.5); Red Blood Count 2.34 m/uL (4.00-5.20); White Blood Count* 7.02 K/uL (4.50-11.00)
[2024-01-26 07:02] LABS: Hemoglobin* 7.2 gm/dL (12.0-16.0); Slide Review Reflex No
[2024-01-26] MEDS: DOCUSATE SODIUM 100 MG CAPSULE PO (08:16)
[2024-01-26] MEDS: IBUPROFEN 600 MG TABLET PO (08:16)
[2024-01-26] MEDS: FERROUS SULFATE 325 MG TABLET 650 MG PO (08:16)
[2024-01-26] MEDS: SIMETHICONE 80 MG TAB.CHEW PO (08:17)
[2024-01-26 08:19] VITALS: BP 118/73; PULSE 65; RESP 16; TEMP 36.3; O2SAT 98
--- NOTE | 2024-01-26 09:32 | P.DS_ITS ---
DS: Providers Provider Time Seen by Provider: 09:32 Date Seen: 01/26/24 Date of admission: 01/22/24 15:57 Primary care physician: Mary Bergman PA-C Admitting Clinician: Hamida Rosario MD Attending Physician on discharge: Mindi Jones MD DS: Diagnosis Discharge Diagnosis (1) S/P abdominal supracervical subtotal hysterectomy: Status: Acute Problem details: Due to lower uterine segment atony (2) hemorrhage: Status: Acute (3) Anemia due to acute blood loss: Status: Acute Problem details: Status post transfusion was 6 units packed red blood cells, 2 units FFP Exam Narrative: Exam Narrative: GENERAL APPEARANCE: Pleasant, , well-groomed woman in no acute distress. VITAL SIGNS: as noted in electronic medical record LUNGS: Clear to auscultation bilaterally without wheezes, rales or rhonchi. HEART: Regular rate and rhythm with normal S1 and S2. No gallop, rub or murmur. ABDOMEN: Soft, nontender, minimally distended, with normal bowels sounds throughout. INCISION: Clean, dry and intact with sutures and skin adhesive gel. EXTREMITIES: No cyanosis, clubbing, or edema. [+/-] varicosities. NEUROLOGIC: Normal gait and balance. Normal deep tendon reflexes at bilateral patella 2+/2, equal without clonus. PSYCHIATRIC: alert and oriented x3. Normal speech pattern, eye contact and affect. SKIN: Warm, dry, and well perfused. Good turgor. No lesions, nodules or rashes. Const: Vital Signs, click to edit/add: Vital Signs - 24 hr 01/25/24 09:47 01/25/24 10:12 01/25/24 10:50 Temperature 98.0 F 97.2 F L 98.2 F Pulse Rate 82 79 79 Pulse Rate [Pulse Oximeter] Respiratory Rate 16 18 16 Blood Pressure 104/63 108/65 101/57 L Blood Pressure [Le ft Arm] Pulse Oximetry 98 99 98 Oxygen Delivery Il thod 01/25/24 10:56 01/25/24 11:12 01/25/24 12:00 Temperature 98.2 F 98.1 F 98.3 F Pulse Rate 80 80 74 Pulse Rate [Pulse Oximeter] Respiratory Rate 16 16 16 Blood Pressure 101/57 L 115/67 113/68 Blood Pressure [Le ft Arm] Pulse Oximetry 98 98 97 Oxygen Delivery Me thod 01/25/24 12:22 01/25/24 15:00 01/25/24 20:25 Temperature 98.3 F 98.5 F 98.3 F Pulse Rate Pulse Rate [Pulse Oximeter] 74 77 Respiratory Rate 16 16 12 Blood Pressure 104/64 Blood Pressure [Le ft Arm] 99/54 L 128/74 Pulse Oximetry 98 99 Oxygen Delivery Me thod Room Air Room Air 01/26/24 01:06 01/26/24 04:01 01/26/24 08:19 Temperature 98.3 F 98.3 F 97.4 F L Pulse Rate Pulse Rate [Pulse Oximeter] 77 79 65 Respiratory Rate 12 12 16 Blood Pressure Blood Pressure [Le ft Arm] 128/78 101/58 L 118/73 Pulse Oximetry 99 98 98 Oxygen Delivery Me thod Room Air Room Air Room Air OB - DS: Summary Hospital Course Hospital Course: The patient is a 43 year old G 9 P 4054 at 39 and 0/7 weeks gestation that was admitted to the [facility] on 01/22/24 for induction of labor due to AMA. She had an uncomplicated vaginal delivery. She delivered a viable [male/female] infant. She is breast feeding. course was complicated by an excessive hemorrhage with over 3 L of blood loss she had a Emperatriz then Bakri balloon placement received multiple uterotonics without alleviation of uterine atony. She underwent a hysterectomy on 01/23/2024 to control hemorrhage. She has received a total of 6 units of packed red blood cells and 2 units of FFP. Her hemoglobin has now been stable at 7.2 since yesterday evening. She has been managing this anemia without symptoms: Denies dizziness/lightheadedness, shortness of breath, chest pain, headaches and feeling like her heart is racing. She is also on iron supplementation. She is breast-feeding without difficulty. She would like to be discharged home today. Peripartum Data delivery method: Vaginal Laceration description: None Procedures: Procedures Operation Date: 01/23/24 17:40 Actual Procedure Side Surgeon p Post- Uterine Curettage, Attempted Emperatriz and Bakri Placement; Abdominal Supracervical Hysterectomy, Bilateral Salpingectomy; Cystoscopy Hamida Rosario MD complications: other ( supracervical hysterectomy, bilateral salpingectomy, cystoscopy) [place] Infant Gender: Female Time Spent with Patient Time attestation: Total time spent providing and/or coordinating discharge services: Discharge Plan Discharge Disposition: Home, Self-Care Date of Admission: 01/22/24 15:57 Attending Provider on Discharge: Mindi Jones Primary Care Provider: Mary Bergman Condition: Improved Anticipated Discharge Date/Time: 01/26/24 12:30 Discharge Medications: New ferrous sulfate 325 mg (65 mg iron) Tablet 650 mg PO Q48H Qty: 120 0RF docusate sodium 100 mg Capsule 100 mg PO 2XD PRN (Reason: constipation) Qty: 100 0RF ibuprofen 600 mg Tablet 600 mg PO Q6H PRN (Reason: Pain) Qty: 30 0RF oxycodone 5 mg Tablet 5 mg PO 3XD PRN (Reason: Pain) Qty: 21 0RF Continued cholecalciferol (vitamin D3) 125 mcg (5,000 unit) tablet 5,000 unit PO DAILY prenat.vits,winston,[id number] Tablet 1 tab PO QDAY Lactobacillus acidophilus Capsule 100 mg PO QDAY gabapentin 100 mg capsule 100 mg PO .Bedtime Qty: 90 3RF Rx Instructions: take 1-3 capsules nightly for restless legs omega-3 fatty acids 1,250 mg capsule 1,250 mg PO QDAY Discontinued aspirin 81 mg tablet,chewable 81 mg PO QDAY ferrous gluconate 324 mg (38 mg iron) tablet 324 mg PO QDAY Discharge Orders: Discharge Order (Routine); Ordered 01/26/24 Ordered By: Mindi Jones Patient Education: Hysterectomy (DC) Additional Instructions: ACTIVITY RESTRICTIONS: * Nothing vaginally for 6 weeks: no tampons/intercourse * No driving while taking narcotic pain medication during the day. 1-2 weeks. Okay to be the passenger anytime. * Lifting restriction: Maximum of 20 pounds for 6 weeks. * High impact or core exercises: 6 weeks. * Submerge the incision in water (bath/pool/daley): 2 weeks. * Off of work/school for a minimum of 8 weeks NO RESTRICTIONS for: * Walking * Going up/down stairs * Showering Symptoms to report to doctor: -Bleeding that saturates more than one pad per hour ?-Passing clots larger than the size of a golf ball ?-Pain not relieved by prescribed medication ?-Fever above 100.4 degrees Fahrenheit ?-A foul vaginal odor ?-Difficulty in emotions, mood and functions ?-Thoughts of hurting yourself and/or ?-Painful, reddened area in your breast ?-Any drainage, redness or tenderness in your IV/epidural site ?-Severe headache that doesn't improve after taking medications ?-Changes in vision, including temporary loss of vision, blurred vision, and/or light sensitivity ?-Upper abdominal pain (usually under ribs on the right side) ?-Decrease in urination or painful, frequent urinating ?-Chest pain ?-Shortness of breath ?-Tenderness or pain with redness and/swelling in the calf(s) of your leg Follow-up: 1. [facility]: Incision check, screen for anxiety and depression. 2. A 6 week visit for an annual physical exam. consultation services are available to all mothers and babies for the first year after delivery.? To make an appointment, please call [phone]. Discharge Diet: Regular Follow Up Appointments: Mary Bergman PA-C [Primary Care Provider] - [facility] [Provider Group] Forms: MyHealth Info Instructions
[2024-01-27 23:04] LABS: Rapid Plasma Reagin (RPR) Non Reactive (Non Reactive)
== END 2024-01-26 10:30 | disposition home or self-care (01) | DRG 768 ==
PROVIDERS: Obstetrics & Gynecology; Admitting Provider Obstetrics & Gynecology; PCP Physician Assistant Medical; Visit Provider Obstetrics & Gynecology
PROC: 10E0XZZ Delivery of Products of Conception, External Approach (ICD-10-PCS; principal; 2024-01-23 17:30)
DX: O26.893 Other specified pregnancy related conditions, third trimester (principal); Z37.0 Single live birth; D62 Acute posthemorrhagic anemia; O72.1 Other immediate postpartum hemorrhage; O99.02 Anemia complicating childbirth; G89.18 Other acute postprocedural pain; R53.83 Other fatigue; R06.00 Dyspnea, unspecified; O43.893 Other placental disorders, third trimester; Z67.41 Type O blood, Rh negative; O99.344 Other mental disorders complicating childbirth; F41.9 Anxiety disorder, unspecified; O99.214 Obesity complicating childbirth; O26.23 Pregnancy care for patient with recurrent pregnancy loss, third trimester; Z87.42 Personal history of other diseases of the female genital tract; Z3A.39 39 weeks gestation of pregnancy
CPT/HCPCS: 00840; 01967; 36415; 36430; 59200; 64488; 74177; 76942; 80048; 81003; 82247; 82248; 82330; 82803; 83010; 83615; 85025; 85045; 85384; 85461; 85610; 85730; 86592; 86850; 86870; 86880; 86900; 86901; 86922; 88307; 99140; A9270; C1726; C9290; J0330; J0665; J0690; J1100; J1170; J1885; J2210; J2250; J2371; J2405; J2704; J2791; J2795; J3010; J3490; J7050; J7120; P9016; P9017; Q9967

== ENCOUNTER 2024-05-01 09:48 | Outpatient (CLI) | payer MEDICAID, SELFPAY ==
--- OUTSIDE RECORDS SUMMARY | 2024-05-01 09:56 | XMS_ITS | Continuity of Care Document ---
Author Name [facility] Organization [facility] Care Team Providers Care Viscosity Worker Name Role Phone [facility] Unavailable Unavailable Problems [...] refractive error - myopia Inactive Condition SRxOD: -0.50D S 20/15-OS: -0.50-0.32h684 20/15-Pt may pursue initial CL fitting w/civilian doc DoD Patient Education Inactive Condition PRETRAVEL RECOMMENDATIONSReviewe d gastroenteritis prevention, post-travel care if sick, insect-borne infections and insect avoidance/repellents,a nd minimizing rabies exposure/animal avoidance/seeking care if exposed. TRAVAX handout reviewed with patient, printed copy provided. Malaria assessment/recommendat ions: definite risk, recommended, pt accepted. Prophylaxis recommendations: Atovaquone/proguanil 250mg/100mg 1-2 days before, every day during, and for 7 days after travel to malarious regionTraveler's diarrhea assessment/recommendat ion: offered and pt accepted. Prescribed levofloxacin 500 [...] Return to annual screening if pap normal. [facility] Pelvic Exam (Internal) Inactive Condition DoD visit for: administrative purpose Inactive Condition [facility] Physical Examination Inactive Condition see separation paperwork in records DoD astigmatism Active Condition [facility] Spectacles Services Fitting Monofocal Except For Aphakia Inactive Condition [facility] refractive error - myopia Active Condition DoD Abnormal Pap Smear Of Cervix Active Condition DoD visit for: postsurgical exam Inactive Condition [facility] Gynecologic Services Contraceptive Management Active Condition [facility] candidiasis vaginal Inactive Condition [facility] Preventive Medicine Established Patient Checkup Adult 18-39 Years Inactive Condition DoD visit for: services physical Inactive Condition [facility] Diagnosis: ICD-10-CM F43.22 Adjustment disorder with anxiety Active Diagnosis [facility] Diagnosis: ICD-10-CM Z13.9 Encounter for screening, unspecified Active Diagnosis [facility] Allergies, Adverse Reactions, Alerts Combined list of allergies from Department of Defense and Veterans Affairs facilities. It does not include entries that were removed or entered in error. Substance Category Reaction Severity Reaction type Status Date Reported Comments Source No Known Allergies Drug allergy (disorder) active 03/27/2008 [facility] Immunizations Combined list of available immunizations from the Department of Defense and Veterans Affairs facilities. Immunization Series Date Given Administered By Site Reaction Lot Number CVX Code Drug Patient Financial Services Coordinator Status Comments Source TDAP 2023 115 complet [facility] INFLUENZA, SPLIT VIRUS, QUADRIVALENT, PF 2018 150 complet [facility] TDAP 2015 115 complet ed [facility] tuberculin skin test; purified protein derivative solution, intradermal 1 2008 Unknown, Provider [id number] 96 San[employer]i Pasteur ([facility]) complet ed tuberculi n skin test; purified protein derivativ e solution, intraderm al [facility] tuberculin skin test; purified protein derivative solution, intradermal 1 2007 Unknown, Provider [id number] 96 Sanofi Pasteur ([facility]) complet ed tuberculi n skin test; purified protein derivativ e solution, intraderm al [facility] tuberculin skin test; purified protein derivative solution, intradermal 1 2007 Unknown, Provider [id number] 96 Sanofi Pasteur ([facility]) complet ed tuberculi n skin test; purified protein derivativ e solution, intraderm al [facility] tuberculin skin test; purified protein derivative solution, intradermal 1 2007 Unknown, Provider [id number] 96 [facility] ([facility]) complet ed tuberculi n skin test; purified protein derivativ e solution, intraderm al DoD poliovirus vaccine, inactivated 2 2007 Unknown, Provider [id number] [facility] [employer] ([facility]) complet ed polioviru s vaccine, inactivat ed DoD rabies vaccine, for intramuscular injection RETIRED CODE 1 2007 Unknown, Provider [id number] 18 [facility] ([facility]) complet ed rabies vaccine, for intramusc ular injection RETIRED CODE DoD typhoid Vi capsular polysaccharid e vaccine 1 2007 Unknown, Provider [id number] [facility] [employer] ([facility]) complet ed typhoid Vi capsular polysacch aride vaccine DoD influenza virus vaccine, split virus (incl. purified surface antigen)-reti red CODE 1 2006 [id number] 15 [facility] ([facility]) complet ed influenza virus vaccine, split virus (incl. purified surface antigen)- retired CODE DoD anthrax vaccine 4 2005 [id number] [facility] [employer] ([facility]) complet ed anthrax vaccine DoD influenza virus vaccine, split virus (incl. purified surface antigen)-reti red CODE 1 2004 [id number] 15 [facility] ([facility]) complet ed influenza virus vaccine, split virus (incl. purified surface antigen)- retired CODE DoD influenza virus vaccine, whole virus 1 2004 [id number] 16 [facility] ([facility]) complet ed influenza virus vaccine, whole virus DoD anthrax vaccine 3 2004 [id number] [facility] [employer] [place] ([facility]) complet ed anthrax vaccine DoD anthrax vaccine 2 2004 [id number] 24 [facility] ([facility]) complet ed anthrax vaccine DoD typhoid vaccine, parenteral, other than acetone-kille d, dried 1 2004 [id number] 41 [facility] [employer] ([facility]) complet ed typhoid vaccine, parentera l, other than acetone-k illed, dried DoD vaccinia (smallpox) vaccine 1 2004 [id number] 75 [employer] ([facility]) complet ed vaccinia (smallpox ) vaccine DoD anthrax vaccine 1 2004 [id number] 24 [facility] [employer] ([facility]) complet ed anthrax vaccine DoD tuberculin skin test; purified protein derivative solution, intradermal 1 2004 Unknown, Provider [id number] 96 Sanofi Pasteur ([facility]) complet ed tuberculi n skin test; purified protein derivativ e solution, intraderm al DoD influenza virus vaccine, live, attenuated, for intranasal use 0 2003 [id number] [employer]. (MED) complet ed influenza virus vaccine, live, attenuate d, for intranasa l use DoD tuberculin skin test; purified protein derivative solution, intradermal 1 2003 Unknown, Provider [id number] 96 Sanofi Pasteur ([facility]) complet ed tuberculi n skin test; purified protein derivativ e solution, intraderm al DoD influenza virus vaccine, whole virus 0 2002 [id number] 16 [employer] (PW) complet ed influenza virus vaccine, whole virus DoD influenza virus vaccine, whole virus 0 2002 [id number] [employer] (PW) complet ed influenza virus vaccine, whole virus DoD typhoid vaccine, parenteral, other than acetone-kille d, dried 0 2002 [id number] 41 Sanofi Pasteur ([facility]) complet ed typhoid vaccine, parentera l, other than acetone-k illed, dried DoD hepatitis B vaccine, adult dosage 2 2002 [id number] 43 [employer] ([facility]) complet ed hepatitis B vaccine, adult dosage DoD tuberculin skin test; purified protein derivative solution, intradermal 3 2002 Unknown, Provider [id number] 96 Sanofi Pasteur ([facility]) complet ed tuberculi n skin test; purified protein derivativ e solution, intraderm al DoD hepatitis B vaccine, adult dosage 3 2002 [id number] 43 [employer] ([facility]) complet ed hepatitis B vaccine, adult dosage DoD influenza virus vaccine, whole virus 0 2001 [id number] 16 Sanofi Pasteur ([facility]) complet ed influenza virus vaccine, whole virus DoD hepatitis B vaccine, adult dosage 1 2001 [id number] 43 [employer] ([facility]) complet ed hepatitis B vaccine, adult dosage DoD varicella virus vaccine 1 2001 21 () Not Given varicella virus vaccine DoD hepatitis A vaccine, adult dosage 2 2001 [id number] 52 [employer] ([facility]) complet ed hepatitis A vaccine, adult dosage DoD tetanus and diphtheria toxoids, adsorbed, preservative free, for adult use (2 Lf of tetanus toxoid and 2 Lf of diphtheria toxoid) 0 2001 [id number] Sanofi Pasteur ([facility]) complet ed tetanus and diphtheri a toxoids, adsorbed, preservat chris free, for adult use (2 Lf of tetanus toxoid and 2 Lf of diphtheri a toxoid) DoD influenza virus vaccine, whole virus 0 2001 [id number] 16 Sanofi Pasteur ([facility]) complet ed influenza virus vaccine, whole virus DoD yellow fever vaccine 0 2000 [id number] 37 [employer] (CON) complet ed yellow fever vaccine DoD typhoid vaccine, parenteral, other than acetone-kille d, dried 0 2000 [id number] [employer] ([facility]) complet ed typhoid vaccine, parentera l, other than acetone-k illed, dried DoD tuberculin skin test; purified protein derivative solution, intradermal 2 2000 Unknown, Provider [id number] 96 Sanofi Pasteur ([facility]) complet ed tuberculi n skin test; purified protein derivativ e solution, intraderm al DoD meningococcal polysaccharid e vaccine (MPSV4) 0 2000 [id number] [place] (CON) complet ed meningoco ccal polysacch aride vaccine (MPSV4) DoD hepatitis A vaccine, adult dosage 1 2000 [id number] [employer] ([facility]) complet ed hepatitis A vaccine, adult [...] ADM Date DC Date Status Disposition Source [facility] OUTPATIENT [id number] JEREMY WALLS 02/08 Released w/o Limitations [facility](F amily Practic e) [facility]) OUTPATIENT [id number] annual and control MIYATANA SUNSHINE Zachary 05/11 Released w/o Limitations [facility]) [facility]) OUTPATIENT [id number] hgsil 05/14 GERA MATHIS Jacek 05/22 Released w/o Limitations [facility]) [facility] OUTPATIENT [id number] LEEP in Minor Room at 1300 GERA MATHIS Jacek 06/21 Released w/o Limitations [facility]) [facility]) TELE CONSULT [id number] LEEP results GERA MATHIS Jacek 06/26 [facility]) [facility]) OUTPATIENT [id number] F/U LEEP DOMINIC MATHISBLAIR Read 07/17 Released w/o Limitations [facility]) [facility](Opt ometry ([facility]) ) OUTPATIENT [id number] eye exam DOMENICO GORMAN 08/29 Released w/o Limitations [facility](O ptometr y ([facility])) [facility]) OUTPATIENT [id number] COLPO/P ILL GERA MATHIS Jacek 11/01 Released w/o Limitations [facility]) [facility]) TELE CONSULT [id number] pap results GERA MATHIS Jacek 11/12 [facility]) [facility]) TELE CONSULT [id number] sep. LEONIE Mena 02/26 [facility](S il[facility] Pod) [facility]) OUTPATIENT [id number] separat ion paper work, no PE availab KARYNA Gtz 03/01 Released w/o Limitations [facility](S [facility]) [facility]) OUTPATIENT [id number] colpo/p ill GERA MATHIS Jacek 06/06 Released w/o Limitations [facility]) [address] [place] [address]([facility]) TELE CONSULT [id number] pap results GERA MATHIS Jacek 06/[address] [place] [address]([facility]) [address] [place] [address]([facility]) OUTPATIENT [id number] colpo/p ill ADÁN PATTON 10/10 Released w/o Limitations [facility]asi [facility] Clinic) [facility](Inf [facility]ious [facility]) OUTPATIENT [id number] Travel to [facility] NEIL BURRELL Carly 10/21 Released w/o Limitations [facility](I nfectio us Disease Clinic [facility]) [facility](Opt ometry ([facility]) ) OUTPATIENT [id number] eye exam JENIFER PADILLA 11/04 Released w/o Limitations [facility](O ptometr y ([facility])) [facility](Jose mat[facility]) OUTPATIENT [id number] mole on side and back MK CHANDRA 12/08 Released w/o Limitations [facility](D ermatol ogvelasquez) [facility]) OUTPATIENT [id number] laser test - nadia a V-beam MK CHANDRA 12/19 Released w/o Limitations [facility](D ermatol ogy) [address] [place] [address]([facility]) OUTPATIENT [id number] discuss control DELFINO GAINES 01/26 Released w/o Limitations [facility]) [facility] [id number] laser hair MK CHANDRA 02/02 Released w/o Limitations [facility](D ermatol ogy) [facility]) OUTPATIENT [id number] laser -m ark MK CHANDRA 03/27 Released w/o Limitations [facility](D ermatol ogy) [facility]) OUTPATIENT [id number] laser treatme nt MK CHANDRA 05/01 Released w/o Limitations [facility](D ermatol ogy) [facility]) OUTPATIENT [id number] ANTONIO Sarabia 05/06 Released w/o Limitations [facility](B lue Pod) [facility] Psychiat[facility] y) OUTPATIENT [id number] anxiety symptom s MAHAD PERLA 05/13 Released w/o Limitations [facility](M [facility]al [facility] Psychia try) [facility] Psychiat[facility]) OUTPATIENT [id number] MAHAD PERLA 05/29 Released w/o Limitations [facility] Psychia try) [facility](Psy chiatry 009) OUTPATIENT [id number] Please give MIQUEL GUTIERREZ 06/12 Released w/o Limitations [facility](P sychiat ry 0095) [facility]) OUTPATIENT [id number] annual papsmea THOMAS Gilbert 06/16 Released w/o Limitations [facility]) [facility](Psy chiatry 0095) OUTPATIENT [id number] MIQUEL TANG 06/19 Released w/o Limitations [facility](P sychiat ry 0095) [address] [place] [address]([facility]) TELE CONSULT [id number] test for varicel la, hep b, mmr tidor-r equest- all SUSHMA COFFMAN D 07/31 [facility](B lue Pod) [facility]) TELE CONSULT [id number] pt wants to know if Sushma receive d her fax SUSHMA COFFMAN D 08/13 [facility](B lue Pod) [address] [place] [address](Psy chiatry 0095) TELE CONSULT [id number] appoint ment MAHAD PERLA 10/13 Referred for Appointment [facility](P sychiat ry 0095) [address] [place] [address](Psy chiatry 0095) TELE CONSULT [id number] phone call MAHAD PERLA 10/16 Referred for Appointment [facility](P sychiat ry 0095) [facility](Psy chiatry 0095) TELE CONSULT [id number] needs meds before f/u appt PERLAFARHATZachary Linares 10/27 Referred for Appointment [facility](P sychiat ry 0095) [facility]) OUTPATIENT [id number] laser treatme nt MK CHANDRA 11/09 Released w/o Limitations [facility](D ermatol ogy) [facility](Psy chiatry 0095) OUTPATIENT [id number] follow up MAHAD PERLA 11/16 Released w/o Limitations [facility](P sychiat ry 0095) [facility](Psy chiatry 0095) OUTPATIENT [id number] MAHAD PERLA 12/11 Released w/o Limitations [facility](P sychiat ry 0095) [facility]PATIENT [id number] laser MK CHANDRA 12/21 Released w/o Limitations [facility](D ermatol ogy) [facility] OUTPATIENT [id number] laser hair removal MK CHANDRA 04/05 Released w/o Limitations [facility](D ermatol ogy) [facility](Psy chiatry 0095) OUTPATIENT [id number] NICOLÁS VIRK 05/05 Released w/o Limitations [facility](P sychiat ry 0095) [facility]) TELE CONSULT [id number] bridge HAILEY York 05/31 [facility]) [facility](Psy chiatry 0095) TELE CONSULT [id number] APPOINT MENT NICOLÁS VIRK 07/13 Referred for Appointment [facility](P sychiat ry 0095) [facility]) OUTPATIENT [id number] OREN Lockhart 07/20 Released w/o Limitations [facility]) [facility]) OUTPATIENT [id number] lab results - abnorma TESS Nicole V 07/27 Released w/o Limitations [facility](B lue Pod) [facility](Psy chiatry 0095) TELE CONSULT [id number] meds and appt? NICOLÁS VIRK 08/10 Referred for Appointment [facility](P sychiat ry 0095) [address] [place] [address](Psy chiatry 0095) OUTPATIENT [id number] NICOLÁS VIRK 08/27 Released w/o Limitations [address] [place] [address](P sychiat ry 0095) [facility] Outpatient Encounter [id number] 11/27 [facility] Outpatient Encounter [id number] 04/01 [facility] Outpatient Encounter [id number] 04/01 [facility] COLLJ & INTERPJ DATA EA 30 D [id number] Diagnos is: ICD-10- CM Z13.9 Encount er for screeni ng, unspeci fied
PRATEEK YANEZ 04/08 [facility] PSYCH DIAGNOSTIC EVALUATION [id number] Diagnos is: ICD-10- CM F43.22 Adjustm ent disorde r with anxiety
JASIEL LEMUS 04/08 [facility] Outpatient Encounter [id number] [facility] 04/28 [facility] Outpatient Encounter [id number] 04/28 [facility] Procedures Combined list of: 1) Procedures from Department of [facility] Affairs facilities going back up to thelast 18 months, not all [place] non-surgical procedures are included; 2) All procedures from the Department of Defense facilities. Procedure Procedure Type Code Date Perfomer Comments Sourc e INDIVIDUAL PSYCHOTHERAPY, INSIGHT ORIENTED, BEHAVIOR MODIFYING AND/OR SUPPORTIVE, IN AN OFFICE OR OUTPATIENT FACILITY, APPROXIMATELY 20 TO 30 MINUTES [id number] W THE PATIENT; W MED EVAL & MGT SER 08/27/19 10 DoD SCREENING PAPANICOLAOU SMEAR; OBTAINING, PREPARING AND CONVEYANCE OF CERVICAL OR VAGINAL SMEAR TO LABORATORY 07/20/19 10 DoD INDIVIDUAL PSYCHOTHERAPY, INSIGHT ORIENTED, BEHAVIOR MODIFYING AND/OR SUPPORTIVE, IN AN OFFICE OR OUTPATIENT FACILITY, APPROXIMATELY 45 TO 50 MINUTES [id number] W THE PATIENT; W MED EVAL & [...] OUTPATIENT FACILITY, APPROXIMATELY 20 TO 30 MINUTES [id number] W THE PATIENT; W MED EVAL & MGT SER 12/12/19 09 DoD INDIVIDUAL PSYCHOTHERAPY, INSIGHT ORIENTED, BEHAVIOR MODIFYING AND/OR SUPPORTIVE, IN AN OFFICE OR OUTPATIENT FACILITY, APPROXIMATELY 20 TO 30 MINUTES [id number] W THE PATIENT; W MED EVAL & MGT SER 11/17/19 09 DoD DESTRUCTION OF CUTANEOUS VASCULAR PROLIFERATIVE LESIONS (EG, LASER TECHNIQUE); LESS THAN 10 SQ CM 11/10/19 09 DoD INDIVIDUAL PSYCHOTHERAPY, INSIGHT ORIENTED, BEHAVIOR MODIFYING AND/OR SUPPORTIVE, IN AN OFFICE OR OUTPATIENT FACILITY, APPROXIMATELY 45 TO 50 MINUTES [id number] WITH THE PATIENT 06/19/20 08 DoD SCREENING PAPANICOLAOU SMEAR; OBTAINING, PREPARING AND CONVEYANCE OF CERVICAL OR VAGINAL SMEAR TO LABORATORY 06/16/20 08 DoD INDIVIDUAL PSYCHOTHERAPY, INSIGHT ORIENTED, BEHAVIOR MODIFYING AND/OR SUPPORTIVE, IN AN OFFICE OR OUTPATIENT FACILITY, APPROXIMATELY 75 TO 80 MINUTES [id number] WITH THE PATIENT 06/12/20 08 DoD INDIVIDUAL PSYCHOTHERAPY, INSIGHT ORIENTED, BEHAVIOR MODIFYING AND/OR SUPPORTIVE, IN AN OFFICE OR OUTPATIENT FACILITY, APPROXIMATELY 20 TO 30 MINUTES [id number] W THE PATIENT; W MED EVAL & MGT SER 05/29/20 08 DoD PSYCHIATRIC DIAGNOSTIC INTERVIEW EXAMINATION 05/13/20 08 DoD UNLISTED PROCEDURE, SKIN, MUCOUS MEMBRANE AND SUBCUTANEOUS TISSUE 05/01/20 08 DoD UNLISTED PROCEDURE, SKIN, MUCOUS MEMBRANE AND SUBCUTANEOUS TISSUE 03/27/20 08 DoD UNLISTED PROCEDURE, SKIN, MUCOUS MEMBRANE AND SUBCUTANEOUS TISSUE 02/03/20 08 [facility] UNLISTED PROCEDURE, SKIN, MUCOUS MEMBRANE AND SUBCUTANEOUS TISSUE 12/20/19 08 [facility] SHAVING OF EPIDERMAL OR DERMAL LESION, SINGLE LESION, TRUNK, ARMS OR LEGS; LESION DIAMETER 0.6 TO 1.0 CM 12/09/19 08 [facility] VISUAL FIELD EXAMINATION, UNI OR BILATERAL, WITH MEDICAL DIAGNOSTIC EVAL; LIMITED EXAM (EG, TANGENT SCREEN, AUTOPLOT, ARC PERIMETER, OR SINGLE STIMULUS LEVEL AUTO TEST, EG OCTOPUS 3 OR 7 EQUIVALENT) 11/05/19 08 [facility] COLPOSCOPY OF THE CERVIX INCLUDING UPPER/ADJACENT VAGINA; 10/11/19 08 [facility] COLPOSCOPY OF THE CERVIX INCLUDING UPPER/ADJACENT VAGINA; 06/06/20 07 [facility] CYTOPATHOLOGY, SMEARS, CERVICAL OR VAGINAL, UP TO THREE SMEARS; SCREENING BY PARK INTERPRETER UNDER PHYSICIAN SUPERVISION 11/02/19 07 [facility] FITTING OF SPECTACLES, EXCEPT FOR APHAKIA; MONOFOCAL 08/29/19 07 [facility] ENDOCERVICAL CURETTAGE (NOT DONE PART OF A DILATION AND CURETTAGE) 06/21/20 06 [facility] COLPOSCOPY OF THE CERVIX INCLUDING UPPER/ADJACENT VAGINA; WITH BIOPSY(S) OF THE CERVIX AND ENDOCERVICAL CURETTAGE 05/22/20 06 [facility] SMEAR, PRIMARY SOURCE WITH INTERPRETATION; WET MOUNT FOR INFECTIOUS AGENTS (EG, SALINE, ALISHA INK, MEEK PREPS) 05/11/20 06 [facility] SCREENING TEST OF VISUAL ACUITY, QUANTITATIVE, BILATERAL 02/09/20 05 [facility] SCREENING TEST OF VISUAL ACUITY, QUANTITATIVE, BILATERAL 02/24/20 04 [facility] SCREENING TEST OF VISUAL ACUITY, QUANTITATIVE, BILATERAL 02/10/20 03 [facility] SCREENING TEST OF VISUAL ACUITY, QUANTITATIVE, BILATERAL 10/14/19 03 [facility] PHYS/OTH QUALIFIED HEALTH PHARMACOLOGY ASSOCIATE QUALIFIED,EDUCATION,T RAIN,LICENSURE/REGULA TION (WHEN APPLICABLE) EDUC SER RENDERED TO PATS IN A GRP SETTING (EG,,OBESITY, OR DIABETIC INSTRUCT) 10/24/19 02 [facility] UNLISTED PROCEDURE, ANTERIOR SEGMENT OF EYE 10/18/19 02 [facility] IMMUNIZATION ADMINISTRATION (INCLUDES PERCUTANEOUS, INTRADERMAL, SUBCUTANEOUS, OR INTRAMUSCULAR INJECTIONS); 1 VACCINE (SINGLE OR COMBINATION VACCINE/TOXOID) 03/17/20 05 [facility] Psychotherapy Individual Approx 30 Min W/ Medical Evaluation & Management Psychotherapy Individual Approx 30 Min W/ Medical Evaluation & Management [id number] 09/09/19 10 NICOLÁS VIRK [facility] Screening papanicolaou smear; obtaining, preparing and conveyance of cervical or vaginal smear to laboratory 07/20/19 10 OREN LINCOLN [facility] Psychiatric Diagnostic Evaluation Comprehensive Examination Psychiatric Diagnostic Evaluation Comprehensive Examination [id number] 05/12/20 09 NICOLÁS VIRK Destruction Of Cutaneous Vascular Lesions Le Than 10 Sq Cm Destruction Of Cutaneous Vascular Lesions Less [place] 10 [place] Cm [address]125 04/05/20 09 MK CHANDRA Psychotherapy Individual Approx 30 Min W/ Medical Evaluation & Management Psychotherapy Individual Approx 30 Min W/ Medical Evaluation & Management [id number] 12/24/19 09 MAHAD PERLA Destruction Of Cutaneous Vascular Lesions Le Than 10 Sq Cm Destruction Of Cutaneous Vascular Lesions Less Than 10 Sq Cm 74595 12/22/19 09 MK CHANDRA Psychotherapy Individual Approx 30 Min W/ Medical Evaluation & Management Psychotherapy Individual Approx 30 Min W/ Medical Evaluation & Management 01083 12/15/19 09 MAHAD PERLA Destruction Of Cutaneous Vascular Lesions Le Than 10 Sq Cm Destruction Of Cutaneous Vascular Lesions Less Than 10 [place]q Cm 57497 11/10/19 09 MK CHANDRA Psychotherapy Individual Approximately 45 Minutes Psychotherapy Individual Approximately 45 Minutes [id number] 06/22/20 08 [facility] Physician Supervised Specimen Handling / Transfer: Office To Lab Physician Supervised Specimen Handling / Transfer: Office To Lab [id number] 06/16/20 08 THOMAS BANKS [employer] Screening papanicolaou smear; obtaining, preparing and conveyance of cervical or vaginal smear to laboratory 06/16/20 08 THOMAS BANKS Psychotherapy Individual Approximately 75-80 Minutes Psychotherapy Individual Approximately 75-80 Minutes [id number] 06/15/20 08 [employer] Integumentary Procedures (Therapeutic) Integumentary Procedures (Therapeutic) [id number] 05/01/20 08 MK CHANDRA Integumentary Procedures (Therapeutic) Integumentary Procedures (Therapeutic) 03/27/20 08 MK CHANDRA Integumentary Procedures (Therapeutic) Integumentary Procedures (Therapeutic) 02/03/20 08 MK CHANDRA Integumentary Procedures (Therapeutic) Integumentary Procedures (Therapeutic) 12/20/19 08 MK CHANDRA Shaving Of Lesion Trunk .6 to 1cm Shaving Of Lesion Trunk .6 to 1cm 47899 12/09/19 08 MK CHANDRA Shaving Of Lesion Trunk Up to .5cm Shaving Of Lesion Trunk Up to .5cm 83486 12/09/19 08 MK CHANDRA Ophthalmological Prior Patient Start Comprehensive Care Ophthalmological Prior Patient Start Comprehensive Care 42639 11/05/19 08 JENIFER PADILLA Determination Of Refractive State Determination Of Refractive State 88275 11/05/19 08 JENIFER PADILLA Visual Sanderson Test Limited Examination Visual Sanderson Test Limited Examination [id number] 11/05/19 08 JENIFER PADILLA Colposcopy Colposcopy 47059 10/11/19 08 ADÁN PATTON Cervical Pap Smear Cervical Pap Smear 85992 10/26 08 ADÁN PATTON Colposcopy Colposcopy 68593 06/06/20 07 GERA MATHIS Cervical Pap Smear Cervical Pap Smear 17952 07 GERA MATHIS Colposcopy Colposcopy 30129 11/02/19 07 GERA MATHIS Cervical Pap Smear Cervical Pap Smear 33312 07 GERA MATHIS Ophthalmological New Patient Start Comprehensive Care Ophthalmological New Patient Start Comprehensive Care 29537 09/01/19 07 DOMENICO GORMAN Determination Of Refractive State Determination Of Refractive State 67635 09/01/19 07 DOMENICO GORMAN Spectacles Services Fitting Monofocal Except For Aphakia Spectacles Services Fitting Monofocal Except For Aphakia 39584 09/01/19 07 DOMENICO GORMAN Colposcopy With Loop Electrode Excision of the Cervix Colposcopy With Loop Electrode Excision of the Cervix 71869 06/21/20 06 GERA MATHIS Endocervical Curettage (Not D&C) Endocervical Curettage (Not D&C) 68703 06/21/20 06 GERA MATHIS Colposcopy With Biopsy Colposcopy With Biopsy [id number] 05/22/20 06 GERA MATHIS Cervical Pap Smear Cervical Pap Smear 54433 09/25 06 TANA HOLLIDAY Vaginal Wet Mount Smear Vaginal Wet [place] Smear 72227 05/11/20 06 TANA HOLLIDAY [facility] Social History Combined list of available smoking, tobacco, and other social history from Department of Defense and Veterans Affairs facilities. Social History Type Response Date Comment Sourc e Tobacco smoking status [facility] This section is an empty social history section. [facility] Plan of Care List of future care activities from Department of Veterans Affairs facilities. Additional future care activities may be listed in the Assessment and Plan section. Date/Time Care Activity Care Activity Detail Facili ty 05/26/2024 AMBULATORY - PSYCHIATRY AMBULATORY - PSYC HIATRY [facility] 04/08/2024 Consult Order MH OUTPT-INTAKE Cons [facility]
--- OUTSIDE RECORDS SUMMARY | 2024-05-01 09:56 | XMS_ITS | Encounter Summary ---
Author Name [facility] Organization [facility] [place] Address [address] [place] [address] Support Name Relationship Address Phone THOMAS WALSH Next of Kin [address] [place] [address] YOKASTA BRAND Emergency Contact Unknown Selected Encounter This section includes the information on record at [place] for the Encounter. Date/Time Encounter Type Encounter Description Reason Pro vider Source Apr 28, 2024 09:07 AM Outpatient Encounter [facility] Encounter Template Text not used by [place] Plan of Treatment: Future Appointments (+ 6 months) and Future Tests (+/- 45 days) The Plan of Treatment section includes future care activities for the patient from all [place] treatmentfacilities. This section includes future appointments and future orders which are active, pending or scheduled. Future Appointments This section includes appointments that were scheduled to occur 6 months from the date of the Encounter, up to a maximum of 20 appointments. The data comes from all [place] treatment facilities. Appointment Date/Time Appointment Type Appointme nt Facility Name May 26, 2024 10:00 AM AMBULATORY - PSYCHIATRY [facility] Active, Pending, and Scheduled Orders This section includes a listing of several types of active, pending, and scheduled orders, including clinic medications orders, diagnostic test orders, procedure orders and consult orders; where the start date of the order is 45 days before the date of the Encounter or 45 days after the date of theEncounter. The data comes from all [facility]. Test Date/Time Test Type Test Details Facility Name Apr 08, 2024 02:07 PM Consult Order MH OUTPT-I NTAKE Cons [facility] Social History: Smoking Status (Most current) and Tobacco Use (All prior to encounter date) This section includes the most current, and the historical, smoking and tobacco- related health factors from the [place] facility where the Encounter took place. Current Smoking Status This section includes the most current smoking, or tobacco-related health factor, from the [place] facility where the Encounter took place. Date/Time Current Smoking Status Comment Gudelia beavers Apr 08, 2024 10:00 AM [facility] NEVER USED [facility] Encounter Notes: All associated encounter notes This section contains the clinical notes associated to the Encounter. Date/Time Encounter Note(s) Provider Source Apr 28, 2024 09:07 AM NO SHOW NOTE: LOCAL TITLE: NO SHOW/CANCELLATION CLINIC NOTE STANDARD TITLE: NO SHOW NOTE DATE OF NOTE: APR 28, 2024@09:07 ENTRY DATE: APR 28, 2024@09:08:35 AUTHOR: THOMAS WASHINGTON COSIGNER: URGENCY: STATUS: COMPLETED NO SHOW/CANCELLATION CLINIC NOTE Has ADDENDA Washington not seen for scheduled appointment due to: Washington cancelled Washington left stating she had to cancel her Apr 29 appt. Appointment Rescheduled: No Please review patient chart and medications for renewal needs (if appropriate). /irene WASHINGTON LUBRICATING SPECIALIST Signed: 04/28/2024 09:09 04/30/2024 ADDENDUM STATUS: COMPLETED Attempt to Schedule cancellation: 1st attempt: phone call made by flex o writer operator 2nd attempt:Letter sent Disposition after:05/14/2024 R/S date and times: 05/08 at 1000 or 1300 /irene CHO Signed: 04/30/2024 09:34 05/01/2024 ADDENDUM STATUS: COMPLETED 3rd-Called to (re)schedule appointment with provider. No answer, LVM to call ( ). /irene CHO Signed: 05/01/2024 09:46 THOMAS WASHINGTON [facility]
--- OUTSIDE RECORDS SUMMARY | 2024-05-01 09:57 | XMS_ITS | Clinical Summary ---
Author Organization [facility] Address [place], [place] [address] Care Team Providers Care Strap Sewer Name Role Phone Mary Bergman PA-C Primary Care Provider + [phone] Allergies No known active allergies Medications Medication [...] of Treatment Not on file Care Teams Strap Sewer Relationship Specialty Start Date End Date Mary Bergman PA-C [address] [place] [address] PCP - General Emergency Medicine 04/19/19
--- OUTSIDE RECORDS SUMMARY | 2024-05-01 09:57 | XMS_ITS | Clinical Summary ---
Author Organization [facility] Address [address] [place] [address]. 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 [employer] Gender Identity Not on file Sexual Orientation Not on file Plan of Treatment Health Maintenance Due Date Last Done Comments ADVANCE CARE PLANNING 1979 ANNUAL REVIEW OF HM ORDERS 1979 CT COLONOGRAPHY 1979 FIT 1979 FLEX SIG 1979 GLUCOSE 1979 MAMMO SCREENING 1979 YEARLY PREVENTIVE VISIT 1979 sDNA (Cologuard) 1979 COLONOSCOPY 1989 COLORECTAL CANCER SCREENING 1989 HIV SCREENING 1994 HEPATITIS C SCREENING 1997 HEPATITIS B IMMUNIZATION (1 of 3 - 19+ 3-dose series) 1998 LIPID 2019 PHQ-2 (once per calendar year) 2023 COVID-19 Vaccine (1 - 2023-2 5 season) 2024 INFLUENZA VACCINE (#1) 2024 05/23/2019 DTAP/TDAP/TD IMMUNIZATION (2 - Td or Tdap) 11/15/2025 11/16/2015 PAP 04/23/2026 04/23/2023, 04/23/2023 RSV VACCINE (1 - 1-dose 75+ series) 2054 HPV IMMUNIZATION Aged Out No longer e [...] on patient's age to complete this topic Insurance [facility] Care Teams Numerical Control Operator Relationship Specialty Start Date End Date Mary Bergman PA-C [facility] [address] [place] [id number] PCP - General Physician Char House Supervisor 07/30/23 Alyx Larkin MD [address] [id number] Assigned OBGYN Provider 10/30/23
--- OUTSIDE RECORDS SUMMARY | 2024-05-01 09:57 | XMS_ITS | Referral Summary ---
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
== END 2024-05-01 09:49 | disposition home or self-care (01) ==
PROVIDERS: PCP Physician Assistant Medical; Visit Provider Physician Assistant Medical
DX: F41.9 Anxiety disorder, unspecified (principal); D62 Acute posthemorrhagic anemia; R53.83 Other fatigue
CPT/HCPCS: 82306; 83540; 83550; 84439; 84443

== ENCOUNTER 2024-07-21 08:48 | Emergency (ER) | payer MEDICAID, SELFPAY ==
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
--- OUTSIDE RECORDS SUMMARY | 2024-07-21 08:51 | XMS_ITS | Continuity of Care Document ---
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 [facility] Pelvic Exam (Internal) Inactive Condition DoD visit for: administrative purpose Inactive Condition [facility] Physical Examination Inactive Condition see separation paperwork in records DoD astigmatism Active Condition [facility] Spectacles Services Fitting Monofocal Except For Aphakia Inactive Condition [facility] refractive error - myopia Active Condition DoD Abnormal Pap Smear Of Cervix Active Condition DoD visit for: postsurgical exam Inactive Condition [facility] Gynecologic Services Contraceptive Management Active Condition [facility] candidiasis vaginal Inactive Condition [facility] Preventive Medicine Established Patient Checkup Adult 18-39 Years Inactive Condition DoD visit for: services physical Inactive Condition [facility] Diagnosis: ICD-10-CM F43.22 Adjustment disorder with anxiety Active Diagnosis [facility] Diagnosis: ICD-10-CM Z13.9 Encounter for screening, unspecified Active Diagnosis [facility] Allergies, Adverse Reactions, Alerts Combined list of allergies from Department of Defense and Veterans Affairs facilities. It does not include entries that were removed or entered in error. Substance Category Reaction Severity Reaction type Status Date Reported Comments Source No Known Allergies Drug allergy (disorder) active 03/27/2008 [facility] Immunizations Combined list of available immunizations from the Department of Defense and Veterans Affairs facilities. Immunization Series Date Given Administered By Site Reaction Lot Number CVX Code Drug Armed Custom Protection Officer Status Comments Source TDAP 2023 115 complet [facility] INFLUENZA, SPLIT VIRUS, QUADRIVALENT, PF 2018 150 complet [facility] TDAP 2015 115 complet ed [facility] tuberculin skin test; purified protein derivative solution, intradermal 1 2008 Unknown, Provider [id number] 96 [employer] ([facility]) complet ed tuberculi n skin test; purified protein derivativ e solution, intraderm al [facility] tuberculin skin test; purified protein derivative solution, intradermal 1 2007 Unknown, Provider [id number] 96 [employer] Paste[employer] ([facility]) complet ed tuberculi n skin test; purified protein derivativ e solution, intraderm al [facility] tuberculin skin test; purified protein derivative solution, intradermal 1 2007 Unknown, Provider [id number] 96 [employer] Paste[employer] ([facility]) complet ed tuberculi n skin test; purified protein derivativ e solution, intraderm al [facility] tuberculin skin test; purified protein derivative solution, intradermal 1 2007 Unknown, Provider [id number] 96 [facility] ([facility]) complet ed tuberculi n skin test; purified protein derivativ e solution, intraderm al DoD poliovirus vaccine, inactivated 2 2007 Unknown, Provider [id number] 10 [facility] [employer] ([facility]) complet ed polioviru s vaccine, inactivat ed DoD rabies vaccine, for intramuscular injection RETIRED CODE 1 2007 Unknown, Provider [id number] 18 [facility] [employer] ([facility]) complet ed rabies vaccine, for intramusc ular injection RETIRED CODE DoD typhoid Vi capsular polysaccharid e vaccine 1 2007 Unknown, Provider [id number] 101 [facility] [employer] ([facility]) complet ed typhoid Vi capsular polysacch aride vaccine DoD influenza virus vaccine, split virus (incl. purified surface antigen)-reti red CODE 1 2006 [id number] 15 [facility] ([facility]) complet ed influenza virus vaccine, split virus (incl. purified surface antigen)- retired CODE DoD anthrax vaccine 4 2005 [id number] [facility] ([facility]) complet ed anthrax vaccine DoD influenza virus vaccine, split virus (incl. purified surface antigen)-reti red CODE 1 2004 [id number] 15 [facility] ([facility]) complet ed influenza virus vaccine, split virus (incl. purified surface antigen)- retired CODE DoD influenza virus vaccine, whole virus 1 2004 [id number] 16 [facility] ([facility]) complet ed influenza virus vaccine, whole virus DoD anthrax vaccine 3 2004 [id number] 24 [facility] ([facility]) complet ed anthrax vaccine DoD anthrax vaccine 2 2004 [id number] 24 [facility] complet ed anthrax vaccine DoD typhoid vaccine, parenteral, other than acetone-kille d, dried 1 2004 [id number] 41 [facility] [employer] ([facility]) complet ed typhoid vaccine, parentera l, other than acetone-k illed, dried DoD vaccinia (smallpox) vaccine 1 2004 [id number] 75 [employer] ([facility]) complet ed vaccinia (smallpox ) vaccine DoD anthrax vaccine 1 2004 [id number] 24 [facility] ([facility]) complet ed anthrax vaccine DoD tuberculin skin test; purified protein derivative solution, intradermal 1 2004 Unknown, Provider [id number] 96 [employer] Pasteur ([facility]) complet ed tuberculi n skin test; purified protein derivativ e solution, intraderm al DoD influenza virus vaccine, live, attenuated, for intranasal use 0 2003 [id number] 111 [employer] ([facility]) complet ed influenza virus vaccine, live, attenuate d, for intranasa l use DoD tuberculin skin test; purified protein derivative solution, intradermal 1 2003 Unknown, Provider [id number] 96 [employer] Pasteur ([facility]) complet ed tuberculi n skin test; purified protein derivativ e solution, intraderm al DoD influenza virus vaccine, whole virus 0 2002 [id number] 16 [employer] ([facility]) complet ed influenza virus vaccine, whole virus DoD influenza virus vaccine, whole virus 0 2002 [id number] [employer] ([facility]) complet ed influenza virus vaccine, whole virus DoD typhoid vaccine, parenteral, other than acetone-kille d, dried 0 2002 [id number] 41 [employer] Pasteur ([facility]) complet ed typhoid vaccine, parentera l, other than acetone-k illed, dried DoD hepatitis B vaccine, adult dosage 2 2002 [id number] 43 [employer] ([facility]) complet ed hepatitis B vaccine, adult dosage DoD tuberculin skin test; purified protein derivative solution, intradermal 3 2002 Unknown, Provider [id number] 96 [employer]i Pasteur ([facility]) complet ed tuberculi n skin test; purified protein derivativ e solution, intraderm al DoD hepatitis B vaccine, adult dosage 3 2002 [id number] 43 [employer] ([facility]) complet ed hepatitis B vaccine, adult dosage DoD influenza virus vaccine, whole virus 0 2001 [id number] 16 [employer] Paste[employer] ([facility]) complet ed influenza virus vaccine, whole virus DoD hepatitis B vaccine, adult dosage 1 2001 [id number] 43 [employer] ([facility]) complet ed hepatitis B vaccine, adult dosage DoD varicella virus vaccine 1 2001 21 () Not Given varicella virus vaccine DoD hepatitis A vaccine, adult dosage 2 2001 [id number] 52 [employer] ([facility]) complet ed hepatitis A vaccine, adult dosage DoD tetanus and diphtheria toxoids, adsorbed, preservative free, for adult use (2 Lf of tetanus toxoid and 2 Lf of diphtheria toxoid) 0 2001 [id number] [employer] Pasteur ([facility]) complet ed tetanus and diphtheri a toxoids, adsorbed, preservat chris free, for adult use (2 Lf of tetanus toxoid and 2 Lf of diphtheri a toxoid) DoD influenza virus vaccine, whole virus 0 2001 [id number] 16 [employer] Paste[employer] ([facility]) complet ed influenza virus vaccine, whole virus DoD yellow fever vaccine 0 2000 [id number] [place] ([facility]) complet ed yellow fever vaccine DoD typhoid vaccine, parenteral, other than acetone-kille d, dried 0 2000 [id number] [place] ([facility]) complet ed typhoid vaccine, parentera l, other than acetone-k illed, dried DoD tuberculin skin test; purified protein derivative solution, intradermal 2 2000 Unknown, Provider [id number] 96 [employer]i Pasteur ([facility]) complet ed tuberculi n skin test; purified protein derivativ e solution, intraderm al DoD meningococcal polysaccharid e vaccine (MPSV4) 0 2000 [id number] 32 [place] ([facility]) complet ed meningoco ccal [...] ADM Date DC Date Status Disposition Source [facility]) OUTPATIENT [id number] JEREMY WALLS 02/08 Released w/o Limitations [facility](F amily Practic e) [facility]) OUTPATIENT [id number] annual and control MIYATANA SUNSHINE Zachary 05/11 Released w/o Limitations [facility]) [facility]) OUTPATIENT [id number] hgsil 05/14 GERA MATHIS Jacek 05/22 Released w/o Limitations [facility]) [facility]) OUTPATIENT [id number] LEEP in Minor Room at 1300 GERA MATHIS Jacek 06/21 Released w/o Limitations [facility](D [facility]) [facility]) TELE CONSULT [id number] LEEP results GERA MATHIS Jacek 06/26 [facility]) [facility]) OUTPATIENT [id number] F/U LEEP DOMINIC MATHISBLAIR Read 07/17 Released w/o Limitations [facility](D [facility]) [facility] ([facility]) ) OUTPATIENT [id number] eye exam DOMENICO GORMAN 08/29 Released w/o Limitations [facility](O ptometr y ([facility])) [facility]) OUTPATIENT [id number] COLPO/P ILL GERA MATHIS Jacek 11/01 Released w/o Limitations [facility](D [facility]) [facility]) TELE CONSULT [id number] pap results GERA MATHIS Jacek 11/12 [facility]) [facility]) TELE CONSULT [id number] sep. LEONIE Mena 02/26 [facility](S ilver Pod) [facility]) OUTPATIENT [id number] separat ion paper work, no PE availab KARYNA Gtz 03/01 Released w/o Limitations [facility](S [facility]) [facility]) OUTPATIENT [id number] colpo/p ill GERA MATHIS Jacek 06/06 Released w/o Limitations [facility]) [address] [place] [address]([facility]) TELE CONSULT [id number] pap results GERA MATHIS Jacek 06/[address] [place] [address]([facility]) [address] [place] [address]([facility]) OUTPATIENT [id number] colpo/p ill ADÁN PATTON 10/10 Released w/o Limitations [facility](D [facility]asi [facility]) [facility](Inf [facility]) OUTPATIENT [id number] Travel to [facility] NEIL BURRELL Carly 10/21 Released w/o Limitations [facility](I nfectio us Disease Clinic [facility]) [facility](Opt ometry ([facility]) ) OUTPATIENT [id number] eye exam JENIFER PADILLA 11/04 Released w/o Limitations [facility](O ptometr y ([facility])) [facility]) OUTPATIENT [id number] mole on side and back MK CHANDRA 12/08 Released w/o Limitations [facility](D ermatol ogvelasquez) [facility] matology) OUTPATIENT [id number] laser test - nadia a V-beam MK CHANDRA 12/19 Released w/o Limitations [facility](D ermatol ogy) [address] [place] [address]([facility]) OUTPATIENT [id number] discuss control DELFINO GAINES 01/26 Released w/o Limitations [facility]) [facility] [id number] laser hair MK CHANDRA 02/02 Released w/o Limitations [facility](D ermatol ogy) [facility]) OUTPATIENT [id number] laser -m ark MK CHANDRA 03/27 Released w/o Limitations [facility](D ermatol ogy) [facility] matology) OUTPATIENT [id number] laser treatme nt MK CHANDRA 05/01 Released w/o Limitations [facility](D ermatol ogy) [facility]) OUTPATIENT [id number] ANTONIO Sarabia 05/06 Released w/o Limitations [facility](B lue Pod) [facility]iat[facility] y) OUTPATIENT [id number] anxiety symptom s MAHAD PERLA 05/13 Released w/o Limitations [facility](M ental Health Psychia try) [facility] Psychiat[facility] y) OUTPATIENT [id number] MAHAD PERLA 05/29 Released w/o Limitations [facility](M ental Health Psychia try) [facility](Psy chiatry 009) OUTPATIENT [id number] Please give MIQUEL GUTIERREZ 06/12 Released w/o Limitations [facility](P sychiat ry 0095) [facility]) OUTPATIENT [id number] annual papsmea THOMAS Gilbert 06/16 Released w/o Limitations [facility]) [facility](Psy chiatry 0095) OUTPATIENT [id number] MIQUEL TANG 06/19 Released w/o Limitations [facility](P sychiat ry 0095) [address] [place] [address]([facility]) TELE CONSULT [id number] test for varicel la, hep b, mmr tidor-r equest- all SUSHMA COFFMAN D 07/31 [facility]) [facility]) TELE CONSULT [id number] pt wants to know if Sushma receive d her fax SUSHMA COFFMAN D 08/13 [facility](B l[facility] Pod) [address] [place] [address](Psy chiatry 0095) TELE CONSULT [id number] appoint ment MAHAD PERLA 10/13 Referred for Appointment [facility](P sychiat ry 0095) [address] [place] [address](Psy chiatry 0095) TELE CONSULT [id number] phone call MAHAD PERLA 10/16 Referred for Appointment [facility](P sychiat ry 0095) [facility](Psy chiatry 0095) TELE CONSULT [id number] needs meds before f/u appt PERLAFARHATZachary Linares 10/27 Referred for Appointment [facility](P sychiat ry 0095) [facility] [id number] laser treatme nt MK CHANDRA 11/09 Released w/o Limitations [facility](D ermatol ogy) [facility](Psy chiatry 0095) OUTPATIENT [id number] follow up MAHAD PERLA 11/16 Released w/o Limitations [facility](P sychiat ry 0095) [facility](Psy chiatry 0095) OUTPATIENT [id number] MAHAD PERLA 12/11 Released w/o Limitations [facility](P sychiat ry 0095) [facility] [id number] laser MK CHANDRA 12/21 Released w/o Limitations [facility](D ermatol ogy) [facility] OUT[facility]IENT [id number] laser hair removal MK CHANDRA 04/05 Released w/o Limitations [facility](D ermatol ogy) [facility](Psy chiatry 0095) OUTPATIENT [id number] NICOLÁS VIRK 05/05 Released w/o Limitations [facility](P sychiat ry 0095) [facility]) TELE CONSULT [id number] bridge HAILEY York 05/31 [facility]) [facility](Psy chiatry 0095) TELE CONSULT [id number] APPOINT MENT NICOLÁS VIRK 07/13 Referred for Appointment [facility](P sychiat ry 0095) [facility]) OUTPATIENT [id number] OREN Lockhart 07/20 Released w/o Limitations [facility]) [facility]) OUTPATIENT [id number] lab results - abnorma TESS Nicole V 07/27 Released w/o Limitations [facility](B lue Pod) [address] [place] [address](Psy chiatry 0095) TELE CONSULT [id number] meds and appt? NICOLÁS VIRK 08/10 Referred for Appointment [facility](P sychiat ry 0095) [address] [place] [address](Psy chiatry 0095) OUTPATIENT [id number] NICOLÁS VIRK 08/27 Released w/o Limitations [address] [place] [address](P sychiat ry 0095) [facility] Outpatient Encounter [id number] 11/27 [facility] Outpatient Encounter [id number] 04/01 [facility] Outpatient Encounter [id number] 04/01 [facility] COLLJ & INTERPJ DATA EA 30 D [id number] Diagnos is: ICD-10- CM Z13.9 Encount er for screeni ng, unspeci fied
PRATEEK YANEZ 04/08 [facility] PSYCH DIAGNOSTIC EVALUATION [id number] Diagnos is: ICD-10- CM F43.22 Adjustm ent disorde r with anxiety
JASIEL LEMUS 04/08 [facility] Outpatient Encounter [id number] [facility] 04/28 [facility] Outpatient Encounter [id number] 04/28 [facility] Outpatient Encounter [id number] 05/02 [facility] PSYTX W PT 60 MINUTES [id number] Diagnos is: ICD-10- CM F43.22 Adjustm ent disorde r with anxiety
ANJELICA MARMOLEJO 05/26 [facility] Outpatient Encounter [id number] DULCE SAENZ 06/02 [facility] Procedures Combined list of: 1) Procedures from Department of [facility] Affairs facilities going back up to thelast 18 months, not all [place] non-surgical procedures are included; 2) All procedures from the Department of Defense facilities. Procedure Procedure Type Code Date Perfomer Comments Sourc e IMMUNIZATION ADMINISTRATION (INCLUDES PERCUTANEOUS, INTRADERMAL, SUBCUTANEOUS, OR INTRAMUSCULAR INJECTIONS); 1 VACCINE (SINGLE OR COMBINATION VACCINE/TOXOID) 03/17/20 05 [facility] SCREENING TEST OF VISUAL ACUITY, QUANTITATIVE, BILATERAL 02/09/20 05 [facility] SCREENING TEST OF VISUAL ACUITY, QUANTITATIVE, BILATERAL 02/24/20 04 [facility] SCREENING TEST OF VISUAL ACUITY, QUANTITATIVE, BILATERAL 02/10/20 03 [facility] SCREENING TEST OF VISUAL ACUITY, QUANTITATIVE, BILATERAL 10/14/19 03 DoD PHYS/OTH QUALIFIED HEALTH GUEST ATTENDANT QUALIFIED,EDUCATION,T RAIN,LICENSURE/REGULA TION (WHEN APPLICABLE) EDUC SER RENDERED TO PATS IN A GRP SETTING (EG,,OBESITY, OR DIABETIC INSTRUCT) 10/24/19 02 DoD UNLISTED PROCEDURE, ANTERIOR SEGMENT OF EYE 10/18/19 02 DoD INDIVIDUAL PSYCHOTHERAPY, INSIGHT ORIENTED, BEHAVIOR MODIFYING AND/OR SUPPORTIVE, IN AN OFFICE OR OUTPATIENT FACILITY, APPROXIMATELY 20 TO 30 MINUTES [id number] W THE PATIENT; W MED EVAL & MGT SER 08/27/19 10 DoD SCREENING PAPANICOLAOU SMEAR; OBTAINING, PREPARING AND CONVEYANCE OF CERVICAL OR VAGINAL SMEAR TO LABORATORY 07/20/19 10 DoD INDIVIDUAL PSYCHOTHERAPY, INSIGHT ORIENTED, BEHAVIOR MODIFYING AND/OR SUPPORTIVE, IN AN OFFICE OR OUTPATIENT FACILITY, APPROXIMATELY 45 TO 50 MINUTES [id number] W THE PATIENT; W MED EVAL & [...] OUTPATIENT FACILITY, APPROXIMATELY 20 TO 30 MINUTES [id number] W THE PATIENT; W [facility] EVAL & MGT SER 12/12/19 09 DoD INDIVIDUAL PSYCHOTHERAPY, INSIGHT ORIENTED, BEHAVIOR MODIFYING AND/OR SUPPORTIVE, IN AN OFFICE OR OUTPATIENT FACILITY, APPROXIMATELY 20 TO 30 MINUTES [id number] W THE PATIENT; W MED EVAL & MGT SER 11/17/19 09 DoD DESTRUCTION OF CUTANEOUS VASCULAR PROLIFERATIVE LESIONS (EG, LASER TECHNIQUE); LESS THAN 10 SQ CM 11/10/19 09 DoD INDIVIDUAL PSYCHOTHERAPY, INSIGHT ORIENTED, BEHAVIOR MODIFYING AND/OR SUPPORTIVE, IN AN OFFICE OR OUTPATIENT FACILITY, APPROXIMATELY 45 TO 50 MINUTES [id number] WITH THE PATIENT 06/19/20 08 [facility] SCREENING PAPANICOLAOU SMEAR; OBTAINING, PREPARING AND CONVEYANCE OF CERVICAL OR VAGINAL SMEAR TO LABORATORY 06/16/20 08 DoD INDIVIDUAL PSYCHOTHERAPY, INSIGHT ORIENTED, BEHAVIOR MODIFYING AND/OR SUPPORTIVE, IN AN OFFICE OR OUTPATIENT FACILITY, APPROXIMATELY 75 TO 80 MINUTES [id number] WITH THE PATIENT 06/12/20 08 DoD INDIVIDUAL PSYCHOTHERAPY, INSIGHT ORIENTED, BEHAVIOR MODIFYING AND/OR SUPPORTIVE, IN AN OFFICE OR OUTPATIENT FACILITY, APPROXIMATELY 20 TO 30 MINUTES [id number] W THE PATIENT; W [facility] EVAL & MGT SER 05/29/20 08 [facility] PSYCHIATRIC DIAGNOSTIC INTERVIEW EXAMINATION 05/13/20 08 DoD [...] OCTOPUS 3 OR 7 EQUIVALENT) 11/05/19 08 [facility] COLPOSCOPY OF THE CERVIX INCLUDING UPPER/ADJACENT VAGINA; 10/11/19 08 [facility] COLPOSCOPY OF THE CERVIX INCLUDING UPPER/ADJACENT VAGINA; 06/06/20 07 [facility] CYTOPATHOLOGY, SMEARS, CERVICAL OR VAGINAL, UP TO THREE SMEARS; SCREENING BY ESTATE PLANNING ATTORNEY UNDER PHYSICIAN SUPERVISION 11/02/19 07 DoD FITTING OF SPECTACLES, EXCEPT FOR APHAKIA; MONOFOCAL 08/29/19 07 [facility] ENDOCERVICAL CURETTAGE (NOT DONE PART OF A DILATION AND CURETTAGE) 06/21/20 06 [facility] COLPOSCOPY OF THE CERVIX INCLUDING UPPER/ADJACENT VAGINA; WITH BIOPSY(S) OF THE CERVIX AND ENDOCERVICAL CURETTAGE 05/22/20 06 [facility] SMEAR, PRIMARY SOURCE WITH INTERPRETATION; WET MOUNT FOR INFECTIOUS AGENTS (EG, SALINE, ALISHA INK, MEEK PREPS) 05/11/20 06 DoD Psychotherapy Individual Approx 30 Min W/ Medical Evaluation & Management Psychotherapy Individual Approx 30 Min W/ Medical Evaluation & Management [id number] 09/09/19 10 NICOLÁS VIRK Screening papanicolaou smear; obtaining, preparing and conveyance of cervical or vaginal smear to laboratory 07/20/19 10 OREN LINCOLN [facility] Psychiatric Diagnostic Evaluation Comprehensive Examination Psychiatric Diagnostic Evaluation Comprehensive Examination [id number] 05/12/20 09 NICOLÁS VIRK Destruction Of Cutaneous Vascular Lesions Le Than 10 Sq Cm Destruction Of Cutaneous Vascular Lesions Less Than 10 Sq Cm 18007 04/05/20 09 MK CHANDRA Psychotherapy Individual Approx 30 Min W/ Medical Evaluation & Management Psychotherapy Individual Approx 30 Min W/ Medical Evaluation & Management [id number] 12/24/19 09 MAHAD PERLA Destruction Of Cutaneous Vascular Lesions Le Than 10 Sq Cm Destruction Of Cutaneous Vascular Lesions Less Than 10 Sq Cm 14682 12/22/19 09 MK CHANDRA Psychotherapy Individual Approx 30 Min W/ Medical Evaluation & Management Psychotherapy Individual Approx 30 Min W/ Medical Evaluation & Management 58331 12/15/19 09 MAHAD PERLA Destruction Of Cutaneous Vascular Lesions Le Than 10 Sq Cm Destruction Of Cutaneous Vascular Lesions Less Than 10 Sq Cm 80463 11/10/19 09 MK CHANDRA Psychotherapy Individual Approximately 45 Minutes Psychotherapy Individual Approximately 45 Minutes [id number] 06/22/20 08 MIQUEL TANG Physician Supervised Specimen Handling / Transfer: Office To Lab Physician Supervised Specimen Handling / Transfer: Office To Lab [id number] 06/16/20 08 THOMAS BANKS Screening papanicolaou smear; obtaining, preparing and conveyance of cervical or vaginal smear to laboratory 06/16/20 08 THOMAS BANKS Psychotherapy Individual Approximately 75-80 Minutes Psychotherapy Individual Approximately 75-80 Minutes [id number] 06/15/20 08 MIQUEL TANG C [facility] Integumentary Procedures (Therapeutic) Integumentary Procedures (Therapeutic) [id number] 05/01/20 08 MK CHANDRA Integumentary Procedures (Therapeutic) Integumentary Procedures (Therapeutic) 12845 03/27/20 08 MK CHANDRA Integumentary Procedures (Therapeutic) Integumentary Procedures (Therapeutic) 76383 02/03/20 08 MK CHANDRA Integumentary Procedures (Therapeutic) Integumentary Procedures (Therapeutic) 18344 12/20/19 08 MK CHANDRA Shaving Of Lesion Trunk .6 to 1cm Shaving Of Lesion Trunk .6 to 1cm 86399 12/09/19 08 MK CHANDRA Shaving Of Lesion Trunk Up to .5cm Shaving Of Lesion Trunk Up to .5cm 55378 12/09/19 08 MK CHANDRA Ophthalmological Prior Patient Start Comprehensive Care Ophthalmological Prior Patient Start Comprehensive Care 36495 11/05/19 08 JENIFER PADILLA Determination Of Refractive State Determination Of Refractive State 39298 11/05/19 08 JENIFER PADILLA Visual Sanderson Test Limited Examination Visual Sanderson Test Limited Examination [id number] 11/05/19 08 JENIFER PADILLA Colposcopy Colposcopy 97408 10/11/19 08 ADÁN PATTON [facility] Cervical Pap Smear Cervical Pap Smear 79274 10/26 08 ADÁN PATTON [facility] Colposcopy Colposcopy 86186 06/06/20 07 GERA MATHIS Cervical Pap Smear Cervical Pap Smear 26604 07 GERA MATHIS [facility] Colposcopy Colposcopy 77669 11/02/19 07 GERA MATHIS [facility] Cervical Pap Smear Cervical Pap Smear 59157 07 GERA MATHIS Ophthalmological New Patient Start Comprehensive Care Ophthalmological New Patient Start Comprehensive Care 25503 09/01/19 07 DOMENICO GORMAN Determination Of Refractive State Determination Of Refractive State 14555 09/01/19 07 DOMENICO GORMAN Spectacles Services Fitting Monofocal Except For Aphakia Spectacles Services Fitting Monofocal Except For Aphakia 14098 09/01/19 07 IRASEMAAleDOMENICO [facility] Colposcopy With Loop Electrode Excision of the Cervix Colposcopy With Loop Electrode Excision of the Cervix 37473 06/21/20 06 GERA MATHIS [facility] Endocervical Curettage (Not D&C) Endocervical Curettage (Not D&C) 78263 06/21/20 06 GERA MATHIS [facility] Colposcopy With Biopsy Colposcopy With Biopsy 78454 05/22/20 06 GERA MATHIS [facility] Cervical Pap Smear Cervical Pap Smear 90316 09/25 06 TANA HOLLIDAY [facility] Vaginal Wet Mount Smear Vaginal Wet [place] Smear 03051 05/11/20 06 TANA HOLLIDAY [facility] Social History Combined list of available smoking, tobacco, and other social history from Department of Defense and Veterans Affairs facilities. Social History Type Response Date Comment Sourc e Tobacco smoking status [facility] NEVER USED 04/08/2024 [facility] This section is an empty social history section. [facility] Plan of Care List of future care activities from Department of Veterans Affairs facilities. Additional future care activities may be listed in the Assessment and Plan section. Date/Time Care Activity Care Activity Detail Facili ty 08/07/2024 AMBULAT[facility]
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
--- OUTSIDE RECORDS SUMMARY | 2024-07-21 08:52 | XMS_ITS | Clinical Summary ---
[facility] Organization [facility] Address [address] [place] [address] Care Team Providers Care Cotton Grower Name Role Phone Unavailable Primary Care Provider Unavailabl e Source Comments You are receiving this document as you are listed as the primary care provider,follow-up provider, or the patient has been referred to you for consultation.This is in compliance with the Medicare andMedicaid EHR Incentive Program,which states Providers who transition their patient to another setting of careor provider of care or refers their patient to another provider of care shouldprovide summary care record for each transition of care or referral. [facility] Allergies No known active allergies Medications Medication Sig Dispensed Refills Start Date End Date Status ALBUterol sulfate HFA 108 (90 Base) MCG/ACT inhaler Inhale 2 Puffs every 6 hours as needed. 1 Each 07/16/2024 Active benzonatate (TESSALON) 200 MG capsule Take 1 Capsule (200 mg) by mouth three times a day as needed for up to 10 days. 30 Capsule 07/16/2024 07/26/2024 Active Encounters Date Type Department Care Team Description 07/17/2024 Telephone [facility] [address] [place] [address] Found, No PcpMD 07/16/2024 12:20 PM DIGITAL STRATEGY DIRECTOR Office Visit Ioana Dotsonllet [facility] [address] [place] [address] Reese Joshi MD Sore throat; Flu-like symptoms from Last 3 Months Social History Tobacco Use Types Packs/Day Years Used Date Smoking Tobacco: Never Assessed Sex and Gender Information Value Date Recorded Sex Assigned at Not on file Gender Identity Not on file Sexual Orientation Not on file Last Filed Vital Signs Vital Sign Reading Time Taken Comments Blood Pressure 137/84 07/16/2024 12:22 PM DIGITAL STRATEGY DIRECTOR Pulse 114 07/16/2024 12:22 PM DIGITAL STRATEGY DIRECTOR Temperature 37.9 C (100.2 F) 07/16/2024 12:22 PM DIGITAL STRATEGY DIRECTOR Respiratory Rate 14 07/16/2024 12:22 PM DIGITAL STRATEGY DIRECTOR Oxygen Saturation 98% 07/16/2024 12:22 PM DIGITAL STRATEGY DIRECTOR Inhaled Oxygen Concentration - - Weight - - Height - - Body Mass Index - - Plan of Treatment Health Maintenance Due Date Last Done Comments Cervical Cancer Screening Due 1979 Colon Cancer Screening Plan Due 1979 Hep C Screening (Preventive Services) 1979 Mammogram 1979 HIV Screening (Preventive Services) 1995 Adult Preventive Visit 1997 HepB (1) 1998 Cholesterol 02/09/2024 COVID-19 Vaccine ( - 2023-2 5 season) 2024 Influenza (#1) 2024 05/23/2019 Zoster/Shingles (1 of 2) 2029 DTaP/Tdap/Td (3 - Tdap) 11/27/2033 11/28/19 24, 11/16/2015 HPV Vaccine Aged Out No longer eligi ble based on patient's age to complete this topic HepA Aged Out No longer eligi ble based on patient's age to complete this topic Hib Aged Out No longer eligi ble based on patient's age to complete this topic IPV (Polio) Aged Out No longer eligi ble based on patient's age to complete this topic MCV4 Aged Out No longer eligi ble based on patient's age to complete this topic Pneumococcal Aged Out No longer eligi ble based on patient's age to complete this topic Procedures Procedure Name Priority Date/Time Associated Diagnosis Comments INFLUENZA VIRUS A AND B, MOLECULAR DETECTION STAT 07/16/2024 12:50 PM DIGITAL STRATEGY DIRECTOR Flu-like symptoms STREP GROUP A, MOLECULAR DETECTION STAT 07/16/2024 12:22 PM DIGITAL STRATEGY DIRECTOR Sore throat from Last 3 Months Results * (ABNORMAL) Influenza A and B by PCR - Collect in Clinic Today (07/16/2024 12:50 PM DIGITAL STRATEGY DIRECTOR) INFLUENZA A MOLECULAR Detected(A) Not Detected 07/17/2024 6:01 AM DIGITAL STRATEGY DIRECTOR [facility] INFLUENZA B MOLECULAR Not Detected Not Detected 07/17/2024 6:01 AM DIGITAL STRATEGY DIRECTOR [facility] Swab (Source Required) Non-blood Collection / Unknown 07/16/2024 12:50 PM DIGITAL STRATEGY DIRECTOR 07/16/2024 1:06 PM DIGITAL STRATEGY DIRECTOR Narrative [facility] - 07/17/2024 6:01 AM DIGITAL STRATEGY DIRECTOR Methodology: Qualitative real-time PCR assay to detect the Influenza type A and type B viral RNA Reese Joshi MD LAB_1 [facility] [address] * STREP GROUP A, Molecular Detection-Collect Now in current encounter (07/16/2024 12:22 PM DIGITAL STRATEGY DIRECTOR) [facility] Strep Not Detected Not Detected 07/16/2024 2:15 PM DIGITAL STRATEGY DIRECTOR [facility] Comment:Methodology: Qualita tive real-time PCR assay Swab (Source Required) THROAT SWAB / Unknown Non-blood Collection / Unknown 07/16/2024 12:22 PM DIGITAL STRATEGY DIRECTOR 07/16/2024 1:06 PM DIGITAL STRATEGY DIRECTOR [facility] [address] [place] [address] from Last 3 Months Additional Health Concerns Infection Onset Date Last Indicated Influenza 07/16/2024 07/16/2024
--- OUTSIDE RECORDS SUMMARY | 2024-07-21 08:52 | XMS_ITS | Referral Summary ---
Author Organization [facility] Address [address] [place] [address] Care Team Providers Care Sleep Medicine Physician Name Role Phone Mary Bergman PA-C Primary Care Provider Alyx Larkin MD Unavailable [phone] Social History Tobacco Use Types Packs/Day Years Used Date Smoking Tobacco: Never Assessed Adolescent Education Answer Date Record ed Getting School Help Needed Not on file 07/31 Comments No Sex and Gender Information Value Date Recorded Sex Assigned at Not on file Legal Sex Female 2:52 PM BUSINESS SERVICES REPRESENTATIVE Gender Identity Not on file Sexual Orientation Not on file Plan of Treatment Not on file Insurance [facility] [place] [address] [address] Care Teams Sleep Medicine Physician Relationship Specialty Start Date End Date Mary Bergman PA-C [facility] [address] [place] [address] PCP - General Physician Application Packager 07/30/23 Alyx Larkin MD [address] [address] Assigned OBGYN Provider 10/30/23
--- OUTSIDE RECORDS SUMMARY | 2024-07-21 08:52 | XMS_ITS | Clinical Summary ---
Author Organization [facility] Address [address] [place] [address]. 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 Gender Identity Not on file Sexual Orientation Not on file Plan of Treatment Health Maintenance Due Date Last Done Comments ADVANCE CARE PLANNING 1979 ANNUAL REVIEW OF HM ORDERS 1979 CT COLONOGRAPHY 1979 FIT 1979 FLEX SIG 1979 GLUCOSE 1979 MAMMO SCREENING 1979 sDNA (Cologuard) 1979 YEARLY PREVENTIVE VISIT 1982 COLONOSCOPY 1989 COLORECTAL CANCER SCREENING 1989 HIV SCREENING 1994 HEPATITIS C SCREENING 1997 HEPATITIS B IMMUNIZATION (1 of 3 - 19+ 3-dose series) 1998 LIPID 2019 COVID-19 Vaccine (2023-2 5 season) 2024 INFLUENZA VACCINE (#1) 2024 05/23/2019 PHQ-2 (once per calendar year) 2024 DTAP/TDAP/TD IMMUNIZATION (2 - Td or Tdap) [...] 5 Years) and At-Risk Patients (6 to 49 Years) Aged Out No longer eligible b ased on patient's age to complete this topic RSV MONOCLONAL ANTIBODY Aged Out No l onger eligible based on patient's age to complete this topic Insurance [facility] Care Teams Director Of District Office Relationship Specialty Start Date End Date Mary Bergman PA-C [facility] [address] [place] [address] PCP - General Physician Insurance Writer 07/30/23 Alyx Larkin MD [address] [id number] Assigned OBGYN Provider 10/30/23
--- OUTSIDE RECORDS SUMMARY | 2024-07-21 08:53 | XMS_ITS | Encounter Summary ---
Author Organization [facility] Address [address] [place] [address] Care Team Providers Care Entry Level Project Coordinator Name Role Phone Unavailable Primary Care Provider Unavailabl e Reason for Visit * Reason Comments Fever Encounter Details Date Type Department Care Team (Late st Contact Info) Description 07/16/2024 12:20 PM CLOTH PAINTER Office Visit [facility] [address] [place] [address] Reese Joshi MD [address] [place] [address] Sore throat; Flu-like symptoms Social History Tobacco Use Types Packs/Day Years Used Date Smoking Tobacco: Never Assessed Sex and Gender Information Value Date Recorded Sex Assigned at Not on file Gender Identity Not on file Sexual Orientation Not on file documented as of this encounter Last Filed Vital Signs Vital Sign Reading Time Taken Comments Blood Pressure 137/84 07/16/2024 12:22 PM CLOTH PAINTER Pulse 114 07/16/2024 12:22 PM CLOTH PAINTER Temperature 37.9 C (100.2 F) 07/16/2024 12:22 PM CLOTH PAINTER Respiratory Rate 14 07/16/2024 12:22 PM CLOTH PAINTER Oxygen Saturation 98% 07/16/2024 12:22 PM CLOTH PAINTER Inhaled Oxygen Concentration - - Weight - - Height - - Body Mass Index - - documented in this encounter Patient Instructions * Patient Instructions* Reese Joshi MD - 07/16/2024 12:20 PM CLOTH PAINTER Recommend doing steam baths at night and drink hot tea with lemon/honey. May also use humidifier at night. For the nasal symptoms which include drainage as well as congestion, may use fluticasone nasal spray 1 spray per nostril twice a day. Use albuterol inhaler 2 puffs up to 4x/day as needed for cough and shortness of breath. Take benzonatate up to 3x/day as needed for cough, tatyana at night. For the ear congestion, recommend doing Valsalva maneuver(pinch nose, close mouth and blow up to 3 times a day) to help relieve the ear pressure. For the sore throat, may do salt and water gargles up to 4 times a day and taking ibuprofen/acetaminophen 1-2 tablets up to 3 times a day with food as needed. If the testing came back positive for bacterial infection, we will notify you and start you on appropriate antibiotic. H PAINTER documented in this encounter Progress Notes * Reese Joshi MD - 07/16/2024 12:20 PM CST CHIEF COMPLAINT Chief Complaint Patient presents with Fever HISTORY OF PRESENT ILLNESS 44 y.o. year old female presents to the Urgent Care today for evaluation of having fever 100.6 and stream chills along with fatigue and body aches, rhinorrhea and postnasal drips, worsening sore throat along with dry cough with occasional shortness of breath at night. Feel a bit nauseous and had 2 bouts of loose stool. Did a COVID test this morning which was negative and she will repeat another 1in 24 hours. Has been taking Tylenol the last dose at 5:00 a.m. and took their flu last dose at 8:00 a.m.. Daughter was recently diagnosed with strep throat. No history of seasonal allergies, lung disease and not a smoker. Reviewed Nursing Notes: Janine Paul, RN 07/16/24 1221 Signed PT presenting to with fever, body aches, lungs and throat hurt. Coughing. Daughter Strep +, just completed abx. Requesting Strep. COVID neg. Some nausea and diarrhea. Denies: vomiting. REVIEW OF SYSTEMS 10 review of systems were reviewed and normal except what were noted under HPI. PRIOR HISTORY Medications: No outpatient medications prior to visit. No facility-administered medications prior to visit. Reviewed via [facility] Chart Review/CareEverywhere: Allergies Past Medical HistoryThere is no problem list on file for this patient. Past Surgical History Social History Social History Tobacco Use Smoking status: Not on file Smokeless tobacco: Not on file Substance Use Topics Alcohol use: Not on file Drug use: Not on file PHYSICAL EXAM Vitals Reviewed: BP 137/84 (BP Location: Left Arm, BP Cuff Size: Regular - Long) Pulse (!) 114 Temp 37.9 ??C (100.2 ??F) (Oral) Resp 14 SpO2 98% GENERAL: Healthy-appearing patient. Alert oriented x3. In no acute respiratory distress. HEAD: Normocephalic atraumatic. EYE: Nonicteric sclera. Conjunctiva without injection. ENT: Neck supple with a adenopathy and mass. Both ear canals and tympanic membranes appear to be intact and normal. Oropharynx with mild peritonsillar erythema but without hypertrophy or exudates. Nasal mucosa is pink and dry. No sinus tenderness. CV: Regular rate and rhythm without murmur. Distal pulses are equally palpable and appear to be normal. PULM: Normal auscultation of both lungs. No wheezing, crackles and rales appreciated. MSK: Both upper and lower extremities appear to be normal. SKIN: No rash or other lesions appreciated. NEURO: Alert and oriented x3. Able to communicate in full sentences. LABS - IMAGING - MEDICATIONS LABS/EKG: No results found for any visits on 07/16/24. IMAGING: No results found. INTERVENTIONS: MEDICAL DECISION MAKING Patient seen and assessed. Presented to Urgent Care for less than 24 hours history of respiratory symptoms along with sore throat and fever. Potentially she was exposed to strep as her daughter was diagnosed with a it. The strep test is pending and if positive we will treat her with the appropriateantibiotic. Because of the extreme symptoms of fatigue and body aches, we did do a nasopharyngeal swab for influenza. If positive we will contact her if negative she can check the results online tomorrow. Symptomatically recommend doing the treatment per my discharge instructions but particularly we will start her on fluticasone which has a home twice a day for the nasal symptoms. Start her on albuterol and benzonatate for the cough and shortness of breath as directed. May take Tylenol ibuprofen for the fever and sore throat as needed.If despite above and symptoms worsen, see your provider orcome back for re-evaluation here or the ER. Patient was understanding of above assessment and plan and left the clinic in stable condition. ASSESSMENT & PLAN DIAGNOSIS: ICD-10-CM 1. Sore throat J02.9 STREP GROUP A, Molecular Detection-Collect Now in current encounter 2. Flu-like symptoms R68.89 Influenza A and B by PCR - Collect in Clinic Today Orders Placed This Encounter Medications ALBUterol sulfate HFA 108 (90 Base) MCG/ACT inhaler Sig: Inhale 2 Puffs every 6 hours as needed. Dispense: 1 Each Refill: 0 Pharmacy may substitute albuterol HFA products based on insurance. benzonatate (TESSALON) 200 MG capsule Sig: Take 1 Capsule (200 mg) by mouth three times a day as needed for up to 10 days. Dispense: 30 Capsule Refill: 0 DISPOSITION: Discharge Home Reese Joshi M.D. [facility] H PAINTER documented in this encounter Nursing Notes * Janine Paul, RN - 07/16/2024 12:20 PM CST PT presenting to with fever, body aches, lungs and throat hurt. Coughing. Daughter Strep +, just completed abx. Requesting Strep. COVID neg. Some nausea and diarrhea. Denies: vomiting. H PAINTER documented in this encounter Plan of Treatment Not on file documented as of this encounter Procedures Procedure Name Priority Date/Time Associated Diagnosis Comments INFLUENZA VIRUS A AND B, MOLECULAR DETECTION STAT 07/16/2024 12:50 PM CLOTH PAINTER Flu-like symptoms STREP GROUP A, MOLECULAR DETECTION STAT 07/16/2024 12:22 PM CLOTH PAINTER Sore throat documented in this encounter Results * (ABNORMAL) Influenza A and B by PCR - Collect in Clinic Today (07/16/2024 12:50 PM CLOTH PAINTER) INFLUENZA A MOLECULAR Detected(A) Not Detected 07/17/2024 6:01 AM [facility] INFLUENZA B MOLECULAR Not Detected Not Detected 07/17/2024 6:01 AM [facility] Swab (Source Required) Non-blood Collection / Unknown 07/16/2024 12:50 PM CLOTH PAINTER 07/16/2024 1:06 PM CLOTH PAINTER Narrative [facility] - 07/17/2024 6:01 AM CLOTH PAINTER Methodology: Qualitative real-time PCR assay to detect the Influenza type A and type B viral RNA Reese Joshi MD LAB_1 Performing Organization Address City/Va Hospital/ZIP Co de Phone Number [facility] [address] * STREP GROUP A, Molecular Detection-Collect Now in current encounter (07/16/2024 12:22 PM CLOTH PAINTER) [facility] Strep Not Detected Not Detected 07/16/2024 2:15 PM CLOTH PAINTER [facility] Comment:Methodology: Qualita tive real-time PCR assay Swab (Source Required) THROAT SWAB / Unknown Non-blood Collection / Unknown 07/16/2024 12:22 PM CLOTH PAINTER 07/16/2024 1:06 PM CLOTH PAINTER [facility] [address] [place] [address] documented in this encounter Visit Diagnoses Diagnosis Sore throat Acute pharyngitis Flu-like symptoms Influenza with other respiratory manifestations documented in this encounter
[2024-07-21 09:04] VITALS: BP 135/92; PULSE 69; RESP 18; TEMP 36.3; O2SAT 98; BMI 28.1
--- NOTE | 2024-07-21 09:09 | CRLHL7_ITS ---
For Patients: As a result of the Cures Act, medical imaging exams and procedure reports are released immediately into your electronic medical record. You may view this report before your referring provider. If you have questions, please contact your health care provider. INDICATION: Cough. Influenza a. TECHNIQUE: Chest 2 views. COMPARISON: None FINDINGS: Tubes and devices: None. Lungs: Lungs are clear. No sign of infiltrate or mass. Pleura: No pleural effusion. No pneumothorax. Heart: Heart size and vasculature are normal in caliber and appearance. Martha and Mediastinum: No enlargement. Bones and soft tissues: No significant findings. IMPRESSION: Unremarkable chest. Dictated by Sánchez Del Valle MD @ 07/21/2024 9:26:18 AM (Electronically Signed)
--- NOTE | 2024-07-21 09:57 | ED_ITS ---
HPI - General Adult General Date Seen: 07/21/24 Chief complaint: Cough Stated complaint: flu A+, Rule out Pneumonia Time Seen by Provider: 07/21/24 08:59 Source: patient Mode of arrival: ambulatory Limitations: no limitations History of Present Illness HPI narrative: Patient is a 44-year-old female presenting to emergency department for concern of pneumonia. She was diagnosed with influenza 6 days ago. She states she was feeling very sick for about 3 or 4 days but then started feeling better but has since not had any further improvement. She states she has been and some night sweats, chills, cough. Does not having any chest pain or shortness of breath. States she has not had much of an appetite for the past few days but is trying to drink as much as possible. Has not had any vomiting. Does feel mildly nauseated but does not feel like she needs any medication for it. Her main concern is the about pneumonia. States her has had similar symptoms in she is a couple days behind them in the course of symptoms. Related Data Home Medications ?Medication ?Instructions ?Recorded ?Confirmed Lactobacillus acidophilus 100 mg PO QDAY 01/18/22 07/21/24 cholecalciferol (vitamin D3) 125 5,000 unit PO DAILY 01/18/22 07/21/24 mcg (5,000 unit) tablet prenat.vits,winston,xgf-ofno-hdbed 1 tab PO QDAY 01/18/22 07/21/24 omega-3 fatty acids 1,250 mg 1,250 mg PO QDAY 01/02/24 07/21/24 capsule Allergies Allergy/AdvReac Type Severity Reaction Status Date / Time No Known Allergies Allergy Unknown Verified 05/01/24 09:33 Review of Systems Status of ROS: Reports: 10 or more systems reviewed and unremarkable except as noted in History and below [facility] Medical History hemorrhage (~2023) ?O72.1 - Other immediate hemorrhage (ICD-10) AMA (advanced maternal age) multigravida 35+ ?O09.529 - Supervision of elderly multigravida, unspecified trimester (ICD- 10) [place] of [place] Snoring ?R06.83 - Snoring (ICD-10) Persistent insomnia ?G47.00 - Insomnia, unspecified (ICD-10) Migraine headache ?G43.909 - Migraine, unspecified, not intractable, without status migrainosus (ICD-10) HPV test positive Restless legs ?G25.81 - Restless legs syndrome (ICD-10) Major depressive disorder with single episode ?F32.9 - Major depressive disorder, single episode, unspecified (ICD-10) Surgical History Status post LEEP (loop electrosurgical excision procedure) of cervix (02/20/22) ?Z98.890 - Other specified postprocedural states (ICD-10) S/P abdominal supracervical subtotal hysterectomy (01/23/24) ?Z90.711 - Acquired absence of uterus with remaining cervical stump (ICD-10) H/O LEEP (~2004) ?Z98.890 - Other specified postprocedural states (ICD-10) Status post loop electrosurgical excision procedure (LEEP) of cervix (12/29/19) ?Z98.890 - Other specified postprocedural states (ICD-10) Family History Paternal Grandfather Diabetes Father High blood pressure Brother High blood pressure Social History Narrative: Alcohol abuse- practicing sobriety April 2021 ,3 kids (7 yo, 10yo, 11yo (Adian) ; engaged, fiance- had baby together, 01/23/2024 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 Non-tobacco user SOCIAL? ? Education: bachelors? ? 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 ? Partner: Christopher, not , landscaping jha? ? Lives with: Does not live with Christopher. 3 kids live with her. ? ? Pets: denies? ? Abuse: Denies past, Safe at home with current partner ? ? Special Diet: Denies? ? Ok with a blood transfusion: yes? ? Culture or yazidism beliefs: denies? (Mosque)? ?? RISK FACTORS? ? Exercise Times/wk: walks 1.5 hours a day w/ her client at work Depression/Anxiety: anxiety - Propranolol as needed, has not taken in .? ? Previous Treatments: welbutrin, effexor, sertraline. Therapy: denies. SAGE: 3 PHQ 9: 3? ? Seat Belt Use: Routinely ? Smoking: Denies past/present? ? Alcohol/day: prior to knowing she was , when she was on vacation. ? ?(Review of records indicate she previously stopped drinking r/t her perception of alcohol over use/abuse in Apr 2021) Caffeine: 1 cup? ? Drug Use: Denies past/present? What is your current living situation?: I presently have a place to live Problems where you live: no known problems In the past 12 months, utilities in danger of being shut off: no In past 12 months, lack of transportation kept you from medical appts, meetings, work, or getting things needed for daily living: no In the past 12 mos, have been you worried that your food would run out before you had money to buy more?: never true In the past 12 mos, the food you bought just didn't last and you didn't have money to buy more?: never true Smoking Status: Never smoker How often do you have a drink containing alcohol: never AUDIT-C Alcohol total score: 0 Non-prescribed substance use: denies use How often does anyone, including family, friends and others, physically hurt you : never How often does anyone, including family, friends and others, insult or talk down to you: never How often does anyone, including family, friends and others, threaten you with harm: never How often does anyone, including family, friends and others, scream or curse at you: never service: Yes Exam Narrative: Exam Narrative: Const: Well-nourished, Well-developed, in mild distress Eyes: PERRL, no conjunctival injection, and symmetrical lids HENT: Atraumatic external nose and ears. Moist mucous membranes. Neck: Symmetric, trachea midline, No thyromegaly. CVS: RRR, No murmurs or gallops. Peripheral pulses 2+ and equal in all extremities RESP: Unlabored respiratory effort. Clear to auscultation bilaterally. GI: Nontender/Nondistended, No rebound or guarding. MSK:Extremities w/o deformity, Normal Active ROM Skin: Warm, Dry. No rashes or lesions. Neuro: Normal Muscle tone, No focal neurological deficits. Psych: Awake, Alert, & Oriented x3. Appropriate mood and affect. Const: Vital Signs, click to edit/add: Vital Signs - 24 hr 07/21/24 09:04 Temperature 97.4 F L Pulse Rate [Pulse Oximeter] 69 Respiratory Rate 18 Blood Pressure [Le ft Upper Arm] 135/92 H Pulse Oximetry 98 Oxygen Delivery Me thod Room Air Course Vital Signs Vital signs: Initial Vital Signs Temperature 97.4 F L 07/21/24 09:04 Temperature Source Temporal Artery Scan 07/21/24 09:04 Pulse Rate 69 07/21/24 09:04 Pulse Rhythm Regular 07/21/24 09:04 Respiratory Rate 18 07/21/24 09:04 Blood Pressure 135/92 H 07/21/24 09:04 Blood Pressure Mean 106 H 07/21/24 09:04 Blood Pressure Position Sitting 07/21/24 09:04 Pulse Oximetry 98 07/21/24 09:04 Oxygen Delivery Method Room Air 07/21/24 09:04 Vital Signs Temperature 97.4 F L 07/21/24 09:04 Pulse Rate 69 07/21/24 09:04 Respiratory Rate 18 07/21/24 09:04 Blood Pressure 135/92 H 07/21/24 09:04 Pulse Oximetry 98 07/21/24 09:04 Oxygen Delivery Method Room Air 07/21/24 09:04 Temperature 97.4 F L 07/21/24 09:04 Pulse Rate 69 07/21/24 09:04 Respiratory Rate 18 07/21/24 09:04 Blood Pressure 135/92 H 07/21/24 09:04 Pulse Oximetry 98 07/21/24 09:04 Oxygen Delivery Method Room Air 07/21/24 09:04 Medical Decision Making MDM Narrative Medical decision making narrative: Patient is a 44-year-old female who says here concerned about pneumonia. Does not feel like she needs any further lab work. Is not having chest pain and shortness of breath her not believe any further lab work is necessary either. When who chest x-ray to look for signs of pneumonia. It was reviewed by myself and the radiologist does not show any signs of pneumonia. Did offer Zofran for her nausea she declined. States she feels like she can manage at home and she does want to rule out pneumonia. No other concerns noted Imaging Data Chest x-ray: Attestation: I have reviewed the pertinent imaging results. Radiologist's impression: Unremarkable chest. Dictated by Sánchez Del Valle MD @ 07/21/2024 9:26:18 AM Discharge Plan Discharge Clinical Impression: Flu Patient Disposition: Home, Self-Care Condition: Stable Instructions: Influenza (DC) Additional Instructions: Continue your supportive care at home. Is important you stay well-hydrated. Return for new worsening symptoms. Prescriptions: No Action cholecalciferol (vitamin D3) 125 mcg (5,000 unit) tablet 5,000 unit PO DAILY prenat.vits,winston,lis-kagp-gpjwu Tablet 1 tab PO QDAY Lactobacillus acidophilus Capsule 100 mg PO QDAY omega-3 fatty acids 1,250 mg capsule 1,250 mg PO QDAY Follow Up/Referrals: Mary Bergman PA-C [Primary Care Provider] - Stand Alone Forms: TAPQUAD Info Instructions
--- OUTSIDE RECORDS SUMMARY | 2024-07-21 10:16 | XMS_ITS | Continuity of Care Document ---
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 [facility] Pelvic Exam (Internal) Inactive Condition DoD visit for: administrative purpose Inactive Condition [facility] Physical Examination Inactive Condition see separation paperwork in records DoD astigmatism Active Condition [facility] Spectacles Services Fitting Monofocal Except For Aphakia Inactive Condition [facility] refractive error - myopia Active Condition DoD Abnormal Pap Smear Of Cervix Active Condition DoD visit for: postsurgical exam Inactive Condition [facility] Gynecologic Services Contraceptive Management Active Condition [facility] candidiasis vaginal Inactive Condition [facility] Preventive Medicine Established Patient Checkup Adult 18-39 Years Inactive Condition DoD visit for: services physical Inactive Condition [facility] Diagnosis: ICD-10-CM F43.22 Adjustment disorder with anxiety Active Diagnosis [facility] Diagnosis: ICD-10-CM Z13.9 Encounter for screening, unspecified Active Diagnosis [facility] Allergies, Adverse Reactions, Alerts Combined list of allergies from Department of Defense and Veterans Affairs facilities. It does not include entries that were removed or entered in error. Substance Category Reaction Severity Reaction type Status Date Reported Comments Source No Known Allergies Drug allergy (disorder) active 03/27/2008 [facility] Immunizations Combined list of available immunizations from the Department of Defense and Veterans Affairs facilities. 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) complet ed tuberculi n skin test; purified protein derivativ e solution, intraderm al [facility] tuberculin skin test; purified protein derivative solution, intradermal 1 2007 Unknown, Provider [id number] 96 Sanofi Pasteur ([facility]) complet ed tuberculi n skin test; purified protein derivativ e solution, intraderm al [facility] tuberculin skin test; purified protein derivative solution, intradermal 1 2007 Unknown, Provider [id number] 96 Sanofi Pasteur ([facility]) complet ed tuberculi n skin test; purified protein derivativ e solution, intraderm al [facility] tuberculin skin test; purified protein derivative solution, intradermal 1 2007 Unknown, Provider [id number] 96 [employer] [employer] ([facility]) complet ed tuberculi n skin test; purified protein derivativ e solution, intraderm al DoD poliovirus vaccine, inactivated 2 2007 Unknown, Provider [id number] [employer] ([facility]) complet ed polioviru s vaccine, inactivat ed DoD rabies vaccine, for intramuscular injection RETIRED CODE 1 2007 Unknown, Provider [id number] 18 [employer] ([facility]) complet ed rabies vaccine, for intramusc ular injection RETIRED CODE DoD typhoid Vi capsular polysaccharid e vaccine 1 2007 Unknown, Provider [id number] 101 [employer] ([facility]) complet ed typhoid Vi capsular polysacch aride vaccine DoD influenza virus vaccine, split virus (incl. purified surface antigen)-reti red CODE 1 2006 [id number] 15 [facility] ([facility]) complet ed influenza virus vaccine, split virus (incl. purified surface antigen)- retired CODE DoD anthrax vaccine 4 2005 [id number] [facility] [place] ([place]) complet ed anthrax vaccine DoD influenza virus vaccine, split virus (incl. purified surface antigen)-reti red CODE 1 2004 [id number] 15 [facility] ([facility]) complet ed influenza virus vaccine, split virus (incl. purified surface antigen)- retired CODE DoD influenza virus vaccine, whole virus 1 2004 [id number] 16 [facility] ([facility]) complet ed influenza virus vaccine, whole virus DoD anthrax vaccine 3 2004 [id number] [facility] [place] ([place]) complet ed anthrax vaccine DoD anthrax vaccine 2 2004 [id number] [facility]) complet ed anthrax vaccine DoD typhoid vaccine, parenteral, other than acetone-kille d, dried 1 2004 [id number] 41 [employer] [employer]aste[employer] ([facility]) complet ed typhoid vaccine, parentera l, other than acetone-k illed, dried DoD vaccinia (smallpox) vaccine 1 2004 [id number] 75 [employer] ([facility]) complet ed vaccinia (smallpox ) vaccine DoD anthrax vaccine 1 2004 [id number] [facility] [place] ([facility]) complet ed anthrax vaccine DoD tuberculin skin test; purified protein derivative solution, intradermal 1 2004 Unknown, Provider [id number] 96 Sanofi Pasteur ([facility]) complet ed tuberculi n skin test; purified protein derivativ e solution, intraderm al DoD influenza virus vaccine, live, attenuated, for intranasal use 0 2003 [id number] 111 [employer]. (MED) complet ed influenza virus vaccine, live, attenuate d, for intranasa l use DoD tuberculin skin test; purified protein derivative solution, intradermal 1 2003 Unknown, Provider [id number] 96 Sanofi Pasteur ([facility]) complet ed tuberculi n skin test; purified protein derivativ e solution, intraderm al DoD influenza virus vaccine, whole virus 0 2002 [id number] [employer] ([facility]) complet ed influenza virus vaccine, whole virus DoD influenza virus vaccine, whole virus 0 2002 [id number] [employer] ([facility]) complet ed influenza virus vaccine, whole virus DoD typhoid vaccine, parenteral, other than acetone-kille d, dried 0 2002 [id number] 41 Sanofi Pasteur ([facility]) complet ed typhoid vaccine, parentera l, other than acetone-k illed, dried DoD hepatitis B vaccine, adult dosage 2 2002 [id number] 43 [employer] ([facility]) complet ed hepatitis B vaccine, adult dosage DoD tuberculin skin test; purified protein derivative solution, intradermal 3 2002 Unknown, Provider [id number] 96 Sanofi Pasteur ([facility]) complet ed tuberculi n skin test; purified protein derivativ e solution, intraderm al DoD hepatitis B vaccine, adult dosage 3 2002 [id number] 43 [employer] ([facility]) complet ed hepatitis B vaccine, adult dosage DoD influenza virus vaccine, whole virus 0 2001 [id number] 16 Sanofi Pasteur ([facility]) complet ed influenza virus vaccine, whole virus DoD hepatitis B vaccine, adult dosage 1 2001 [id number] 43 [employer] ([facility]) complet ed hepatitis B vaccine, adult dosage DoD varicella virus vaccine 1 2001 21 () Not Given varicella virus vaccine DoD hepatitis A vaccine, adult dosage 2 2001 [id number] 52 [employer] ([facility]) complet ed hepatitis A vaccine, adult dosage DoD tetanus and diphtheria toxoids, adsorbed, preservative free, for adult use (2 Lf of tetanus toxoid and 2 Lf of diphtheria toxoid) 0 2001 [id number] 09 Sanofi Pasteur ([facility]) complet ed tetanus and diphtheri a toxoids, adsorbed, preservat chris free, for adult use (2 Lf of tetanus toxoid and 2 Lf of diphtheri a toxoid) DoD influenza virus vaccine, whole virus 0 2001 [id number] 16 Sanofi Pasteur ([facility]) complet ed influenza virus vaccine, whole virus DoD yellow fever vaccine 0 2000 [id number] [place] (CON) complet ed yellow fever vaccine DoD typhoid vaccine, parenteral, other than acetone-kille d, dried 0 2000 [id number] [place] (CON) complet ed typhoid vaccine, parentera l, other than acetone-k illed, dried DoD tuberculin skin test; purified protein derivative solution, intradermal 2 2000 Unknown, Provider [id number] 96 Sanofi Pasteur ([facility]) complet ed tuberculi n skin test; purified protein derivativ e solution, intraderm al DoD meningococcal polysaccharid e vaccine (MPSV4) 0 2000 [id number] [place] (CON) complet ed meningoco ccal [...] ADM Date DC Date Status Disposition Source [facility]) OUTPATIENT [id number] JEREMY WALLS 02/08 Released w/o Limitations [facility](F amily Practic e) [facility]) OUTPATIENT [id number] annual and control MIYATANA SUNSHINE Zachary 05/11 Released w/o Limitations [facility](Dys plasia Clinic) OUTPATIENT [id number] hgsil 05/14 GERA MATHIS Jacek 05/22 Released w/o Limitations [facility](D ysplasi a Clinic) [facility]) OUTPATIENT [id number] LEEP in Minor Room at 1300 GERA MATHIS Jacek 06/21 Released w/o Limitations [facility](D ysplasi a Clinic) [facility]) TELE CONSULT [id number] LEEP results GERA MATHIS Jacek 06/26 [facility]) OUTPATIENT [id number] F/U LEEP DOMINIC MATHISBLAIR Read 07/17 Released w/o Limitations [facility](D ysplasi a Clinic) [facility](Opt ometry ([facility]) ) OUTPATIENT [id number] eye exam DOMENICO GORMAN 08/29 Released w/o Limitations [facility](O ptometr y ([facility](Dys [facility]asia Clinic) OUTPATIENT [id number] COLPO/P ILL GERA MATHIS Jacek 11/01 Released w/o Limitations [facility](D ysplasi a Clinic) [facility]) TELE CONSULT [id number] pap results GERA MATHIS Jacek 11/12 [facility](Marifer sah Pod) TELE CONSULT [id number] sep. LEONIE Mena 02/26 [facility](S ilver Pod) [facility](Marifer ash Pod) OUTPATIENT [id number] separat ion paper work, no PE availab KARYNA Gtz 03/01 Released w/o Limitations [facility](S ilver Pod) [facility](Dys plasia Clinic) OUTPATIENT [id number] colpo/p ill GERA MATHIS Jacek 06/06 Released w/o Limitations [facility](D ysplasi a Clinic) [address] [place] [address]([facility]) TELE CONSULT [id number] pap results GERA MATHIS Jacek 06/[address] [place] [address]([facility]) [address] [place] [address]([facility] Clinic) OUTPATIENT [id number] colpo/p ill ADÁN PATTON 10/10 Released w/o Limitations [facility](D ysplasi a Clinic) [facility](Inf ectious Disease Clinic [facility]) OUTPATIENT [id number] Travel to [facility] NEIL BURRELL Carly 10/21 Released w/o Limitations [facility](I nfectio us Disease Clinic [facility]) [facility](Opt ometry ([facility]) ) OUTPATIENT [id number] eye exam JENIFER PADILLA 11/04 Released w/o Limitations [facility](O ptometr y ([facility])) [facility](Jose matology) OUTPATIENT [id number] mole on side and back MK CHANDRA 12/08 Released w/o Limitations [facility](D ermatol ogvelasquez) [facility] matology) OUTPATIENT [id number] laser test - nadia a V-beam MK CHANDRA 12/19 Released w/o Limitations [facility](D ermatol ogy) [address] [place] [address]([facility]) OUTPATIENT [id number] discuss control DELFINO GAINES 01/26 Released w/o Limitations [facility]PATIENT [id number] laser hair MK CHANDRA 02/02 Released w/o Limitations [facility](D ermatol ogy) [facility](Jose matology) OUTPATIENT [id number] laser -m ark MK CHANDRA 03/27 Released w/o Limitations [facility](D ermatol ogy) [facility] matology) OUTPATIENT [id number] laser treatme nt MK CHANDRA 05/01 Released w/o Limitations [facility](D ermatol ogy) [facility]([place] e Pod) OUTPATIENT [id number] ANTONIO Sarabia 05/06 Released w/o Limitations [facility](B lue Pod) [facility] Psych[facility] y) OUTPATIENT [id number] anxiety symptom s MAHAD PERLA 05/13 Released w/o Limitations [facility] Psychia try) [facility]) OUTPATIENT [id number] MAHAD PERLA 05/29 Released w/o Limitations [facility](M ent[facility] Health Psychia try) [facility](Psy chiatry 009) OUTPATIENT [id number] Please give MIQUEL GUTIERREZ 06/12 Released w/o Limitations [facility](P sychiat ry 0095) [facility]) OUTPATIENT [id number] annual papsmea THOMAS Gilbert 06/16 Released w/o Limitations [facility](Psy chiatry 0095) OUTPATIENT [id number] MIQUEL TANG 06/19 Released w/o Limitations [facility](P sychiat ry 0095) [address] [place] [address]([place] e Pod) TELE CONSULT [id number] test for varicel la, hep b, mmr tidor-r equest- all SUSHMA COFFMAN D 07/31 [facility](B lue Pod) [facility]([place]) TELE CONSULT [id number] pt wants to know if Sushma receive d her fax SUSHMA COFFMAN D 08/13 [facility](B lue Pod) [address] [place] [address](Psy chiatry 0095) TELE CONSULT [id number] appoint ment MAHAD PERLA 10/13 Referred for Appointment [facility](P sychiat ry 0095) [address] [place] [address](Psy chiatry 0095) TELE CONSULT [id number] phone call MAHAD PERLA 10/16 Referred for Appointment [facility](P sychiat ry 0095) [facility](Psy chiatry 0095) TELE CONSULT [id number] needs meds before f/u appt PERLAFARHATZachary Linares 10/27 Referred for Appointment [facility](P sychiat ry 0095) [facility] OUTPATIENT [id number] laser treatme nt MK CHANDRA 11/09 Released w/o Limitations [facility](D ermatol ogy) [facility](Psy chiatry 0095) OUTPATIENT [id number] follow up MAHAD PERLA 11/16 Released w/o Limitations [facility](P sychiat ry 0095) [facility](Psy chiatry 0095) OUTPATIENT [id number] MAHAD PERLA 12/11 Released w/o Limitations [facility](P sychiat ry 0095) [facility] OUTPATIENT [id number] laser MK CHANDRA 12/21 Released w/o Limitations [facility](D ermatol ogy) [facility] OUTPATIENT [id number] laser hair removal MK CHANDRA 04/05 Released w/o Limitations [facility](D ermatol ogy) [facility](Psy chiatry 0095) OUTPATIENT [id number] NICOLÁS VIRK 05/05 Released w/o Limitations [facility](P sychiat ry 0095) [facility]) TELE CONSULT [id number] bridge HAILEY York 05/31 [facility](Psy chiatry 0095) TELE CONSULT [id number] APPOINT MENT NICOLÁS VIRK 07/13 Referred for Appointment [facility](P sychiat ry 0095) [facility]) OUTPATIENT [id number] OREN Lockhart 07/20 Released w/o Limitations [facility]) OUTPATIENT [id number] lab results - abnorma TESS Nicole V 07/27 Released w/o Limitations [facility](B lue Pod) [address] [place] [address](Psy chiatry 0095) TELE CONSULT [id number] meds and appt? NICOLÁS VIRK 08/10 Referred for Appointment [facility](P sychiat ry 0095) [address] [place] [address](Psy chiatry 0095) OUTPATIENT [id number] NICOLÁS VIRK 08/27 Released w/o Limitations [address] [place] [address](P sychiat ry 0095) [facility] Outpatient Encounter [id number] 11/27 [facility] Outpatient Encounter [id number] 04/01 [facility] Outpatient Encounter [id number] 04/01 [facility] COLLJ & INTERPJ DATA EA 30 D [id number] Diagnos is: ICD-10- CM Z13.9 Encount er for screeni ng, unspeci fied
PRATEEK YANEZ 04/08 [facility] PSYCH DIAGNOSTIC EVALUATION [id number] Diagnos is: ICD-10- CM F43.22 Adjustm ent disorde r with anxiety
JASIEL LEMUS 04/08 [facility] Outpatient Encounter [id number] MAY MAIN 04/28 [facility] Outpatient Encounter [id number] 04/28 [facility] Outpatient Encounter [id number] 05/02 [facility] PSYTX W PT 60 MINUTES [id number] Diagnos is: ICD-10- CM F43.22 Adjustm ent disorde r with anxiety
ANJELICA MARMOLEJO 05/26 [facility] Outpatient Encounter [id number] DULCE SAENZ 06/02 [facility] Procedures Combined list of: 1) Procedures from Department of [facility] Affairs facilities going back up to thelast 18 months, not all [place] non-surgical procedures are included; 2) All procedures from the Department of Defense facilities. Procedure Procedure Type Code Date Perfomer Comments Sourc e IMMUNIZATION ADMINISTRATION (INCLUDES PERCUTANEOUS, INTRADERMAL, SUBCUTANEOUS, OR INTRAMUSCULAR INJECTIONS); 1 VACCINE (SINGLE OR COMBINATION VACCINE/TOXOID) 03/17/[address] [facility] SCREENING TEST OF VISUAL ACUITY, QUANTITATIVE, BILATERAL 02/09/[address] [facility] SCREENING TEST OF VISUAL ACUITY, QUANTITATIVE, BILATERAL 02/24/[address] [facility] SCREENING TEST OF VISUAL ACUITY, QUANTITATIVE, BILATERAL 02/10/[address] [facility] SCREENING TEST OF VISUAL ACUITY, QUANTITATIVE, BILATERAL 10/14/19 03 DoD PHYS/OTH QUALIFIED HEALTH AIRCRAFT STRUCTURE MECHANIC QUALIFIED,EDUCATION,T RAIN,LICENSURE/REGULA TION (WHEN APPLICABLE) EDUC SER RENDERED TO PATS IN A GRP SETTING (EG,,OBESITY, OR DIABETIC INSTRUCT) 10/24/19 02 DoD UNLISTED PROCEDURE, ANTERIOR SEGMENT OF EYE 10/18/19 02 DoD INDIVIDUAL PSYCHOTHERAPY, INSIGHT ORIENTED, BEHAVIOR MODIFYING AND/OR SUPPORTIVE, IN AN OFFICE OR OUTPATIENT FACILITY, APPROXIMATELY 20 TO 30 MINUTES [id number] W THE PATIENT; W MED EVAL & MGT SER 08/27/19 10 DoD SCREENING PAPANICOLAOU SMEAR; OBTAINING, PREPARING AND CONVEYANCE OF CERVICAL OR VAGINAL SMEAR TO LABORATORY 07/20/19 10 DoD INDIVIDUAL PSYCHOTHERAPY, INSIGHT ORIENTED, BEHAVIOR MODIFYING AND/OR SUPPORTIVE, IN AN OFFICE OR OUTPATIENT FACILITY, APPROXIMATELY 45 TO 50 MINUTES [id number] W THE PATIENT; W MED EVAL & [...] OUTPATIENT FACILITY, APPROXIMATELY 20 TO 30 MINUTES [id number] W THE PATIENT; W [facility] EVAL & MGT SER 12/12/19 09 DoD INDIVIDUAL PSYCHOTHERAPY, INSIGHT ORIENTED, BEHAVIOR MODIFYING AND/OR SUPPORTIVE, IN AN OFFICE OR OUTPATIENT FACILITY, APPROXIMATELY 20 TO 30 MINUTES [id number] W THE PATIENT; W MED EVAL & MGT SER 11/17/19 09 DoD DESTRUCTION OF CUTANEOUS VASCULAR PROLIFERATIVE LESIONS (EG, LASER TECHNIQUE); LESS THAN 10 SQ CM 11/10/19 09 DoD INDIVIDUAL PSYCHOTHERAPY, INSIGHT ORIENTED, BEHAVIOR MODIFYING AND/OR SUPPORTIVE, IN AN OFFICE OR OUTPATIENT FACILITY, APPROXIMATELY 45 TO 50 MINUTES [id number] WITH THE PATIENT 06/19/[address] [facility] SCREENING PAPANICOLAOU SMEAR; OBTAINING, PREPARING AND CONVEYANCE OF CERVICAL OR VAGINAL SMEAR TO LABORATORY 06/16/20 08 DoD INDIVIDUAL PSYCHOTHERAPY, INSIGHT ORIENTED, BEHAVIOR MODIFYING AND/OR SUPPORTIVE, IN AN OFFICE OR OUTPATIENT FACILITY, APPROXIMATELY 75 TO 80 MINUTES [id number] WITH THE PATIENT 06/12/20 08 DoD INDIVIDUAL PSYCHOTHERAPY, INSIGHT ORIENTED, BEHAVIOR MODIFYING AND/OR SUPPORTIVE, IN AN OFFICE OR OUTPATIENT FACILITY, APPROXIMATELY 20 TO 30 MINUTES [id number] W THE PATIENT; W [facility] EVAL & MGT SER 05/29/[address] [facility] PSYCHIATRIC DIAGNOSTIC INTERVIEW EXAMINATION 05/13/20 08 DoD [...] OCTOPUS 3 OR 7 EQUIVALENT) 11/05/[address] [facility] COLPOSCOPY OF THE CERVIX INCLUDING UPPER/ADJACENT VAGINA; 10/11/[address] [facility] COLPOSCOPY OF THE CERVIX INCLUDING UPPER/ADJACENT VAGINA; 06/06/[address] [facility] CYTOPATHOLOGY, SMEARS, CERVICAL OR VAGINAL, UP TO THREE SMEARS; SCREENING BY TAP BUILDER UNDER PHYSICIAN SUPERVISION 11/02/19 07 DoD FITTING OF SPECTACLES, EXCEPT FOR APHAKIA; MONOFOCAL 08/29/[address] [facility] ENDOCERVICAL CURETTAGE (NOT DONE PART OF A DILATION AND CURETTAGE) 06/21/[address] [facility] COLPOSCOPY OF THE CERVIX INCLUDING UPPER/ADJACENT VAGINA; WITH BIOPSY(S) OF THE CERVIX AND ENDOCERVICAL CURETTAGE 05/22/[address] [facility] SMEAR, PRIMARY SOURCE WITH INTERPRETATION; WET MOUNT FOR INFECTIOUS AGENTS (EG, SALINE, ALISHA INK, MEEK PREPS) 05/11/20 06 DoD Psychotherapy Individual Approx 30 Min W/ Medical Evaluation & Management Psychotherapy Individual Approx 30 Min W/ Medical Evaluation & Management [id number] 09/09/19 10 NICOLÁS VIRK Screening papanicolaou smear; obtaining, preparing and conveyance of cervical or vaginal smear to laboratory 07/20/[address] [facility] Psychiatric Diagnostic Evaluation Comprehensive Examination Psychiatric Diagnostic Evaluation Comprehensive Examination [id number] 05/12/20 09 NICOLÁS VIRK Destruction Of Cutaneous Vascular Lesions Le Than 10 Sq Cm Destruction Of Cutaneous Vascular Lesions Less Than 10 Sq Cm 08807 04/05/20 09 MK CHANDRA Psychotherapy Individual Approx 30 Min W/ Medical Evaluation & Management Psychotherapy Individual Approx 30 Min W/ Medical Evaluation & Management 76492 12/24/19 09 MAHAD PERLA Destruction Of Cutaneous Vascular Lesions Le Than 10 Sq Cm Destruction Of Cutaneous Vascular Lesions Less Than 10 Sq Cm 33596 12/22/19 09 MK CHANDRA Psychotherapy Individual Approx 30 Min W/ Medical Evaluation & Management Psychotherapy Individual Approx 30 Min W/ Medical Evaluation & Management 76077 12/15/19 09 MAHAD PERLA Destruction Of Cutaneous Vascular Lesions Le Than 10 Sq Cm Destruction Of Cutaneous Vascular Lesions Less Than 10 Sq Cm 54193 11/10/19 09 MK CHANDRA Psychotherapy Individual Approximately 45 Minutes Psychotherapy Individual Approximately 45 Minutes [id number] 06/22/20 08 MIQUEL TANG Physician Supervised Specimen Handling / Transfer: Office To Lab Physician Supervised Specimen Handling / Transfer: Office To Lab [id number] 06/16/20 08 THOMAS BANKS Screening papanicolaou smear; obtaining, preparing and conveyance of cervical or vaginal smear to laboratory 06/16/20 08 THOMAS BANKS Psychotherapy Individual Approximately 75-80 Minutes Psychotherapy Individual Approximately 75-80 Minutes 36097 06/15/[address] [facility] Integumentary Procedures (Therapeutic) Integumentary Procedures (Therapeutic) 75518 05/01/20 08 MK CHANDRA Integumentary Procedures (Therapeutic) Integumentary Procedures (Therapeutic) 49344 03/27/20 08 MK CHANDRA Integumentary Procedures (Therapeutic) Integumentary Procedures (Therapeutic) 91315 02/03/20 08 MK CHANDRA Integumentary Procedures (Therapeutic) Integumentary Procedures (Therapeutic) 50746 12/20/19 08 MK CHANDRA Shaving Of Lesion Trunk .6 to 1cm Shaving Of Lesion Trunk .6 to 1cm 87786 12/09/19 08 MK CHANDRA Shaving Of Lesion Trunk Up to .5cm Shaving Of Lesion Trunk Up to .5cm 04758 12/09/19 08 MK CHANDRA Ophthalmological Prior Patient Start Comprehensive Care Ophthalmological Prior Patient Start Comprehensive Care 60807 11/05/19 08 JENIFER PADILLA Determination Of Refractive State Determination Of Refractive State 57104 11/05/19 08 JENIFER PADILLA Visual Sanderson Test Limited Examination Visual Sanderson Test Limited Examination [id number] 11/05/19 08 JENIFER PADILLA Colposcopy Colposcopy 09231 10/11/19 [address] [facility] Cervical Pap Smear Cervical Pap Smear 91927 10/26 [address] [facility] Colposcopy Colposcopy 03332 06/06/20 07 GERA MATHIS Cervical Pap Smear Cervical Pap Smear [address] [facility] Colposcopy Colposcopy 00612 11/02/[address] [facility] Cervical Pap Smear Cervical Pap Smear 32208 07 GERA MATHIS Ophthalmological New Patient Start Comprehensive Care Ophthalmological New Patient Start Comprehensive Care 74449 09/01/19 07 DOMENICO GORMAN Determination Of Refractive State Determination Of Refractive State 06898 09/01/19 07 DOMENICO GORMAN Spectacles Services Fitting Monofocal Except For Aphakia Spectacles Services Fitting Monofocal Except For Aphakia 37884 09/01/[address] [facility] Colposcopy With Loop Electrode Excision of the Cervix Colposcopy With Loop Electrode Excision of the Cervix 97081 06/21/[address] [facility] Endocervical Curettage (Not D&C) Endocervical Curettage (Not D&C) 71177 06/21/[address] [facility] Colposcopy With Biopsy Colposcopy With Biopsy [id number] 05/22/[address] [facility] Cervical Pap Smear Cervical Pap Smear 90563 09/[address] [facility] Vaginal Wet [place] Smear Vaginal Wet [place] Smear 47040 05/11/[address] [facility] Social History Combined list of available smoking, tobacco, and other social history from Department of Defense and Veterans Affairs facilities. Social History Type Response Date Comment Sourc e Tobacco smoking status [facility] NEVER USED 04/08/2024 [facility] This section is an empty social history section. [facility] Plan of Care List of future care activities from Department of Veterans Affairs facilities. Additional future care activities may be listed in the Assessment and Plan section. Date/Time Care Activity Care Activity Detail Facili ty 08/07/2024 AMBULATORY - PSYCHIATRY [facility]
== END 2024-07-21 10:37 | disposition home or self-care (01) ==
LOC: ED 10:13
PROVIDERS: Emergency Provider Student in an Organized Health Care Education/Training Program; PCP Physician Assistant Medical
DX: J09.X9 Influenza due to identified novel influenza A virus with other manifestations (principal)
CPT/HCPCS: 71046; 99283

== ENCOUNTER 2024-07-24 14:56 | Outpatient (CLI) | payer MEDICAID, SELFPAY | END 2024-07-24 14:57 | disposition home or self-care (01) | LOC: NFLDREF 07-28 02:55 | PROVIDERS: PCP Physician Assistant Medical; Referring Provider Physician Assistant Medical; Visit Provider Physician Assistant Medical | DX: R79.89 Other specified abnormal findings of blood chemistry (principal) | CPT/HCPCS: 84439; 84443; 84480; 84481; 84482 ==

== ENCOUNTER 2025-04-09 10:47 | Outpatient (CLI) | payer MEDICAID, SELFPAY | END 2025-04-09 10:48 | disposition home or self-care (01) | LOC: FRMREF 10:48 | PROVIDERS: PCP Physician Assistant Medical; Visit Provider Family Medicine | DX: Z13.6 Encounter for screening for cardiovascular disorders (principal); Z00.00 Encounter for general adult medical examination without abnormal findings | CPT/HCPCS: 80053; 80061; 86480 ==